=== PATIENT | female | born 1965 | race Caucasian/White ===

== ENCOUNTER 2023-02-13 13:37 | Outpatient (OUT) | payer BC, SELFPAY ==
--- NOTE | 2023-02-13 13:39 | MM_ITS ---
Patient: ROLAND CAMERON Exam Date: 02/13/2023 : 1965 Gender:F Ordering : DR Constantin Washington . Admission #: [id number] Family : Order #: [id number] CLICK HERE TO VIEW EXAM RADIOLOGY REPORT PROCEDURE: MM TOMOSYNTHESIS SCREENING BI COMPARISON: MG MAMM SCREEN ANNA W CAD, 01/21/2020. MG MAMM SCREEN 3D ANNA CAD, 02/10/2022. INDICATIONS: Screening mammogram Z12.31 Calculator Name NCI Breast Cancer Risk Assessment Tool 5 Year Breast Cancer Risk 1.80% Lifetime Breast Cancer Risk 10.00% Personal Breast Cancer No Personal Ovarian Cancer No Treatments None Family Cancers Father with lung cancer at age 73. LOCATION: [facility] BREAST COMPOSITION: Scattered areas fibroglandular density. FINDINGS: DIAGNOSTIC CATEGORY 2--BENIGN FINDING. NO CHANGE FROM COMPARISON. Scattered benign-appearing calcifications are present. Scattered benign-appearing lymph nodes are present. RIGHT BREAST: No significant suspicious finding. Focal asymmetry, upper outer quadrant, mid breast, stable LEFT BREAST: No significant suspicious finding. Stable micro clip marker upper outer quadrant, posterior breast RECOMMENDATIONS: ROUTINE MAMMOGRAM AND CLINICAL EVALUATION IN 12 MONTHS. PLEASE NOTE: A NORMAL MAMMOGRAM DOES NOT EXCLUDE THE POSSIBILITY OF BREAST CANCER. A CLINICALLY SUSPICIOUS PALPABLE LUMP SHOULD BE BIOPSIED. Dictated by: Satya Crawford MD on 02/14/2023 at 09:04 Approved by: Satya Crawford MD on 02/14/2023 at 09:06
== END 2023-02-13 13:38 | disposition home or self-care (01) ==
LOC: MAMMO 13:37
PROVIDERS: PCP Family Medicine; Visit Provider Family Medicine
DX: Z12.31 Encounter for screening mammogram for malignant neoplasm of breast (principal); Z80.1 Family history of malignant neoplasm of trachea, bronchus and lung
CPT/HCPCS: 77063; 77067

== ENCOUNTER 2023-03-01 14:17 | Emergency (ER) | payer BC, SELFPAY ==
[2023-03-01 14:24] VITALS: BP 165/99; PULSE 84; RESP 16; TEMP 36.7; O2SAT 94; BMI 39.4
--- NOTE | 2023-03-01 14:34 | ED_ITS ---
HPI - Skin/Abscess/Foreign Bdy General Chief complaint: Extremity Injury, Lower Stated complaint: RIGHT LEG PAIN Time Seen by Provider: 03/01/23 14:20 History of Present Illness HPI narrative: patient is a 57-year-old female who presents to the emergency department for the evaluation of a cystic area to the right anterior tibia that has been present for two years. She states she has an appointment next month with a plastic surgeon to have the area removed but in thee last several days it has become more swollen, red. She has had no fevers or vomiting. No medications taken prior to arrival. There has been no significant drainage. Patient's states he tried to open it last night with a needle. Related Data Previous Rx's Medication Instructions Recorded clindamycin HCl 150 mg capsule 300 mg PO Q6H 10 days #80 caps 03/01/23 hydrocodone 5 mg-acetaminophen 325 1 tab PO Q6H PRN pain #12 tabs 03/01/23 mg tablet ondansetron 4 mg disintegrating 4 mg PO Q6H PRN nausea and 03/01/23 tablet vomiting #12 tabs Allergies Allergy/AdvReac Type Severity Reaction Status Date / Time No Known Drug Allergies Allergy Verified 03/01/23 14:28 Review of Systems ROS Constitutional Denies: fever or chills Respiratory Denies: shortness of breath Gastrointestinal Denies: nausea or vomiting Integumentary/Breast Reports: skin tenderness and skin swelling; Denies: rash Hematologic/Lymphatic Denies: easy bruising Exam Narrative Exam Narrative: Gen.: Awake, alert, in no distress Head: Normocephalic, atraumatic ENT: Moist mucous membranes Respiratory: No respiratory distress Extremities: Moves extremities equally Psych: Normal mood and affect Neuro: No focal neuro deficit Skin: Warm, dry, intact; right anterior midshaft tibia with a 2 cm raised cystic area that is fluctuant, surrounding redness of the skin of the tibia. No red streaking or circumferential erythema. Constitutional Vital Signs, click to edit/add: Last Vital Signs Temp 98.0 F 03/01/23 14:24 Pulse 84 03/01/23 14:24 Resp 16 03/01/23 14:24 BP 165/99 H 03/01/23 14:24 Pulse Ox 94 L 03/01/23 14:24 O2 Del Method Room Air 03/01/23 14:24 Course Vital Signs Vital signs: Vital Signs Temperature 98.0 F 03/01/23 14:24 Pulse Rate 84 03/01/23 14:24 Respiratory Rate 16 03/01/23 14:24 Blood Pressure 165/99 H 03/01/23 14:24 Pulse Oximetry 94 L 03/01/23 14:24 Oxygen Delivery Method Room Air 03/01/23 14:24 Temperature 98.0 F 03/01/23 14:24 Pulse Rate 84 03/01/23 14:24 Respiratory Rate 16 03/01/23 14:24 Blood Pressure 165/99 H 03/01/23 14:24 Pulse Oximetry 94 L 03/01/23 14:24 Oxygen Delivery Method Room Air 03/01/23 14:24 MDM - Skin/Abscess/Foreign Bdy MDM Narrative Medical decision making narrative: the infected cyst was opened in the Emergency Room, clear serous fluid was expressed with improvement of the swollen area. She strongly encouraged follow- up with plastic surgery and counseled that the cystic area may fill up again. She is treated for secondary infection with clindamycin and [place] to follow-up with plastic surgery. Return to the Emergency Room if symptoms change or worsen. Wound culture was obtained. Incision and drainage: A single layer of iodine was used to prep the area. Drapes were placed to ensure isolation of the abscess and surrounding skin tissu e. A regional field block was performed with 1% lidocaine. Incision was made with an 11 blade to the full dimension of the abscess, serosanguineous fluid was drained. Cultures were obtained and sent to the lab. A dry sterile dressing was placed. Patient tolerated the procedure well and will be discharged with clindamycin and a short course of analgesic medications. Medical Records Attestation: I reviewed the patient's medical records. Discharge Plan Discharge Chief Complaint: Extremity Injury, Lower Clinical Impression: Infected cyst of skin Patient Disposition: Home, Self-Care Time of Disposition Decision: 14:51 Condition: Good Prescriptions / Home Meds: New hydrocodone-acetaminophen 5-325 mg tablet 1 tab PO Q6H PRN (Reason: pain) Qty: 12 0RF Rx Instructions: DX: L02.415 clindamycin HCl 150 mg capsule 300 mg PO Q6H 10 Days Qty: 80 0RF ondansetron 4 mg tablet,disintegrating 4 mg PO Q6H PRN (Reason: nausea and vomiting) Qty: 12 0RF Instructions: Cyst (ED) Additional Instructions: Follow up with Dr. Wolfe as scheduled Stand Alone Forms: Portal Instructions Referrals: Constantin Washington MD [Primary Care Provider] - 1 week
[2023-03-01] MEDS: LIDOCAINE HCL 1% 100 MG/10 ML MDV INJ (14:41)
[2023-03-01 15:05] VITALS: BP 132/88; PULSE 79; O2SAT 96
== END 2023-03-01 15:06 | disposition home or self-care (01) ==
PROVIDERS: Emergency Provider Emergency Medicine; PCP Family Medicine
DX: L72.9 Follicular cyst of the skin and subcutaneous tissue, unspecified (principal)
CPT/HCPCS: 10060; 87070; 99283

== ENCOUNTER 2024-03-27 14:07 | Outpatient (OUT) | payer BC, SELFPAY ==
--- NOTE | 2024-03-27 14:14 | MM_ITS ---
Patient Name: ROLAND CAMERON MR#: [id number] : 1965 Exam Date: 03/27/2024 Ordering Doctor: DR Constantin Washington . RADIOLOGY REPORT PROCEDURE: MM TOMOSYNTHESIS SCREENING BI COMPARISON: MM TOMOSYNTHESIS SCREENING BI, 02/13/2023. MG MAMM SCREEN 3D ANNA CAD, 02/10/2022. MG MAMM SCREEN ANNA W CAD, 01/21/2020. MG MAMM ANNA SCRN W CAD DIG, 01/01/2013. INDICATIONS: Screening Calculator Name NCI Breast Cancer Risk Assessment Tool 5 Year Breast Cancer Risk 1.80% Lifetime Breast Cancer Risk 9.80% Personal Breast Cancer No Personal Ovarian Cancer No Treatments None Family Cancers Father with lung cancer at age 73. LOCATION: [facility] BREAST COMPOSITION: There are scattered areas of fibroglandular density. FINDINGS: DIAGNOSTIC CATEGORY 1--NEGATIVE. RIGHT BREAST: No significant suspicious finding. No significant change has occurred. LEFT BREAST: No significant suspicious finding. No significant change has occurred. RECOMMENDATIONS: ROUTINE MAMMOGRAM AND CLINICAL EVALUATION IN 12 MONTHS. PLEASE NOTE: A NORMAL MAMMOGRAM DOES NOT EXCLUDE THE POSSIBILITY OF BREAST CANCER. A CLINICALLY SUSPICIOUS PALPABLE LUMP SHOULD BE BIOPSIED. Dictated by: Everett Gutierres M.D. on 03/31/2024 at 18:55 Approved by: Everett Gutierres M.D. on 03/31/2024 at 18:59
== END 2024-03-27 14:08 | disposition home or self-care (01) ==
LOC: MAMMO 14:07
PROVIDERS: PCP Family Medicine; Visit Provider Family Medicine
DX: Z12.31 Encounter for screening mammogram for malignant neoplasm of breast (principal); Z80.1 Family history of malignant neoplasm of trachea, bronchus and lung
CPT/HCPCS: 77063; 77067

== ENCOUNTER 2024-04-26 08:51 | Outpatient (OUT) | payer BC, SELFPAY ==
[2024-04-26 09:30] LABS: Estimated Average Glucose 214 mg/dL; Glycohemoglobin A1C 9.1 % (4.5-6.2)
== END 2024-04-26 08:52 | disposition home or self-care (01) ==
LOC: LAB 08:53
PROVIDERS: PCP Family Medicine; Visit Provider Family Medicine
DX: E11.65 Type 2 diabetes mellitus with hyperglycemia (principal)
CPT/HCPCS: 36415; 83036

== ENCOUNTER 2024-05-21 09:01 | Outpatient (OUT) | payer BC, SELFPAY ==
--- NOTE | 2024-05-21 09:04 | ECG_ITS ---
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
--- NOTE | 2024-05-21 09:44 | P.GSHP_ITS ---
History of Present Illness History of Present Illness Chief complaint: Ureteral stone with hydronephrosis Narrative: Presents to preadmission testing for scheduled cystoscopy right ureteroscopy, laser lithotripsy right stent exchange with a string stent scheduled with Dr. Rosemary Jamil on 06/12/2024 for the diagnosis of ureteral Stone with hydronephrosis and right-sided flank pain Review of Systems ROS Narrative REVIEW OF SYSTEMS: Negative except as stated in HPI, ten or more systems reviewed. Constitutional: No fever, chills, weakness ENT: No sore throat or epistaxis Cardiovascular: No edema, chest pain, palpitations, or activity intolerance Respiratory: No shortness of breath, cough, or wheezing Musculoskeletal: No joint pain or swelling Gastrointestinal: No abdominal pain, constipation, diarrhea, or vomiting Genitourinary: No dysuria or hematuria complains of right-sided flank pain intermittently Neurological: No numbness, tingling, weakness, or headache Psychiatric: No mood changes PFSH PFSH Medical History (Updated 05/21/24 @ 09:41 by Lucretia Rodriguez) Infected cyst of skin ?L72.9 - Follicular cyst of the skin and subcutaneous tissue, unspecified (ICD-10) ?L08.9 - Local infection of the skin and subcutaneous tissue, unspecified (ICD-10) Panic attacks ?F41.0 - Panic disorder [episodic paroxysmal anxiety] (ICD-10) Seasonal allergies ?J30.2 - Other seasonal allergic rhinitis (ICD-10) Urinary urgency ?R39.15 - Urgency of urination (ICD-10) Urge incontinence ?N39.41 - Urge incontinence (ICD-10) Unspecified urethral stricture, female ?N35.92 - Unspecified urethral stricture, female (ICD-10) Soft tissue mass ?M79.89 - Other specified soft tissue disorders (ICD-10) Overactive bladder ?N32.81 - Overactive bladder (ICD-10) Sleep apnea ?G47.30 - Sleep apnea, unspecified (ICD-10) Osteoporosis ?M81.0 - Age-related osteoporosis without current pathological fracture (ICD- 10) Nephrolithiasis ?N20.0 - Calculus of kidney (ICD-10) Hypertension ?I10 - Essential (primary) hypertension (ICD-10) Feeling of incomplete bladder emptying ?R39.14 - Feeling of incomplete bladder emptying (ICD-10) Dysuria ?R30.0 - Dysuria (ICD-10) Diabetes ?E11.9 - Type 2 diabetes mellitus without complications (ICD-10) Depression ?F32.A - Depression, unspecified (ICD-10) Chronic cystitis ?N30.20 - Other chronic cystitis without hematuria (ICD-10) Adult BMI 36.0-36.9 kg/sq m ?Z68.36 - Body mass index [BMI] 36.0-36.9, adult (ICD-10) Atrophic vaginitis ?N95.2 - Postmenopausal atrophic vaginitis (ICD-10) Asymptomatic microscopic hematuria ?R31.21 - Asymptomatic microscopic hematuria (ICD-10) Anxiety ?F41.9 - Anxiety disorder, unspecified (ICD-10) Surgical History History of tubal ligation ?Z98.51 - Tubal ligation status (ICD-10) H/O repair of rotator cuff ?Z98.890 - Other specified postprocedural states (ICD-10) Hx of colonoscopy ?Z98.890 - Other specified postprocedural states (ICD-10) History of cholecystectomy ?Z90.49 - Acquired absence of other specified parts of digestive tract (ICD- 10) Status post cystourethroscopy with dilation of urethral stricture ?Z98.890 - Other specified postprocedural states (ICD-10) Family History (Updated 05/21/24 @ 09:25 by Lucretia Rodriguez) Other Family history of DVT Family history of diabetes mellitus Family history of emphysema Family history of lung cancer Family history of pulmonary embolism Family history of renal failure Social History (Updated 05/21/24 @ 09:22 by Lucretia Rodriguez) Within the past year, how often did you have a drink containing alcohol: never Score interpretation: A score less than 3 is consistent with normal alcohol consumption. 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 Highest level of school completed/degree received: high school graduate Meds Home Medications and Allergies Home Medications ?Medication ?Instructions ?Recorded ?Confirmed ?Type atorvastatin 40 mg tablet 40 mg PO .PM 05/21/24 05/21/24 History baby asprin 05/21/24 History buspirone 7.5 mg tablet 7.5 mg PO BID 05/21/24 05/21/24 History calcium 600 mg capsule mg PO 05/21/24 History celecoxib 200 mg capsule 200 mg PO Q12H 05/21/24 05/21/24 History cetirizine 10 mg tablet (24Hour 10 mg PO DAILY PRN allergy symptoms 05/21/24 05/21/24 History Allergy) cholecalciferol (vitamin D3) 25 25 mcg PO DAILY 05/21/24 05/21/24 History mcg (1,000 unit) tablet ibandronate 150 mg tablet 150 mg PO .monthly 05/21/24 05/21/24 History lamotrigine 100 mg tablet 100 mg PO .pm 05/21/24 05/21/24 History metformin 500 mg tablet,extended 500 mg PO BID 05/21/24 05/21/24 History release 24 hr multivitamin (Daily Multi-Vitamin 1 tab PO DAILY 05/21/24 05/21/24 History tablet) omeprazole 40 mg capsule,delayed 40 mg PO DAILY 05/21/24 05/21/24 History release pioglitazone 30 mg tablet 30 mg PO DAILY 05/21/24 05/21/24 History semaglutide 3 mg tablet (Rybelsus) 3 mg PO DAILY 05/21/24 05/21/24 History valsartan 40 mg tablet 40 mg PO DAILY 05/21/24 05/21/24 History venlafaxine 225 mg tablet,extended 225 mg PO DAILY 05/21/24 05/21/24 History release 24 hr Allergies Allergy/AdvReac Type Severity Reaction Status Date / Time No Known Drug Allergies Allergy Verified 05/21/24 09:12 Exam Narrative Exam Narrative: Constitutional: Awake, alert, comfortable, well-appearing, nontoxic, interactive, vital signs as charted Head: Normocephalic, atraumatic Eyes: Conjunctiva and lids normal to inspection, pupils normal ENT: Tympanic membranes pearly castillo, nonerythematous, noninjected, naris patent, posterior oropharynx clear, oral mucosa moist Neck: Supple, normal appearance, normal range of motion, no meningeal signs, no lymphadenopathy Respiratory: No respiratory distress, breath sounds clear Cardiovascular: Regular rate and rhythm, strong and regular heart tones Abdomen: Nontender, normal bowel sounds, soft, mild right sided CVA tenderness Musculoskeletal: Normal gait, no swelling or edema Skin: No rashes or induration, no lesions, only visible skin inspected Neuro: No neurological deficits, normal sensation Psychiatric: Oriented ?3, normal affect Assessment and Plan Assessment and Plan (1) Ureteral stone with hydronephrosis: Plan Plan is to move forward with cystoscopy right ureteroscopy, laser lithotripsy, right stent exchange with a string stent scheduled with Dr. Rosemary JAMIL on 06/12/2024
[2024-05-21 09:58] LABS: Basophils Percent Auto 0.4 % (0.2-2.0); Eosinophils Absolute Auto 0.4 10^3/uL (0.0-0.7); Eosinophils Percent Auto 3.9 % (0.9-7.0); Hematocrit 40.4 % (36.0-48.0); Hemoglobin 13.1 g/dL (12.0-16.0); Immature Granulocytes Abs Auto 0.06 10^3/uL (0.00-0.03); Immature Granulocytes Pct Auto 0.7 % (0.0-0.5); Lymphocytes Percent Auto 21.6 % (20.5-60.0); Mean Corpuscular HGB Conc 32.4 g/dL (29.9-35.2); Mean Corpuscular Volume 89.6 fL (81.0-99.0); Mean Platelet Volume 10.6 fL (9.5-13.5); Monocytes Absolute Auto 0.5 10^3/uL (0.3-0.8); Monocytes Percent Auto 5.2 % (1.7-12.0); Neutrophils Absolute Auto 6.3 10^3/uL (1.4-6.5); Neutrophils Percent Auto 68.2 % (43.0-75.0); Platelet Count 287 10^3/uL (150-450); Red Blood Count 4.51 10^6/uL (4.20-5.40); Red Cell Distribution Width 12.8 % (11.0-15.0); White Blood Count 9.2 10^3/uL (4.0-11.0)
[2024-05-21 10:08] LABS: INR 1.01; Partial Thromboplastin Time 27.3 sec (22.3-36.2); Prothrombin Time 10.7 sec (9.0-11.6)
[2024-05-21 11:19] LABS: Anion Gap 15.2; BUN Creatinine Ratio 20.6; Carbon Dioxide 25.9 mmol/L (21.0-32.0); Chloride 104 mmol/L (98-107); Estimated GFR (African America >60 (>=60 mL/min/1.73m^2); Estimated GFR (Non-African Ame 59 (>=60 mL/min/1.73m^2); Glucose 288 mg/dL (74-106); Potassium 4.1 mmol/L (3.5-5.1); Sodium 141 mmol/L (136-145)
[2024-05-21 12:20] LABS: Bilirubin Urine NEGATIVE (NEGATIVE); Blood Urine LARGE (NEGATIVE); Clarity Urine CLEAR (CLEAR); Color Urine YELLOW (YELLOW); Glucose Urine UA 500 mg/dL (NEGATIVE); Ketones Urine NEGATIVE (NEGATIVE); Leukocyte Esterase Urine SMALL (NEGATIVE); Nitrite Urine NEGATIVE (NEGATIVE); Protein Urine 100 mg/dL (NEG/TRACE); Specific Gravity Urine >=1.030 (1.005-1.025); Urobilinogen Urine 0.2 EU/dL (0.2-1.0); pH Urine 5.5 (5.0-9.0)
[2024-05-21 12:33] LABS: Urine Microscopic Indicated YES
[2024-05-21 12:34] LABS: Bacteria Urine SMALL #/HPF (NONE SEEN); Mucus Urine NONE SEEN (NONE SEEN); RBC Urine 20-50 #/HPF (0-2)
[2024-05-21 12:35] LABS: Calcium Oxalate Crystals Urine RARE; Cast Seen? NONE SEEN #/LPF (NONE SEEN); Crystals Seen? Seen #/HPF (None Seen); Squamous Epithelial Cell Urine RARE #/LPF (NONE/RARE); Urine Culture Indicated YES
== END 2024-05-21 09:02 | disposition home or self-care (01) ==
LOC: PST 09:02
PROVIDERS: PCP Family Medicine; Visit Provider Urology
DX: Z01.810 Encounter for preprocedural cardiovascular examination (principal); Z01.812 Encounter for preprocedural laboratory examination; Z01.818 Encounter for other preprocedural examination; N20.1 Calculus of ureter
CPT/HCPCS: 80048; 81001; 85025; 85610; 85730; 87086; 93005; G0463

== ENCOUNTER 2024-06-12 11:52 | Day surgery (SDC) | payer BC, SELFPAY ==
[2024-05-21 09:22] VITALS: BP 129/82; PULSE 94; TEMP 36.3; O2SAT 95; BMI 37.6
[2024-06-12] VITALS (11 sets, daily range): BP systolic 106–142; BP diastolic 69–89; PULSE 72–88; TEMP 36.2–36.4; O2SAT 91–97; BMI 37.2
--- NOTE | 2024-06-12 | XR_ITS ---
[address] [address] Patient Name: ROLAND CAMERON MRN: [facility]:[id number] date: 1965 Sex: F Assigned Patient Location: [facility] Current Patient Location: [facility] Accession/Order Number: [id number] Exam Date: 06/12/2024 13:35 Report Date: 06/12/2024 14:55 At the request of: KARMA PHELPS Procedure: XR urethrogram retrograde EXAM: XR urethrogram retrograde HISTORY: Kidney stone COMPARISON: None. TECHNIQUE: 15.25 mg. Single image FINDINGS: Single image demonstrates iodinated contrast in the right renal collecting system. Right normally positioned double-J ureteral stent XR/XR urethrogram retrograde IMPRESSION: Right ureteral stent Electronically authenticated by: USAMA GOMES Date: 06/12/2024 14:55
[2024-06-12] MEDS: CEFAZOLIN SODIUM 2 GM/50 ML D5W PREMIX IV (13:32)
[2024-06-12] MEDS: LACTATED RINGER'S SOLUTION 1,000 ML 50 ML IV ×2 (13:32→14:53)
[2024-06-12] MEDS: IOHEXOL 240 MG/ML - 50 ML VIAL INJ (14:29)
--- NOTE | 2024-06-12 14:41 | P.URON_ITS ---
Urology Surgery Operative Note Operative Note Procedure Date: 06/12/24 Time Out Performed: yes Pre-op Diagnosis: Right ureteral stone, indwelling right ureteral stent Post-op Diagnosis: same as pre-op Procedures performed: Cystoscopy, right retrograde pyelogram, ureteroscopy laser lithotripsy/stone extraction, stent exchange Anesthesia: General-ET (Dr. Way) Primary Surgeon: Rosemary Jamil Complications: none Estimated blood loss (mL): 0 Findings: R RPG- filling defect at UPJ, no hydronephrosis, extravasation or other filling defects Yellow crystal 9 mm stone now in renal pelvis after wire placement, underwent uncomplicated laser lithotripsy and stone extraction. Few remaining fragments < 1-2 mm, dusted Specimens: right ureteral stone Drains: 6Fr x 24 cm JJ right ureteral stent on string Incision: none Indications for Procedures: 58 year old female recently diagnosed with 9 mm right UPJ stone and UTI s/p cystoscopy, right ureteral stent placement on 05/04/24 presents today for definitive stone treatment. After discussion of risks/benefits of management options, the patient elected to proceed with cystoscopy, right retrograde pyelogram, ureteroscopy with laser lithotripsy/stone extraction, ureteral stent exchange under general anesthesia. Risks were discussed including but not limited to bleeding, pain, infection, damage to surrounding structures, stricture, inability to treat the stone/place a stent, and need for additional procedures. The patient understands the stent is not permanent and needs to be removed or exchanged within 3 months to prevent encrustation, infection, invasive procedures and/or permanent renal damage. Detailed description of Procedure: After informed consent was obtained, the patient was brought to the operating room and transferred onto the operating table in supine position. Sequential compression devices were placed on bilateral lower extremities. The patient received the appropriate dose of preoperative IV antibiotics and general anesthesia was induced. They were positioned in modified dorsolithotomy with the appropriate pressure points padded, prepped, and draped in the usual sterile fashion for this procedure. An operative safety timeout was performed confirming the patient's identity, laterality and procedure, and all present agreed to proceed. I began by inserting a 22 Montserratian rigid cystoscope with 30 degree lens into the patient's urethra and bladder without difficulty. There were no bladder tumors, lesions, or stones. Bilateral ureteral orifices were orthotopic and patent. I turned my attention to the right ureteral orifice and brought the indwelling stent to the meatus using flexible graspers through the cystoscope. The stent was removed without difficulty. A 6- Montserratian open-ended catheter was inserted over the wire into the distal ureter, wire removed, and dilute contrast was injected for retrograde pyelogram with findings as above. The guidewire was replaced and inserted into the ureter up to the renal pelvis confirmed on fluoroscopy. A 10/12 Montserratian by 35 cm ureteral access sheath was inserted over the wire in a sequential fashion to gain access to the stone. Next a flexible ureteroscope was inserted through the sheath and advanced to the renal pelvis under fluoroscopic guidance until the stone was reached. The stone was now found in the renal pelvis. A 270 ?m thulium laser fiber was used to break the stone into fragments which were then removed with a 1.8 tipless nitinol basket. The remaining fragments unable to be basket extracted were dusted into tiny fragments. After the stone was adequately treated, a full renoscopy was performed confirming no significant residual stones or fragments remained. Contrast was injected to assist with mapping for the renoscopy. The wire was reinserted and a pull down ureteroscopy was performed confirming no stones remained in the urete r. Contrast was injected for retrograde pyelogram confirming no extravasation of contrast, filling defects or hydronephrosis. A 6 Fr x 24 cm JJ ureteral stent on a string was advanced over the wire, noting adequate curl in the renal pelvis and bladder on fluoroscopic visualization. The bladder was drained and cystoscope removed. The stones were sent for pathology. String was secured to the left thigh with Tegaderm. The patient tolerated the procedure well without complication. The patient was awakened from anesthesia and sent to PACU in stable condition. Plan: Discharge home. Remove stent by the string at home in 5 days, prophylactic antibiotics sent. Obtain renal US in 6 weeks, call with results. If normal, follow up prn per discussion with /pt. Other Provider present: No Post Operative care instructions: See discharge instructions Attending Doc Confirm Attending Attestation: Yes
[2024-06-17 16:11] LABS: Calcium Oxalate Dihydrate 100 % (.); Size 4x3 mm (.)
== END 2024-06-12 15:35 | disposition home or self-care (01) ==
PROVIDERS: PCP Family Medicine; Visit Provider Urology
PROC: (CPT 918; principal; 2024-06-12 13:00)
DX: N13.2 Hydronephrosis with renal and ureteral calculous obstruction (principal); E11.9 Type 2 diabetes mellitus without complications; I10 Essential (primary) hypertension; Z87.440 Personal history of urinary (tract) infections; Z90.49 Acquired absence of other specified parts of digestive tract; Z98.51 Tubal ligation status; Z79.84 Long term (current) use of oral hypoglycemic drugs; G47.33 Obstructive sleep apnea (adult) (pediatric); K21.9 Gastro-esophageal reflux disease without esophagitis
CPT/HCPCS: 00918; 52356; 36415; 74420; 82365; 99999; J0690; J1100; J1885; J2250; J2405; J2704; J3010; Q9966

== ENCOUNTER 2024-09-10 10:54 | Outpatient (OUT) | payer OTHER, SELFPAY ==
--- NOTE | 2024-09-10 10:58 | US_ITS ---
[address] [address] Patient Name: ROLAND CAMERON MRN: [id number] date: 1965 Sex: F Assigned Patient Location: [place] Current Patient Location: [place] Accession/Order Number: [id number] Exam Date: 09/10/2024 12:12 Report Date: 09/10/2024 12:14 At the request of: KARMA PHELPS MD Procedure: US renal BI BILATERAL RENAL AND BLADDER ULTRASOUND CLINICAL HISTORY: Ureteral Stone With Hydronephrosis COMPARISON: None FINDINGS: Estimation of renal size is approximately 12.2 cm on the right and 11.1 cm on the left. Right nephrolithiasis largest measuring 6 mm. Mild hydronephrosis. Left kidney appears unremarkable. Hydronephrosis. The urinary bladder is partially distended with a volume of 480 mL. ml. No shadowing stone or focal lesion. US/US renal BI IMPRESSION: RIGHT NEPHROLITHIASIS WITH MILD HYDRONEPHROSIS. Impression dictated by: Julio Hemphill Jr., DEyadOEyad09/10/2024 12:14 PM Dictation Location: [place] [address] Electronically authenticated by: [id number] Y Date: 09/10/2024 12:14
--- OUTSIDE RECORDS SUMMARY | 2024-09-10 11:11 | XMS_ITS | CCD ---
Author Organization [facility]iniSyn[facility] Care Team Providers Care Manager Culture Name Role Phone CONSTANTIN MELENDEZ Primary Care Physician AL, DR CONSTANTIN Gonzalez Admitting Unavailable NADERER, DR CONSTANTIN Gonzalez Attending Unavailable NADERER, DR CONSTANTIN Gonzalez Primary Care Unavailable NADERER, DR CONSTANTIN Gonzalez Consulting Unavailable NADERER, DR CONSTANTIN Gonzalez Admitting Unavailable NADERER, DR CONSTANTIN Gonzalez Attending Unavailable NADERER, DR CONSTANTIN Gonzalez Primary Care Unavailable ZIEBER, DR KARLIE Peoples Consulting Unavailable NADERER, DR CONSTANTIN Gonzalez Consulting Unavailable NADERER, DR CONSTANTIN Gonzalez Admitting Unavailable NADERER, DR CONSTANTIN Gonzalez Attending Unavailable NADERER, DR CONSTANTIN Gonzalez Primary Care Unavailable NADERER, DR CONSTANTIN Gonzalez Consulting Unavailable NADERER, DR CONSTANTIN Gonzalez Primary Care Unavailable LUE ., ROSEMARY Chowdhury Admitting Unavailable LUE ., ROSEMARY Chowdhury Attending Unavailable LUE ., ROSEMARY Chowdhury Consulting Unavailable JOSSIE ASHBY Consulting Unavailable NADERER, DR CONSTANTIN Gonzalez Admitting Unavailable NADERER, DR CONSTANTIN Gonzalez Attending Unavailable NADERER, DR CONSTANTIN Gonzalez Primary Care Unavailable ZIEBER, DR KARLIE Peoples Consulting Unavailable NADERER, DR CONSTANTIN Gonzalez Consulting Unavailable NADERER, DR CONSTANTIN Gonzalez Primary Care Unavailable KATBELINDA ELLIS Admitting Unavailable KATKO, BELINDA Raza Attending Unavailable ZIEBER, DR KARLIE Peoples Consulting Unavailable KATBELINDA ELLIS Consulting Unavailable NADERER, DR CONSTANTIN Gonzalez Admitting Unavailable NADERER, DR CONSTANTIN Gonzalez Attending Unavailable NADERER, DR CONSTANTIN Gonzalez Primary Care Unavailable NADERER, DR CONSTANTIN Gonzalez Consulting Unavailable NADERER, DR CONSTANTIN Gonzalez Admitting Unavailable NADERER, DR CONSTANTIN Gonzalez Attending Unavailable NADERER, DR CONSTANTIN Gonzalez Primary Care Unavailable NADERER, DR CONSTANTIN Gonzalez Consulting Unavailable NADERERichelle, CONSTANTIN Referring Unavailable NADERERichelle, CONSTANTIN Primary Care Unavailable Constantin Melendez MD Primary Care Provider Constantin Melendez MD Unavailable KARI Charlton Admitting Unavailable KARI Charlton Attending Unavailable NADERER, CONSTANTIN Gonzalez Primary Care Unavailable NADERER, CONSTANTIN Gonzalez Primary Care Unavailable NADERER, CONSTANTIN Gonzalez Admitting Unavailable NADERERichelle, CONSTANTIN Gonzalez Attending Unavailable Stalter, Will Admitting Unavailable Stalter, Will Attending Unavailable NADERER, CONSTANTIN A Primary Care Unavailable NADERER, CONSTANTIN A Primary Care Unavailable Micah Carney Admitting Unavaila ble Micah Carney Attending Unavaila ble JOSE ALEJANDRO VANN Attending Unavailab le Lue Rosemary M. Admitting Unavailable Lue, Rosemary M. Attending Unavailable Lue, Rosemary M. Referring Unavailable JOSE ALEJANDRO VANN Admitting Unavailab le JOSE ALEJANDRO VANN Attending Unavailab goldy Chan Sarita X Admitting Unavailable Orzech Sarita X Attending Unavailable Lue, Rosemary M. Admitting Unavailable Lue, Rosemary M. Attending Unavailable Lue, Rosemary M. Attending Unavailable Lue, Rosemary M. Referring Unavailable Lue, Rosemary M. Attending Unavailable Lue, Rosemary M. Referring Unavailable Lue, Rosemary M. Attending Unavailable Lue, Rosemary M. Attending Unavailable BARBIEJOSE ALEJANDRO MARKHAM Attending Unavailab le BARBIEJOSE ALEJANDRO E Referring Unavailab le Lue, Rosemary M. Attending Unavailable Lue, Rosemary M. Attending Unavailable Lue, Rosemary M Admitting Unavailable Lue, Rosemary M Attending Unavailable Constantin Melendez Primary Care Unavailable Al, Constantin Primary Care Unavailable Marisela Vahid Admitting Unavailricha e Tony Antonioer Attending UnavailPhoenix Enciso Consulting Unavailable Suresh Lopez Consulting Unavailable Shelliee, Rosmeary M Consulting Unavailable Ian Thompson Consulting Unavailable Phoenix Dooley Consulting Unavailable Malick Vega Consulting Unavailable Nkpennie-Mike Dsouzaabena Consulting Unavail able Gertrude Alarcon Consulting Unavailable Orzech, Sarita Consulting Unavailable ALCONSTANTIN Attending Unavailable NADERICA, CONSTANTIN Attending Unavailable NADCONSTANTIN MALDONADO Attending Unavailable NADERICA, CONSTATNIN Attending Unavailable FAVIOLA, ASAEL Gonzalez Attending Unavailable ASAEL SALMERON Referring Unavailable ASAEL SALMERON Attending Unavailable ASAEL SALMERON Referring Unavailable FAVIOLA, ASAEL A Attending Unavailable BROWN, ASAEL A Attending Unavailable BROWN, ASAEL A Attending Unavailable BROWN, ASAEL A Attending Unavailable BROWN, ASAEL A Attending Unavailable Allergies Allergy Classification Reported Allergen(s) Allergy Type Date of Onset Reaction(s) Facility (2 sources) No Known Medication Allergies; Translations: [No Known Medication Allergies] Propensity to adverse reactions to drug (disorder) [facility] Repository Medications Current Medications Medication Drug Class(es) Dates Sig (Normalized) Sig (Original) acetaminophen 325 mg / HYDROcodone bitartrate 5 mg oral tablet (5 sources) Opioid Agonist Start: 04-26-2024 End: 05-01-2024 take 1 tablet by mouth every eight hours as needed for pain HYDROcodone-aceta minophen ([place]) 5-325 MG tablet Indications: Pain Take 1 tablet by mouth every 8 (eight) hours if needed for moderate pain (PRN pain) for up to 5 days 15 tablet 04/26/2024 05/01/2024 Active Start: 05-24-2022 End: 05-27-2022 [place] 325 mg-5 mg oral table t 1 tab(s), Oral, q6hr as needed for pain, 10 tab(s), Refill(s) 0, [id number], 163, cm, 05/19/22 15:43:00 EST, Height/Length Dosing, 103.4, kg, 05/19/22 15:43:00 EST, Weight Dosing Start Date: 05/24/22 Stop Date: 05/27/22 Status: Ordered Start: 04-16-2019 take 1 tablet by cori th every six hours [place] 5/325 Tab tab(s), Oral, q6hr, Refill(s) 0 Start Date: 04/16/19 Status: Ordered aspirin 81 mg delayed release oral tablet (20 sources) Platelet Aggregation Inhibitor, Nonsteroidal Anti-inflammatory Drug Start: 01-01-2024 End: 12-31-2024 take 1 tablet by mouth once daily aspirin 81 MG EC tablet Indications: Type 2 diabetes mellitus with hyperglycemia, without long-term current use of insulin (CMS/HCC) Take 1 tablet (81 mg) by mouth 1 (one) time each day at the same time 90 tablet 3 01/01/2024 12/31/2024 Active Start: 04-15-2019 take 81 mg by mouth once daily aspirin 81 mg, Oral, Daily, Refills(s) 0, Prophylaxis Start Date: 04/15/19 Status: Ordered Start: 04-15-2019 aspirin Refill s(s) 0 Start Date: 04/15/19 Status: Ordered atorvastatin 40 mg oral tablet (20 sources) HMG-CoA Reductase Inhibitor Start: 04-15-2019 End: 01-25-2025 take 1 tablet by mouth at bedtime atorvastatin (Lipitor) 40 MG tablet Indications: Dyslipidemia (CMS/HCC) Take 1 tablet (40 mg) by mouth at bedtime 90 tablet 3 01/26/2024 01/25/2025 Active Start: 04-15-2019 atorvastatin 1 0 mg, Refills(s) 0 Start Date: 04/15/19 Status: Ordered Start: 04-15-2019 atorvastatin R efills(s) 0 Start Date: 04/15/19 Status: Ordered busPIRone hydrochloride 7.5 mg oral tablet (20 sources) Start: 01-04-2024 End: 01-03-2025 take 1 tablet by mouth in the morning busPIRone (Buspar) 7.5 MG tablet Indications: Generalized anxiety disorder ([facility]/HCC) Take 1 tablet (7.5 mg) by mouth in the morning and 1 tablet (7.5 mg) before bedtime. 180 tablet 3 01/04/2024 01/03/2025 Active calcium carbonate 1500 mg oral tablet (11 sources) Start: 05-19-2022 take 1 tablet by mouth once daily calcium (as carbonate) 600 mg oral tablet 600 mg = 1 tab(s), Oral, Daily, Prophylaxis Start Date: 05/19/22 Status: Ordered celecoxib 200 mg oral capsule (20 sources) Nonsteroidal Anti-inflammatory Drug Start: 02-06-2024 End: 02-07-2025 take 1 capsule by mouth in the morning celecoxib (CeleBREX) 200 MG capsule Indications: Polyosteoarthritis , unspecified Take 1 capsule (200 mg) by mouth in the morning and 1 capsule (200 mg) before bedtime. 180 capsule 3 02/08/2024 02/07/2025 Active Start: 01-01-2024 End: 02-02-2024 take 1 capsule by mouth in the morning celecoxib (CeleBREX) 200 MG capsule Indications: Polyosteoarthritis, unspecified Take 1 capsule (200 mg) by mouth in the morning and 1 capsule (200 mg) before bedtime. 180 capsule 3 01/01/2024 02/02/2024 Discontinued (Reorder) Start: 03-18-2021 take 2 capsules by m outh twice daily celecoxib 200 mg Cap 400 mg = 2 cap(s), Oral, BID, Refills(s) 0, Arthritis Start Date: 03/18/21 Status: Ordered Start: 03-18-2021 take 1 mg by mouth o nce daily celecoxib 200 mg Cap mg cap(s), Oral, Daily, Refills(s) 0 Start Date: 03/18/21 Status: Ordered cetirizine hydrochloride 10 mg oral tablet (11 sources) Histamine-1 Receptor Antagonist Start: 05-19-2022 take 10 mg by mouth once daily Zyrtec 10 mg, Oral, Daily, Allergy symptoms Start Date: 05/19/22 Status: Ordered cholecalciferol 0.025 mg oral tablet (20 sources) Vitamin D Start: 01-01-2024 End: 03-08-2025 take 1 tablet by mouth once daily cholecalciferol (D3-1000) 25 MCG (1000 UT) tablet Indications: Type 2 diabetes mellitus with hyperglycemia, without long-term current use of insulin ([facility]) Take 1 tablet (25 mcg) by mouth Daily 90 tablet 3 03/08/2024 03/08/2025 Active estradiol 0.1 mg/ml vaginal cream (1 source) Estrogen Start: 07-24-2023 Estrace 0.1 mg/g Cream See Instructions, 42.5 gm, Refill(s) 2, Apply pea sized amount to external urethra/vaginal area 3x a week for 1 month, then 2x a week afterwards, [facility] [place]pharmacy #[id number], 163, cm, 07/24/23 10:16:00 EST, Height/Length Dosing, 97, kg, 07/24/23 10:16:00 EST, Weight Dosing Start Date: 07/24/23 Status: Ordered glipiZIDE 10 mg oral tablet (14 sources) Sulfonylurea Start: 08-19-2024 take 1 tablet by mouth once daily glipiZIDE (Glucotrol) 10 MG tablet Indications: Type 2 diabetes mellitus with hyperglycemia, without long-term current use of insulin (CMS/HCC) Take 1 tablet (10 mg) by mouth Daily 30 tablet 5 08/19/2024 Active Start: 08-19-2024 take 1 tablet by cori th once daily glipiZIDE (Glucotrol) 10 MG tablet Indications: Type 2 diabetes mellitus with hyperglycemia, without long-term current use of insulin (CMS/HCC) Take 1 tablet (10 mg) by mouth Daily 30 tablet 5 08/19/2024 Active Start: 03-18-2021 take 1 tablet by cori th once daily glipiZIDE 10 mg ER Tab 10 mg = 1 tab(s), Oral, Daily, Refills(s) 0, High blood sugar Start Date: 03/18/21 Status: Ordered ibandronic acid 150 mg oral tablet (20 sources) Bisphosphonate Start: 04-03-2024 take 1 tablet by mouth every 30 days in the morning ibandronate (Boniva) 150 MG tablet Indications: Age-related osteoporosis without current pathological fracture (CMS/HCC) , Senile osteoporosis (CMS/HCC) Take 1 tablet (150 mg) by mouth every 30 (thirty) days Take in morning with full glass of water on an empty stomach. No food, drink, meds, or lying down for 60 minutes after. 3 tablet 3 04/03/2024 Active Start: 05-19-2022 take 1 tablet by ocri th every month ibandronate 150 mg oral tablet 150 mg = 1 tab(s), Oral, qMonth, Osteoporosis Start Date: 05/19/22 Status: Ordered lamoTRIgine 100 mg oral tablet (20 sources) Mood Stabilizer, Anti-epileptic Agent Start: 01-04-2024 End: 01-03-2025 take 1 tablet by mouth at bedtime lamoTRIgine (LaMICtal) 100 MG tablet Indications: Major depressive disorder, recurrent episode, moderate degree (CMS/HCC) Take 1 tablet (100 mg) by mouth at bedtime 90 tablet 3 01/04/2024 01/03/2025 Active LORazepam 1 mg oral tablet (20 sources) Benzodiazepine Start: 06-30-2023 End: 08-19-2024 take 1 tablet by mouth three times daily as needed for anxiety LORazepam (Ativan) 1 MG tablet Indications: Generalized anxiety disorder (CMS/HCC) Take 1 tablet (1 mg) by mouth 3 (three) times a day as needed for anxiety 270 tablet 06/30/2023 08/19/2024 Discontinued Start: 04-15-2019 take 1 mg by mouth o nce daily as needed for anxiety Ativan 1 mg, Oral, Daily, PRN as needed for anxiety, Refills(s) 0 Start Date: 04/15/19 Status: Ordered Start: 04-15-2019 Ativan 1 mg, R efills(s) 0 Start Date: 04/15/19 Status: Ordered Start: 04-15-2019 Ativan Refills (s) 0 Start Date: 04/15/19 Status: Ordered losartan potassium 25 mg oral tablet (2 sources) Angiotensin 2 Receptor Roman Start: 07-09-2019 take 25 mg by mouth once daily losartan 25 mg, Oral, Daily, Refills(s) 0 Start Date: 07/09/19 Status: Ordered Start: 07-09-2019 losartan Oral, Daily, Refills(s) 0 Start Date: 07/09/19 Status: Ordered 24 hr metFORMIN hydrochloride 500 mg extended release oral tablet (20 sources) Biguanide Start: 01-15-2024 End: 02-20-2025 take 1 tablet by mouth every twenty-four hours in the morning metFORMIN XR (Glucophage-XR) 500 MG 24 hr tablet Indications: Type 2 diabetes mellitus with hyperglycemia, without long-term current use of insulin (CMS/HCC) Take 1 tablet (500 mg) by mouth in the morning and at noon Do not crush, chew, or split. 180 tablet 3 04/26/2024 Active Start: 04-15-2019 take 500 mg by mouth once danna y metformin 500 mg, Oral, Daily, Refills(s) 0, High blood sugar Start Date: 04/15/19 Status: Ordered Start: 04-15-2019 metformin 500 mg, Daily, Refills(s) 0 Start Date: 04/15/19 Status: Ordered Start: 04-15-2019 metformin Refi lls(s) 0 Start Date: 04/15/19 Status: Ordered multivitamin with minerals (11 sources) Start: 05-19-2022 take 1 capsule by mouth once daily multivitamin with minerals 1 cap, Oral, Daily, Prophylaxis Start Date: 05/19/22 Status: Ordered nitrofurantoin, macrocrystals 25 mg / nitrofurantoin, monohydrate 75 mg oral capsule (1 source) Nitrofuran Antibacterial Start: 07-24-2023 End: 07-27-2023 take 1 capsule by mouth every twelve hours Macrobid 100 mg Cap 100 mg = 1 cap(s), Oral, q12hr, X 3 day(s), # 6 cap(s), Refills(s) 0, Pharmacy: [facility] [place]/pharmacy #[id number], 163, cm, 07/24/23 10:16:00 EST, Height/Length Dosing, 97, kg, 07/24/23 10:16:00 EST, Weight Dosing Start Date: 07/24/23 Stop Date: 07/27/23 Status: Ordered omeprazole 40 mg delayed release oral capsule (20 sources) Proton Pump Inhibitor Start: 02-06-2024 End: 02-07-2025 take 1 capsule by mouth once daily omeprazole (PriLOSEC) [address] capsule Indications: Gastro-esophageal reflux disease without esophagitis , Esophageal reflux Take 1 capsule (40 mg) by mouth Daily 90 capsule 3 02/08/2024 02/07/2025 Active Start: 01-22-2024 End: 02-02-2024 take 1 capsule by mouth once daily omeprazole (PriLOSEC) [address] capsule Indications: Gastro-esophageal reflux disease without esophagitis , Esophageal reflux Take 1 capsule (40 mg) by mouth Daily 90 capsule 3 01/22/2024 02/02/2024 Discontinued (Reorder) Zofran (1 source) Serotonin-3 Receptor Antagonist Start: 04-16-2019 Zofran Refills(s) 0 Start Date: 04/16/19 Status: Ordered pioglitazone 30 mg oral tablet (20 sources) Peroxisome Proliferator Receptor alpha Agonist, Peroxisome Proliferator Receptor gamma Agonist, Thiazolidinedione Start: 05-19-2022 End: 01-25-2025 take 1 tablet by mouth once daily pioglitazone (Actos) 30 MG tablet Indications: Type 2 diabetes mellitus with hyperglycemia, without long-term current use of insulin (CMS/[facility]) Take 1 tablet (30 mg) by mouth Daily 90 tablet 3 01/26/2024 01/25/2025 Active semaglutide 14 mg oral tablet (20 sources) Start: 01-17-2024 End: 01-16-2025 take 1 tablet by mouth once daily semaglutide (Rybelsus) 14 MG tablet Indications: Type 2 diabetes mellitus with hyperglycemia, without long-term current use of insulin (CMS/[facility]) Take 1 tablet (14 mg) by mouth Daily 90 tablet 3 01/17/2024 08/19/2024 Discontinued Start: 01-15-2024 End: 03-11-2024 take 1 tablet by mouth once daily semaglutide (Rybelsus) 7 MG tablet Indications: Type 2 diabetes mellitus with hyperglycemia, without long-term current use of insulin (CMS/HCC) Take 1 tablet (7 mg) by mouth Daily 30 tablet 01/15/2024 03/11/2024 Discontinued Start: 01-12-2022 take 1 tablet by cori th once daily Rybelsus 3 mg oral tablet 3 mg = 1 tab(s), Oral, Daily, Refills(s) 0, High blood sugar Start Date: 01/12/22 Status: Ordered solifenacin succinate 5 mg oral tablet (10 sources) Cholinergic Muscarinic Antagonist Start: 06-21-2022 take 1 tablet by mouth once daily Vesicare 5 mg Tab 5 mg = 1 tab(s), Oral, Daily, # 30 tab(s), Refills(s) 5, Pharmacy: [facility] [place]pharmacy #[id number], 163, cm, 06/03/22 11:32:00 EST, Height/Length Dosing, 105.5, kg, 06/03/22 11:32:00 EST, Weight Dosing Start Date: 06/21/22 Status: Ordered Start: 12-29-2021 take 1 tablet by cori th once daily Vesicare 5 mg Tab 5 mg = 1 tab(s), Oral, Daily, # 30 tab(s), Refills(s) 5, Pharmacy: [facility] [place]/pharmacy #[id number], 163, cm, 09/28/21 8:51:00 EDT, Height/Length Dosing, 97, kg, 09/28/21 8:51:00 EDT, Weight Dosing Start Date: 12/29/21 Status: Ordered Tramadol (1 source) Opioid Agonist Start: 04-15-2019 tramadol Refills(s) 0 Start Date: 04/15/19 Status: Ordered valsartan 40 mg oral tablet (20 sources) Angiotensin 2 Receptor Roman Start: 03-18-2021 End: 01-25-2025 take 1 tablet by mouth once daily valsartan (Diovan) 40 MG tablet Indications: Essential hypertension, malignant (CMS/HCC) Take 1 tablet (40 mg) by mouth Daily 90 tablet 3 01/26/2024 01/25/2025 Active Start: 03-18-2021 take 1 mg by mouth twice daily valsartan 40 mg Tab mg tab(s), Oral, BID, Refills(s) 0 Start Date: 03/18/21 Status: Ordered 24 hr venlafaxine 150 mg extended release oral capsule (20 sources) Serotonin and Norepinephrine Reuptake Inhibitor Start: 01-16-2024 take 1 capsule by mouth once daily venlafaxine XR (Effexor XR) 75 MG 24 hr capsule Indications: Depression, unspecified (CMS/HCC) Take 1 capsule (75 mg) by mouth Daily 90 capsule 3 01/16/2024 Active Start: 01-01-2024 End: 02-25-2025 take 1 capsule by mouth once daily venlafaxine XR (Effexor XR) 150 MG 24 hr capsule Indications: Depression, unspecified (CMS/HCC) Take 1 capsule (150 mg) by mouth Daily 90 capsule 3 02/26/2024 02/25/2025 Active Start: 04-15-2019 take 225 mg by mouth once danna y venlafaxine 225 mg, Oral, Daily, Refills(s) 0, Depression Start Date: 04/15/19 Status: Ordered Start: 04-15-2019 venlafaxine 22 5 mg, Refills(s) 0 Start Date: 04/15/19 Status: Ordered Start: 04-15-2019 venlafaxine Re fills(s) 0 Start Date: 04/15/19 Status: Ordered Vitamin D3 (13 sources) Start: 03-18-2021 take 25 ug by mouth once daily Vitamin D3 25 mcg, Oral, Daily, Refills(s) 0, Prophylaxis Start Date: 03/18/21 Status: Ordered Start: 03-18-2021 Vitamin D3 Ref ills(s) 0 Start Date: 03/18/21 Status: Ordered Problems Active Problems Problem Classification Problem Date Documented Date Episodic/Chronic Abdominal pain (14 sources) Lower abdominal pain; Translations: [Unspecified abdominal pain] Onset: 05-07-2024 12-24-2019 Episodic Anxiety disorders (20 sources) Anxiety; Translations: [Generalized anxiety disorder] Onset: 05-08-2023 05-19-2022 Chronic Calculus of urinary tract (14 sources) History of calculus of kidney; Translations: [Calculus of ureter] Onset: 05-04-2024 07-09-2019 Episodic Diabetes mellitus with complications (20 sources) Type 2 diabetes mellitus with hyperglycemia; Translations: [Hyperglycemia due to type 2 diabetes mellitus] Onset: 11-11-2021 05-08-2023 Chronic Diabetes mellitus without complication (12 sources) Diabetes mellitus; Translations: [Type 2 diabetes mellitus without complications] Onset: 05-04-2024 05-19-2022 Chronic Disorders of lipid metabolism (20 sources) Dyslipidemia; Translations: [Hyperlipidemia, unspecified] Onset: 05-08-2023 05-08-2023 Chronic Esophageal disorders (20 sources) Gastroesophageal reflux disease; Translations: [Gastro-esophageal reflux disease without esophagitis] Onset: 05-08-2023 05-08-2023 Chronic Essential hypertension (20 sources) Hypertensive disorder; Translations: [Benign essential hypertension] Onset: 05-07-2009 05-19-2022 Chronic Fracture of lower limb (14 sources) Closed fracture proximal phalanx, toe ; Translations: [Nondisplaced fracture of proximal phalanx of right lesser toe(s), initial encounter for closed fracture] 03-13-2024 Episodic Genitourinary symptoms and ill-defined conditions (20 sources) Female stress incontinence; Translations: [Urge incontinence of urine] Onset: 07-24-2023 07-09-2019 Chronic Genitourinary symptoms and ill-defined conditions (20 sources) Microscopic hematuria; Translations: [Urgent desire to urinate] Onset: 07-17-2021 04-16-2019 Episodic Menopausal disorders (5 sources) Atrophic vaginitis; Translations: [Postmenopausal atrophic vaginitis] Onset: 07-24-2023 Chronic Mood disorders (20 sources) Depressive disorder; Translations: [Recurrent major depressive episodes, mild ] Onset: 05-08-2023 05-19-2022 Chronic Mood disorders (1 source) Mood disorders; Translations: [Depression, unspecified] Onset: 05-04-2024 Nutritional deficiencies (20 sources) Vitamin D deficiency, unspecified; Translations: [Vitamin D deficiency] Onset: 11-11-2021 05-08-2023 Chronic Osteoarthritis (20 sources) Degenerative joint disease involving multiple joints; Translations: [Polyosteoarthritis, unspecified] Onset: 05-08-2023 05-08-2023 Chronic Osteoporosis (20 sources) Age-related osteoporosis without current pathological fracture; Translations: [Osteoporosis] Onset: 02-21-2022 05-08-2023 Chronic Other acquired deformities (10 sources) Contracture of joint of right ankle; Translations: [Contracture, right ankle] 03-08-2024 Chronic Other connective tissue disease (2 sources) Disorder of soft tissue; Translations: [Other specified soft tissue disorders] Onset: 04-18-2022 Episodic Other connective tissue disease (11 sources) History of osteoporosis 05-19-2022 Episodic Other diseases of bladder and urethra (13 sources) Overactive bladder 06-24-2021 Chronic Other diseases of bladder and urethra (1 source) Detrusor overactivity; Translations: [Overactive bladder] Onset: 09-20-2023 Chronic Other diseases of kidney and ureters (1 source) Other specified disorders of kidney and ureter; Translations: [OTHER SPEC DISORDERS KIDNEY URETER] Onset: 07-22-2021 Chronic Other diseases of kidney and ureters (13 sources) Hydronephrosis due to ureteral obstruction 04-16-2019 Episodic Other diseases of kidney and ureters (1 source) Urinary tract obstruction; Translations: [Hydronephrosis with renal and ureteral calculous obstruction] Onset: 05-10-2024 Episodic Other diseases of kidney and ureters (1 source) Hydronephrosis with renal and ureteral calculous obstruction; Translations: [Hydronephrosis with renal and ureteral calculous obstruction] Onset: 05-07-2024 Episodic Other diseases of kidney and ureters (1 source) Unspecified hydronephrosis; Translations: [Unspecified hydronephrosis] Onset: 05-04-2024 Episodic Other hereditary and degenerative nervous system conditions (20 sources) Restless legs; Translations: [Restless legs syndrome] Onset: 05-08-2023 05-08-2023 Chronic Other lower respiratory disease (11 sources) H/O: respiratory disease 05-19-2022 Episodic Other nutritional; endocrine; and metabolic disorders (1 source) Obese class II; Translations: [Body mass index (BMI) 36.0-36.9, adult] Onset: 04-18-2022 Chronic Other nutritional; endocrine; and metabolic disorders (12 sources) Body mass index 30+ - obesity 04-18-2022 Chronic Other nutritional; endocrine; and metabolic disorders (20 sources) Obesity; Translations: [Obesity, unspecified] Onset: 05-08-2023 05-08-2023 Chronic Other nutritional; endocrine; and metabolic disorders (1 source) Body mass index (BMI) 37.0-37.9, adult; Translations: [Body mass index [BMI] 37.0-37.9, adult] Onset: 05-04-2024 Chronic Other nutritional; endocrine; and metabolic disorders (2 sources) Severe obesity; Translations: [Class 2 severe obesity due to excess calories with serious comorbidity and body mass index (BMI) of 37.0 to 37.9 in adult] Onset: 05-08-2023 08-19-2024 Chronic Other screening for suspected conditions (not mental disorders or infectious disease) (6 sources) Encounter for screening mammogram for malignant neoplasm of breast; Translations: [Patient encounter status] Onset: 02-10-2022 Episodic Other skin disorders (12 sources) Mass of soft tissue 04-18-2022 Episodic Other upper respiratory disease (20 sources) Allergic rhinitis due to pollen; Translations: [Allergic rhinitis due to pollen] Onset: 05-08-2023 05-08-2023 Chronic Other upper respiratory infections (1 source) Chronic sinusitis, unspecified; Translations: [CHRONIC SINUSITIS UNSPECIFIED] Onset: 07-05-2021 Chronic Residual codes; unclassified (5 sources) Obstructive sleep apnea (adult) (pediatric); Translations: [OBSTRUCTIVE SLEEP APNEA] Onset: 05-02-2022 Chronic Residual codes; unclassified (1 source) Idiopathic hypersomnia with long sleep time; Translations: [IDIO HYPERSOMNIA W/LONG SLEEP TIME] Onset: 04-23-2022 Chronic Residual codes; unclassified (20 sources) Obstructive sleep apnea syndrome; Translations: [Obstructive sleep apnea (adult) (pediatric)] Onset: 05-08-2023 05-08-2023 Chronic Unclassified (1 source) Drug therapy finding 04-15-2019 Unclassified (13 sources) Finding of sensation of bladder 07-09-2019 Unclassified (3 sources) COUGH, UNSPECIFIED; Translations: [COUGH, UNSPECIFIED] Onset: 06-30-2021 Unclassified (1 source) CONTACT W/AND (SUSP) EXPOS COVID-19; Translations: [CONTACT W/AND (SUSP) EXPOS COVID-19] Onset: 07-05-2021 Unclassified (8 sources) Asymptomatic microscopic hematuria 08-16-2022 Urinary tract infections (13 sources) Chronic cystitis 04-15-2019 Chronic Past or Other Problems Problem Classification Problem Date Documented Date Episodic/Chronic Other upper respiratory infections (1 source) Acute upper respiratory infection, unspecified; Translations: [ACUTE UP RESPIRATORY INFECTION UNS] Onset: 07-05-2021 Episodic Residual codes; unclassified (1 source) Asymptomatic menopausal state; Translations: [ASYMPTOMATIC MENOPAUSAL STATE] Onset: 02-21-2022 Episodic Residual codes; unclassified (1 source) Family history of malignant neoplasm of trachea, bronchus and lung; Translations: [FAM HX MALIG NEOPLSM TRACH BRON LNG] Onset: 02-21-2022 Episodic Unclassified (1 source) COUGH, UNSPECIFIED; Translations: [COUGH, UNSPECIFIED] Onset: 07-01-2021 Urinary tract infections (20 sources) Postinfective urethral stricture of female; Translations: [Acute urinary tract infection] Onset: 12-05-2023 Resolved: 03-11-2024 09-28-2021 Episodic Results Test Name Value Interpretation Reference Range Facility ALL CBC WITH AUTO DIFFon BASOPHILS ABSOLUTE AUTO 0 [facility] Basophils/100 WBC (Bld) 0.4 % 0.2 - 2.0 % [facility] Eosinophils/100 WBC (Bld) 3.9 % 0.9 - 7.0 % [facility] Erythrocyte distribution width (RBC) [Ratio] 12.8 % 11.0 - 15.0 % [facility] Hematocrit (Bld) [Volume fraction] 40.4 % 36.0 - 48.0 % [facility] Hemoglobin (Bld) [Mass/Vol] 13.1 g/dL 12.0 - 16.0 g/dL [facility] IMMATURE GRANULOCYTES ABS AUTO 0.06 High [facility] Immature granulocytes/100 WBC (Bld) 0.7 % High 0.0 - 0.5 % [facility] Interpretation and review of laboratory results Abnormal [facility] LYMPHOCYTES ABSOLUTE AUTO 2 [facility] Lymphocytes/100 WBC (Bld) 21.6 % 20.5 - 60.0 % [facility] MCH (RBC) [Entitic mass] 29 pg 26.7 - 34.0 pg [facility] MCHC (RBC) [Mass/Vol] 32.4 g/dL 29.9 - 35.2 g/dL [facility] MCV (RBC) [Entitic vol] 89.6 fL 81.0 - 99.0 fL [facility] MONOCYTES ABSOLUTE AUTO 0.5 [facility] Monocytes/100 WBC (Bld) 5.2 % 1.7 - 12.0 % [facility] NEUTROPHILS ABSOLUTE AUTO 6.3 [facility] Neutrophils/100 WBC (Bld) 68.2 % 43.0 - 75.0 % [facility] Platelet mean volume (Bld) [Entitic vol] 10.6 fL 9.5 - 13.5 fL [facility] TBH EO # 0.4 [facility] TB PLT 287 [facility] RBC 4.51 [facility] WBC 9.2 [facility] Urology Office/Clinic Noteon 05-10-2024 Urology Office/Clinic Note Urology Office/Clinic Note Chief Complaint follow up KUB HPI Staff Follow up KUB Patient could not void Dysuria: declines Incomplete bladder emptying: declines Hematuria: patient states she can see visible blood in urine past few days Frequency: _ 1-2 hours Urgency: _ declines Nocturia: _ declines Stream: good stream Leaking: declines Post void dripping: declines Wearing pads/ Depends: declines Urge incontinence: declines Stress incontinence: _ declines Incontinence without Sensory Awareness: _ Abdominal pain: yes since stent was placed 05/04 Flank pain: yes since stent was placed 05/04 Sexual complaints: declines History of Present Illness Tests reviewed: consult note, op note I have reviewed the previous health record information and history for this patient from Dr. Jamil. I have reviewed and verified the staff HPI to be accurate for this encounter. Review of Systems PHQ Score Initial Depression Screen Score: 0 SCORE ROS - Provider Constitutional: denies weight loss, denies hot flashes. Eyes: denies eye problems. Gastrointestinal: denies nausea, denies vomiting. Cardiovascular: denies chest pain or angina. Integumentary: no dryness Musculoskeletal: denies musculoskeletal symptoms. ENMT: denies otolaryngeal symptoms. Respiratory: no shortness of breath. Heme/Lymph: denies easy bleeding tendency, denies easy bruising tendency. Psychiatric: no confusion, no anxiety. Genitourinary: See HPI. Physical Exam Vitals & Measurements HR: 67(Peripheral) RR: 17 BP: 128/86 HT: 64 in HT: 162 cm WT: 101.1 kg WT: 222.887 lb BMI: 38.52 General Appearance: alert, no distress, well nourished, well developed female. Assessment/Plan 58 yo female following up to urology consult and stent placement due to ureteral stone. Hx of DM2. Pt here with her today. Hx botox for OAB 1. Ureteral stone with hydronephrosis (N13.2: Hydronephrosis with renal and ureteral calculous obstruction) Urology consult 05/04/24 due to 7 x 8 mm proximal R ureteral stone and UTI. S/p cysto, R RPG, R stent placement 05/04/24. KUB 05/07/24 [facility] - Redemonstration of a 9 mm stone along the proximal R ureter/UPJ. Reviewed imaging with pt. Discussed surgical intervention options including ESWL if visible on x-ray (less invasive, lower stone free rate, may require staged procedures) and ureteroscopy/laser litho with possible stent placement (more invasive, higher stone free rate). Risks and benefits of each discussed. Pt elects more definitive laser litho. Will schedule cysto, R URS, R laser litho, stent exchange with STRING stent. The procedural risks, benefits, details, and treatment alternatives have been discussed with the patient. These include bleeding, infection, inability to break or retrieve all of the stone, injury to the ureter (the tube which connects the kidney to the bladder), injury to the kidney scarring of the ureter, and need for repeat procedures, among others. Full informed consent has been obtained. Will order General anesthesia. Follow-up With When Contact Information Omero CATHERINE, JULIO Woods, URO Additional Instructions: schedule cysto, R URS, R laser litho, stent exchange with STRING stent Patient Education Laser Therapy for Kidney Stones, Care After Laser Therapy for Kidney Stones I, Jennifer Marroquin, personally scribed for Dr. Jamil on 05/10/2024 12:19:41. . Documentation recorded by the scribe, Jennifer Marroquin, accurately reflects the services(s) I performed and decisions made by me. Authenticated by Dr. Jamil on 05/10/2024 12:26:24. Problem List/Past Medical History Ongoing Abnormal urinalysis Anxiety Asymptomatic microscopic hematuria Atrophic vaginitis BMI 36.0-36.9,adult Chronic cystitis Depression Diabetes Dysuria Feeling of incomplete bladder emptying High blood pressure History of kidney stones History of osteoporosis History of sleep apnea Lower abdominal pain Microscopic hematuria OAB (overactive bladder) Soft tissue mass Unspecified urethral stricture, female Ureteral stone with hydronephrosis Urge incontinence Urinary urgency Urine, incontinence, stress female Historical No qualifying data Procedure/Surgical History Injection of therapeutic substance into bladder wall (07/18/2022), Excision of cyst (05/24/2022), Cystourethroscopy with dilation of urethral stricture (07/12/2021), Cystourethroscopy with dilation of urethral stricture (08/05/2019), Cystourethroscopy with dilation of urethral stricture (11/03/2014), Back, Cholecystectomy, Colonoscopy, Rotator cuff, Tubal ligation. Medications aspirin, 81 mg, Oral, Daily atorvastatin, 40 mg, Oral, Daily busPIRone 7.5 mg oral tablet, 7.5 mg= 1 tab(s), Oral calcium (as carbonate) 600 mg oral tablet, 600 mg= 1 tab(s), Oral, Daily celecoxib 200 mg Cap, 400 mg= 2 cap(s), Oral, BID ibandronate 150 mg oral tablet, 150 mg= 1 tab( (more content not included)... Normal [facility] Comment on above: Result Comment: Elec tronically Signed By: Omero CATHERINE, Rosemary Larios\.br\Date and Time Signed: 05/10/24 12:29 EST XR Felicitas 05-07-2024 XR KUB [facility] Main [address] [address] XRay Report Signed Patient: Albina Cameron MR#: [id number] : 1965 Acct:[id number] Age/Sex: 58 / F ADM Date: 05/07/24 Loc: XD Room: Type: [facility] Attending Dr: Rosemary Jamil MD Copies to: Rosemary Jamil MD Ordering Provider: Rosemary Jamil MD Date of Service: 05/07/24 XR/XR KUB: f/u ureteral stone with hydro, s/p stent XR KUB 05/07/2024 4:16 PM SIGNS AND SYMPTOMS: f/u ureteral stone with hydro, s/p stent PROTOCOL: Frontal radiographs of the abdomen and pelvis COMPARISON: 05/04/2024 FINDINGS: There is a right-sided ureteral stent. There is redemonstration of a 9 mm stone along the proximal right ureter/ureteropelvic junction. There is evidence of prior cholecystectomy. Surgical clips are noted on the left. Vascular calcifications are present in the pelvis. Degenerative changes are noted in the lumbar spine. XR/XR KUB IMPRESSION: There is a right-sided ureteral stent. There is redemonstration of a 9 mm stone along the proximal right ureter/ureteropelvic junction. Impression dictated by: Chandu Scott M.D.05/07/2024 10:53 PM Dictation Location: [place] [address] Transcribed By: [facility] 05/07/242252 Dictated By: Chandu Scott II, MD 05/07/242251 Signed By: 05/07/242252 Normal [facility] C Urineon 05-06-2024 C Urine Urine Culture ordere d as a result of parameters set on specific urine dip and urine microsopic results. <10,000 cfu/ml [facility] Comment on above: Performed By: #### 6 [id number], [id number] ####[facility] (DEFAULT)[address] [place] [address] Consent Formson 05-06-2024 Consent Forms [id number] [facility] .Auto Diff 1on 05-04-2024 Auto [place] % 5 % Normal 06-16 [facility] Comment on above: Performed By: #### 1 [id number], [id number], [id number], [id number] ####[facility] (DEFAULT)[address] [place] [address] 47718 Baso Abs# 0.0 x10 Normal 0.0-0.2 [facility] Comment on above: Performed By: #### 1 [id number], [id number], [id number], [id number] ####[facility] (DEFAULT)[address] [place] [address] 20596 Basophils/100 WBC (Bld) 0.3 % Normal 0.2-2.0 [facility] Comment on above: Performed By: #### 1 [id number], [id number], [id number], [id number] ####[facility] (DEFAULT)[address] [place] [address] 38551 Eos Abs# 0.1 x10 Normal 0.0-0.4 [facility] Comment on above: Performed By: #### 1 [id number], [id number], [id number], [id number] ####[facility] (DEFAULT)[address] [place] [address] 16416 Eosinophils/100 WBC (Bld) 0.5 % Low 0.9-4.0 [facility] Comment on above: Performed By: #### 1 [id number], [id number], [id number], [id number] ####[facility] (DEFAULT)[address] [place] [address] 45981 Lymph Abs# 1.7 x10 Normal 1.3-2.9 [facility] Comment on above: Performed By: #### 1 [id number], [id number], [id number], [id number] ####[facility] (DEFAULT)[address] [place] [address] 41588 Lymphocytes/100 WBC (Bld) 12 % Low 14-48 [facility] Comment on above: Performed By: #### 1 [id number], [id number], [id number], [id number] ####[facility] (DEFAULT)[address] [place] [address] 069[address] Lanier Abs# 0.7 x10 Normal 0.0-0.8 [facility] Comment on above: Performed By: #### 1 [id number], [id number], [id number], 4456838 ####[facility] (DEFAULT)[address] [place] [address] Neut Abs# 11.5 x10 High 1.5-9.2 [facility] Comment on above: Performed By: #### 1 [id number], [id number], [id number], [id number] ####[facility] (DEFAULT)[address] [place] [address] Neutrophils/100 WBC (Bld) 82 % Normal 44-88 [facility] Comment on above: Performed By: #### 1 [id number], [id number], [id number], [id number] ####[facility] (DEFAULT)[address] [place] [address] Standardon 05-04-2024 eGFR Non AA >60 Invalid Interpretation Code [facility] Comment on above: Performed By: #### 1 [id number], [id number], [id number], [id number] ####[facility] (DEFAULT)[address] [place] [address] eGFR AA >60 Invalid Interpretation Code [facility] Comment on above: Performed By: #### 1 [id number], [id number], [id number], [id number] ####[facility] (DEFAULT)[address] [place] [address] 18076 Anion gap [Moles/Vol] 14.9 mmol/L Normal 5.0-19.0 [facility] Comment on above: Performed By: #### 1 [id number], [id number], [id number], 9743543 ####[facility] (DEFAULT)[address] [place] [address] 85049 Calcium [Mass/Vol] 9.0 mg/dL Normal 8.9-10.3 [facility] Comment on above: Performed By: #### 1 [id number], 87931703, [id number], [id number] ####[facility] (DEFAULT)[address] [place] [address] 03537 Chloride [Moles/Vol] 95 mmol/L Low 101-111 [facility] Comment on above: Performed By: #### 1 [id number], 05872982, [id number], 1386555 ####[facility] (DEFAULT)[address] [place] [address] 98229 CO2 [Moles/Vol] 23 mmol/L Normal 21-32 [facility] Comment on above: Performed By: #### 1 [id number], 83583715, [id number], 3798681 ####[facility] (DEFAULT)[address] [place] [address] 29329 Creatinine [Mass/Vol] 0.93 mg/dL Normal 0.60-1.30 [facility] Comment on above: Performed By: #### 1 [id number], 91217995, [id number], 6277857 ####[facility] (DEFAULT)[address] [place] [address] 74202 Glucose [Mass/Vol] 257.0 mg/dL High 74.0-118.0 [facility] Comment on above: Performed By: #### 1 [id number], 38203938, 5361151246, 3726072 ####[facility] (DEFAULT)[address] [place] [address] 32736 Osmolality 270 mOsm/L Invalid Interpretation Code [facility] Comment on above: Performed By: #### 1 [id number], [id number], [id number], 9798391 ####[facility] (DEFAULT)[address] [place] [address] 87288 Potassium [Moles/Vol] 3.9 mmol/L Normal 3.6-5.1 [facility] Comment on above: Performed By: #### 1 [id number], 58551923, [id number], 7875885 ####[facility] (DEFAULT)[address] [place] [address] 69148 Sodium [Moles/Vol] 129.0 mmol/L Low 136.0-144.0 [facility] Comment on above: Performed By: #### 1 [id number], [id number], 1206967878, 7338706 ####[facility] (DEFAULT)[address] [place] [address] Urea nitrogen [Mass/Vol] 18 mg/dL Normal 8-26 [facility] Comment on above: Performed By: #### 1 [id number], [id number], [id number], 4304123 ####[facility] (DEFAULT)[address] [place] [address] Urea nitrogen/Creatinine [Mass ratio] 19.3 mg/mg High 4.6-16.2 [facility] Comment on above: Performed By: #### 1 [id number], 75810298, 1297514806, 9197764 ####[facility] (DEFAULT)[address] [place] [address] CBC w/ Auto Diffon Erythrocyte distribution width (RBC) [Ratio] 13.7 % Normal 11.5-15.0 [facility] Comment on above: Performed By: #### 1 [id number], 70725731, 1010598706, 7692280 ####[facility] (DEFAULT)[address] [place] [address] Hematocrit (Bld) [Volume fraction] 41.8 % High 33.7-40.4 [facility] Comment on above: Performed By: #### 1 [id number], 88927902, 3033274148, 2084603 ####[facility] (DEFAULT)[address] [place] [address] Hemoglobin (Bld) [Mass/Vol] 14.1 g/dL Normal 11.3-15.9 [facility] Comment on above: Performed By: #### 1 [id number], 87229848, [id number], 2615135 ####[facility] (DEFAULT)[address] [place] [address] Man Diff? Auto Invalid Interpretation Code [facility] Comment on above: Performed By: #### 1 [id number], 54058755, [id number], 8519958 ####[facility] (DEFAULT)[address] [place] [address] 83930 MCH (RBC) [Entitic mass] 30 pg Normal 24-34 [facility] Comment on above: Performed By: #### 1 [id number], 86007019, [id number], 3196315 ####[facility] (DEFAULT)[address] [place] [address] 43026 MCHC (RBC) [Mass/Vol] 34 g/dL Normal 26-37 [facility] Comment on above: Performed By: #### 1 [id number], 38448664, 2835861031, 2301559 ####[facility] (DEFAULT)[address] [place] [address] 09526 MCV (RBC) [Entitic vol] 88 fL Normal 81-100 [facility] Comment on above: Performed By: #### 1 [id number], [id number], [id number], 3664880 ####[facility] (DEFAULT)[address] [place] [address] Platelet 274 x10 Normal 138-427 [facility] Comment on above: Performed By: #### 1 [id number], 06784902, [id number], 1321477 ####[facility] (DEFAULT)[address] [place] [address] 39076 Platelet mean volume (Bld) [Entitic vol] 8.3 fL Normal 6.3-10.2 [facility] Comment on above: Performed By: #### 1 [id number], 60825285, [id number], 1506696 ####[facility] (DEFAULT)[address] [place] [address] 94413 RBC 4.76 x10 Normal 3.70-5.30 [facility] Comment on above: Performed By: #### 1 [id number], 16193843, [id number], 7525493 ####[facility] (DEFAULT)[address] [place] [address] 19394 WBC 14.0 x10 High 3.5-10.5 [facility] Comment on above: Performed By: #### 1 [id number], [id number], [id number], 9535011 ####[facility] (DEFAULT)[address] [place] [address] CT Abdomen/Pelvis w/o Contra ston 05-04-2024 CT Abdomen/Pelvis w/o Contrast CT ABDOMEN AND PELVIS WITHOUT CONTRAST: 05/04/2024 9:10 AM EST Clinical Data: Colicky right flank pain Comparison: Enhanced outside study 04/04/2019 Unenhanced helically acquired data per protocol. The lack of IV contrast material hampers evaluation of the viscera, for adenopathy, and of the vasculature. The lack of oral contrast medium to some extent hampers evaluation of the bowel. All CT scans at this facility use dose modulation, iterative reconstruction, and/or weight based dosing when appropriate to reduce radiation dose to as low as reasonably achievable. FINDINGS: LOWER THORAX: Unremarkable. LIVER: No acute findings. SPLEEN: No acute findings. GB/BILIARY: Again, status post cholecystectomy. Biliary tree is not dilated. PANCREAS: No acute findings. ADRENALS: No acute findings. KIDNEYS/URETERS: Examination on the left is negative. The right kidney is larger than the left. There is moderate perinephric stranding. There is moderate to significant right hydronephrosis and hydroureter to the L4 level. At this point there is a 7 mm ureteral calculus. Further distally the right ureter is unremarkable. No additional ureteral calculi. VESSELS: No AAA ABDOMINAL NODES: No obvious adenopathy. PELVIC NODES: No obvious adenopathy. BLADDER: No acute findings. No calculi REPRODUCTIVE: No acute findings at unenhanced CT PERITONEUM: No free air. No free fluid. EXTRAPERITONEUM: No acute findings. BOWEL: No GI obstruction. Modest amount stool within aspects of the colon. Stomach contains a moderate amount of material, fluid, and air. Nondistended small bowel contains a mild amount material, fluid, and air. On this exam performed without oral contrast medium, no focally thickened loop of bowel is evident. No thickening of the ileocecal region. The appendix is unremarkable. BODY WALL: No acute findings. BONES: No acute findings. OTHER: None IMPRESSION: 1. Moderate to significant right hydronephrosis and hydroureter. 7 mm right ureteral calculus at the L4 level.. Final Dictated by: Hossein Sesay MD Dictated DT/TM: 05/04/24 9:49 Signed (Electronic Signature): Hossein Sesay MD 05/04/24 9:56 am Technologist: SE JOSEF [facility] ED Clinical Summaryon 2023 ED Clinical Summary [facility] - Emergency Department [address] [place], [place] [id number] ED Clinical Summary PERSON INFORMATION Name: ALBINA CAMERON Age: 58 Years Sex: FEMALE : 1965 MRN: Acct#: Visit Reason: Flank pain; RT FLANK/BACK PAIN, NAUSEA Arrival: 05/04/2024 08:36:36 Discharge: 05/04/2024 11:52:00 LOS: 000 03:16 Check In: 05/04/2024 08:36:36 Checkout:05/04/2024 11:52:00 Address: [address] [place] [address] PCP: CONSTANTIN MELENDEZ PROVIDER INFORMATION Provider Role Assigned Unassigned Will Wan MD ED Provider 05/04/2024 08:37:52 Karley Watson PREPARATOR Nurse 05/04/2024 08:45:39 VITALS INFORMATION Vital Sign Triage Latest Temperature Tympanic Temperature Temporal Artery 36.3 DegC Pulse Rate 84 bpm 80 bpm O2 Sat 96 % 98 % Respiratory Rate 18 br/min 18 br/min Blood Pressure /105 mmHg /105 mmHg MEDICAL INFORMATION Medications Given: Medication Dose Route ondansetron 4 mg IV Push HYDROmorphone 0.5 mg IV Push ketorolac 30 mg IV Push cefTRIAXone 1 gm IV Piggyback tamsulosin 0.4 mg Oral Allergy Information: No Known Medication Allergies PHYSICIAN DOCUMENTATION DISCHARGE INFORMATION: Discharge Disposition: Discharge/Transfer to Another Hospital Discharge Location: [facility] PATIENT EDUCATION INFORMATION Instructions: Follow-Up: DIAGNOSIS: 1:Ureterolithiasis; 2:Urinary tract infection in female Patient Understands: Yes - Patient/family/caregi brianna verbalizes understanding of instructions given Comment: [facility] ED Note-Nursingon 05-04-2024 ED Note-Nursing Dr. Wan tells this RN that he is comfortable with the patient traveling with for transfer to [facility] to see urology. Per protocol IV has to be removed to be able to travel by private vehicle. This RN went into patient's room and explained this to the patient. Patient is agreeable to having IV removed prior to leaving the ED. Physician notified. [facility] ED Patient Education Noteon 05-04-2024 ED Patient Education Note Education Materials [facility] ED Patient Summaryon 024 ED Patient Summary [facility] - Emergency Department [address] [place] [id number] PATIENT DISCHARGE INSTRUCTIONS Patient Information Name: ALBINA CAMERON Age: 58 Years Date of : 1965 Reason For Visit: Flank pain; RT FLANK/BACK PAIN, NAUSEA Arrival Time: 05/04/2024 08:36:36 Primary Care Physician: CONSTANTIN MELENDEZ Attending Physician: Will Wan MD Comment: Visit Diagnosis: Diagnoses This Visit Flank pain ([id number]) Ureterolithiasis (N20.1) Urinary tract infection in female (N39.0) The Pharmacy at [facility] is open Monday through Monday from 9A to 6P and Monday and Monday from 9A to 5P Prescription Information: If you have been given a prescription for narcotics, seek immediate medical attention if you have any difficulty breathing or any sudden status changes such as confusion and sleepiness. If you or anyone you know is experiencing suicidal thoughts, mental health, alcohol and/or drug addiction problems; contact the [facility] 26/12 Crisis Hotline -Text 4HFGI rb [phone]. If you received any narcotics, sedation, or any other medication that causes drowsiness for the next 24 hours, unless otherwise directed: ? Do not drive a car. ? Do not operate machinery such as power tools, lawn mowers, drills, sewing machines, or stoves ? Avoid alcoholic beverages and drugs for allergies, nerves, or sleep ? Do not make important personal or business decisions or sign any legal documents Medication Information: The exam and treatment you received today in the [facility] Emergency Department were for an urgent problem and are not intended as complete care. It is important for you to follow up with a doctor, nurse practitioner, or physician?s admissions assistant for ongoing care. If your symptoms become worse or you do not improve as expected and you are unable to reach your usual health care provider, you should return to the Emergency Department, we are available 24 hours a day. For those patients who have received Radiology results, the interpretation of your X-ray as given to you by our Emergency Department physician is only a preliminary report. The Radiologist will review your films and if there is a change in the diagnosis you will be notified by phone. Please make sure you have provided a working phone number so we can reach you if necessary. In the event that you had a lab culture while you were a patient in the Emergency Department, you will be notified by phone if there is a need to change your antibiotic. Please make sure you have provided a working phone number so we can reach you if necessary. [facility] Emergency Department has provided you with a complete list of medications post discharge. Please inform your compensation associate/provider of your visit and for further instruction on these medications. Any specific questions regarding your chronic medications and dosages should be discussed with your primary care physician(s) and/or pharmacist. Medications to Continue That Have Not Changed Other Medications acetaminophen-hydroco done (acetaminophen-hydroc odone 325 mg-5 mg oral tablet) atorvastatin (atorvastatin 40 mg oral tablet) 1 tab(s) Oral (given by mouth) once a day (at bedtime). TAKE 1 TABLET BY MOUTH AT BEDTIME. celecoxib (celecoxib 200 mg oral capsule) 1 cap(s) Oral (given by mouth) 2 times per day. TAKE 1 CAPSULE BY MOUTH TWICE DAILY. Durable Medical Equipment for Prescription (VITAMIN D3(BORIS) 1,000 IU TAB) TAKE 1 TABLET BY MOUTH ONCE DAILY FOR 90 DAYS. glipiZIDE (glipiZIDE 10 mg oral tablet) 1 tab(s) Oral (given by mouth) every day. ibandronate (ibandronate 150 mg oral tablet) 1 tab(s) Oral (given by mouth) once a month. lamoTRIgine (lamoTRIgine 100 mg oral tablet) 0.5 tab Oral (given by mouth) every day. LORazepam (LORazepam 1 mg oral tablet) 1 tab(s) Oral (given by mouth) once a day (at bedtime). metFORMIN (MetFORMIN (Eqv-Glucophage XR) 500 mg oral tablet, extended release) 1 tab(s) Oral (given by mouth) every day. TAKE 1 TABLET BY MOUTH EVERY DAY. omeprazole (omeprazole 40 mg oral delayed release capsule) TAKE 1 CAPSULE BY MOUTH ONCE DAILY. oxyBUTYnin 5 Milligram Oral (given by mouth) every day. pioglitazone (pioglitazone 30 mg oral tablet) 1 tab(s) Oral (given by mouth) every day. TAKE 1 TABLET BY MOUTH EVERY DAY. semaglutide (Rybelsus 14 mg oral tablet) 1 tab(s) Oral (given by mouth) every day. TAKE 1 TABLET (14 MG) BY MOUTH DAILY. valsartan (valsartan 40 mg oral tablet) 1 tab(s) Oral (given by mouth) every day. TAKE 1 TABLET BY MOUTH IN THE MORNING. venlafaxine (venlafaxine 75 mg oral capsule, extended release) 3 cap(s) Oral (given by mouth) every day. Visit Information Allergies: Substance Reaction Symptoms Type Comments No Known Medication Allergies Drug Vital Signs: Vitals and Measurements this Visit (last charted value for your (more content not included)... Normal [facility] Extra [facility] 05-04-2024 Tube Collected Yes Invalid Interpretation Code [facility] Comment on above: Performed By: #### 1 [id number], [id number] ####[facility] (DEFAULT)[address] [place] [address] [place] urethrocystogram [facility] 05-04-2024 [place] urethrocystogram [facility] [place] [address] [place] [address] Fluoroscopy Report Signed Patient: Albina Cameron MR#: [id number] : 1965 Acct:[id number] Age/Sex: 58 / F ADM Date: 05/04/24 Loc: Room: 1X7461-4 Type: ADM IN Attending Dr: Vahid Antonio DO Copies to: MD Vahid Higgins DO Ordering Provider: Rosemary Jamil MD Date of Service: 05/04/24 FL/FL urethrocystogram retro: CYSTO [place] urethrocystogram retro 05/04/2024 2:34 PM SIGNS AND SYMPTOMS: CYSTO PROTOCOL: Intraoperative views of the abdomen and pelvis COMPARISON: 05/04/2024 FINDINGS: Intraoperative views demonstrate right-sided hydronephrosis and placement of a right-sided ureteral stent. Cumulative Air Kerma in mGy: 14 mGy FL/FL urethrocystogram retro IMPRESSION: Intraoperative views demonstrate right-sided hydronephrosis and placement of a right-sided ureteral stent. Impression dictated by: Chandu Scott M.D.05/04/2024 3:20 PM Dictation Location: [place] [address] Transcribed By: [facility] 05/04/24 1520 Dictated By: Chandu Scott II, MD 05/04/24 1517 Signed By: 05/04/24 1520 Normal [facility] Glucose Poct Glucometerson 1 07-04-2023 Glucose [Mass/Vol] 154 mg/dL Normal [facility] Comment on above: Result Comment: Irene Glucose Reference Range is dependent on time and content of last meal. Glucose of more than 200 mg/dL in a nonstressed, ambulatory subject supports the diagnosis of Diabetes Mellitus. PERFORMED BY: [facility] [address] [place] [address] PATHOLOGIST METAL FLOW COORDINATOR JEANNE GEORGE M.D. Performed By: #### G LULS #### Point of Care testing , Transfer Noteon 05-04-2024 Transfer Note 1038 - called [facility] switchboard to page Dr. Jamil, urology [facility] connected Dr. Jamil to Dr. Wan; She accepted this patient and said we can transfer her to [facility] 1048 - called [facility] Convention Worker - paging the hospitalist 1116 - Dr. Antonio, [facility] hospitalist, called back and spoke with Dr. Wan; he's also accepted this patient as a direct admit transfer 1130 - [facility] supervisor lead burning called with the room assignment 4418...report# [phone] The patient was given a packet with a copy of her chart. The CT images were sent electronically to [facility]. The patient went by private car and signed the refusal to be transported by ambulance. Home medications are documented in the chart as well. [Electronically Signed on: 05/04/2024 11:48 EST] Sharonda Burr [Verified on: 05/04/2024 11:48 EST] Sharonda Burr 1051 - called [facility] to check on transport availability....no transport today due to lack of staffing [Electronically Signed on: 05/04/2024 11:55 EST] Sharonda Burr [facility] UA [id number] 05-04-2024 UA Amorph. 2+ [facility] Comment on above: Order Comment: Urina lysis Microscopic order added on by [employer] Expert Rules system. Performed By: #### 6 [id number], [id number], [id number] ####[facility] (DEFAULT)[address] [place] [address] UA Bacteria None Normal [facility] Comment on above: Order Comment: Urina lysis Microscopic order added on by [employer] Rules system. Performed By: #### 6 [id number], [id number], [id number] ####[facility] (DEFAULT)[address] [place] [address] UA RBC 0-2 [facility] Comment on above: Order Comment: Urina lysis Microscopic order added on by [employer] Rules system. Performed By: #### 6 [id number], [id number], [id number] ####[facility] (DEFAULT)[address] [place] [address] UA Squam Epi Rare [facility] Comment on above: Order Comment: Urina lysis Microscopic order added on by [employer] Rules system. Performed By: #### 6 [id number], [id number], [id number] ####[facility] (DEFAULT)[address] [place] [address] UA WBC 5-10 Normal [facility] Comment on above: Order Comment: Urina lysis Microscopic order added on by [employer] Rules system. Performed By: #### 6 [id number], [id number], [id number] ####[facility] (DEFAULT)[address] [place] [address] UA w Culture if Ind Standard on 05-04-2024 Breakpoint UA [facility] Comment on above: Performed By: #### 6 [id number], [id number], [id number] ####[facility] (DEFAULT)[address] [place] [address] Color (U) Yellow Normal [facility] Comment on above: Performed By: #### 6 [id number], [id number], [id number] ####[facility] (DEFAULT)[address] [place] [address] Culture? Indicated Invalid Interpretation Code [facility] Comment on above: Result Comment: Resu lt created by rule GL_MAGR_ADD_UA_CULT Result created by rule GL_MAGR_ADD_UA_CULT Result created by rule GL_MAGR_ADD_UA_CULT Result created by rule GL_MAGR_ADD_UA_CULT1 Performed By: #### 6 [id number], [id number], [id number] ####[facility] (DEFAULT)[address] [place] [address] Glucose (U) [Mass/Vol] mg/dL [facility] Comment on above: Performed By: #### 6 [id number], [id number], [id number] ####[facility] (DEFAULT)[address] [place] [address] Ketones Ql (U) TRACE Normal [facility] Comment on above: Performed By: #### 6 [id number], [id number], [id number] ####[facility] (DEFAULT)[address] [place] [address] Micro? Indicated Invalid Interpretation Code [facility] Comment on above: Result Comment: Resu lt created by rule GL_MAGR_ADD_UA_MICRO Performed By: #### 6 [id number], [id number], [id number] ####[facility] (DEFAULT)[address] [place] [address] UA Bilirubin Negative Normal [facility] Comment on above: Performed By: #### 6 [id number], [id number], [id number] ####[facility] (DEFAULT)[address] [place] [address] UA Blood SMALL Abnormal NEGATIVE [facility] Comment on above: Performed By: #### 6 [id number], [id number], [id number] ####[facility] (DEFAULT)[address] [place] [address] UA Clarity CLEAR Normal CLEAR [facility] Comment on above: Performed By: #### 6 [id number], [id number], [id number] ####[facility] (DEFAULT)[address] [place] [address] UA Leuk Est TRACE Abnormal NEGATIVE [facility] Comment on above: Performed By: #### 6 [id number], [id number], [id number] ####[facility] (DEFAULT)[address] [place] [address] UA Nitrite Positive Abnormal NEGATIVE [facility] Comment on above: Performed By: #### 6 [id number], [id number], [id number] ####[facility] (DEFAULT)[address] [place] [address] UA pH 7.5 Normal 5-8 [facility] Comment on above: Performed By: #### 6 [id number], [id number], [id number] ####[facility] (DEFAULT)[address] [place] [address] UA Protein TRACE Abnormal NEGATIVE [facility] Comment on above: Performed By: #### 6 [id number], [id number], [id number] ####[facility] (DEFAULT)[address] [place] [address] UA Spec Grav 1.020 Normal 1.001-1.035 [facility] Comment on above: Performed By: #### 6 [id number], [id number], [id number] ####[facility] (DEFAULT)[address] [place] [address] UA Urobilinogen 1.0 mg/dL Normal 0.2-1.0 [facility] Comment on above: Performed By: #### 6 [id number], [id number], [id number] ####[facility] (DEFAULT)[address] [place] [address] Urine Source Clean Catch Normal [facility] Comment on above: Performed By: #### 6 [id number], [id number], [id number] ####[facility] (DEFAULT)[address] [place] [address] MLR HEMOGLOBIN A1Con 024 Glucose [Mass/Vol] 214 mg/dL [facility] HbA1c (Bld) [Mass fraction] 9.1 % High 4.5 - 6.2 % [facility] Comment on above: ADA RECOMMENDED LIMI T 4.0 - 6.0 ADA THERAPEUTIC TARGET < 7.0 ACTION SUGGESTED > 7.0 Interpretation and review of laboratory results Abnormal [facility] Coding Summaryon 03-08-2024 Coding Summary HTMLBase 64 KrjltzwjTXu7dWp+PGhlY WQ+WX2HICEdZ56maPQnsY 5aQ0JBHVfMYrhzBBWGOLp AAlSmfhAqWQ4ofJHsQDFv IC8+HM3zIBHdCrjbfOZnh 4I4fPS2F90htn5bFAskgU I6BHCjRqQhldmbr6tqrIe 6IDcuNmluOyBt SFYgxE49CCS6lO73Vh16z RKadFQcc7utcJk3QqIoJQ NtISB4gYovNMfwf0QnDXE tQ83vaKXfo7K9 VMBvnTeqtGIgZrLjzIG0f V2rSExaockxv1zikfrkDg r5yx08yVAmn0F6wXZ9K4D ikqS0XJXmlMDu QtgucQTLzM3bciksf3tvu tfrFxKlUIOcPUb7GKq1CS QaeUznLeVsBD44DZA5JOR xvxKvU1FoOHBr mQziMqG2e3N5Fo2GE0IWV jzbH8UDDTMGGLysrFQ+PC 74zg54Y5UqClwuGjq0RQM xNRA3jHW1eK1i PHEiWUwan7K6dEX9N2Reu zYekz3dy9wvMCPrAWapP2 1xwUYit7I6UMLdkTI1GMQ dvCqyZaYiqW88 Oyc+VPYnjFpdl9RkItokx 1lhx6zfmZg0YlrjJDWafa ThtMpzYSD4p7TtZv3dEOT bbOO8eJV1fG5r YrWnBlZ4UScjQ783RfZow SZfRcsvQ40pC3NzyLV+PH SoRha9TGQcoJquLH8dX6W hZGRpbmctbGVm eCdaOJ1kGULepkpdMNUrf C9iNWVlC1g6QhLtMtM7VZ ixS0XdLUQdvlivAk68oM5 eFvEoJdU8IBbs R4IzxuY9DBJtnJKuXWjuN RN5C62tx6H0IVEaWVFfEJ Y8zZY0tJ6zbWaatkrlxKF mdDsgdmVydGlj JMdlRHtdL532UYEpjQmaE kNvZGluZyBEYXRlOiAgMT AvMDQvMjAyNDwvdGQ+PHR yARJ7xKsjCAFu hTTnXWwqRs0tnSevaPsmW N6yCIScjcwvWUHebR0fAD PsnLGssSlcEP8lBKUudph zf225PcAgBYY6 SHIqjDGnN0EojB5wJbGrM YMpUFWyT4UdrQQyZJopM1 46MEnoFiP9RKNcloNxE9L sLWFsaWduOiB0 o9H9Bo0Vf0HsgzvfS7Vtv FBzSaWdNtpwHOj3A3MlEy wvdHI+LJ55GGFhZK44GBz 4ZHZ0rHiqFMrj ZSYmM2KvtZ7lGyXeKTOnY GRkOyc+PHRhYmxlIHdpZH RoPScxMDAlJyBzdHlsZT0 wFg7wZCEtPDDz nWtcmVDpRiMlg5ghYLYyW XciQC0pzNabM7VgcFN0MA Kyj1w4Tg76R25zM6FfdYQ +FAZrtRE7gAJ3 lZ5rNaQmGoI6WUtsL515H qZyfKCxAdpku6wls6qmpT i0JhO0WXPkobNzvAmsERS 7t8BbFr14E59o IHdpZHRoPSIxNSUiIHZhb Tjopp5geV4kXf7+PGNvbC G1lSC3pS1zOxBvPaT5OPa vT433EoJygRJa Hitep0byh0cotMv2ItTzC KPexeRfkXeiRJE1o5EnQr 90D8KecXwfe1JjAnt3et0 3dVKit4Y8kJA6 D1WdLTBtunchqNLigKelM K1oOPWhpvbjXRGdnQ9hIF MoD3t2DgPlKfR1HTjfK1S hbqB2DVPkzDTn KMKehTWNaN7syrkds4zpj ecxNnVtTYGlLFm2MDw1SI SnuVtnAyThYUN7NvD4NZB 9dVEprG9ezOul hogavP8dZou+DJL7zMEkl VKFGH6tMggqvLV+PHRkIH S6fYffWIoaPRGwoX3aJRJ qN7s2DuMcKvJ3 FIhjY7IvrgV8HUMijQVkS PIasQBObA9nzfhiz8lgni ooJeSjTUIlKJl2MPp2YTC saWduOiBsZWZ0 NeZ2BEV3xVLsfF5xiPgnv wvswK7gEdm+QmlydGggRG P4VEe0X1HgUnx2RNHopVz mZQ8onWVrRAma Pl4anRrvxLlcVM6aBLAls qsiy066XcFth1ijWJPhrZ JtDVivDZR7X97rs6S9HPA sRGKdAAD9lMX4 aP1esYdddqidhDPypMlnp vOgpFpyMEhkMVyrY456ED YxdZkcLuHjAYc3J3TbLte 5OWTapVcjLD7r fMDjUTnlGt3baSapsKgbY O6mMVJmhdwfw921BwQwy3 prPPTxhXDuRAtcXGZ9C02 tn1S2HUBkSPFn FGF4gKR1dR7mkWningnfp GVmdDsgdmVydGljYWwtYW bbJ317ZFNqpXodOyEibXm 3M2LoUjd3PPRb bQixTD4kjAIfZArmVl1ea DnruRiyCT8zMISzcuxqr3 68XsMvb7hjHAIdfSKwDQl oDGL0S21ow5S0 BVChLGReJLY5qLB0mI6tp GlnbjogbGVmdDsgdmVydG rgWOxfTFrhD633APHhrQc nPlBhdGllbnQg DDbzKIw6C5OiHohhzJS+P D50PEXaPL08vSKpfBDwq1 ooiEu8BdUhRGVoGYM5bOz vMGjoi9LvUQIt Y15cdLHne0M3BQVouHtwa PNqDaXvkUD0fL7vMFmgnh gxh0qiimheBbuph3iemd1 0pW89F76vKOzx ZHRoPSIzMCUiIHZhbGlnb u6vlZ7fBr9+DXTkiFS5mO T9wP4qNRXyJpD2IIqpQ91 9InRvcCIvPjxj s4ift2thgCe7SyM4FTMft qQedXcyUEP6b1LxIi22D3 9sIHdpZHRoPSIyMCUiIHZ ujRbtzs0hjA9l Ii8+NKYdyQL7xBA7aS3aD yVzYsS2QIteB949MyGlhU QjClvnN15oV4JcpZL+PHR yZnn9RWUkvSme QJ5quEOsEKqzKs3mBHK1Z bRrUiYbBFemS6XrFMYtxt kqtekonVR0XEVoLTLjjR0 8Be8wsJayCCEi sLVSkY0mrvihu3jltmyoA oXdOXUkPJc6BUl1DBQndF apBjSvEJK6NzE2LJD2eVW ztC0gyOgancbd jT5mU0IvXHOyatmmSs78x Z7tIwHsDzS9PPruKdc+V0 VMCtIpHUOBWHGSD8HDWCW WMEl5Z2GgJya5 ZWUlaIruMU0umQXmLKofL j3fpTtxsNjqBB4tIKZhcm mxXJSxjV8fGBXxzOQycBc pBK1hDXAftvww a785SzPkNHS5PJQciRTbK 1PeiZ9bWmOfFEIuWPWvV4 CteLJlWKjqI721ONfzVqU 2LJNvwkLtZ1Cw YOSqlRkvPbU0g0J3Ip0dW c9yEP9oCBC6OV61EG08nF Gdb9C8tAJ1B5WbRFEjhae wlyebnTT0GLLw FADkvT80eVXeOQhcWm8wy 5M0k678QRWrKEKswG51Tm 2zfGrcMYIllUALqX0deha ye9fbrmzwLwDj UECnFUw5KPt7EJLgqAviH cUiXIE7DeL8RKT3oCNfvQ 5auKroqghsmC1qDwr+NTk aVHUfddT1U8Gw Gcp2SLWkhLuzFF4guDJaA KwaPw0tjXjkbNoyAC5iBX IjwsmnOYCtlR5dIMFppJT uwRbnJY9sGFUe zlkey771OzQrOJF0JZTjp XXkC3AobK6jKgLkCVDmIC HsU2WmpDYjVJueY235FSy nWmW2WRYmdxQq T7CxPYCayAkmVoH9n0I1I f5FUV5ORKZ2R2TsVua8XR YnmNlnOW7soBVfVIytWo3 muMnuoGwqUL2c KFFaiuqoUBIhjP3hSDNrk VLpjPxjDQ0fYHIhoowen7 03KwRgCSE6CISduMZjW1W qwB4jDpEyRFGz IANnD7YffMItJFhpL382C IrkNkP3TDXxpaNnD5BhTZ UmvMopTzG8z5R9Cz1IOPz vdGQ+OQ61fo45 G4ErMkklVop3MSGsRJL2e YB5fO4wCMCsQBdpv9I2cH Q1O4LuqqTyus7wq2uvPQV gFSsbL65hcVFk u5S7NLJqyZG9SPIzhXfaQ jIavG76Sks+PGNvbGdyb3 KpDkefy2qwr5imeJf2QhR wJSIgdmFsaWdu CEK8t7JlNj50K24oGPfjW HRoPSIzMCUiIHZhbGlnbj 6hnN8wMn3+PBYpqEX9yMT 3kH8hGaNwKzT9 PZhcI792PhCvtGMbXwopc 7gwh0bnuRc4HdGrBPWakx ArqRfmHSZ5i4OjSo36Q9F qkRzzx4UiZjw2 it77bPLdn6A2yHN6M6UuS TXwzidivEJpiCgzAX1lCH IogfxzFMAcwW5xZSPqT5s 5EsQwAgG5QJtu J7PnvkP9GPIekAGnCAWvq NFJcV4vphknc6xbuvfiZn OqHCZqTEc7WPn2MXQsvMz wDbRmAGB0OiQ0 RKP4xDHeuH4zrPevfyvkq G9wOyc+ZOd0y0cjsPAfPF 1weLM6WG61DX79iUHfe1B 6vQU2L5ClZFTg oogslbnuuQA6LKWaJOQmd R30Bg7vaAfrTe5xGDGhKF V0SPSzzPFmT5KnuX5iBnA sQHPzWKEqS8Me jXZuJKtcS455JZqhTuN1E JEtbtFnC1FcFCVsyPpsCc Q9a0C7Xy5VFE92SO26TV3 3eTNtj2U0rZT4 Z1BmIGGuvllcvcqfzWK2T WGaUQHmtS52Gi7otWiuDn 3lWAVgGRR1CCLfmRYbH4K hyN8hMdWoVPJy PLSiO0TovXVoRLvfA717I QobObL9VFIpjaBtA1JrTX SwrUhnMeP1f5X9Hc1MMd0 9XD25XN31jUZl t2E1fTE3F6OePBBbagwwf kcssWF3WXGtERCteH01Ul 1kgLxsQl8gUKEwCTV6CCC vsOCgP8TqyA1m VzTtYSHsXCFyS6HplUSfF RjsV256TXfbHsK1BQQlzw YxH2XlDGSwfJdzHrS5v5G 9Gg5UMFjtkml2 B0SfRygneOZ+UX30DXJtQ J57yVIyxQXxb9xcyWh5Zg LrYZKcUFZ3zBtuKZveh5S vNHYsC79cmHNd c2U (more content not included)... Normal [facility] ED Clinical Summaryon 2023 ED Clinical Summary [facility] ? Urgent Care [address] [place] [address] Clinical Summary PERSON INFORMATION Name: ALBINA CAMERON Age: 58 Years Sex: FEMALE : 1965 MRN: Acct#: Visit Reason: UC - Ankle/Foot/Toe Pain or Swelling; RIGHT FOOT PAIN Arrival: 03/04/2024 12:06:05 Discharge: 03/04/2024 13:00:00 LOS: 000 00:54 Check In: 03/04/2024 12:06:05 Checkout: 03/04/2024 13:00:00 Address: [address] [facility] [address] PCP: CONSTANTIN MELENDEZ PROVIDER INFORMATION Provider Role Assigned Unassigned Rian Charlton CNP ED PA 03/04/2024 12:15:26 Jessica Chen LPN ED Nurse 03/04/2024 12:16:43 VITALS INFORMATION Vital Sign Triage Latest Temperature Tympanic Temperature Temporal Artery Pulse Rate O2 Sat 96 % 96 % Respiratory Rate Blood Pressure /85 mmHg /85 mmHg MEDICAL INFORMATION Medications Given: Allergy Information: No Known Medication Allergies PHYSICIAN DOCUMENTATION DISCHARGE INFORMATION: Discharge Disposition: Home Discharge Location: Home PATIENT EDUCATION INFORMATION Instructions: Elastic Bandage and RICE Therapy Follow-Up: With: Address: When: CONSTANTIN MELENDEZ [address] [place] [id number] Within 3 to 5 days Comments: - Diagnosis right foot sprain. X-ray results pending at this time. Will call with abnormalities take appropriate measures refer if needed -Rest, ice, compress and elevate every 2 hours 20 minutes each. Alex wrap applied -Motrin Tylenol as needed for pain -Range of motion exercises as discussed -Monitor report lack of improvement, worsening symptoms or other concerns back to urgent care follow with PCP as directed -Care plan discussed with patient in agreement verbalized understanding DIAGNOSIS: 1:Right foot sprain; 2:Dental infection; 3:Pain, dental Patient Understands: Yes - Patient/family/caregi brianna verbalizes understanding of instructions given Comment: Normal [facility] ED Patient Summaryon 024 ED Patient Summary [facility] ? Urgent Care [address] [place] [id number] PATIENT DISCHARGE INSTRUCTIONS Patient Information Name: ALBINA CAMERON Age: 58 Years Date of : 1965 Reason For Visit: UC - Ankle/Foot/Toe Pain or Swelling; RIGHT FOOT PAIN Arrival Time: 03/04/2024 12:06:05 Primary Care Physician: CONSTANTIN MELENDEZ Attending Physician: Rian Charlton CNP Comment: Patient Education With: Address: When: CONSTANTIN MELENDEZ [address] [place] [id number] Within 3 to 5 days Comments: - Diagnosis right foot sprain. X-ray results pending at this time. Will call with abnormalities take appropriate measures refer if needed -Rest, ice, compress and elevate every 2 hours 20 minutes each. Alex wrap applied -Motrin Tylenol as needed for pain -Range of motion exercises as discussed -Monitor report lack of improvement, worsening symptoms or other concerns back to urgent care follow with PCP as directed -Care plan discussed with patient in agreement verbalized understanding Elastic Bandage and RICE Therapy Elastic bandages come in different shapes and sizes. They generally provide support to your injury and reduce swelling while you are healing, but they can perform different functions. Your health care provider will help you decide what is best for your protection, recovery, or rehabilitation after an injury. The routine care of many injuries includes rest, ice, compression, and elevation (RICE therapy). RICE therapy is often recommended for injuries to soft tissues, such as muscle strain, sprains, bruises, and overuse injuries. It can also be used for some bone injuries. Using RICE therapy can help to relieve pain and lessen swelling. General tips ? Use the bandage as directed by the maker of the bandage that you are using. Follow instructions on the package that the bandage came in. ? Do not wrap the bandage too tightly. This may block (cut off) the circulation in the arm or leg in the area below the bandage. ? If part of your body beyond the bandage becomes blue, numb, cold, swollen, or more painful, your bandage is probably too tight. If this occurs, remove your bandage and reapply it more loosely. ? Remove and reapply an elastic bandage every 3?4 hours or as told by your health care provider. ? See your health care provider if the bandage seems to be making your problems worse rather than better. Supplies needed: ? Ice. ? Plastic bag. ? Towel. ? Elastic bandage. ? Pillow or pillows to raise (elevate) the injured body part. How to care for your injury with RICE therapy Rest Rest your injured area. This may help with the healing process. Rest usually involves limiting your normal activities and not using the injured part of your body. Generally, you can return to your normal activities when your health care provider says it is okay and when you can do them without much discomfort. If you rest the injury too much, it may not heal as well. Some injuries heal better with early movement instead of resting for too long. Talk with your health care provider about how long you should limit your activities and whether you should start hvxkx-ue-nujvzu exercises for your injury. Ice ? If directed, put ice on the injured area. To do this: ? Put ice in a plastic bag. ? Place a towel between your skin and the bag. ? Leave the ice on for 20 minutes, 2?3 times a day. ? Remove the ice if your skin turns bright red. This is very important. If you cannot feel pain, heat, or cold, you have a greater risk of damage to the area. ? Putting ice on your injury can help to lessen swelling and pain. Do not apply ice directly to your skin. Use ice on as many days as told by your health care provider. Compression Putting pressure (compression) on your injured area with an elastic bandage is part of RICE therapy. Compression can help control swelling, give support, and help with discomfort. Elevation Elevate the injured area above the level of your heart while you are sitting or lying down. Follow these instructions at home: ? If your symptoms get worse or continue, make a follow-up appointment with your health care provider. Having these problems may mean that you need further evaluation or imaging tests, such as X-rays or an MRI. ? If you have imaging tests, it is up to you to get the results of your tests. Ask your health care provider, or the department that is doing the tests, when your results will be ready. ? Return to your normal activities as told by your health care provider. Ask your health care provider what activities are safe for you. ? Keep all follow-up visits. This is important. Contact a health care provider if: ? Your pain and swelling continue. ? Your symptoms are getting worse rather than improving. Get help right away if: ? You (more content not included)... Normal [facility] [address] 024 Urgent Care Record [facility] ? Urgent Care [address] [place] [address] PATIENT DISCHARGE INSTRUCTIONS Patient Information Name: ALBINA CAMERON Age: 58 Years Date of : 1965 [facility]: [id number] Reason For Visit: UC - Ankle/Foot/Toe Pain or Swelling; RIGHT FOOT PAIN Arrival Time: 03/04/2024 12:06:05 Primary Care Physician: CONSTANTIN MELENDEZ Attending Physician: Rian Charlton CNP Comment: Visit Diagnosis: Diagnoses This Visit Right foot sprain (S93.601A) UC - Ankle/Foot/Toe Pain or Swelling ([id number]) If you received any narcotics, sedation, or any other medication that causes drowsiness for the next 24 hours, unless otherwise directed: ? Do not drive a car. ? Do not operate machinery such as power tools, lawn mowers, drills, sewing machines, or stoves ? Avoid alcoholic beverages and drugs for allergies, nerves, or sleep ? Do not make important personal or business decisions or sign any legal documents With: Address: When: CONSTANTIN MELENDEZ [facility] [place] [place] [id number] Within 3 to 5 days Comments: - Diagnosis right foot sprain. X-ray results pending at this time. Will call with abnormalities take appropriate measures refer if needed -Rest, ice, compress and elevate every 2 hours 20 minutes each. Alex wrap applied -Motrin Tylenol as needed for pain -Range of motion exercises as discussed -Monitor report lack of improvement, worsening symptoms or other concerns back to urgent care follow with PCP as directed -Care plan discussed with patient in agreement verbalized understanding Medication Information: The exam and treatment you received today in the [facility] were for an urgent problem and are not intended as complete care. It is important for you to follow up with a doctor, nurse practitioner, or physician?s admissions assistant for ongoing care. If your symptoms become worse or you do not improve as expected and you are unable to reach your usual health care provider, you should return to the Emergency Department, we are available 24 hours a day. For those patients who have received Radiology results, the interpretation of your X-ray as given to you by our Urgent Care physician is only a preliminary report. The Radiologist will review your films and if there is a change in the diagnosis you will be notified by phone. Please make sure you have provided a working phone number so we can reach you if necessary. In the event that you had a lab culture while you were a patient in the Urgent Care, you will be notified by phone if there is a need to change your antibiotic. Please make sure you have provided a working phone number so we can reach you if necessary. [facility] has provided you with a complete list of medications post discharge. Please inform your compensation associate/provider of your visit and for further instruction on these medications. Any specific questions regarding your chronic medications and dosages should be discussed with your primary care physician(s) and/or pharmacist. Additional medications on your home medication list not specifically addressed. Please contact the ordering physician if you have questions about these medications. atorvastatin (atorvastatin 40 mg oral tablet) 1 tab(s) Oral (given by mouth) once a day (at bedtime). TAKE 1 TABLET BY MOUTH AT BEDTIME. celecoxib (celecoxib 200 mg oral capsule) 1 cap(s) Oral (given by mouth) 2 times per day. TAKE 1 CAPSULE BY MOUTH TWICE DAILY. Durable Medical Equipment for Prescription (VITAMIN D3(BORIS) 1,000 IU TAB) TAKE 1 TABLET BY MOUTH ONCE DAILY FOR 90 DAYS. glipiZIDE (glipiZIDE 10 mg oral tablet) 1 tab(s) Oral (given by mouth) every day. ibandronate (ibandronate 150 mg oral tablet) 1 tab(s) Oral (given by mouth) once a month. lamoTRIgine (lamoTRIgine 100 mg oral tablet) 0.5 tab Oral (given by mouth) every day. LORazepam (LORazepam 1 mg oral tablet) 1 tab(s) Oral (given by mouth) once a day (at bedtime). metFORMIN (MetFORMIN (Eqv-Glucophage XR) 500 mg oral tablet, extended release) 1 tab(s) Oral (given by mouth) every day. TAKE 1 TABLET BY MOUTH EVERY DAY. omeprazole (omeprazole 40 mg oral delayed release capsule) TAKE 1 CAPSULE BY MOUTH ONCE DAILY. oxyBUTYnin 5 Milligram Oral (given by mouth) every day. pioglitazone (pioglitazone 30 mg oral tablet) 1 tab(s) Oral (given by mouth) every day. TAKE 1 TABLET BY MOUTH EVERY DAY. semaglutide (Rybelsus 14 mg oral tablet) 1 tab(s) Oral (given by mouth) every day. TAKE 1 TABLET (14 MG) BY MOUTH DAILY. valsartan (valsartan 40 mg oral tablet) 1 tab(s) Oral (given by mouth) every day. TAKE 1 TABLET BY MOUTH IN THE MORNING. venlafaxine (venlafaxine 75 mg oral capsule, extended release) 3 cap(s) Oral (given by mouth) every day. Visit Information Allergies: Substance Reaction Symptoms Type Comments No Known Medication Allergies Drug Vital Signs: Vitals and Measurements (more content not included)... [facility] XR Foot 2 Views Righton 02-05 XR Foot 2 Views Right EXAM: XR Foot 2 Vi ews Right HISTORY: Diagnosis right foot sprain. 2 days ago she was getting up somewhat bended hyper flex to the right forefoot. Since then pain, swelling, bruising right forefoot third, fourth, fifth metatarsal area dorsal aspect of foot. Rule out acute process. Thank you COMPARISON: No priors available for comparison. TECHNIQUE: Right foot radiograph, 2 images FINDINGS/IMPRESSION: Cortical irregularity involving the medial aspect to the base of the middle phalange, fourth digit (page 1). Findings favor mildly displaced age-indeterminate fracture. Cortical irregularity also noted involving the medial lateral aspects of the base of the fifth digit proximal phalanx (page 1). Findings also favor mildly displaced age-indeterminate fractures. Additionally, a portion of the fracture involving the medial aspect to the base of the fifth digit proximal phalanx could possibly have a small degree of intra-articular extension (long arrow on page 1). There is soft tissue swelling overlying the dorsum of the foot at the level of the metatarsals, however no additional fracture identified. No dislocations. Scattered degenerative changes and calcaneal enthesophytes. No subcutaneous gas or radiopaque foreign body. Final Dictated by: Godfrey Jaquez MD Dictated DT/TM: 03/04/24 1:40 Signed (Electronic Signature): Godfrey Jaquez MD 03/04/24 1:47 pm Technologist: LUIGI CUTLER [facility] Coding Summaryon 01-23-2024 Coding Summary HTMLBase 64 YmtkyonhQVf1uRn+PGhlY WQ+WO7OWDCtM15dxAQuxT 3mR8FCBRpEGlsbUODTGUy SWsOeunBlRX6auVRfTNOs IC8+KL4mUQRhWhhfoWVtr 7M1uDV4C03nrl7iSRvowM T0VLVnMmAsxafvp4gqdDy 6IDcuNmluOyBt IEApzD81IJC1rX19Oo47t YYzwDSsk4gwrQa4OqRoGV JiQRB4oYgoMZbiy8ZpXIC aE53wkCJkf4V7 JTStqLkgaVKjQkKnoXG4l Q8oHFgcjdvmj8facbohCi g2lz01cAJfw8Y7tAF8V5B wvbI7RIYozJQb JcldjLJRhL0izxvjg1lyk ttgAxRvGKTkQEy1HUd7ZW YauQzqNtNpMD76JXM6RLL qfhTeB3TvEHVd zBqnNhH0r5I9Rf1JR5MHH ioyN1MHGJEQBLymqVC+PC 09mv71Q1VgIistZzb7QPT hWPQ2zBE2sL7l ZYNaSDznt8A1pEY8U5Rdf zVbyg8zf2jrISGjTHroA6 0zoEBis4X5KCLfnSS0ONJ cvSpmTtZvdO23 Oyc+NLYggPgjk4SmLursw 9bml2ocjPg7YjqcLFIuiz QxbOsbAQB7g3SjPc3gGPX tyJY8tIX6lS8k AvBqFvG1BSdhZ818RdYpq JMxMyjzY43sD8RyiCW+PH RbBub7OLVivLiqER8rF2V hZGRpbmctbGVm pAenCR5pKQLjzvtpBPPdb D7uOZRwS6o2UqZmBqK8XS goE2TnUIDbmevpJy90mB8 gMfTkMmS4THir W7AvxxB8KYUzaXChIUyrK LQ0V60xb5W3ESBpKIBgKR S1pYS6yW1qpTdjinbasVK mdDsgdmVydGlj PDzcKTayK699FVPfjUpxK kNvZGluZyBEYXRlOiAgMD gvMjAvMjAyNDwvdGQ+PHR sSPZ0rSxoOMBo kROeTVheXu0boOdcbNjkZ E4mQFLdltvbKBHxhA0yFS IpqXIbpNiuCW6eKDPofyn yq543PhLdMVV4 BELmpBOnR2VclK5tImOhD DKlTFVaQ4YmgVOhNYzhL7 33YLrwBaU2STLbelGcC8Z sLWFsaWduOiB0 f7K7Bp4Om5JyimbpQ4Fwx CSnZdSrGaiiHCv6C4ZcYy wvdHI+HE24SUDmPR20GRs 5ESO1hCnkCJna NPAoD0JdhO1nQgCoKKLeL GRkOyc+PHRhYmxlIHdpZH RoPScxMDAlJyBzdHlsZT0 uOg9rJZXsXGAu vLxcdWWvSoMst1niCNFeL OagNJ3bvEfcA3EfsAS5TK Uaj8i5Al47N90uB7LzvMT +MFIuqYE4xSC6 iK4zZgAwLyM5FMofL398G xJymJSzMndup0loz1uglL j1LnC6JSLzaaWvfPuiMGP 2n9UoDv51Z97h IHdpZHRoPSIxNSUiIHZhb Qlnbc8yjF3pQa0+PGNvbC D2iLA1dO5lNqQfFkJ8VAe rQ887SlSyjXGw Wnruh7zyo7klnWh6PyZrD XUzyaIgtWnsCLR6h8OqZc 62V5MapUkhe2QcBrj0uv0 9rNJjw8F3lWD8 D2GiQRDpcreqoXPzoPeoV H4fFWAuarujJAQcwX2lCL UhD3c1CyCjIuF0WIouI5W lgpA1OWIbhXVh MCYyeCICxJ3utjueb8ytp utxLxIgYDImGGq5YBf8NI HhdFyfIrFmNWS1HpK3NRS 6gHDusS1zvXbe fshisT1ePty+AAA1nULlq WRJZB5eKmvyrQZ+PHRkIH F9eEfiUZtkIOFlrE4vTLO vS7s5RmNzUbH0 TEapI7TmpnM2TIAdlHPmR BYgdTXAfL0qgeanw1lheq zaVkSjZNZwKTi5SQa3SVW saWduOiBsZWZ0 QrH3BUS2yFHfcP6xqRmwt lxusD8mZbz+QmlydGggRG C8MZi7A8QqZdn6RLXlhQo nDN3zbUYwNAig Pb2cqNohiPxwQV8hTTEzt uobm442TuIws8skFEDhlJ GgMGogJGH4D61ug0N9JFH fCVQyHEM8oSA9 eZ1vnCnbixqyjNFmeOlbk nOteJybFWflHWygS480GW CqwSdcDtSqFWi6W1KhAiy 4PUUutTitAN5k yODgOKowLb8oyUmiiTtpP N0xAYScwxncf592PhZvq2 itIDFngXHyXUyhVRD2I41 bm6I8DTRrASOk OEQ1tPJ5zM0nqUezwksrx GVmdDsgdmVydGljYWwtYW otK083GEMvsHozYwLehPi 7O4PoBgt9UXKy mWikYD8myGRnLHcsIr9wk GfthShqFM5wNGOzmvmjl3 99CwVxg4erMZRotJPpZNg uWSU4A51sk7K1 WOCaCWZmOTW1uVP8rS4yx GlnbjogbGVmdDsgdmVydG twNHusARurO582RCPoiVz nPlBhdGllbnQg ISgzABc0S9WlGeajmOJ+P P95SZCcPW01sRHofMNly7 otpQe8LeSsXUJkTYI8fBm wOJddb0OlTWCh M99fbJFzp3A7VWRyuIbyj UZvGwBviSF2pE6fENywkc zmj1qptsooIkdfs9wfrt8 4wK89O49gRUbp ZHRoPSIzMCUiIHZhbGlnb e6miT4oJg7+WBXpyCF9sM U4kA8gJOIzRuN1DPwyI76 9InRvcCIvPjxj g3xsd2ihuFc9HaQ9LSAtl lUgaJqxCJB4d8DoWo91D2 9sIHdpZHRoPSIyMCUiIHZ huUonxc1zrX5e Ii8+SEPmxHQ8tYE9dO0uT nGfLbY9WAuvB937RqCzzX HyWptaM51rF5QyfXH+PHR sJvm8OTTkwEih NG9wqXMlXFdnKd6qGUC3O fXkFbSyZRomV6OpGPIvko glpssjhUB7VPHxVKGhyR4 9Tx5snXviNYWd gXJNwV1bpmuaz7olvateC sOxOFZzGQd4UTl2SXCecI arDpZiVJE4SdT5VBI5dEH phW7qrEcnawxy iD6iA6YfKNUxmnmgJy23l E1iDkRjAwR9OAysPxd+V0 AWYrKqMQVAUNMJH7FFXEA IPAb0Y1IiFdm2 LBEcvTyeHT4nlTCyFCznJ r9qsYhihAxzVK3oGWVrsu jmETXinK6fQEMdePXprYx dVC1oZROhqjet f396MeRwTVL8RXHihRXhT 7VfdW0lAgZyPXXcXTTkN3 PxwOQjGEgzX614ZVevLiM 8OEUskxQvT6Po DZAjkSzxRqT2q4E7Er8wF l5jEH8sCVD4PN81YC46qW Naf2V8xOJ3W0XiPXHnvuy jspsqrIO5KSKm BIIavD27nCYlNNaoLn5qu 2B5e397MRQsCSRhdS38En 0fqJizCYQkzAJIxG3eewa zh6bianwxXoCp POJrTRg8VOf9QWKoyOtjF qCxFJA5MdV0BVK3fATisM 1xfKmrrukwkR0dHlw+NTk gJFGafoP0Q7Bh Ffm8GPUwmKoyOI5cmUKnC FjuEc7ogExtwHoeWW3oQY JqsyhaZBYjfT8lYRSlyTT esChaJZ6sECMn ovlwi094IoVeIZH7QSXuv OTlN5CgmO1tGoDoUAMtHV KvF8FxxEFpXNtaM931TOc dOlY1UOUayjNl B5HiKGSxlIkeZwR5c1F2R b6TRR5YCYY7F8EvTsh1PH CwdFrfQP5zzLEoRLwiJm5 xbYjiqWeuYD3j SWKqarysELYcnJ8bYQEqm KSggKxbOW2uPBYqrywjo4 33LoWhWKR7CBAzyOJoS4B ioA8sZbMfKCKw BLVtX5IdtOPtSCidT082Q LfqZnT0EPVtqwSlC3VhOX WshJesQvP5m8N1Eh3UJNm vdGQ+YZ26ak73 P7IqTlqdZfk2MZUmFVC0m TF0gC7aIAPbWXimo5F5xY F2T0KixoVadk0xs6xcFFS cSHiaB03foOFx e3C9TKLbqGP7NUVlwDwoR nEqrT21Pll+PGNvbGdyb3 EaIboqi3szf6bgiZg0LdP wJSIgdmFsaWdu HTF3b5RgOn85N64lZZyyZ HRoPSIzMCUiIHZhbGlnbj 4sfG1iPh3+ZXZzxAG6gAL 4cL6pUeUqJnI6 HGcrY574NjYksMOjOfuqd 1med6svtAn8ViZgWQDpin AdkBxqUFS6p7EqAo67P9I njUvbz2EcMuk2 ey09zITfd2W0jPH1T3SdY BIaopgnhSHwcQidXP6zNF VthqhqVAEyqY7lBIXeN4a 0ZqYfPwU2AAvi Y6BlopT7JXFwlRSvCXUbt FIAlR9fytoeq4cyjyxsRv WvHSCqDNt3EWl9WQLzwFx pLwRcPAX9ZuP5 SIE9jAKruJ6psGvmhevtf G9wOyc+HCv8c6zliCVyOD 7ruYF7UO39FF61bIIea5C 9kGT0P0SiESHr zrdycoomuDC5XIPjJABrj H50Un7isEeiVl8lOCXqNO K1JTTfwDEcP5AdvU4pGtW uWHKyUQAkY0Mr cMZuKGpvR194NRfdOiM3H DMlivLiP5PgDKHajQcbQd T9c6W6Tm0AME07CS93YW2 4xCXuk1H5eZK4 R8PbUULcgiyxwboiqNB9A WLxRXQccT76Fw1qhXsaHb 0dFSTlDVP9UCTuxHGpC0X meN5uCcFwIWRm HVVpI9OzcQNdMXqyY842E YxfNsO6CFYanpVeZ8AdDK GcnBjmCnW7z6A5Gj8ZPu1 4LU55RE45gKQd s5E8fOX2X7TfWWVvprqcj gsgvOM1OQUvDCSomV26Gl 7laNgdHq2tWQFdSXJ3GRH keURyO1BbyQ5n YhPqGRKsVBUrC2UijNCoT LvaS249DHkiDiO9GCDdhl EkQ9DnCDVxdJzpDdB0o9B 6De7JEIpjduq6 I6TfDgnyyNC+WC10BWBpJ Z32mBNljLQes4aroMr1Zc AgEJEgCCO4fQwqZYvxp1A vGNIdU37gyWFc c2U (more content not included)... Normal [facility] C Urineon 01-12-2024 C Urine Urine Culture ordere d as a result of parameters set on specific urine dip and urine microsopic results. <10,000 cfu/ml Normal [facility] Comment on above: Performed By: #### 6 [id number] ####[facility] (DEFAULT)[address] [place] [address] ED Clinical Summaryon 2023 ED Clinical Summary [facility] ? Urgent Care [address] [place], [place] [id number] Clinical Summary PERSON INFORMATION Name: ALBINA CAMERON Age: 58 Years Sex: FEMALE : 1965 MRN: Acct#: Visit Reason: UC - Urinary Frequency; UC - Abdominal Pain; URINARY FREQUENCY, BACK AND ABD PAIN Arrival: 01/10/2024 18:28:43 Discharge: 01/10/2024 20:12:00 LOS: 000 01:44 Check In: 01/10/2024 18:28:43 Checkout: 01/10/2024 20:12:00 Address: [address] [place] [address] PCP: CONSTANTIN MELENDEZ PROVIDER INFORMATION Provider Role Assigned Unassigned Micah Carney ED PA 01/10/2024 18:38:06 Rekha Landa RN ED Nurse 01/10/2024 18:44:38 VITALS INFORMATION Vital Sign Triage Latest Temperature Tympanic Temperature Temporal Artery Pulse Rate O2 Sat 98 % 98 % Respiratory Rate Blood Pressure /81 mmHg /81 mmHg MEDICAL INFORMATION Medications Given: Allergy Information: No Known Medication Allergies PHYSICIAN DOCUMENTATION DISCHARGE INFORMATION: Discharge Disposition: Home Discharge Location: Home PATIENT EDUCATION INFORMATION Instructions: Urinary Tract Infection, Adult Follow-Up: With: Address: When: CONSTANTIN MELENDEZ [address] [place] [address], [place] [id number] Within 3 to 5 days Comments: Diagnosis is cystitis, urinary frequency and, urinalysis shows signs of infection, we are starting you on oral antibiotics, Keep hydrated. Follow-up with your own primary care provider in the next 3 to 5 days for reevaluation of your diagnosis. Return to the emergency department for worsening symptoms or concerns, fever, acute shortness of breath, chest pain, abdominal pain nausea or vomiting. DIAGNOSIS: 1:Cystitis; 2:Urinary tract infection Patient Understands: Yes - Patient/family/caregi brianna verbalizes understanding of instructions given Comment: Normal [facility] ED Patient Summaryon 024 ED Patient Summary [facility] ? Urgent Care [address] [place] [address] PATIENT DISCHARGE INSTRUCTIONS Patient Information Name: ALBINA CAMERON Age: 58 Years Date of : 1965 Reason For Visit: UC - Urinary Frequency; UC - Abdominal Pain; URINARY FREQUENCY, BACK AND ABD PAIN Arrival Time: 01/10/2024 18:28:43 Primary Care Physician: CONSTANTIN MELENDEZ Attending Physician: Micah Carney Comment: Patient Education With: Address: When: CONSTANTIN MELENDEZ [address] [place] [phone] Within 3 to 5 days Comments: Diagnosis is cystitis, urinary frequency and, urinalysis shows signs of infection, we are starting you on oral antibiotics, Keep hydrated. Follow-up with your own primary care provider in the next 3 to 5 days for reevaluation of your diagnosis. Return to the emergency department for worsening symptoms or concerns, fever, acute shortness of breath, chest pain, abdominal pain nausea or vomiting. Urinary Tract Infection, Adult A urinary tract infection (UTI) is an infection of any part of the urinary tract. The urinary tract includes the kidneys, ureters, bladder, and urethra. These organs make, store, and get rid of urine in the body. An upper UTI affects the ureters and kidneys. A lower UTI affects the bladder and urethra. What are the causes? Most urinary tract infections are caused by bacteria in your genital area around your urethra, where urine leaves your body. These bacteria grow and cause inflammation of your urinary tract. What increases the risk? You are more likely to develop this condition if: ? You have a urinary catheter that stays in place. ? You are not able to control when you urinate or have a bowel movement (incontinence). ? You are female and you: ? Use a spermicide or diaphragm for control. ? Have low estrogen levels. ? Are . ? You have certain genes that increase your risk. ? You are sexually active. ? You take antibiotic medicines. ? You have a condition that causes your flow of urine to slow down, such as: ? An enlarged prostate, if you are male. ? Blockage in your urethra. ? A kidney stone. ? A nerve condition that affects your bladder control (neurogenic bladder). ? Not getting enough to drink, or not urinating often. ? You have certain medical conditions, such as: ? Diabetes. ? A weak disease-fighting system (immunesystem). ? Sickle cell disease. ? Gout. ? Spinal cord injury. What are the signs or symptoms? Symptoms of this condition include: ? Needing to urinate right away (urgency). ? Frequent urination. This may include small amounts of urine each time you urinate. ? Pain or burning with urination. ? Blood in the urine. ? Urine that smells bad or unusual. ? Trouble urinating. ? Cloudy urine. ? Vaginal discharge, if you are female. ? Pain in the abdomen or the lower back. You may also have: ? Vomiting or a decreased appetite. ? Confusion. ? Irritability or tiredness. ? A fever or chills. ? Diarrhea. The first symptom in older adults may be confusion. In some cases, they may not have any symptoms until the infection has worsened. How is this diagnosed? This condition is diagnosed based on your medical history and a physical exam. You may also have other tests, including: ? Urine tests. ? Blood tests. ? Tests for STIs (sexually transmitted infections). If you have had more than one UTI, a cystoscopy or imaging studies may be done to determine the cause of the infections. How is this treated? Treatment for this condition includes: ? Antibiotic medicine. ? Wwho-vsn-xmmujzh medicines to treat discomfort. ? Drinking enough water to stay hydrated. If you have frequent infections or have other conditions such as a kidney stone, you may need to see a health care provider who specializes in the urinary tract (urologist). In rare cases, urinary tract infections can cause sepsis. Sepsis is a life-threatening condition that occurs when the body responds to an infection. Sepsis is treated in the hospital with IV antibiotics, fluids, and other medicines. Follow these instructions at home: Medicines ? Take yrkx-kvh-vgrksgz and prescription medicines only as told by your health care provider. ? If you were prescribed an antibiotic medicine, take it as told by your health care provider. Do not stop using the antibiotic even if you start to feel better. General instructions ? Make sure you: ? Empty your bladder often and completely. Do not hold urine for long periods of time. ? Empty your bladder after sex. ? Wipe from front to back after urinating or having a bowel movement if you are female. Use each tissue only one time when you wipe. ? Drink enough fluid to keep your urine pale yellow. ? Keep all follow-up visits. This is impor (more content not included)... [facility] UA Bzzgk2ts 01-10-2024 UA Bacteria Rare [facility] Comment on above: Order Comment: Urina lysis Microscopic order added on by [employer] Rules system. Performed By: #### 6 [id number] #### [facility] (DEFAULT) [address] [place] [id number] UA Mucous 1+ [facility] Comment on above: Order Comment: Urina lysis Microscopic order added on by [employer] Rules system. Performed By: #### 6 [id number] #### [facility] (DEFAULT) [address] [place] [address] UA RBC 3-5 [facility] Comment on above: Order Comment: Urina lysis Microscopic order added on by [employer] Rules system. Performed By: #### 6 [id number] #### [facility] (DEFAULT) [address] [place] [address] UA Squam Epi Few [facility] Comment on above: Order Comment: Urina lysis Microscopic order added on by [employer] Rules system. Performed By: #### 6 [id number] #### [facility] (DEFAULT) [address] [place] [address] UA WBC 15-20 Normal [facility] Comment on above: Order Comment: Urina lysis Microscopic order added on by [employer] Rules system. Performed By: #### 6 [id number] #### [facility] (DEFAULT) [address] [place] [address] UA w Culture if Ind Standard on 01-10-2024 Breakpoint UA [facility] Comment on above: Performed By: #### 6 [id number] #### [facility] (DEFAULT) [address] [place] [address] Color (U) [facility] Normal [facility] Comment on above: Result Comment: Test cannot be satisfactorily determined due to intensely colored urine. Parameters which will be affected are: GLU, ANNA, URO, KET, BLO, PRO, NIT, LIZZY, SG, AND pH. Performed By: #### 6 [id number] #### [facility] (DEFAULT) [address] [place] [address] Culture? Indicated Invalid Interpretation Code [facility] Comment on above: Result Comment: Resu lt created by rule GL_MAGR_ADD_UA_CULT Result created by rule GL_MAGR_ADD_UA_CULT Result created by rule GL_MAGR_ADD_UA_CULT1 Performed By: #### 6 [id number] #### [facility] (DEFAULT) [address] [place] [address] Glucose (U) [Mass/Vol] 100 mg/dL [facility] Comment on above: Performed By: #### [id number] #### [facility] (DEFAULT) [address] [place] [id number] Ketones Ql (U) Negative Normal [facility] Comment on above: Performed By: #### [id number] #### [facility] (DEFAULT) [address] [place] [address] Micro? Indicated Invalid Interpretation Code [facility] Comment on above: Result Comment: Resu lt created by rule GL_MAGR_ADD_UA_MICRO Performed By: #### 6 [id number] #### [facility] (DEFAULT) [address] [place] [address] UA Bilirubin Negative Normal [facility] Comment on above: Performed By: #### 6 [id number], [id number], [id number] #### [facility] (DEFAULT) [address] [place] [address] UA Blood TRACE Abnormal NEGATIVE [facility] Comment on above: Performed By: #### 6 [id number], [id number], [id number] #### [facility] (DEFAULT) [address] [place] [address] UA Clarity CLEAR Normal CLEAR [facility] Comment on above: Performed By: #### 6 [id number], [id number], [id number] #### [facility] (DEFAULT) [address] [place] [address] UA Leuk Est MODERATE Abnormal NEGATIVE [facility] Comment on above: Performed By: #### 6 [id number], [id number], [id number] #### [facility] (DEFAULT) [address] [place] [address] UA Nitrite Positive Abnormal NEGATIVE [facility] Comment on above: Performed By: #### 6 [id number], [id number], [id number] #### [facility] (DEFAULT) [address] [place] [address]696 UA pH 6.0 Normal 5-8 [facility] Comment on above: Performed By: #### 6 [id number], [id number], [id number] #### [facility] (DEFAULT) [address] [place] [address] UA Protein TRACE Abnormal NEGATIVE [facility] Comment on above: Performed By: #### 6 [id number], [id number], [id number] #### [facility] (DEFAULT) [address] [place] [address] UA Spec Grav 1.010 Normal 1.001-1.035 [facility] Comment on above: Performed By: #### 6 [id number], [id number], [id number] #### [facility] (DEFAULT) [address] [place] [address] UA Urobilinogen 2.0 mg/dL Abnormal 0.2-1.0 [facility] Comment on above: Performed By: #### 6 [id number], [id number], [id number] #### [facility] (DEFAULT) [address] [place] [address] Urine Source Clean Catch Normal [facility] Comment on above: Performed By: #### 6 [id number], [id number], [id number] #### [facility] (DEFAULT) [address] [place] [address] Urgent Care [facility] 024 Urgent Care Record [facility] ? Urgent Care [address] [place] [address] PATIENT DISCHARGE INSTRUCTIONS Patient Information Name: ALBINA CAMERON Age: 58 Years Date of : 1965 Reason For Visit: UC - Urinary Frequency; UC - Abdominal Pain; URINARY FREQUENCY, BACK AND ABD PAIN Arrival Time: 01/10/2024 18:28:43 Primary Care Physician: CONSTANTIN MELENDEZ Attending Physician: Micah Carney Comment: Visit Diagnosis: Diagnoses This Visit Cystitis (N30.90) UC - Abdominal Pain ([id number]) UC - Urinary Frequency ([id number]) If you received any narcotics, sedation, or any other medication that causes drowsiness for the next 24 hours, unless otherwise directed: ? Do not drive a car. ? Do not operate machinery such as power tools, lawn mowers, drills, sewing machines, or stoves ? Avoid alcoholic beverages and drugs for allergies, nerves, or sleep ? Do not make important personal or business decisions or sign any legal documents With: Address: When: CONSTANTIN MELENDEZ [address] [place] [id number] Within 3 to 5 days Comments: Diagnosis is cystitis, urinary frequency and, urinalysis shows signs of infection, we are starting you on oral antibiotics, Keep hydrated. Follow-up with your own primary care provider in the next 3 to 5 days for reevaluation of your diagnosis. Return to the emergency department for worsening symptoms or concerns, fever, acute shortness of breath, chest pain, abdominal pain nausea or vomiting. Medication Information: The exam and treatment you received today in the [facility] were for an urgent problem and are not intended as complete care. It is important for you to follow up with a doctor, nurse practitioner, or physician?s admissions assistant for ongoing care. If your symptoms become worse or you do not improve as expected and you are unable to reach your usual health care provider, you should return to the Emergency Department, we are available 24 hours a day. For those patients who have received Radiology results, the interpretation of your X-ray as given to you by our Urgent Care physician is only a preliminary report. The Radiologist will review your films and if there is a change in the diagnosis you will be notified by phone. Please make sure you have provided a working phone number so we can reach you if necessary. In the event that you had a lab culture while you were a patient in the Urgent Care, you will be notified by phone if there is a need to change your antibiotic. Please make sure you have provided a working phone number so we can reach you if necessary. [facility] Urgent [facility] has provided you with a complete list of medications post discharge. Please inform your compensation associate/provider of your visit and for further instruction on these medications. Any specific questions regarding your chronic medications and dosages should be discussed with your primary care physician(s) and/or pharmacist. New Medications [id number], [address], [place] [id number], [phone] nitrofurantoin (Macrobid 100 mg oral capsule) 1 cap(s) Oral (given by mouth) 2 times per day for 7 Days. Refills: 0. Additional medications on your home medication list not specifically addressed. Please contact the ordering physician if you have questions about these medications. atorvastatin (atorvastatin 40 mg oral tablet) 1 tab(s) Oral (given by mouth) once a day (at bedtime). TAKE 1 TABLET BY MOUTH AT BEDTIME. celecoxib (celecoxib 200 mg oral capsule) 1 cap(s) Oral (given by mouth) 2 times per day. TAKE 1 CAPSULE BY MOUTH TWICE DAILY. Durable Medical Equipment for Prescription (VITAMIN D3(BORIS) 1,000 IU TAB) TAKE 1 TABLET BY MOUTH ONCE DAILY FOR 90 DAYS. glipiZIDE (glipiZIDE 10 mg oral tablet) 1 tab(s) Oral (given by mouth) every day. ibandronate (ibandronate 150 mg oral tablet) 1 tab(s) Oral (given by mouth) once a month. lamoTRIgine (lamoTRIgine 100 mg oral tablet) 0.5 tab Oral (given by mouth) every day. LORazepam (LORazepam 1 mg oral tablet) 1 tab(s) Oral (given by mouth) once a day (at bedtime). metFORMIN (MetFORMIN (Eqv-Glucophage XR) 500 mg oral tablet, extended release) 1 tab(s) Oral (given by mouth) every day. TAKE 1 TABLET BY MOUTH EVERY DAY. oxyBUTYnin 5 Milligram Oral (given by mouth) every day. pioglitazone (pioglitazone 30 mg oral tablet) 1 tab(s) Oral (given by mouth) every day. TAKE 1 TABLET BY MOUTH EVERY DAY. semaglutide (Rybelsus 14 mg oral tablet) 1 tab(s) Oral (given by mouth) every day. TAKE 1 TABLET (14 MG) BY MOUTH DAILY. valsartan (valsartan 40 mg oral tablet) 1 tab(s) Oral (given by mouth) every day. TAKE 1 TABLET BY MOUTH IN THE MORNING. venlafaxine (venlafaxine 75 mg oral capsule, extended release) 3 cap(s) Oral (given by mouth) every day. Visit Information Allergies: Substance Reaction Symptoms Type C (more content not included)... Normal [facility] BASIC METABOLIC PANLon 11-06 Anion gap [Moles/Vol] 8 mmol/L Normal 5-15 [facility] Comment on above: Performed By: #### C BCA, HA1C, BMP, 86683-7, LIVR, 3016-3 #### [facility] ([id number]) [address], [address] [place] [address] Calcium [Mass/Vol] 9.0 mg/dL Normal 8.5-10.5 [facility] Comment on above: Performed By: #### C BCA, HA1C, BMP, 22773-8, LIVR, 3016-3 #### [facility] ([id number]) [address], [address] [place] [address] Chloride [Moles/Vol] 107 mmol/L Normal 98-109 [facility] Comment on above: Performed By: #### C BCA, HA1C, BMP, 64386-2, LIVR, 3016-3 #### [facility] ([id number]) [address], [address] [place] [address] CO2 [Moles/Vol] 28 mmol/L Normal 22-32 [facility] Comment on above: Performed By: #### C BCA, HA1C, BMP, 28421-2, LIVR, 3016-3 #### [facility] ([id number]) [address] [address] [place] [address] Creatinine [Mass/Vol] 0.63 mg/dL Normal 0.40-1.00 [facility] Comment on above: Result Comment: METH OD TRACEABLE TO IDMS STANDARD Performed By: #### C BCA, HA1C, BMP, 23956-2, LIVR, 3016-3 #### [facility] ([id number]) [address], [address] [place] [address] eGFR (CKD-EPI) NON-RACE DEPENDENT >90 Normal >59 [facility] Comment on above: Result Comment: Reported eGFR is based on the CKD-EPI 2020 equation that does not use a race coefficient. Performed By: #### C BCA, HA1C, BMP, 01390-7, LIVR, 3016-3 #### [facility] ([id number]) [address], [address] [place] [address] Glucose [Mass/Vol] 116 mg/dL High 65-99 [facility] Comment on above: Performed By: #### C BCA, HA1C, BMP, 02156-4, LIVR, 3016-3 #### [facility] ([id number]) [address], [facility] [address] [place] [address] Potassium [Moles/Vol] 4.3 mmol/L Normal 3.5-5.0 [facility] Comment on above: Performed By: #### C BCA, HA1C, BMP, 70191-1, LIVR, 3016-3 #### [facility] ([id number]) [address], [address] [place] [address] Sodium [Moles/Vol] 143 mmol/L Normal 134-146 [facility] Comment on above: Performed By: #### C BCA, HA1C, BMP, 24994-1, LIVR, 6-3 #### [facility] ([id number]) [address], [address] [place] [address] Urea nitrogen [Mass/Vol] 22 mg/dL Normal 5-23 [facility] Comment on above: Performed By: #### C BCA, HA1C, BMP, 21024-8, LIVR, 6-3 #### [facility] ([id number]) [address] [facility] [address] [place] [address] CBC AND AUTO DIFFon 11-07-19 24 ABSOLUTE BASOPHIL 0.0 X10E9/L Normal 0.0-0.2 [facility] Comment on above: Performed By: #### C BCA, HA1C, BMP, 85584-4, LIVR, 3016-3 #### [facility] ([id number]) [address] [address] [place] [address] ABSOLUTE NEUTROPHIL 4.6 X10E9/L Normal 1.5-6.6 [facility] Comment on above: Performed By: #### C BCA, HA1C, BMP, 96830-4, LIVR, 3015- #### [facility] ([id number]) [address], [address] [place] [address] Basophils/100 WBC (Bld) 0.4 % Normal [facility] Comment on above: Performed By: #### C BCA, HA1C, BMP, 60508-3, LIVR, 3015-3 #### [facility] ([id number]) [address], [address] [place] [address] Eosinophils (Bld) [#/Vol] 0.3 10*3/uL Normal 0.0-0.4 [facility] Comment on above: Performed By: #### C BCA, HA1C, BMP, 24825-6, LIVR, 3015- #### [facility] ([id number]) [address], [address] [place] [address] Eosinophils/100 WBC (Bld) 4.2 % Normal [facility] Comment on above: Performed By: #### C BCA, HA1C, BMP, 20300-0, LIVR, 3015- #### [facility] ([id number]) [address] [address] [place] [address] Erythrocyte distribution width (RBC) [Ratio] 13.9 % Normal 11.5-15.0 [facility] Comment on above: Performed By: #### C BCA, HA1C, BMP, 47117-4, LIVR, 3015- #### [facility] ([id number]) [address] [address] [place] [address] Hematocrit (Bld) [Volume fraction] 40.3 % Normal 35-47 [facility] Comment on above: Performed By: #### C BCA, HA1C, BMP, 93426-0, LIVR, 3016-3 #### [facility] ([id number]) [address] [address] [place] [address] Hemoglobin (Bld) [Mass/Vol] 13.3 g/dL Normal 11.7-15.5 [facility] Comment on above: Performed By: #### C BCA, HA1C, BMP, 26459-0, LIVR, 3015-3 #### [facility] ([id number]) [address] [address] [place] [address] Lymphocytes (Bld) [#/Vol] 2.0 10*3/uL Normal 1.0-3.5 [facility] Comment on above: Performed By: #### C BCA, HA1C, BMP, 46975-2, LIVR, 3015- #### [facility] ([id number]) [address] [address] [place] [address] Lymphocytes/100 WBC (Bld) 27.7 % Normal [facility] Comment on above: Performed By: #### C BCA, HA1C, BMP, 02405-4, LIVR, 3015-08 #### [facility] ([id number]) [address] [address] [place] [address] MCH (RBC) [Entitic mass] 29.3 pg Normal 27-34 [facility] Comment on above: Performed By: #### C BCA, HA1C, BMP, 29524-9, LIVR, 3015- #### [facility] ([id number]) [address] [address] [place] [address] MCHC (RBC) [Mass/Vol] 32.9 g/dL Normal 32-36 [facility] Comment on above: Performed By: #### C BCA, HA1C, BMP, 29551-4, LIVR, 3016-3 #### [facility] ([id number]) [address] [address] [place] [address] MCV (RBC) [Entitic vol] 89 fL Normal 80-100 [facility] Comment on above: Performed By: #### C BCA, HA1C, BMP, 69608-5, LIVR, 3015-3 #### [facility] ([id number]) [address], [address] [place] [address] Monocytes (Bld) [#/Vol] 0.4 10*3/uL Normal 0-0.9 [facility] Comment on above: Performed By: #### C BCA, HA1C, BMP, 01332-8, LIVR, 3016-3 #### [facility] ([id number]) [address], [address] [place] [address] Monocytes/100 WBC (Bld) 5.5 % Normal [facility] Comment on above: Performed By: #### C BCA, HA1C, BMP, 32290-1, LIVR, 3016- #### [facility] ([id number]) [address] [facility] [address] [place] [address] Neutrophils/100 WBC (Bld) 62.2 % Normal [facility] Comment on above: Performed By: #### C BCA, HA1C, BMP, 98240-3, LIVR, 3015- #### [facility] ([id number]) [address] [address] [place] [address] Platelet mean volume (Bld) [Entitic vol] 9.3 fL Normal 7-12 [facility] Comment on above: Performed By: #### C BCA, HA1C, BMP, 37085-1, LIVR, 3015- #### [facility] ([id number]) [address], [address] [place] [address] Platelets (Bld) [#/Vol] 245 10*3/uL Normal 150-450 [facility] Comment on above: Performed By: #### C BCA, HA1C, BMP, 46081-9, LIVR, 3016-3 #### [facility] ([id number]) [address], [address] [place] [address] RBC COUNT 4.53 X10E12/L Normal 3.80-5.20 [facility] Comment on above: Performed By: #### C BCA, HA1C, BMP, 88184-6, LIVR, 3016-3 #### [facility] ([id number]) [address], [address] [place] [address] WBC (Bld) [#/Vol] 7.4 10*3/uL Normal 4.0-11.0 [facility] Comment on above: Performed By: #### C BCA, HA1C, BMP, 10543-9, LIVR, 3016-3 #### [facility] ([id number]) [address], [address] [place] [address] HGB A1C (GLYCO-HGB)on 2023 Glucose [Mass/Vol] 140 mg/dL Normal [facility] Comment on above: Performed By: #### C BRANDON, HA1C, BMP, 56461-7, LIVR, 3016-3 #### [facility] ([id number]) [address], [address] [place] [address] HbA1c (Bld) [Mass fraction] 6.5 % High 4.4-5.6 [facility] Comment on above: Result Comment: NOTE ADA Guidelines Result HgbA1c Normal : less than 5.7 % Prediabetes : 5.7 % to 6.4 % Diabetes : > 6.4 % Use with caution in patients with abnormal hemoglobin variants as the half-life of red blood cells and in vivo glycation rates are affected. Performed By: #### C BCA, HA1C, BMP, 32483-5, LIVR, 3016-3 #### [facility] ([id number]) [address], [address] [place] [address] LIVER PANELon 11-07-2023 Albumin [Mass/Vol] 4.1 g/dL Normal 3.2-5.3 [facility] Comment on above: Performed By: #### C BCA, HA1C, BMP, 49477-0, LIVR, 3016-3 #### [facility] ([id number]) [address], [address] [place] [address] ALP [Catalytic activity/Vol] 58 U/L Normal 39-130 [facility] Comment on above: Performed By: #### C BCA, HA1C, BMP, 40075-6, LIVR, 3016-3 #### [facility] ([id number]) [address], [address] [place] [address] ALT [Catalytic activity/Vol] 16 U/L Normal 0-31 [facility] Comment on above: Performed By: #### C BCA, HA1C, BMP, 87677-6, LIVR, 3016-3 #### [facility] ([id number]) [address], [address] [place] [address] AST [Catalytic activity/Vol] 20 U/L Normal 0-41 [facility] Comment on above: Performed By: #### C BCA, HA1C, BMP, 11150-0, LIVR, 3016-3 #### [facility] ([id number]) [address], [address] [place] [address] Bilirubin [Mass/Vol] 0.7 mg/dL Normal 0.3-1.2 [facility] Comment on above: Performed By: #### C BCA, HA1C, BMP, 20512-5, LIVR, 3016-3 #### [facility] ([id number]) [address], [address] [place] [address] Bilirubin.direct [Mass/Vol] 0.1 mg/dL Normal 0.0-0.4 [facility] Comment on above: Performed By: #### C BCA, HA1C, BMP, 11838-7, LIVR, 3016-3 #### [facility] ([id number]) [address], [address] [place] [address] Protein [Mass/Vol] 6.7 g/dL Normal 6.0-8.0 [facility] Comment on above: Performed By: #### C BCA, HA1C, BMP, 45661-5, LIVR, 3016-3 #### [facility] ([id number]) [address], [address] [place] [address] Lipid 1996 panelon 4 Cholesterol [Mass/Vol] 145 mg/dL Low 150-200 [facility] Comment on above: Performed By: #### C BCA, HA1C, BMP, 00955-9, LIVR, 3016-3 #### [facility] ([id number]) [address], [address] [place] [address] Cholesterol in HDL [Mass/Vol] 48 mg/dL Normal >39 [facility] Comment on above: Result Comment: HDL <40 mg/dL - High Risk HDL > or = 40mg/dL- Desirable HDL >60 mg/dL - Negative Risk Performed By: #### Juancarlos BCA, HA1C, BMP, 61168-3, LIVR, 3016-3 #### [facility] ([id number]) [address], [address] [place] [address] Cholesterol in LDL [Mass/Vol] 66 mg/dL Normal <130 [facility] Comment on above: Result Comment: LDL <100 mg/dL - Desirable LDL >160 mg/dL - High Risk Performed By: #### Juancarlos BCA, HA1C, BMP, 67178-6, LIVR, 3016-3 #### [facility] ([id number]) [address], [address] [place] [address] Cholesterol in VLDL [Mass/Vol] 31 mg/dL High 0-30 [facility] Comment on above: Performed By: #### C BCA, HA1C, BMP, 17657-8, LIVR, 3016-3 #### [facility] ([id number]) [address], [address] [place] [address] CHOLESTEROL:HDL 3.0 Normal 1.0-5.0 [facility] Comment on above: Performed By: #### C BCA, HA1C, BMP, 32789-1, LIVR, 3016-3 #### [facility] ([id number]) [address], [address] [place] [address] Triglyceride [Mass/Vol] 154 mg/dL High 27-150 [facility] Comment on above: Performed By: #### C BCA, HA1C, BMP, 47374-3, LIVR, 3016-3 #### [facility] ([id number]) [address] [address] [place] [address] MICROALBUMIN - ALBUMIN:CREAT ININE URINE RATIOon 11-07-2023 ALB/CREAT RATIO 79.4 mg/g creat High 0.0-30.0 [facility] Comment on above: Performed By: #### M ALBU #### [facility] ([id number]) [address], [address] [place] [address] Albumin DL <= 20 mg/L (U) [Mass/Vol] 7.3 mg/dL High 0.0-1.9 [facility] Comment on above: Performed By: #### M ALBU #### [facility] ([id number]) [address] [address] [place] [address] URINE CREAT 91.98 mg/dL Normal [facility] Comment on above: Performed By: #### M ALBU #### [facility] ([id number]) [address] [place] [address] TSH Qnon 11-07-2023 TSH 1.51 uIU/mL Normal 0.49-4.67 [facility] Comment on above: Performed By: #### C BCA, HA1C, BMP, 46017-6, LIVR, 3016-3 #### [facility] ([id number]) [address] [place] [address] C Urineon 09-23-2023 Bacteria identified Cx Nom (U) Microbiology PROCEDURE: Urine Culture [R1] SOURCE: U CleanCatch BODY SITE: COLLECTED DATE/TIME: 09/20/2023 15:54 EDT RECEIVED DATE/TIME: 09/21/2023 12:59 EDT START DATE/TIME: 09/21/2023 12:59 EDT FREE TEXT SOURCE: KENIA VANN PA-C, PA-C, JENNIFER E FINAL REPORTS Final Report [] Verified Date/Time: 09/23/2023 07:47 EDT <10,000 cfu/ml Mixed skin contaminants Performing Locations R1: This test was performed at: [facility], [address] [place] [address], [facility] , , [facility] Comment on above: Performed By: #### [id number] ####[facility] [id number] [place] [address] Screenson 09-21-2023 Screens [id number] Normal [facility] Ambulatory Visit Summaryon 0 09-20-2023 Ambulatory Visit Summary ALBINA CAMERON :1965 Visit Date:09/20/2023 Ambulatory Visit Instructions Your Diagnosis OAB (overactive bladder) Atrophic vaginitis Abnormal urinalysis Your Care Team Attending Physician - KENIA VANN PA-C Primary Care Physician - CONSTANTIN MELENDEZ MD Referring Physician - KENIA VANN PA-C This Is Your Medications List Contact prescribing physician if questions or concerns aspirin atorvastatin calcium carbonate (calcium (as carbonate) 600 mg oral tablet) celecoxib (celecoxib 200 mg Cap) cetirizine (Zyrtec) cholecalciferol (Vitamin D3) estradiol topical (Estrace 0.1 mg/g Cream) glipiZIDE (glipiZIDE 10 mg ER Tab) ibandronate (ibandronate 150 mg oral tablet) lorazepam (Ativan) metformin multivitamin with minerals pioglitazone (pioglitazone 30 mg Tab) semaglutide (Rybelsus 3 mg oral tablet) solifenacin (Vesicare 5 mg Tab) valsartan (valsartan 40 mg Tab) venlafaxine Procedures Performed Injection of therapeutic substance into bladder wall (07/18/2022), Excision of cyst (05/24/2022), Cystourethroscopy with dilation of urethral stricture (07/12/2021), Cystourethroscopy with dilation of urethral stricture (08/05/2019), Cystourethroscopy with dilation of urethral stricture (11/03/2014), Back, Cholecystectomy, Colonoscopy, Rotator cuff, Tubal ligation. Discharge Vitals Temperature (Temporal Artery) 36.7 ?C Heart Rate (Peripheral) 77 Respiratory Rate 16 Blood Pressure 128/81 Height 163 cm Height 64 in Weight 96.2 kg Weight 211.64 lb BMI 36.21 What to do next Scheduled Follow-Up Appointments 2024 1:00 PM EST With: Omero CATHERINE, Rosemary Larios Where: [facility] Patient Educationon 09-20-19 Patient Education Obstetrics and Gynecology Overactive Bladder, Adult Overactive bladder is a condition in which a person has a sudden and frequent need to urinate. A person might also leak urine if he or she cannot get to the bathroom fast enough (urinary incontinence). Sometimes, symptoms can interfere with work or social activities. What are the causes? Overactive bladder is associated with poor nerve signals between your bladder and your brain. Your bladder may get the signal to empty before it is full. You may also have very sensitive muscles that make your bladder squeeze too soon. This condition may also be caused by other factors, such as: ? Medical conditions: ? Urinary tract infection. ? Infection of nearby tissues. ? Prostate enlargement. ? Bladder stones, inflammation, or tumors. ? Diabetes. ? Muscle or nerve weakness, especially from these conditions: ? A spinal cord injury. ? Stroke. ? Multiple sclerosis. ? Parkinson's disease. ? Other causes: ? Surgery on the uterus or urethra. ? Drinking too much caffeine or alcohol. ? Certain medicines, especially those that eliminate extra fluid in the body (diuretics). ? Constipation. What increases the risk? You may be at greater risk for overactive bladder if you: ? Are an older adult. ? Smoke. ? Are going through menopause. ? Have prostate problems. ? Have a neurological disease, such as stroke, dementia, Parkinson's disease, or multiple sclerosis (MS). ? Eat or drink alcohol, spicy food, caffeine, and other things that irritate the bladder. ? Are overweight or obese. What are the signs or symptoms? Symptoms of this condition include a sudden, strong urge to urinate. Other symptoms include: ? Leaking urine. ? Urinating 8 or more times a day. ? Waking up to urinate 2 or more times overnight. How is this diagnosed? This condition may be diagnosed based on: ? Your symptoms and medical history. ? A physical exam. ? Blood or urine tests to check for possible causes, such as infection. You may also need to see a health care provider who specializes in urinary tract problems. This is called a urologist. How is this treated? Treatment for overactive bladder depends on the cause of your condition and whether it is mild or severe. Treatment may include: ? Bladder training, such as: ? Learning to control the urge to urinate by following a schedule to urinate at regular intervals. ? Doing Kegel exercises to strengthen the pelvic floor muscles that support your bladder. ? Special devices, such as: ? Biofeedback. This uses sensors to help you become aware of your body's signals. ? Electrical stimulation. This uses electrodes placed inside the body (implanted) or outside the body. These electrodes send gentle pulses of electricity to strengthen the nerves or muscles that control the bladder. ? Women may use a plastic device, called a pessary, that fits into the vagina and supports the bladder. ? Medicines, such as: ? Antibiotics to treat bladder infection. ? Antispasmodics to stop the bladder from releasing urine at the wrong time. ? Tricyclic antidepressants to relax bladder muscles. ? Injections of botulinum toxin type A directly into the bladder tissue to relax bladder muscles. ? Surgery, such as: ? A device may be implanted to help manage the nerve signals that control urination. ? An electrode may be implanted to stimulate electrical signals in the bladder. ? A procedure may be done to change the shape of the bladder. This is done only in very severe cases. Follow these instructions at home: Eating and drinking ? Make diet or lifestyle changes recommended by your health care provider. These may include: ? Drinking fluids throughout the day and not only with meals. ? Cutting down on caffeine or alcohol. ? Eating a healthy and balanced diet to prevent constipation. This may include: ? Choosing foods that are high in fiber, such as beans, whole grains, and fresh fruits and vegetables. ? Limiting foods that are high in fat and processed sugars, such as fried and sweet foods. Lifestyle ? Lose weight if needed. ? Do not use any products that contain nicotine or tobacco. These include cigarettes, chewing tobacco, and vaping devices, such as e-cigarettes. If you need help quitting, ask your health care provider. General instructions ? Take life-vbf-qbavuaj and prescription medicines only as told by your health care provider. ? If you were prescribed an antibiotic medicine, take it as told by your health care provider. Do not stop taking the antibiotic even if you start to feel better. ? Use any implants or pessary as told by your health care provider. ? If needed, wear pads to absorb urine leakage. ? Keep a log to track how much and when you drink, and when you need to urinate. This will help your health care provider monitor yo (more content not included)... [facility] Urology Office/Clinic Noteon 09-20-2023 Urology Office/Clinic Note Chief Complaint 2 mo f/u HPI Staff Pt here for 2 mos f/u with PVR. Previous Dx: OAB, dysuria. S/p Botox 100u 07/24/23. Estradiol cream. Vesicare 5 mg qd. Dysuria: denies Incomplete bladder emptying: denies Hematuria: denies Frequency: denies Urgency: denies Nocturia: 0-1x a night Stream: steady Leaking: denies Post void dripping: denies Wearing pads/ Depends: denies Urge incontinence: denies Stress incontinence: denies Incontinence without Sensory Awareness: denies Abdominal pain: denies Flank pain: denies Sexual complaints: _ History of Present Illness staff HPI reviewed and agree. Review of Systems PHQ Score Initial Depression Screen Score: 0 SCORE no fever, chills, malaise, myalgia. no rash/lesions. no chest pain, palpitations, or SOB. no abdominal pain, nausea, vomiting. no unilateral calf swelling, redness, pain Physical Exam Vitals & Measurements T: 36.7 ?C(Temporal Artery) HR: 77(Peripheral) RR: 16 BP: 128/81 HT: 64 in HT: 163 cm WT: 96.2 kg WT: 211.64 lb BMI: 36.21 General: nontoxic, NAD Mouth: moist mucosa Lungs: normal respiratory effort Cardio: regular rate, good distal perfusion Abdomen: nondistended, no suprapubic distention or tenderness, no CVA tenderness Neurologic: Grossly normal Skin: No rashes or suspicious lesions Assessment/Plan Dr. Jamil pt, prior Dr. Candelario pt 1. OAB (overactive bladder) (N32.81: Overactive bladder) S/p Botox #1, 100 units 07/18/[address] Jamil, shares it was more painful than she expected during the procedure. -Had improvement and was very pleased 3 mos PO. Was able to stop Vesicare at that time. 07/18/23 - Called our office c/o voiding 5-6x/day and 2x/night. No pain or burning, hematuria, accidents,abdominal or kidney pain. S/p Botox 100u 07/24/[address] Jamil. BBS 7. PVR today 11 mL. No longer taking Vesicare 5mg qd. Overall satisfied with results of repeat Botox. Educated pt maximum efficacy is 90 days. -Cont sx monitoring -F/u in 9 mos 2. Atrophic vaginitis (N95.2: Postmenopausal atrophic vaginitis) Noted on Botox and 07/24/23. KML discussed pathophysiology of vaginal atrophy at time of recent Botox. Recommended pt to start Estrace cream at that time. States she has used this cream 3x but she has had pain each time. Advised pt to stop using this. -D/c Estrace cream 3. Abnormal urinalysis (R82.90: Unspecified abnormal findings in urine) UA today shows large blood and large leuks. Denies current UTI sxs. Advised pt UA does appear suspicious for infection although nitrites are negative. -Urine sample sent for cx. Will call pt with results if abx needed. aware no news is good news. Follow-up With When Contact Information BARBIE BLOUNT, KENIA Mac, URL [address] [place] [address] [id number] Additional Instructions: 9 mos (no labs) Patient Education Overactive Bladder, Adult Documentation recorded by the scribestefania Abbasi accurately reflects the services(s) I performed and decisions made by me. Authenticated by Kenia Vann PA-C on 09/20/2023 15:54:55. I, Alicia Abbasi, personally scribed for Kenia Vann PA-C on 09/20/2023 15:52:23. . Problem List/Past Medical History Ongoing Abnormal urinalysis Anxiety Asymptomatic microscopic hematuria Atrophic vaginitis BMI 36.0-36.9,adult Chronic cystitis Depression Diabetes Dysuria Feeling of incomplete bladder emptying High blood pressure History of kidney stones History of osteoporosis History of sleep apnea Lower abdominal pain Microscopic hematuria OAB (overactive bladder) Soft tissue mass Unspecified urethral stricture, female Ureteral stone with hydronephrosis Urge incontinence Urinary urgency Urine, incontinence, stress female Historical No qualifying data Procedure/Surgical History Injection of therapeutic substance into bladder wall (07/18/2022), Excision of cyst (05/24/2022), Cystourethroscopy with dilation of urethral stricture (07/12/2021), Cystourethroscopy with dilation of urethral stricture (08/05/2019), Cystourethroscopy with dilation of urethral stricture (11/03/2014), Back, Cholecystectomy, Colonoscopy, Rotator cuff, Tubal ligation. Medications aspirin, 81 mg, Oral, Daily Ativan, 1 mg, Oral, Daily, PRN atorvastatin, 40 mg, Oral, Daily calcium (as carbonate) 600 mg oral tablet, 600 mg= 1 tab(s), Oral, Daily celecoxib 200 mg Cap, 400 mg= 2 cap(s), Oral, BID glipiZIDE 10 mg ER Tab, 10 mg= 1 tab(s), Oral, Daily ibandronate 150 mg oral tablet, 150 mg= 1 tab(s), Oral, qMonth metformin, 500 mg, Oral, Daily multivitamin with minerals, 1 cap, Oral, Daily pioglitazone 30 mg Tab, 30 mg= 1 tab(s), Oral, Daily Rybelsus 3 mg oral tablet, 3 mg= 1 tab(s), Oral, Daily valsartan 40 mg Tab, 40 mg= 1 tab(s), Oral, Daily venlafaxine, 225 mg, Oral, Daily Vitamin D3, 25 mcg, Oral, Daily Zyrtec, 10 mg, Oral, Daily Allergies No Known (more content not included)... [facility] Comment on above: Result Comment: Elec tronically Signed By: KENIA VANN PA-C\.br\Date and Time Signed: 09/20/23 15:57 EDT\.br\Electronically Co-Signed By: Alicia Abbasi\.br\Date and Time Co-Signed: 09/20/23 15:53 EDT Pre-Certification Formon Pre-Certification Form [id number] .00TIFF [facility] Consent for Procedure/Surger yon 07-24-2023 Consent for Procedure/Surgery [id number] .00TIFF [facility] Consent for Treatmenton 07-06 Consent for Treatment [id number] .00TIFF [facility] Inpatient Patient Summaryon 07-24-2023 Inpatient Patient Summary [address] [address] Clinical Summary Person Information Name: ALBINA CAMERON Age: 57 Years : 1965 Sex: Female PCP: CONSTANTIN MELENDEZ MD Marital Status: Race: White Ethnicity: Non- or Language: Paraguayan Visit Id: Visit Reason: OVERACTIVE BLADDER Speciality: Acuity: Enc Type: Outpatient Med Service: Surgery Arrival: 07/24/2023 09:15:27 Discharge: Dispo Type: Address: [facility] [phone] Provider Notes: Diagnosis: Urge incontinence; Vaginal atrophy Problems Active Dysuria Urge incontinence Asymptomatic microscopic hematuria Depression Anxiety History of sleep apnea High blood pressure History of osteoporosis Diabetes BMI 36.0-36.9,adult Soft tissue mass Unspecified urethral stricture, female OAB (overactive bladder) Lower abdominal pain Urine, incontinence, stress female Feeling of incomplete bladder emptying History of kidney stones Microscopic hematuria Ureteral stone with hydronephrosis Urinary urgency Chronic cystitis Smoking Status: Functional Status: Sensory Deficits: History of Falls: Mobility Assistance Prior to Admission: ADLs: Current Level of Assistance for Self-Care/Mobility: Cognitive Status: Allergies No Known Medication Allergies No Known Allergies Laboratory or Other Results This Visit (last charted value for your 07/24/2023 visit) No Laboratory or Other Results This Visit Measurements: Height: 163 cm Weight: 97 kg Blood Pressure: Not Valued / Not Valued BMI: 36.51 kg/m2 Procedures No Procedures Documented Immunizations No Immunizations Documented This Visit Final Med List: aspirin 81 Milligram By Mouth every day. atorvastatin 40 Milligram By Mouth every day. calcium carbonate (calcium (as carbonate) 600 mg oral tablet) 1 Tablets By Mouth every day. celecoxib (celecoxib 200 mg Cap) 2 Capsules By Mouth 2 times a day. cetirizine (Zyrtec) 10 Milligram By Mouth every day. cholecalciferol (Vitamin D3) 25 Microgram By Mouth every day. estradiol topical (Estrace 0.1 mg/g Cream) Apply pea sized amount to external urethra/vaginal area 3x a week for 1 month, then 2x a week afterwards. Refills: 2. glipiZIDE (glipiZIDE 10 mg ER Tab) 1 Tablets By Mouth every day. ibandronate (ibandronate 150 mg oral tablet) 1 Tablets By Mouth once a month. Osteoporosis. lorazepam (Ativan) 1 Milligram By Mouth every day as needed as needed for anxiety. metformin 500 Milligram By Mouth every day. multivitamin with minerals 1 cap By Mouth every day. nitrofurantoin (Macrobid 100 mg Cap) 1 Capsules By Mouth every 12 hours for 3 Days. Refills: 0. pioglitazone (pioglitazone 30 mg Tab) 1 Tablets By Mouth every day. semaglutide (Rybelsus 3 mg oral tablet) 1 Tablets By Mouth every day. solifenacin (Vesicare 5 mg Tab) 1 Tablets By Mouth every day. Refills: 5. valsartan (valsartan 40 mg Tab) 1 Tablets By Mouth every day. venlafaxine 225 Milligram By Mouth every day. Care Team Members: Attending Physician: Rosemary Jamil MD Consulting Physician: Referring Physician: Rosemary Jamil MD Follow up: With: Address: When: KENIA VANN [address] [place] [phone] [facility] (1) Comments: Office to schedule follow up in 1-2 months with PVR Patient Education Information: EU - Cystoscopy with Botox Injection Discharge Instructions (CUSTOM) Normal [facility] IntraOperative Documentson 0 07-24-2023 IntraOperative Documents [id number] .00TIFF Normal [facility] Main OR Intraoperative Recor don 07-24-2023 Main OR Intraoperative Record IntraOp Document Type FTURO Summary Primary Physician: Rosemary Jamil MD Finalized Date/Time: 07/24/23 11:03:20 Pt. Name: ALBINA CAMERON /Sex: 1965 Female Med Rec #: [id number] Physician: Rosemary Jamil MD Financial #: [id number] Pt. Type: O Room/Bed: / Admit/Disch: 07/24/23 09:15:27 - Institution: Case Times FTURO Entry 1 Patient Times In Room 07/24/23 10:51:00 Out Room 07/24/23 11:03:00 Procedure Times Start 07/24/23 10:57:00 Stop 07/24/23 11:00:00 Anesthesia Times Last Modified By: Carmela Webb RN 07/24/23 11:03:16 Case Attendance FTURO Entry 1 Entry 2 Entry 3 Case Attendee Rosemary Jamil MD, CST, Kimberly A Jon RN, Carmela Kaminski Performed Surgeon - Primary Scrub - Primary Service Attendant Cafeteria - Primary Time In 07/24/23 10:51:00 07/24/23 10:51:00 07/24/23 10:51:00 Time Out 07/24/23 11:03:00 07/24/23 11:03:00 07/24/23 11:03:00 Procedure CYSTOSCOPY LOCAL BOTOX CYSTOSCOPY LOCAL BOTOX CYSTOSCOPY LOCAL BOTOX INJECTION(.) INJECTION(.) INJECTION(.) Comments Last Modified By: Jon CLINE, Carmela Webb RN, Carmela Santos RN 07/24/23 11:03:17 07/24/23 11:03:17 07/24/23 11:03:17 Surgical Procedures FTURO Entry 1 Procedure Description Procedure CYSTOSCOPY LOCAL BOTOX Modifiers . INJECTION Surgeon Description CYSTOSCOPY BOTOX 100 UNITS LOT NUMBER [id number] EXP DATE Primary Procedure Yes Primary Surgeon Rosemary Jamil MD 07/24/23 10:57:00 Stop 07/24/23 11:00:00 Anesthesia Type Local Surgical Service Urology Wound Class 2 - Clean-Contaminated Last Modified By: Carmela Webb RN 07/24/23 11:00:33 General Case Data FTURO Pre-Care Text: Classifies surgical wound, implements aseptic technique, initiates traffic control Entry 1 Case Information OR URO 1 FT Case Level None Wound Class 2 - Clean-Contaminated Specialty Urology Preop Diagnosis OVERACTIVE BLADDER Postop Same As Preop Yes Postop Diagnosis OVERACTIVE BLADDER Outcomes Met? Yes Last Modified By: Carmela Webb RN 07/24/23 10:53:25 Post-Care Text: The patient is free from signs and symptoms of infection EU IntraOp - FTURO Pre-Care Text: Implements protective measures prior to operative or invasive procedure, confirms identity before the operative or invasive procedure, verifies operative procedure, surgical site, and laterality Entry 1 EU Perioperative Protocols Procedure(s) CYSTOSCOPY LOCAL BOTOX Patient Identity Birthday, ID Band INJECTION(.) Verified (select at Check, Patient least 2): Participation Consents / H and P HandP, Surgery/Procedure Operative Site N/A Verified Consent Marking Verified Surgical Site Yes Laterality Verified Yes Verified Procedure Verified Yes Correct Patient Yes Position Verified Availability Equipment, Medication Time Out Rosemary Jamil MD, Verified (If Participants Carmela Dunlap CST Applicable) Jon Gonzalez RN, Kimberly Y Time Out Complete 07/24/23 10:54:00 Allergies Reviewed? Yes Allergies Reviewed Self/Patient With Body Position Low Lithotomy Prep Area PERINEUM Prep Agents Betadine Solution Skin. Condition Dry, Warm, Unable to Description UNABLE TO VISUALIZE DUE Visualize TO PATIENT PARTIALLY CLOTHED Additional None Specimens Collected Vitals - EU Blood Pressure 120/86 Pulse 84 bpm Respirations 16 br/min SPO2 98 % EBL 0 IandO - EU Total Intake 0 mL Total Output 0 mL Outcomes Met? Yes Last Modified By: Carmela Webb RN 07/24/23 10:56:18 Post-Care Text: The patient is free from signs and symptoms of injury caused by extraneous objects Sign Out FTURO Entry 1 Before Patient Leaves OR Nurse verbally Yes Nurse verbally Yes confirms with the confirms with the team the name of team that the procedure(s) instrument, sponge, recorded and needle counts are correct (or N/A) Nurse verbally n/a Nurse verbally Yes confirms with the confirms with the team how the team whether there specimen is labeled are any equipment (including patient problems to be name), if applicable addressed Sign Out Complete 07/24/23 11:00:00 Last Modified By: Carmela Webb RN 07/24/23 11:00:32 Case Comments Finalized By: Carmela Webb RN Document Signatures Signed By: Carmela Webb RN 07/24/23 11:03 Normal [facility] Main OR Preoperative Recordo n 07-24-2023 Main OR Preoperative Record Holding Area Document Type FTURO Summary Primary Physician: Rosemary Jamil MD Finalized Date/Time: 07/24/23 10:30:39 Pt. Name: ALBINA CAMERON/Sex: 1965 Female Med Rec #: [id number] Physician: Rosemary Jamil MD Financial #: [id number] Pt. Type: O Room/Bed: / Admit/Disch: 07/24/23 09:15:27 - Institution: Case Times Holding FTURO Pre-Care Text: Verifies consent for planned procedure, identifies individual values and wishes concerning care, includes family members in perioperative teaching Secures patient's records' belongings, and valuables, maintains patient's dignity and privacy, and maintains patient confidentiality Entry 1 In Holding 07/24/23 10:14:00 Outcomes Met? Yes Last Modified By: Rosemarie Don 07/24/23 10:14:44 Post-Care Text: The patient participates in decisions affecting his or her perioperative plan of care The patient's right to privacy is maintained Surgery Checklist FTURO Entry 1 Patient Birthday, ID Band Procedure History and Physical, Identification: Check, Patient Verification: Surgical Consent, With Participation Patient NPO after Midnight: Yes Date/Time: 07/24/23 10:14:00 Personal Items: Glasses, Jewelry Limitations: up ad mars Complaints of Pain: No Skin Integrity Intact, [place], Warm, & Dry Vitals - EU Blood Pressure 120/86 Pulse 84 bpm Respirations 16 br/min SPO2 98 % Additional None RN Reviewed Yes Specimens Collected Last Modified By: Rosemarie Don 07/24/23 10:15:50 Finalized By: Rosemarie Don Document Signatures Signed By: Rosemarie Don 07/24/23 10:15 Rosemarie Don 07/24/23 10:15 Rosemarie Don 07/24/23 10:30 Normal [facility] Operative Reporton Operative Report Patient: ALBINA CAMERON Age: 57 years Sex: Female : 1965 Associated Diagnoses: None Author: Rosemary Jamil MD Procedure Operative Information Details: Date/ Time: 07/24/2023 11:04:00. Pre-Op Dx: Urge incontinence ([id number] N39.41, Discharge, Medical). Post-Op Dx: Same. Anesthesia Type: Local. Procedure: Local Cystoscopy with botox injection. Complications: None. Risks/Benefits/Inform ed Consent: Surgical risks, benefits, details of the procedure have been explained to the patient, Full informed consent has been obtained. Intraoperative Information Prepped: Patient is brought back to the endoscopy suite, Female Prep (Patient is placed in modified dorso/lithotomy position, 5 cc 2% Xylocaine Jelly is placed per Urethra, Straight cath inserted to obtain urine specimen, 5 additional cc 2% Xylocaine Jelly is placed per Urethra, Patient in sitting position for 20 min dwell), Urine Specimen Results (Negative for infection, UA on 07/18/23 with similar results, urine culture negative.), Patient prepped in the usual fashion with Betadine solution, After waiting several minutes the Cystoscope is introduced. Procedure: The trigone was identified and evaluated. The bladder was instilled with enough saline to achieve adequate visualization for the injections. The needle was inserted approximately 2 mm into the detrusor. A total of 10 injections with 1 ml volume was delivered at each site, total 100 units, evenly spaced out throughout the bladder taking care to avoid the ureteral orficies. There was excellent hemostasis at the end of the procedure. The cystoscope was removed and the patient tolerated the procedure well without immediate complications. . Postoperative Information Discharge: Patient is discharged home with antibiotic coverage, Follow up arranged, Follow-up with BARBARA in 1 to 2 months with PVR. See separate clinic note regarding vaginal atrophy and patient's intermittent dysuria.. Normal [facility] Comment on above: Result Comment: Elec tronically Signed By: Rosemary Jamil MD\.br\Date and Time Signed: 07/24/23 11:05 EST Outpatient Surgery Discharge Instructionon 07-24-2023 Outpatient Surgery Discharge Instruction [address] [address] Patient Discharge Instructions PERSON INFORMATION Name: ALBINA CAMERON Date of : 1965 Current Date: 07/24/2023 11:03:44 PHYSICIANS Admitting Physician: Rosemary Jamil MD Comment: Discharge Diagnosis: Urge incontinence; Vaginal atrophy ALBINA CAMERON has been given the following list of follow-up instructions, prescriptions, and patient education materials: IF UNABLE TO CONTACT YOUR PHYSICIAN AND YOU FEEL IT IS AN EMERGENCY, GO TO THE NEAREST EMERGENCY ROOM OR CALL 911 Follow up: With: Address: When: KENIA VANN [address] [place] [address] Carole Collins [place], [place] [phone] [facility] (1) Comments: Office to schedule follow up in 1-2 months with PVR Comment: PATIENT EDUCATION INFORMATION Instructions: Cystoscopy with Botox injection ? Voiding after the procedure: there may be some pain, burning, urgency, frequency and blood tinged urine following the procedure. These symptoms usually resolve within 2-5 days. Drink the amount of fluid it takes to keep the urine pink to yellow or clear in color. Drinking enough water and fluids will help to ease any discomfort after your procedure. ? It may take a few days to a week to notice a gradual improvement in the overactive bladder symptoms. ? If you are having problems that seem out of the ordinary, please call. ? If unable to contact your physician and you feel it is an emergency, go to the nearest emergency room or call 911 ? Do not lift more than fifteen pounds for 1-2 days. If you see a lot of blood, you probably did too much. ? Diet ? you may resume your normal diet. ? Pain control ? You may take extra strength Tylenol or Motrin for discomfort. ? Call if you have a fever over 100 degrees. NISHA Chauhan CHARLOTTE F, have received the attached patient education materials/instruction s and have verbalized understanding: May we do a follow up call? Yes No I was present when discharge instructions were given Patient Signature Date Clinican/Nurse Signature Date You may receive a survey from [employer] asking you to rate your care experience. Your feedback is important and will help us understand what we do well and how we can improve the quality of care we provide to you, your loved ones and our community. It?s an honor to serve you. Thank you for choosing [facility] Normal [facility] Progress Note-Physicianon Progress Note-Physician Patient: ALBINA CAMERON Age: 57 years Sex: Female : 1965 Associated Diagnoses: None Author: Omero CATHERINE, Rosemary Larios Health Status Allergies: Allergic Reactions (Selected) No Known Allergies No Known Medication Allergies, Allergies (2) Active Severity Reaction No Known Allergies None Documented No Known Medication Allergies None Documented Current medications: (Selected) Prescriptions Prescribed Estrace 0.1 mg/g Cream: See Instructions, 42.5 gm, Refill(s) 2, Apply pea sized amount to external urethra/vaginal area 3x a week for 1 month, then 2x a week afterwards, [facility]acy [id number], 163, cm, 07/24/23 10:16:00 EST, Height/Length Dosing, 97, kg, 07/24/23 10:16:00 EST,... Macrobid 100 mg Cap: 100 mg = 1 cap(s), Oral, q12hr, X 3 day(s), # 6 cap(s), Refills(s) 0, Pharmacy: [facility]pharmacy #[id number], 163, cm, 07/24/23 10:16:00 EST, Height/Length Dosing, 97, kg, 07/24/23 10:16:00 EST, Weight Dosing Vesicare 5 mg Tab: 5 mg = 1 tab(s), Oral, Daily, # 30 tab(s), Refills(s) 5, Pharmacy: [id number], 163, cm, 06/03/22 11:32:00 EST, Height/Length Dosing, 105.5, kg, 06/03/22 11:32:00 EST, Weight Dosing Documented Medications Documented Ativan: 1 mg, Oral, Daily, PRN as needed for anxiety, Refills(s) 0 Rybelsus 3 mg oral tablet: 3 mg = 1 tab(s), Oral, Daily, Refills(s) 0, High blood sugar Vitamin D3: 25 mcg, Oral, Daily, Refills(s) 0, Prophylaxis Zyrtec: 10 mg, Oral, Daily, Allergy symptoms aspirin: 81 mg, Oral, Daily, Refills(s) 0, Prophylaxis atorvastatin: 40 mg, Oral, Daily, Refills(s) 0, High cholesterol calcium (as carbonate) 600 mg oral tablet: 600 mg = 1 tab(s), Oral, Daily, Prophylaxis celecoxib 200 mg Cap: 400 mg = 2 cap(s), Oral, BID, Refills(s) 0, Arthritis glipiZIDE 10 mg ER Tab: 10 mg = 1 tab(s), Oral, Daily, Refills(s) 0, High blood sugar ibandronate 150 mg oral tablet: 150 mg = 1 tab(s), Oral, qMonth, Osteoporosis metformin: 500 mg, Oral, Daily, Refills(s) 0, High blood sugar multivitamin with minerals: 1 cap, Oral, Daily, Prophylaxis pioglitazone 30 mg Tab: 30 mg = 1 tab(s), Oral, Daily, High blood sugar valsartan 40 mg Tab: 40 mg = 1 tab(s), Oral, Daily, Refills(s) 0 venlafaxine: 225 mg, Oral, Daily, Refills(s) 0, Depression Impression and Plan Assessment and Plan: Diagnosis: Vaginal atrophy (JNN69-GE N95.2, Discharge, Medical), Urge incontinence (XGR69-VX N39.41, Discharge, Medical). 57-year-old female here for Botox for urge incontinence Noted to have severe vaginal atrophy on last Botox, again today. Noted to have intermittent dysuria despite negative cultures based on prior clinic notes. We discussed presence of vaginal atrophy. I explained the lack of estrogen secondary to menopause causes changes in the vaginal epithelium that can predispose to lower urinary tract symptoms, vaginal discomfort, urge urinary incontinence, urgency, frequency, nocturia, dyspareunia, and recurrent urinary tract infections. This can be treated with topical application of estrogen to the vagina, which has been shown to reduce frequency of UTIs by up to 70%. She was reassured that there is minimal systemic absorption with application of vaginal estrogen cream and most of the benefits will be to the local tissues. -Start estrace cream. Patient was told to apply a pea-sized amount 3 times weekly at night for 4 weeks and then 2 times per week thereafter, may take up to 3 months for full effect. She should stop medication and notify us if she feels breast tenderness or has vaginal spotting. -Follow up in 1-2 months [facility] Comment on above: Result Comment: Elec tronically Signed By: Omero CATHERINE, Rosemary Simmons.br\Date and Time Signed: 07/24/23 11:06 EST Insurance Correspondenceon 0 07-21-2023 Insurance Correspondence [id number]# [id number] [facility] C Urineon 07-20-2023 Bacteria identified Cx Nom (U) Microbiology PROCEDURE: Urine Culture [R1] SOURCE: U CleanCatch BODY SITE: COLLECTED DATE/TIME: 07/18/2023 14:13 EST RECEIVED DATE/TIME: 07/18/2023 18:14 EST START DATE/TIME: 07/18/2023 18:14 EST FREE TEXT SOURCE: Dustin PEÑA, ELECTRONIC EQUIPMENT REPAIRMEN-C, Oraysha QUILLER TENDER, ELECTRONIC EQUIPMENT REPAIRMEN-C, Sarita X Sarita X FINAL REPORTS Final Report [] Verified Date/Time: 07/20/2023 06:58 EST 5,000 cfu/ml Mixed skin contaminants Performing Locations R1: This test was performed at: [facility], [address] [place] [address], [facility] , , [facility] Comment on above: Performed By: #### 2 [id number] ####[address] Urineon 06-30-2023 Bacteria identified Cx Nom (U) Microbiology PROCEDURE: Urine Culture [R1] SOURCE: U CleanCatch BODY SITE: COLLECTED DATE/TIME: 06/28/2023 10:12 EST RECEIVED DATE/TIME: 06/28/2023 19:28 EST START DATE/TIME: 06/28/2023 19:28 EST FREE TEXT SOURCE: Omero CATHERINE, Rosemary Jamil MD, Rosemary Larios FINAL REPORTS Final Report [] Verified Date/Time: 06/30/2023 09:05 EST 4,000 cfu/ml Mixed skin contaminants Performing Locations R1: This test was performed at: [facility], [address] [place] [address], [id number] , [place], Normal [facility] Comment on above: Performed By: #### 2 [id number] ####[facility] [address] [place] [address] Ambulatory Visit Summaryon 0 06-28-2023 Ambulatory Visit Summary ALBINA CAMERON :1965 Visit Date:06/28/2023 Ambulatory Visit Instructions Your Diagnosis Asymptomatic microscopic hematuria Your Care Team Attending Physician - Omero CATHERINE, Rosemary Larios Primary Care Physician - CONSTANTIN MELENDEZ MD This Is Your Medications List aspirin atorvastatin calcium carbonate (calcium (as carbonate) 600 mg oral tablet) celecoxib (celecoxib 200 mg Cap) cetirizine (Zyrtec) cholecalciferol (Vitamin D3) glipiZIDE (glipiZIDE 10 mg ER Tab) ibandronate (ibandronate 150 mg oral tablet) lorazepam (Ativan) metformin multivitamin with minerals pioglitazone (pioglitazone 30 mg Tab) semaglutide (Rybelsus 3 mg oral tablet) solifenacin (Vesicare 5 mg Tab) valsartan (valsartan 40 mg Tab) venlafaxine Procedures Performed Injection of therapeutic substance into bladder wall (07/18/2022), Excision of cyst (05/24/2022), Cystourethroscopy with dilation of urethral stricture (07/12/2021), Cystourethroscopy with dilation of urethral stricture (08/05/2019), Cystourethroscopy with dilation of urethral stricture (11/03/2014), Back, Cholecystectomy, Colonoscopy, Rotator cuff, Tubal ligation. Medications What How Much When Instructions Unchanged aspirin 81 Milligram By Mouth Every day Unchanged atorvastatin 40 Milligram By Mouth Every day Unchanged calcium carbonate (calcium (as carbonate) 600 mg oral tablet) 1 Tablets By Mouth Every day Unchanged celecoxib (celecoxib 200 mg Cap) 2 Capsules By Mouth 2 times a day Unchanged cetirizine (Zyrtec) 10 Milligram By Mouth Every day Unchanged cholecalciferol (Vitamin D3) 25 Microgram By Mouth Every day Unchanged glipiZIDE (glipiZIDE 10 mg ER Tab) 1 Tablets By Mouth Every day Unchanged ibandronate (ibandronate 150 mg oral tablet) 1 Tablets By Mouth Once a month Osteoporosis Unchanged lorazepam (Ativan) 1 Milligram By Mouth Every day as needed for as needed for anxiety Unchanged metformin 500 Milligram By Mouth Every day Unchanged multivitamin with minerals 1 cap By Mouth Every day Unchanged pioglitazone (pioglitazone 30 mg Tab) 1 Tablets By Mouth Every day Unchanged semaglutide (Rybelsus 3 mg oral tablet) 1 Tablets By Mouth Every day Unchanged solifenacin (Vesicare 5 mg Tab) 1 Tablets By Mouth Every day Unchanged valsartan (valsartan 40 mg Tab) 1 Tablets By Mouth Every day Unchanged venlafaxine 225 Milligram By Mouth Every day Allergies No Known Allergies No Known Medication Allergies Problems Ongoing - Any problem that you are currently receiving treatment for. Anxiety Asymptomatic microscopic hematuria BMI 36.0-36.9,adult Chronic cystitis Depression Diabetes Dysuria Feeling of incomplete bladder emptying High blood pressure History of kidney stones History of osteoporosis History of sleep apnea Lower abdominal pain Microscopic hematuria OAB (overactive bladder) Soft tissue mass Unspecified urethral stricture, female Ureteral stone with hydronephrosis Urge incontinence Urinary urgency Urine, incontinence, stress female Patient Survey You may receive a survey via text or e-mail asking about your office visit. Please share your experience with us by completing your survey. We appreciate your feedback and thank you for choosing us for your care. Normal [facility] Coding Summaryon 06-07-2023 Coding Summary HTMLBase 64 LltbcjvuDLk5wBc+PGhlY WQ+QA5EIQYtP40xgVBoiJ 2lA9HWPHqUQohhVBCVXHc YPnUgrrLiWL5gxRUkTCMm IC8+OG7uRZQcLdehdUPyq 7P0aCL4B97upp3gJQastF N2KJCkTnOsvmyic0trnOu 6IDcuNmluOyBt EMXqbG40RAW6cJ23Ru96y MKppCXqd5xnrIn3RkAdTA LvNJL0yHurSKonz6PeQNO gT64wvDEhi9M2 PXSjfDjpzNSiQjGxdVF5w V4vAEgbomlhg8jpfkwwDu u6hf30bLItz7Y3wBS3A8K lryE4EDPfnYEi NketkMMFfZ5pcfcgn7gvb jgfKtWaXZUqJAy1DIg6JK JkqWwkZkXmSH69FPG1GLA kogCuU2KfSFCb hPhxNoO9h8S2Ak2VB7IIB auiD1WCJOXVXUctnQJ+PC 50ed94B4FsRoehHbt4ZTN gPWN3jXS1zB4f GGNbCLntx0B9yZB0U6Mro zUodu0wj9qvSKMvRSboQ3 9qyBEah1V8MONyhUS4IDK rjZoiEsNizW33 Oyc+ZZVgfMuaw1HnChemv 2vbb6gcuPq7UobfSHQbfl LvcCtkGIX3y7UwCc5tXJN jwPS3yYC9jP8i BwKeSgD3KIdrY022QnKxk RDbBlahI16hC4FzdOH+PH KgVmz1ITWvrVinXU0mN8Y hZGRpbmctbGVm eDuaLX3yXRKueuvxITAjo A4qTYQrL4s1SyLzQgH1CU cdG3DwRBRbvwbmPz02kM8 bVoFgCbI2EBbt F0JsuuA3FYVikRBgVDlfL MU4D66sn8A9KOLbHJJlJJ A0nNF2rM8zvHrwttxdpEG mdDsgdmVydGlj GVzjPIsuV743EMQpoJvwC kNvZGluZyBEYXRlOiAgMD EvMDMvMjAyNDwvdGQ+PHR gGTT0nKstFNFz iKHgSFrqYg5tuScysQpjM R8mULIgavahLOGduQ9xDK ZnkCZunAdaEP6wUPGposp va976NaTfGTY4 OPFcmWBxR4KmkJ7iWoXzO BAbEAEtL2FsqMClNRxgB7 19GOguDyC4SPLdkeDkP6R sLWFsaWduOiB0 r8D9Jq6Xw4NvizwsH4Omy TExUbNxLffrSNa7Q9OsQj wvdHI+SF63JLUdPM16JEf 7RFT4sCsiNKxn NNWhV6LnvC3gFtZfINUsY GRkOyc+PHRhYmxlIHdpZH RoPScxMDAlJyBzdHlsZT0 bSz8tXNLpDRRt dGxyqLKsMzZgi6zcGWImC WflSC9vgYlwL1CxlUY2TU Mpx0a6Xv35X52qR4ShiVR +QHXidAN5uVZ3 jZ7qSdTvZwK7OSqrO490E gVkoIFzAjems6rxi3illG c1MeF2QTXlkcEfwTuiFCN 8o0HbBg62H70s IHdpZHRoPSIxNSUiIHZhb Zqqrz1yzV5tUo3+PGNvbC D9oDR7sP5aKmMyMrD8BXv lG978DcAqyDLc Mlbqw0ton3lamSl3TiWtL NBwyaUgvZwyOIV9g0LuIa 37G0WzhZuck0ViMkm9br9 7xOUop5O9dYG7 W5DhCTXvfukmqRLmpUhvQ Y0bXQXsqejtZWPgvQ5jSF YnH7i0HdTnChV9AQlnV0R zseP3SGZbfQYa QJDtjDJDeU5mcgrja4gyc cuoOqVzTLMzTSy2FZc3ZF LeiCfdDuKdCXJ5TlN5TBH 5gFPzvR9euDpf zridlC0bEhg+JDA5jEZcw UFIFC9tUgoyoUZ+PHRkIH L3jSndJSmvAEFrgH2cZIZ oU0l4NuVpNuC5 HJjbU4VrzuD4BJZcrCUwY GRowSYNyJ0xfpbuu1qbip vsRkIuRMCuSBm2POv8UES saWduOiBsZWZ0 ZzQ4PVR1bUPhtG4gcUllr vwodW5lAul+QmlydGggRG M5YCw4C4BgLua2MYVvoMa wDM4vvYOsIHwb Sc1toHuisGhyBP6rRGBpo biee685BnDze1pbUXWniA IaXSmuNMY7O85qa6T1WWO fYFZkUSD7dIT5 pG2lvQqbnjjqvKQchGqgm tJeeIbwWCkeBYqoF193OT TflNuaKnIwLFs0B9TxCwk 3FCEnnErjCN5p aFJsVLjlPd1hkKknhJysQ L8fXBTdjgsoh844SzPix9 xkKTDgvMFwMYepJNE6Z38 td9X1SWYnKMCi ZKC3aRC3uI1jjOyqbwajw GVmdDsgdmVydGljYWwtYW naY327PUOiaOjfHlGczFa 4G6DfLef8YSYe cPmeIC4meZAzZEkhOu7xo EyjzFjuVJ7bTSOzrvtop6 01OwDrj0zyYNRykKHmEOn rQHU8L22ff4Z9 RUDdKMCoTCJ5zFJ5wB8ha GlnbjogbGVmdDsgdmVydG lwHPjuDRvkQ843EMNpoTn nPlBhdGllbnQg XPmeGSn5R3BfSncobCF+P O33GTMmWS20iGChuEBlu5 sduUh2AzWrIHGzVKX8xKh xCBhef6HmBUDr H54faQGnz1F4FHUvuRuxz JRtKsVuoEP7rJ5iNYfhbg rvc7whtydgUebvo0fkmr6 9yU42S14pLMjk ZHRoPSIzMCUiIHZhbGlnb e4ciH6pIz4+DNDabMV8rR S4gK8zULUbJsN8PWrzZ50 9InRvcCIvPjxj u2nto4ooxQf9VkN0CINen lSmaZfiWAT8i4WjRb07W7 9sIHdpZHRoPSIyMCUiIHZ txCaydw5auE3o Ii8+WNXwtJZ4lIT8tM3cN sZiYpB3WZgrB536MiZtmT CwJraoV23uO5JjdYL+PHR rDsb5OGOucPae VD2aiEFrYIaxOy6aGKM3U pEgQzFfHMlbP0NwZFTkhz fnyamhhKG5UZVtSRFdrC2 8Xr5wjVolNDIp oDTGmH8yydjjd0cpzmnnI iCoVQYaWEq2WSm1WMDmmW mcBxDrLCE3KdK9XWM0yLA bfM0vlXdmebqt wY3oT9NqSZLnyuytUg39j R3tYeFzFrI6VNluBwl+V0 BOOqVjDDTUFVBGS8KCSBA EIGd7V2SvLrq2 FSHpiJpmSL0gbPHfRVvoQ a7ytSzcoAivFZ6jGXKpuq fyEDMdkF7xVVFtsCAqwHj xBN0xDREgejzj n057GcFyIXU5HKMyrPBnA 8HkoM4yJsUkWSKbXEYiS2 RggBVuYUevD380MEbmUxD 6ATLwawIfO0Xs TBBfqMohVmR7g7X7Hi1tP w9hBX3oWAD3SX32YL01hN Jpj9V5vZH3K2EhWORhzea graqeuPD7GKLl STTrxO20rVDcBSnvAc2hz 6E8n408MBBdWSCntW14Ln 1gqFzvQJJvxTOZvC4xryv ye2dwhjpeJsNz GVNfKXr1AXf8VVNefVpuZ oQiMNO2IxA8EAR6uUXxzW 4sySvwepeehU5iJez+NTg mOTCvsjP7Y9Hs Iwl3YUGjpFriQP8bxMEvE LfeCz7uaMqhkXubQW7tAS KtfoqrXHKtuV4gQSKisNP bxCbeXK1pWWFp ifefa246JrVyIVH1IHVnh FSkB5FbyM2jFcUlUTRzGI DtD5LbkEIlDTkvV593OTw wJiI2IUUelfGw A5HsFENedOqaOnL7x2C4F s0DAS9WTIF6S7LsKlm3HP TdxFykBN2coJDrNVztGd8 waQepyTzsNI4u XEGpbaklBICptJ2sHEVcw SWjeRxnLE1zCDZzctsoa0 35KcNdNJA1JGNgsATzZ9J jaL8sXpQuOIXl TMGzL2MtcOFiKEqvP602J JufNvR3DJMwniFeI5EtFF HkuApsGnO3z4P0Ks7JETj vdGQ+GN03xp27 R1AzNjagJxu7HSNrYYT5n UY9kQ1hXNMfXBbcf5Q2lX D3A8EvljHwrz9ds2kaVPS xCZziZ77oxMWh r1J0IKJttUW6YOExaAqeC yLwcB90Wtd+PGNvbGdyb3 VnRrqbs8iup3pinIt3VxW wJSIgdmFsaWdu ELS0j0CkSh60U92sRJoqH HRoPSIzMCUiIHZhbGlnbj 9qiO9fPd5+UNRhjYY5uNJ 9wJ2tWtVaRmZ4 FLbvF755HpKkvJSjSclvx 1orl2pcfRj7WeAgILNdkp WpfFrzTOF7x2LuRx41D1A gaSehg2AtOxb0 ke55hSQiu6M1oJB1M7OnQ CKeuqzfzQTwgFfuDG6tOZ SpepnyGFLxiX4dPKWuT8n 4TtGzRlH7JZlq O9DtfpK4PVAwbTHvNACxa AEAkI1lwdxhn5cjytkrDu WuWTXpSWh1DUh7BDSukPl nIxPgWPC7FzF5 UWS2hJOohE5ehLcqvkaxl G9wOyc+PEv1g1lpgOKxVB 6weNY1ZJ95VW39bNKrb1V 8aSQ9S3LeWZNc rfxagwetmDC2AACtFRTfr T15Gc9kaQlqOv6qAHDtWE W5NBKakOKkN6BhiF7pEsX hRUAfOOLkL1Fj vLIfGDryV410IIxmStC5S QRlhcUuT9YjIRRyuTxdZq Z6i7Q2Ay6DNC98LE21HY9 5aRIoh7L2rSL6 N4QtYVDhkjeezjlfbDA1G HWlSRTdjJ60Ym6yxFbvTr 3lXJYdKLR0NGFwmCXgG3A anO7uQcHrENWy VRYvE9SlgSMzDZldB793P ElaVaL3KODropHiY3FnXF RilKgvAlC8l2H0Yc8HYs4 0DO56XC72uCDb x2L2uZQ8I0JnDEBshujzm adsaKX1ETInDCSivC51Hd 6ceCxgZb2cHVZwAYS8JEF tfCNeN2ImjA9i KhIrXXGfSLTsF1BcuMAeP QjlZ985GWbeVkR3XNEdlu QnF9XwYSNhmTrrZgO5f0J 8Zs4QYJzhkwh2 S1StRjrquPL+GV23ZMJeS S44kBQzjWRjr1afyMq1Qz TaDNAsBUM1dQqkCNcvx7P fHYReQ79muGSv c2U (more content not included)... [address] Standardon 12-28-2023 .Hb 17.7 Invalid Interpretation Code [facility] Comment on above: Performed By: #### 1 [id number] ####[facility] (DEFAULT)[address] [place] [address] .Hgb A1c 1.09 g/dL Invalid Interpretation Code [facility] Comment on above: Performed By: #### 1 [id number] ####[facility] (DEFAULT)[address] [place] [address] Glucose [Mass/Vol] 174 mg/dL Invalid Interpretation Code [facility] Comment on above: Performed By: #### 1 [id number] ####[facility] (DEFAULT)[address] [place] [address] HbA1c (Bld) [Mass fraction] 7.7 % High 4.6-6.2 [facility] Comment on above: Performed By: #### 1 [id number] ####[facility] (DEFAULT)[address] [place] [address] Provider Orderson 06-01-2023 Provider Orders [id number] Normal [facility] GLYCOHEMOGLOBIN A1Con 2021 ADA RECOMMENDATION SEE BELOW Normal [facility] Comment on above: Result Comment: ADA RECOMMENDED LIMIT 4.0 - 6.0 ADA THERAPEUTIC TARGET < 7.0 ACTION SUGGESTED > 7.0 Performed By: #### A 1C #### [facility] [address] [address] [address] Prerna Younger Glucose [Mass/Vol] 163 mg/dL Normal [facility] Comment on above: Performed By: #### A 1C #### [facility] [address] [address] [address] Prerna Younger HbA1c (Bld) [Mass fraction] 7.3 % Critically high 4.5-6.2 [facility] Comment on above: Performed By: #### A 1C #### [facility] [address] [address] [address] Prerna Younger CHEMISTRYOrdered By: Lab ROP User on 05-24-2022 Glucose [Mass/Vol] 177 mg/dL High 55 - 99 mg/dL [facility] POC Subsection Comment on above: Result Comment: Christine trinh Meter POC Device SN [id number] Invalid Interpretation Code [facility] POC Subsection POC User ID [id number] Invalid Interpretation Code [facility] POC Subsection POC Username MALIK CLEMONS Invalid Interpretation Code [facility] POC Subsection CHEMISTRYOrdered By: SYSTEM SYSTEM on 05-19-2022 Anion gap [Moles/Vol] 12 mmol/L Normal 6 - 16 mEq/L F C Remisol Chloride [Moles/Vol] 100 mmol/L Low 101 - 1 11 mmol/L [facility] Remisol CO2 [Moles/Vol] 28 mmol/L Normal 21 - 31 mmol/L [facility] Remisol Creatinine [Mass/Vol] 0.7 mg/dL Normal 0.5 - 1.3 mg/dL [facility] Remisol GFR/1.73 sq M.predicted among blacks MDRD (S/P/Bld) [Vol rate/Area] mL/min/1.73 m2 Normal >=59mL/min/1 .73 m2 [facility] Chem S GFR/1.73 sq M.predicted among non-blacks MDRD (S/P/Bld) [Vol rate/Area] mL/min/1.73 m2 Normal >=59mL/min/1 .73 m2 [facility] Chem S Glucose [Mass/Vol] 169 mg/dL Normal 55 - 199 mg/dL [facility] Remisol Potassium [Moles/Vol] 4.0 mmol/L Normal 3.5 - 5.3 mmol/L [facility] Remisol Sodium [Moles/Vol] 136 mmol/L Normal 135 - 145 mmol/L [facility] Remisol Urea nitrogen [Mass/Vol] 17 mg/dL Normal 5 - 21 mg/dL [facility] Remisol HEMATOLOGYOrdered By: Sima Meza on 05-19-2022 Erythrocyte distribution width (RBC) [Ratio] 13.9 % Normal 10.9 - 14.2 % [facility] HemeAutoSS Hematocrit (Bld) [Volume fraction] 39.7 % Normal 34.0 - 46.0 % [facility] HemeAutoSS Hemoglobin (Bld) [Mass/Vol] 13.2 g/dL Normal 12.0 - 16.0 gm/dL [facility] HemeAutoSS MCH (RBC) [Entitic mass] 28.5 pg Normal 27.0 - 34.0 pg [facility] HemeAutoSS MCHC (RBC) [Mass/Vol] 33.1 g/dL Normal 31.4 - 36.0 gm/dL [facility] HemeAutoSS MCV (RBC) [Entitic vol] 85.9 fL Normal 80.0 - 100.0 fL [facility] HemeAutoSS Platelet mean volume (Bld) [Entitic vol] 9.4 fL Normal 6.4 - 10.8 fL [facility] HemeAutoSS Platelets (Bld) [#/Vol] 255.0 E9/L Normal 150.0 - 500.0 E9/L [facility] HemeAutoSS RBC (Bld) [#/Vol] 4.6 E12/L Normal 4.3 - 5.9 E12/L [facility] HemeAutoSS WBC corrected for nucl RBC Auto (Bld) [#/Vol] 8.7 E9/L Normal 4.0 - 11.0 E9/L [facility] HemeAutoSS MG MAMM SCREEN 3D ANNA CADon 02-10-2022 MG MAMM SCREEN 3D ANNA CAD Patient: ALBINA CAMERON Exam Date: 02/10/2022 : 1965 Gender:F Ordering : DR CONSTANTIN MELENDEZ . Admission #: [id number] Family : Order #: [id number] CLICK HERE TO VIEW EXAM RADIOLOGY REPORT PROCEDURE: MAMMOGRAM SCREENING 3D BILATERAL CAD COMPARISON: MG MAMM SCREEN ANNA W CAD, 01/21/2020. MG MAMM SCREEN ANNA W CAD, 09/04/2018. INDICATIONS: Screening mammography Calculator Name NCI Breast Cancer Risk Assessment Tool 5 Year Breast Cancer Risk 1.70% Lifetime Breast Cancer Risk 10.20% Personal Breast Cancer No Personal Ovarian Cancer No Treatments None Family Cancers Father with lung cancer at age 73. LOCATION: [facility] BREAST COMPOSITION: Scattered areas fibroglandular density. FINDINGS: DIAGNOSTIC CATEGORY 1--NEGATIVE. RIGHT BREAST: No significant suspicious finding. No significant change has occurred. LEFT BREAST: No significant suspicious finding. No significant change has occurred. Biopsy marker within posterior upper-outer quadrant. RECOMMENDATIONS: ROUTINE MAMMOGRAM AND CLINICAL EVALUATION IN 12 MONTHS. PLEASE NOTE: A NORMAL MAMMOGRAM DOES NOT EXCLUDE THE POSSIBILITY OF BREAST CANCER. A CLINICALLY SUSPICIOUS PALPABLE LUMP SHOULD BE BIOPSIED. Dictated by: Karlie Chirinos M.D. on 02/11/2022 at 08:18 Approved by: Karlie Chirinos M.D. on 02/11/2022 at 08:21 Normal [facility] XR DEXA BONE DENSITYon 02-10 XR DEXA BONE DENSITY EXAMINATION: XR DEX A BONE DENSITY, 02/10/2022 3:37 PM EDT HISTORY: Menopause present COMPARISON: None. TECHNIQUE: Dual-energy X-ray absorptiometry (DEXA) bone density study performed for the axial skeleton. FINDINGS: SPINE ANALYSIS: Average bone mineral density is 1.108 g/cm2. T-score (standard deviation relative to young adult mean): -0.8 . HIP ANALYSIS: Lowest bone mineral density is within the right femoral neck, 0.661 g/cm2. T-score (standard deviation relative to young adult mean): -2.7 . IMPRESSION: [employer] Classification: Osteoporosis - High Fracture Risk Electronically authenticated by: KARLIE CHIRINOS Date: 2022-02-10 16:28 Normal [facility] CBC AUTO DIFFon 11-05-2021 BASO # 0.0 103/ul Normal 0.0-0.1 [facility] Comment on above: Performed By: #### C BC #### [facility] [address] [place] [address] Dr. Prerna Younger Basophils/100 WBC (Bld) 0.6 % Normal 0.2-2.0 [facility] Comment on above: Performed By: #### C BC #### [facility] [address] [place] [address] Dr. Prerna Younger EO # 0.2 103/ul Normal 0.0-0.7 [facility] Comment on above: Performed By: #### C BC #### [facility] [address] [place] [address] Dr. Prerna Younger Eosinophils/100 WBC (Bld) 2.6 % Normal 0.9-7.0 [facility] Comment on above: Performed By: #### C BC #### [facility] [address] [place] [address] Dr. Prerna Younger Erythrocyte distribution width (RBC) [Ratio] 13.1 % Normal 11.0-15.0 [facility] Comment on above: Performed By: #### C BC #### [facility] [address] [place] [address] Dr. Prerna Younger Hematocrit (Bld) [Volume fraction] 42.0 % Normal 36.0-48.0 [facility] Comment on above: Performed By: #### C BC #### [facility] [address] [place] [address] Dr. Prerna Younger Hemoglobin (Bld) [Mass/Vol] 13.5 g/dL Normal 12.0-16.0 [facility] Comment on above: Performed By: #### C BC #### [facility] [address] [place] [address] Dr. Prerna Younger IG # 0.03 10e3/ul Normal 0.00-0.03 [facility] Comment on above: Performed By: #### C BC #### [facility] [address] [place] [address] Dr. Prerna Younger IG % 0.4 % Normal 0.0-0.5 [facility] Comment on above: Performed By: #### C BC #### [facility] [address] [place] [address] Dr. Prerna Younger LYMPH # 1.6 103/ul Normal 1.2-3.8 [facility] Comment on above: Performed By: #### C BC #### [facility] [address] [place] [address] Dr. Prerna Younger Lymphocytes/100 WBC (Bld) 23.4 % Normal 20.5-60.0 [facility] Comment on above: Performed By: #### C BC #### [facility] [address] [place] [address] Dr. Prerna Younger MANUAL DIFF REQ NO Normal [facility] Comment on above: Performed By: #### C BC #### [facility] [address] [place] [address] Dr. Prerna Younger MCH (RBC) [Entitic mass] 28.6 pg Normal 26.7-34.0 [facility] Comment on above: Performed By: #### C BC #### [facility] [address] [address] [address] Prerna Younger MCHC (RBC) [Mass/Vol] 32.1 g/dL Normal 29.9-35.2 [facility] Comment on above: Performed By: #### C BC #### [facility] [address] [address] [address] Prerna Younger MCV (RBC) [Entitic vol] 89.0 fL Normal 81.0-99.0 [facility] Comment on above: Performed By: #### C BC #### [facility] [address] [place] [address] Dr. Prerna Younger MONO # 0.4 103/ul Normal 0.3-0.8 [facility] Comment on above: Performed By: #### C BC #### [facility] [address] [place] [address] Dr. Prerna Younger Monocytes/100 WBC (Bld) 5.5 % Normal 1.7-12.0 [facility] Comment on above: Performed By: #### C BC #### [facility] [address] [place] [address] Dr. Prerna Younger NEUT # 4.7 103/ul Normal 1.4-6.5 [facility] Comment on above: Performed By: #### C BC #### [facility] [address] [place] [address] Dr. Prerna Younger Neutrophils/100 WBC (Bld) 67.5 % Normal 43.0-75.0 [facility] Comment on above: Performed By: #### C BC #### [facility] [address] [place] [address] Dr. Prerna Younger Platelet mean volume (Bld) [Entitic vol] 10.7 fL Normal 9.5-13.5 [facility] Comment on above: Performed By: #### C BC #### [facility] [address] [place] [address] Dr. Prerna Younger PLT 256 103/ul Normal 150-450 [facility] Comment on above: Performed By: #### C BC #### [facility] [address] [address] [address] Prerna Younger RBC 4.72 106/ul Normal 4.20-5.40 [facility] Comment on above: Performed By: #### C BC #### [facility] [address] [address] [address] Prerna Younger WBC 7.0 103/ul Normal 4.0-11.0 [facility] Comment on above: Performed By: #### C BC #### [facility] [address] [address] [address] Prerna Younger GLYCOHEMOGLOBIN A1Con 2021 ADA RECOMMENDATION SEE BELOW Normal [facility] Comment on above: Result Comment: ADA RECOMMENDED LIMIT 4.0 - 6.0 ADA THERAPEUTIC TARGET < 7.0 ACTION SUGGESTED > 7.0 Performed By: #### A 1C ####[facility] [address] [place], [place] [address]Dr. Prerna Younger Glucose [Mass/Vol] 189 mg/dL Normal [facility] Comment on above: Performed By: #### A 1C ####[facility] [address] [address]DrEyad Younger HbA1c (Bld) [Mass fraction] 8.2 % Critically high 4.5-6.2 [facility] Comment on above: Performed By: #### A 1C ####[facility] [address] [place], [place] [address]DrEyad Younger LIPID PROFILEon 11-05-2021 CHOL-HDL RATIO NORM SEE BELOW Normal [facility] Comment on above: Result Comment: 3.3 - 4.4 LOW RISK 4.4 - 7.1 AVERAGE RISK 7.1 - 11.0 MODERATE RISK >11.0 HIGH RISK Performed By: #### T SH, LIVER, LIPID, BMP ####[facility] [address] [address]Dr. Prerna Younger Cholesterol [Mass/Vol] 163 mg/dL Normal <=200 [facility] Comment on above: Performed By: #### T SH, LIVER, LIPID, BMP ####[facility] [address] [place], [place] [address]Ss. Prerna Younger Cholesterol in HDL [Mass/Vol] 40 mg/dL Normal 40-60 [facility] Comment on above: Performed By: #### T SH, LIVER, LIPID, BMP ####[facility] [address] [place], [place] [address]Wq. Prerna Younger Cholesterol in LDL [Mass/Vol] 82.6 mg/dL Normal [facility] Comment on above: Performed By: #### T SH, LIVER, LIPID, BMP ####[facility] [address] [id number]. Prerna Younger Cholesterol.total/Cho lesterol in HDL [Mass ratio] 4.1 {ratio} Normal [facility] Comment on above: Performed By: #### T SH, LIVER, LIPID, BMP ####[facility] [address] [id number]. Prerna Younger HDL NORMAL > or = 60 mg/dl - LO W CARDIOVASCULAR RISK <40 mg/dl - HIGH CARDIOVASCULAR RISK Normal [facility] Comment on above: Performed By: #### T SH, LIVER, LIPID, BMP ####[facility] [address] [address]Dr. Prerna Younger LDL CALC NORMAL SEE BELOW Normal [facility] Comment on above: Result Comment: <100 mg/dl OPTIMAL 100 - 129 mg/dl NEAR OR ABOVE OPTIMAL 130 - 159 mg/dl BORDERLINE HIGH 160 - 189 mg/dl HIGH >190 mg/dl VERY HIGH Performed By: #### T SH, LIVER, LIPID, BMP ####[facility] [address] [id number]. Prerna Younger Triglyceride [Mass/Vol] 202 mg/dL Critically high <=150 [facility] Comment on above: Performed By: #### T SH, LIVER, LIPID, BMP ####[facility] [address] [id number]. Prerna Younger VLDL CALC 40.4 mg/dL Normal [facility] Comment on above: Performed By: #### T SH, LIVER, LIPID, BMP ####[facility] [address] [id number]. Prerna Younger LIVER PROFILEon 11-05-2021 Albumin [Mass/Vol] 3.5 g/dL Normal 3.4-5.0 [facility] Comment on above: Performed By: #### T SH, LIVER, LIPID, BMP ####[facility] [address] [address]Dr. Prerna Younger Albumin/Globulin [Mass ratio] 0.9 {ratio} Normal [facility] Comment on above: Performed By: #### T SH, LIVER, LIPID, BMP ####[facility] [address] [address]Dr. Prerna Younger ALP [Catalytic activity/Vol] 94 U/L Normal 46-116 [facility] Comment on above: Performed By: #### T SH, LIVER, LIPID, BMP ####[facility] [address] [place], [place] [address]Dr. Prerna Younger ALT [Catalytic activity/Vol] 28 U/L Normal 14-59 [facility] Comment on above: Performed By: #### T SH, LIVER, LIPID, BMP ####[facility] [address] [place], [place] [address]Dr. Prerna Younger AST [Catalytic activity/Vol] 17 U/L Normal 15-37 [facility] Comment on above: Performed By: #### T SH, LIVER, LIPID, BMP ####[facility] [address] [place], [place] [address]Dr. Prerna Younger BILI, CONJUGATED 0.2 mg/dL Normal 0.0-0.2 [facility] Comment on above: Performed By: #### T SH, LIVER, LIPID, BMP ####[facility] [address] [place], [place] [address]Dr. Prerna Younger Bilirubin [Mass/Vol] 0.6 mg/dL Normal 0.2-1.0 [facility] Comment on above: Performed By: #### T SH, LIVER, LIPID, BMP ####[facility] [address] [place], [place] [address]DrEyad Younger Globulin (S) [Mass/Vol] 3.7 g/dL Normal [facility] Comment on above: Performed By: #### T SH, LIVER, LIPID, BMP ####[facility] [address] [id number]. Prerna Younger Protein [Mass/Vol] 7.2 g/dL Normal 6.4-8.2 [facility] Comment on above: Performed By: #### T SH, LIVER, LIPID, BMP ####[facility] [address] [id number]. Prerna Younger MICROALBUMIN, RAND URon 06-0 mALB 1.9 mg/L Normal <=30.0 [facility] Comment on above: Performed By: #### M ALBR #### [facility] [address] [address] [address] Prerna Younger PROF CHEM 8 (BAS METB)on Anion gap [Moles/Vol] 10.8 mmol/L Normal [facility] Comment on above: Performed By: #### T SH, LIVER, LIPID, BMP ####[facility] [address] [address]Dr. Prerna Younger Calcium [Mass/Vol] 8.7 mg/dL Normal 8.5-10.1 [facility] Comment on above: Performed By: #### T SH, LIVER, LIPID, BMP ####[facility] [address] [id number]. Prerna Younger Chloride [Moles/Vol] 105 mmol/L Normal 98-107 [facility] Comment on above: Performed By: #### T SH, LIVER, LIPID, BMP ####[facility] [address] [phone]. Prerna Younger CO2 [Moles/Vol] 29.6 mmol/L Normal 21.0-32.0 [facility] [place] [facility] Comment on above: Performed By: #### T SH, LIVER, LIPID, BMP ####[facility] [address] [address]Dr. Yilan Younger Creatinine [Mass/Vol] 0.63 mg/dL Normal 0.55-1.02 [facility] Comment on above: Performed By: #### T SH, LIVER, LIPID, BMP ####[facility] [address] [address]Dr. Prerna Younger EGFR-AF NICARAGUAN >60 Normal >=60 [facility] [place] [facility] Comment on above: Performed By: #### T SH, LIVER, LIPID, BMP ####[facility] [address] [address]Dr. Prerna Younger EGFR-NON AF NICARAGUAN >60 Normal >=60 [facility] Comment on above: Performed By: #### T SH, LIVER, LIPID, BMP ####[facility] [address] [address]Dr. Prerna Younger Glucose [Mass/Vol] 212 mg/dL Critically high 74-106 [facility] Comment on above: Performed By: #### T SH, LIVER, LIPID, BMP ####[facility] [address] [address]Dr. Prerna Younger Potassium [Moles/Vol] 4.4 mmol/L Normal 3.5-5.1 [facility] Comment on above: Performed By: #### T SH, LIVER, LIPID, BMP ####[facility] [address] [address]Dr. Prerna Younger Sodium [Moles/Vol] 141 mmol/L Normal 136-145 [facility] Comment on above: Performed By: #### T SH, LIVER, LIPID, BMP ####[facility] [address] [address]Dr. Prerna Younger Urea nitrogen [Mass/Vol] 13.0 mg/dL Normal 7.0-18.0 [facility] Comment on above: Performed By: #### T SH, LIVER, LIPID, BMP ####[facility] [address] [address]Dr. Prerna Younger Urea nitrogen/Creatinine [Mass ratio] 20.6 mg/mg Normal [facility] Comment on above: Performed By: #### T SH, LIVER, LIPID, BMP ####[facility] [address] [place], [place] [address]Ea. Prerna Younger TSHon 11-05-2021 TSH 1.285 uIU/mL Normal 0.358-3.740 [facility] Comment on above: Performed By: #### T SH, LIVER, LIPID, BMP ####[facility] [address] [place], [place] [address]LeEyad Younger TSH RANGE SEE BELOW Normal [facility] Comment on above: Result Comment: <0.3 4 UIU/ml HYPERTHYROID 0.34-5.60 UIU/ml EUTHYROID >5.60 UIU/ml HYPOTHYROID Performed By: #### T SH, LIVER, LIPID, BMP ####[facility] [address] [id number]. Prerna Younger VITAMIN D 25 OHon 11-05-2021 VIT D 25-OH 34.1 ng/mL Normal [facility] Comment on above: Performed By: #### V ITAD #### [facility] [address] [address] [address] Prerna Younger VIT D RANGES SEE BELOW Normal [facility] Comment on above: Result Comment: <20 ng/mL Vit D deficient 20 - <30 ng/mL Vit D insufficient 30 - 100 ng/mL Vit D sufficient >100 ng/mL Potential Toxicity Performed By: #### V ITAD #### [facility] [address] [address] [address] Prerna Younger US KIDNEYSon 07-17-2021 US KIDNEYS EXAM: US KIDNEYS HISTORY: Microscopic hematuria COMPARISON: CT abdomen/pelvis 04/04/2019 and renal bladder ultrasound 04/11/2019. TECHNIQUE: Grayscale and color images of the kidneys and bladder were obtained. FINDINGS: The right and left kidneys measure 12.0 cm and 11.8 cm respectively. Corticomedullary differentiation is preserved. There is normal color flow. Mild right pelvocaliectasis. No discrete renal mass identified. The urinary bladder is unremarkable with prevoid volume of 1 85 mL. No post void obtained. IMPRESSION: Mild right pelvocaliectasis. Otherwise unremarkable examination Electronically authenticated by: JOSSIE ASHBY Date: 2021-07-17 12:55 Normal [facility] Covid-19 PCR (CVDTB)on 06-06 SARS-CoV-2 (COVID-19) RNA JODEE+probe Ql (Unsp spec) Not detected Normal NOT DETECTED [facility] Comment on above: Result Comment: This test is not yet approved or cleared by the [place] FDA. When there are no FDA-approved or cleared tests available, and other criteria are met, FDA can make tests available under an emergency access mechanism called an Emergency Use Authorization (EUA). The EUA for this test is supported by the [place] of Health and Human Service's (HHS's) declaration that circumstances exist to justify the emergency use of in vitro diagnostics for the detection and/or diagnosis of the virus that causes COVID-19. This EUA will remain in effect (meaning this test can be used) for the duration of the COVID-19 declaration justifying emergency of IVDs, unless it is terminated or revoked by FDA (after which the test may no longer be used). When diagnostic testing is negative, the possibility of a false negative should be considered in the context of a patient's recent exposures and the presence of clinical signs and symptoms consistent with SARS-CoV-2. Performed By: #### [facility] #### [facility] [address] [place] [address] Dr. Prerna Younger XR CHEST 1 Von 07-01-2021 XR CHEST 1 V EXAMINATION: XR CHES T 1 V HISTORY: COUGH COMPARISON: XR chest 06/25/2021 FINDINGS: LUNGS: Mild opacity overlying left lung base suspected represent anterior soft tissue artifact. Resolution of previously seen mild stranding. VASCULATURE: No increased pulmonary vasculature. PLEURA: No pneumothorax, effusion, or pleural thickening. CARDIAC: No cardiomegaly or cardiac silhouette abnormality. MEDIASTINUM: No visible mass or adenopathy. BONES: No fracture or visible bone lesion. OTHER: Negative. IMPRESSION: 1. No convincing acute cardiopulmonary process. Electronically authenticated by: KARLIE CHIRINOS Date: 2021-07-01 10:54 Normal [facility] XR CHEST 2 Von 06-25-2021 XR CHEST 2 V EXAMINATION: XR CHES T 2 V HISTORY: Cough COMPARISON: XR chest 03/13/2019 FINDINGS: LUNGS: Underexpanded lungs with mild haziness within left lung base. VASCULATURE: No increased pulmonary vasculature. PLEURA: No pneumothorax, effusion, or pleural thickening. CARDIAC: No cardiomegaly or cardiac silhouette abnormality. MEDIASTINUM: No visible mass or adenopathy. BONES: No fracture or visible bone lesion. OTHER: Negative. IMPRESSION: 1. Mild left basilar infiltrates versus atelectasis. Electronically authenticated by: KARLIE CHIRINOS Date: 2021-06-25 16:26 Normal [facility] LT SHOULDER 1V (POST RED)on 11-09-2020 LT SHOULDER 1V (POST RED) [facility] Name: ALBINA CAMERON : 1965 Unit #: [id number] Age: 54 Attending Physician: Pt Location: ER Date of Service: 11/08/20 LT SHOULDER 1V (POST RED) HISTORY: Postreduction Study: Left shoulder one view dated 11/08/2020. 1303 hours Findings: Patient is status post reduction of left shoulder dislocation now demonstrating anatomic alignment IMPRESSION: Status post reduction left shoulder dislocation demonstrating good alignment. EXAM/ORDER VERIFICATION: Y PT/FAMILY VERBALIZES UNDERSTANDING OF EXAM Y PT SHIELDED N Is pt ? [facility] TECH INITIALS RW COMMENTS Electronically Signed by: JARED EVANS M.D. 11/09/20 0846 JARED EVANS M.D. Date Dict: 11/09/2042 JARED EVANS M.D. Date Trans: 11/09/20 0842 [facility] [phone] cc: CONSTANTIN MELENDEZ MD, JAY B MD-JAY JAY Normal [facility] HISTORY PRESENT ILLNESSon HISTORY PRESENT ILLNESS Name: ALBINA CAMERON : 1965 Unit #: [id number] Age: 54 Family Physician: Pt Location: ER Arrival Date 11/08/20 - 1037 ER Physician: MATI MCKNIGHT MD-ER [facility] EMERGENCY RO[facility] Attending Attestation Attending Attestation I performed a history and physical examination of the patient and discussed management with the VICE PRESIDENT OF CONSULTING SERVICES/PA. I reviewed the VICE PRESIDENT OF CONSULTING SERVICES/PA's note and agree with the documented findings and plan of care. Any areas of disagreement are noted on the chart. I was personally present for the martines portions of any procedures. I have documented in the chart those procedures where I was not present during the martines portions. I have reviewed the emergency nurses triage note. I agree with the chief complaint, past medical history, past surgical history, allergies, medications, social and family history as documented unless otherwise noted below. Documentation of the HPI, Physical Exam and Medical Decision Making performed by the VICE PRESIDENT OF CONSULTING SERVICES/PA is based on my personal performance of the HPI, PE and MDM. For VICE PRESIDENT OF CONSULTING SERVICES/PA cases/ documentation I have personally evaluated this patient and have completed at least one if not all martines elements of the E/M (history, physical exam, and MDM). Additional findings are as noted. 54-year-old female presents to the emergency department today after she stepped down off of her head and fell landing on the left side. She did injure her left ankle but complains of left-sided shoulder pain. She cannot move her left shoulder. She denies hitting her head and denies any loss conscious. No other pain or injuries. There is obvious deformity to this patient left shoulder. She has limited range of motion at left shoulder. No distal deficits. She is tender exclusively over the lateral malleolus of her left ankle. No proximal calf tenderness to palpation. No tenderness over the base of fifth metatarsal. X-ray of this patient left humerus and shoulder is interpreted by myself as showing a shoulder dislocation. The radiologist adds that there may be a subtle hill sachs fracture. X-ray of this patient left ankle is interpreted by myself as showing a small avulsion fracture off of the distal fibula. Radiologist. I have discussed risks and benefits of close reduction as well as sedation for this patient. I have discussed the risks and benefits in the presence of the patient's , patient and her agree and consent. Patient was placed on non-rebreather continuous pulse oximeter continuous capnography as well as continuous school bus monitor. She was given 210 mg aliquots of this date IV and after adequate sedation with simple traction countertraction, I was able to eat easily reduce her left shoulder. Post reduction x-rays interpreted by myself as showing good joint reduction. She has been placed in a sling and swath. I have placed in a store ankle splint. She is nervous intact on reevaluation. We have written for a cam walking boot for her and will write [place] for pain. She has been told to follow up with her orthopedic surgeon. I am discharged patient was able to mentating normally and is able to eat and drink without vomiting. History of Present Illness History of Present Illness Time Seen: 11:19 History of Present Illness The patient is a 54 year old female who presented to the Emergency Department with the complaint of fall - left shoulder, left ankle. Past Medical History Past Medical History Pertinent Medical History: Diabetes, Hypertension Pertinent Surgical History: Cholecystectomy, Tubal Ligation Family History Significant Family Medical Hx: No Significant History Social History Marital Status M Living Arrangments: Spouse Employment Status: Full-Time Smoking Status: Never Smoker Alcohol Use: Denies Drug Use: Denies Allergies Allergies: Coded Allergies: No Known Allergies (Unverified , 11/08/20) Home Medications Home Medications See Reconcile Meds Physical Exam Physical Exam Initial Vital Signs Vital Signs Date Time Temp Pulse Resp B/P (MAP) Pulse Ox O2 Delivery O2 Flow Rate FiO2 11/08/20 10:47 98.2 82 18 137/84 (101) 94 Room Air Course of Treatment Medications Medications given in ED Medications Given in ED Morphine Sulfate (Morphine Sulfate) 4 mg ONCE ED ONCE IM Last administered on 11/08/20at 11:34; Start 11/08/20 at 11:20; Stop 11/08/20 at 11:21; Status DC Sodium Chloride (0.9% Sodium Chloride) 1-4 SYRINGES (3 ML) PRN PRN IV PUSH FLUSH; Start 11/08/20 at 11:20; Stop 01/07/21 at 11:21 Sodium Chloride 250 ml @ 10 mls/hr Q24H PRN IV FLUSH; Start 11/08/20 at 11:20 Etomidate (Amidate) 10 mg ONCE ED ONCE IV PUSH ; Start 11/08/20 at 11:40; Stop 11/08/20 at 11:43; Status DC Sodium Chloride 250 ml @ 10 mls/hr Q24H IV ; Start 11/08/20 at 11:40; Stop 01/07/21 at 11:41 Sodium Chloride (0.9% Sodium Chloride) 1-4 SYRINGES (3 ML) BIDF IV PUSH ; Start 11/08/20 at (more content not included)... Normal [facility] HISTORY PRESENT ILLNESS Name: ALBINA CAMERON : 1965 Unit #: [id number] Age: 54 Family Physician: Pt Location: ER Arrival Date 11/08/20 - 1037 ER Physician: MATI MCKNIGHT MD-ER [facility] EM[facility]GENCY RO[facility] History of Present Illness History of Present Illness Time Seen: 10:41 History of Present Illness The patient is a 54 year old female who presented to the Emergency Department with the complaint of fall - left shoulder, left ankle. Approximately 45 minutes prior to arrival she stepped down off bed, in camper, her ankle/foot rolled and she fell backwards landing on left shoulder. Denies hitting head and LOC. She was able to get herself up and bear weight/walk. Pain to the left shoulder upper arm and left ankle. Pain is sharp, constant, and 10/10. N/T in left hand with arm movement. Reports she was otherwise well prior to fall. Denies any known osteopenia/osteoporos is. Past Medical History Past Medical History Pertinent Medical History: Diabetes, Hypertension Pertinent Surgical History: Cholecystectomy, Tubal Ligation Family History Significant Family Medical Hx: No Significant History Social History Marital Status Living Arrangments: Spouse Employment Status: Full-Time Smoking Status: Never Smoker Alcohol Use: Denies Drug Use: Denies Allergies Allergies: Coded Allergies: No Known Allergies (Unverified , 11/08/20) Home Medications Home Medications See Reconcile Meds Review of Systems Review of Systems Constitutional: Denies: Chills, Fever, Malaise Skin: Denies: Rash ENT: Denies: Ear pain, Nasal congestion, Nasal discharge, Sore throat, Hoarseness Respiratory: Denies: Cough, Dyspnea Cardiovascular: Denies: Chest pain Gastrointestinal: Denies: Abdominal pain, Diarrhea, Nausea, Vomiting : Denies: Dysuria Musculoskeletal: Arthralgia Neurological: Numbness, Tingling; Denies: Weakness Psychiatric: Denies: Suicidal Ideation Physical Exam Physical Exam Initial Vital Signs Vital Signs Date Time Temp Pulse Resp B/P (MAP) Pulse Ox O2 Delivery O2 Flow Rate FiO2 11/08/20 10:47 98.2 82 18 137/84 (101) 94 Room Air 11/08/20 11:25 15.000 General Appearance: No apparent distress HEENT: Normal ENT Inspection, Normal EYE Inspection, No acute lesions: eyelids, No acute lesions: face Neck: Normal Inspection, Soft and Supple, No Nodes, Trachea Midline Respiratory: Normal inspection, Good inspiratory effort, Good expiratory effort, Lungs clear Cardiovascular: Regular rate and rhythm, No murmur, Normal S1 and S2 Peripheral Pulses: 2+: Posterior Tibal - Right, Posterior Tibial - Left, Radial - Right, Radial - Left Gastrointestinal: Soft, Non-tender, Nondistended, Active bowel sounds Musculoskeletal: Normal capillary refill, Decreased range of motion - left shoulder and left ankle, Other - left lateral base of ankle. left upper arm tenderness. left shoulder deformity. left hand and left foot with brisk cap refill. Neurologic/Psychiatri c: Alert, Oriented x3, Normal mood/affect, Intact touch sensation, Intact language/cognition Skin: Normal color, Warm/dry Course of Treatment Nursing Notes Assessments Nursing Notes/Assessments: Reviewed Medical Decision Making Medical Decision Making Left shoulder dislocation reduced by Dr. Mcknight. Left arm in sling, post procedure splint check alignment and neurovascularly intact. Air cast splint applied by [employer], post splint check shows alignment and extremity neurovascularly intact. Patient a/ox4 and tolerating clears after procedure. Rates her pain as tolerable. She and her feel comfortable with discharge home and o/p follow up. They are from [facility] and plan to follow up with local ortho. Plan of care and discharge discussed, questions answered. Standard warnings given. OARRS reviewed. Medications Medications given in ED Medications Given in ED Morphine Sulfate (Morphine Sulfate) 4 mg ONCE ED ONCE IM Last administered on 11/08/20at 11:34; Start 11/08/20 at 11:20; Stop 11/08/20 at 11:21; Status DC Sodium Chloride (0.9% Sodium Chloride) 1-4 SYRINGES (3 ML) PRN PRN IV PUSH FLUSH; Start 11/08/20 at 11:20; Stop 11/08/20 at 14:00; Status DC Sodium Chloride 250 ml @ 10 mls/hr Q24H PRN IV FLUSH; Start 11/08/20 at 11:20; Stop 11/08/20 at 14:00; Status DC Etomidate (Amidate) 10 mg ONCE ED ONCE IV PUSH ; Start 11/08/20 at 11:40; Stop 11/08/20 at 11:43; Status DC Sodium Chloride 250 ml @ 10 mls/hr Q24H IV Last administered on 11/08/20at 12:30; Start 11/08/20 at 11:40; Stop 11/08/20 at 14:00; Status DC Sodium Chloride (0.9% Sodium Chloride) 1-4 SYRINGES (3 ML) BIDF IV PUSH ; Start 11/08/20 at 20:00; Stop 11/08/20 at 14:00; Status DC Sodium Chloride (0.9% Sodium Chloride) 1-4 SYRINGES (3 ML) PRN PRN IV PUSH FLUSH; Start 11/08/20 at 11:40; Stop 11/08/20 at 14:00; Status DC Laboratory Laboratory Results: No labs ordered Progress #1 Repeat Vital Signs V (more content not included)... Normal [facility] LEFT ANKLE 3 VIEWon 11-09-19 LEFT ANKLE 3 VIEW [facility] Name: ALBINA CAMERON : 1965 Unit #: [id number] Age: 54 Attending Physician: Pt Location: ER Date of Service: 11/08/20 LEFT ANKLE 3 VIEW HISTORY: Fell off bed with pain and left ankle TIME: 11/08/2020 at 11:14. COMPARISON: None. TECHNIQUE: AP, oblique and lateral views of the left ankle EXAM: Left ankle FINDINGS: There is calcaneal spurring at the insertion site of the plantar fascia. There is an age indeterminate avulsion with a small ossific fragment adjacent to the tip of the lateral malleolus. There is some soft tissue swelling laterally. This may be acute. The ankle mortise and other visualized articular surfaces appear intact. IMPRESSION: - Nondisplaced age indeterminate small avulsion tip of the lateral malleolus with lateral soft tissue swelling. Calcaneal spurring at the insertion site of the plantar fascia. - ER notified. EXAM/ORDER VERIFICATION: Y PT/FAMILY VERBALIZES UNDERSTANDING OF EXAM Y PT SHIELDED N Is pt ? LMP TECH INITIALS RW COMMENTS Electronically Signed by: EMILY MURPHY M.D. 11/08/20 1141 EMILY MURPHY M.D. Date Dict: 11/08/201136 EMILY MURPHY M.D. Date Trans: 11/08/201136 [employer] [id number] cc: CONSTANTIN MELENDEZ MD, CLARIVEL C.N.P.-ER [facility] LEFT SHOULDER MIN 2 VIEWSon 11-08-2020 LEFT SHOULDER MIN 2 VIEWS [facility] Name: ALBINA CAMERON : 1965 Unit #: [id number] Age: 54 Attending Physician: Pt Location: ER Date of Service: 11/08/20 LEFT SHOULDER MIN 2 VIEWS HISTORY: Fell off bed with injury to the left shoulder with limited range of motion. TIME: 11/08/2020 at 11:04. COMPARISON: None. TECHNIQUE: AP neutral, internal and external rotation views left shoulder EXAM: Left shoulder FINDINGS: There is anterior/subcoracoid dislocation of the left humeral head with an associated, subtle Hill-Sachs type fracture of the superolateral left humeral head. The AC joint is preserved. The remaining bony structures appear intact. IMPRESSION: - Left anterior shoulder dislocation with associated nondisplaced humeral head Hill-Sachs type fracture suspected. - EXAM/ORDER VERIFICATION: Y PT/FAMILY VERBALIZES UNDERSTANDING OF EXAM Y PT SHIELDED N Is pt ? [facility] TECH INITIALS RW COMMENTS Electronically Signed by: EMILY MURPHY M.D. 11/08/207 EMILY MURPHY M.D. Date Dict: 11/08/201132 EMILY MURPHY M.D. Date Trans: 11/08/201132 [employer] [id number] cc: CONSTANTIN MELENDEZ MD, CLARIVEL C.N.P.-ER [facility] LEFT SHOULDER MIN 2 VIEWS [facility] Name: ALBINA CAMERON : 1965 Unit #: [id number] Age: 54 Attending Physician: Pt Location: ER Date of Service: 11/08/20 LEFT HUMERUS MIN. 2 VIEWS; LEFT SHOULDER MIN 2 VIEWS HISTORY: Fell off bed with injury to the left shoulder with limited range of motion. TIME: 11/08/2020 at 11:04. COMPARISON: None. TECHNIQUE: AP neutral, internal and external rotation views left shoulder. AP and lateral views left humerus. EXAMS: Left shoulder and Left humerus FINDINGS: There is anterior/subcoracoid dislocation of the left humeral head with an associated, subtle Hill-Sachs type fracture of the superolateral left humeral head. The AC joint is preserved. The remaining bony structures appear intact. IMPRESSION: - Left anterior shoulder dislocation with associated nondisplaced humeral head Hill-Sachs type fracture suspected. EXAM/ORDER VERIFICATION: Y PT/FAMILY VERBALIZES UNDERSTANDING OF EXAM Y PT SHIELDED N Is pt ? [facility] TECH INITIALS RW COMMENTS Electronically Signed by: EMILY MURPHY M.D. 11/11/20 1514 EMILY MURPHY M.D. Date Dict: 11/08/20 1133 EMILY MURPHY M.D. Date Trans: 11/08/20 1133 [employer] [id number] cc: CONSTANTIN MELENDEZ MD [facility] C.N.P.-ER [facility] Vital Signs Date Time Vital Sign Value Performing Clinician Facility 08-19-2024 11:35-0400 Body height 162.6 cm Constantin Melendez MD Work Phone: [facility] 08-19-2024 11:35-0400 Body mass index (BMI) [Ratio] 37.25 kg/m2 Constantin Melendez MD Work Phone: [facility] 08-19-2024 11:35-0400 Body temperature 97.3 [degF] Constantin Melendez MD Work Phone: [facility] 08-19-2024 11:35-0400 Body weight 98.43 kg Constantin Melendez MD Work Phone: [facility] 08-19-2024 11:35-0400 Diastolic blood pressure 74 mm[Hg] Constantin Melendez MD Work Phone: [facility] 08-19-2024 11:35-0400 Heart rate 113 /min Constantin Melendez MD Work Phone: [facility] 08-19-2024 11:35-0400 Respiratory rate 20 /min Constantin Melendez MD Work Phone: [facility] 08-19-2024 11:35-0400 SaO2% (BldA) [Mass fraction] 92 % Constantin Melendez MD Work Phone: [facility] 08-19-2024 11:35-0400 Systolic blood pressure 120 mm[Hg] Constantin Melendez MD Work Phone: [facility] 05-24-2024 09:53-0500 Body height 162.6 cm Asael Brown DPM Work Phone: [facility] 05-24-2024 09:53-0500 Body mass index (BMI) [Ratio] 37.25 kg/m2 Asael Brown DPM Work Phone: [facility] 05-24-2024 09:53-0500 Body weight 98.43 kg Asael Brown DPM Work Phone: [facility] 05-24-2024 09:53-0500 Respiratory rate 16 /min Asael Brown DPM Work Phone: [facility] 05-15-2024 16:24-0500 Body height 162.6 cm Asael Brown DPM Work Phone: [facility] 05-15-2024 16:24-0500 Body mass index (BMI) [Ratio] 37.25 kg/m2 Asael Brown DPM Work Phone: [facility] 05-15-2024 16:24-0500 Body weight 98.43 kg Asael Brown DPM Work Phone: [facility] 05-15-2024 16:24-0500 Respiratory rate 16 /min Asael Brown DPM Work Phone: [facility] 05-10-2024 14:33-0500 Body height 162.6 cm Asael Brown DPM Work Phone: [facility] 05-10-2024 14:33-0500 Body mass index (BMI) [Ratio] 37.25 kg/m2 Asael Faviola DPM Work Phone: [facility] 05-10-2024 14:33-0500 Body weight 98.43 kg Asael Salmeron DPM Work Phone: [facility] 05-10-2024 14:33-0500 Respiratory rate 18 /min Asael Brown DPM Work Phone: [facility] 05-10-2024 11:46-0500 Blood Pressure Location Rosemary Lue [facility] 05-10-2024 11:46-0500 Diastolic blood pressure 86 mm[Hg] Rosemary Lue [facility] 05-10-2024 11:46-0500 Heart rate 67 /min Rosemary Lue [facility] 05-10-2024 11:46-0500 Respiratory rate 17 /min Rosemary Lue [facility] 05-10-2024 11:46-0500 Systolic blood pressure 128 mm[Hg] Rosemary Lue [facility] 04-26-2024 11:36-0500 Body height 162.6 cm Asael Faviola DPM Work Phone: [facility] 04-26-2024 11:36-0500 Body mass index (BMI) [Ratio] 37.25 kg/m2 Asael Brown DPM Work Phone: [facility] 04-26-2024 11:36-0500 Body weight 98.43 kg Asael Brown DPM Work Phone: [facility] 04-26-2024 11:36-0500 Respiratory rate 18 /min Asael Brown DPM Work Phone: [facility] 04-15-2024 14:53-0500 Body height 162.6 cm Asael Brown DPM Work Phone: [facility] 04-15-2024 14:53-0500 Body mass index (BMI) [Ratio] 37.25 kg/m2 Asael Brown DPM Work Phone: [facility] 04-15-2024 14:53-0500 Body weight 98.43 kg Asael Brown DPM Work Phone: [facility] 04-15-2024 14:53-0500 Diastolic blood pressure 82 mm[Hg] Asael Brown DPM Work Phone: [facility] 04-15-2024 14:53-0500 Heart rate 84 /min Asael Brown DPM Work Phone: [facility] 04-15-2024 14:53-0500 Systolic blood pressure 126 mm[Hg] Asael Brown DPM Work Phone: [facility] 04-08-2024 13:57-0500 Body height 162.6 cm Asael Brown DPM Work Phone: [facility] 04-08-2024 13:57-0500 Body mass index (BMI) [Ratio] 37.25 kg/m2 Asael Brown DPM Work Phone: [facility] 04-08-2024 13:57-0500 Body weight 98.43 kg Asael Brown DPM Work Phone: [facility] 04-08-2024 13:57-0500 Diastolic blood pressure 79 mm[Hg] Asael Brown DPM Work Phone: [facility] 04-08-2024 13:57-0500 Heart rate 83 /min Asael Salmeron DPM Work Phone: [facility] 04-08-2024 13:57-0500 Systolic blood pressure 126 mm[Hg] Asael Salmeron DPM Work Phone: [facility] 03-13-2024 15:17-0400 Body height 162.6 cm Asael Salmeron DPM Work Phone: [facility] 03-13-2024 15:17-0400 Body mass index (BMI) [Ratio] 37.25 kg/m2 Asael Salmeron DPM Work Phone: [facility] 03-13-2024 15:17-0400 Body weight 98.43 kg Asael Salmeron DPM Work Phone: [facility] 03-13-2024 15:17-0400 Respiratory rate 17 /min Asael Salmeron DPM Work Phone: [facility] 03-11-2024 14:33-0400 Body height 162.6 cm Constantin Melendez MD Work Phone: [facility] 03-11-2024 14:33-0400 Body mass index (BMI) [Ratio] 37.25 kg/m2 Constantin Melendez MD Work Phone: [facility] 03-11-2024 14:33-0400 Body temperature 97.81 [degF] Constantin Melendez MD Work Phone: [facility] 03-11-2024 14:33-0400 Body weight 98.43 kg Constantin Melendez MD Work Phone: [facility] 03-11-2024 14:33-0400 Diastolic blood pressure 80 mm[Hg] Constantin Melendez MD Work Phone: [facility] 03-11-2024 14:33-0400 Heart rate 90 /min Constantin Melendez MD Work Phone: [facility] 03-11-2024 14:33-0400 Respiratory rate 20 /min Constantin Melendez MD Work Phone: [facility] 03-11-2024 14:33-0400 SaO2% (BldA) [Mass fraction] 96 % Constantin Melendez MD Work Phone: [facility] 03-11-2024 14:33-0400 Systolic blood pressure 126 mm[Hg] Constantin Melendez MD Work Phone: [facility] 09-20-2023 15:22-0400 Blood Pressure Location KENIA BARBIE [facility] 09-20-2023 15:22-0400 Body temperature 98.06 [degF] KENIA BARBIE [facility] 09-20-2023 15:22-0400 Diastolic blood pressure 81 mm[Hg] KENIA BARBIE [facility] 09-20-2023 15:22-0400 Heart rate 77 /min KENIA BARBIE [facility] 09-20-2023 15:22-0400 Respiratory rate 16 /min KENIA BARBIE [facility] 09-20-2023 15:22-0400 Systolic blood pressure 128 mm[Hg] KENIA BARBIE [facility] 06-03-2022 11:31-0500 Blood Pressure Location Hung Huff [facility] 06-03-2022 11:31-0500 Diastolic blood pressure 83 mm[Hg] Hung Huff [facility] 06-03-2022 11:31-0500 Heart rate 82 /min Hung Roeurany [facility] 06-03-2022 11:31-0500 SaO2% (BldA) [Mass fraction] 97 % Hung Roeurany [facility] 06-03-2022 11:31-0500 Systolic blood pressure 118 mm[Hg] Hung Mourany [facility] 05-24-2022 11:48-0500 SaO2% (BldA) [Mass fraction] 97 % Hung Roeurany [facility] Comment on above: Result Comment: pt sitting up in bed. mo re alert with oxygen level maintaining 97-98% on room air 05-24-2022 10:53-0500 SaO2% (BldA) [Mass fraction] 93 % Hung Roeurany [facility] 05-24-2022 10:50-0500 Heart rate 88 /min Hung Roeurany [facility] 05-24-2022 10:50-0500 SaO2% (BldA) [Mass fraction] 92 % Hung Roeurany [facility] 05-24-2022 10:50-0500 Respiratory rate 14 /min Hung Roeurany [facility] 05-24-2022 10:49-0500 Diastolic blood pressure 66 mm[Hg] Hung Mourany [facility] 05-24-2022 10:49-0500 Mean blood pressure 79 mm[Hg] Hung Mourany [facility] 05-24-2022 10:49-0500 Systolic blood pressure 104 mm[Hg] Hung Mourany [facility] 05-24-2022 10:49-0500 Blood Pressure Location Hung Mourany [facility] 05-24-2022 10:49-0500 Mean blood pressure 79 mm[Hg] Hung Mourany [facility] 05-24-2022 09:44-0500 Heart rate 85 /min Hung Mourany [facility] 05-24-2022 09:42-0500 Respiratory rate 20 /min Hung Mourany [facility] 05-24-2022 09:41-0500 Diastolic blood pressure 74 mm[Hg] Hung Mourany [facility] 05-24-2022 09:41-0500 Mean blood pressure 92 mm[Hg] Hung Mourany [facility] 05-24-2022 09:41-0500 Systolic blood pressure 128 mm[Hg] Hung Mourany [facility] 05-24-2022 09:41-0500 Body temperature 98.6 [degF] Hung Mourany [facility] 05-24-2022 09:41-0500 Mean blood pressure 92 mm[Hg] Hung Mourany [facility] 05-24-2022 09:35-0500 Body temperature 98.24 [degF] Hung Mourany [facility] 05-24-2022 09:35-0500 Diastolic blood pressure 70 mm[Hg] Hung Mourany [facility] 05-24-2022 09:35-0500 Heart rate 83 /min Hung Mourany [facility] 05-24-2022 09:35-0500 Mean blood pressure 84 mm[Hg] Hung Mourany [facility] 05-24-2022 09:35-0500 Respiratory rate 19 /min Hung Mourany [facility] 05-24-2022 09:35-0500 Systolic blood pressure 111 mm[Hg] Hung Mourany [facility] 05-24-2022 09:20-0500 Respiratory rate 19 /min Hung Mourany [facility] 05-24-2022 09:15-0500 Respiratory rate 27 /min Hung Mourany [facility] 05-24-2022 09:09-0500 Blood Pressure Location Hung Mourany [facility] 05-24-2022 09:09-0500 Body temperature 98.06 [degF] Hung Mourany [facility] 05-24-2022 09:05-0500 Respiratory rate 20 /min Hung Mourany [facility] 05-24-2022 06:02-0500 Mean blood pressure 103 mm[Hg] Hung Mourany [facility] 05-24-2022 06:01-0500 Heart rate 96 /min Hung Mourany [facility] 05-19-2022 15:23-0500 Body temperature 98.06 [degF] Hung Mourany [facility] 05-19-2022 15:23-0500 Diastolic blood pressure 83 mm[Hg] Hung Mourany [facility] 05-19-2022 15:23-0500 Heart rate 76 /min Hung Mourany [facility] 05-19-2022 15:23-0500 Mean blood pressure 96 mm[Hg] Hung Mourany [facility] 05-19-2022 15:23-0500 Systolic blood pressure 121 mm[Hg] Hung Mourany [facility] 05-19-2022 15:22-0500 Heart rate 83 /min Hung Mourany [facility] 05-19-2022 15:22-0500 SaO2% (BldA) [Mass fraction] 95 % Hung Mourany [facility] 05-19-2022 15:22-0500 Diastolic blood pressure 83 mm[Hg] Hung Mourany [facility] 05-19-2022 15:22-0500 Mean blood pressure 99 mm[Hg] Hung Mourany [facility] 05-19-2022 15:22-0500 Systolic blood pressure 132 mm[Hg] Hung Mourany [facility] 05-19-2022 15:22-0500 Respiratory rate 20 /min Hung Mourany [facility] 04-18-2022 15:38-0500 Blood Pressure Location Hung Mourany [facility] 04-18-2022 15:38-0500 Diastolic blood pressure 84 mm[Hg] Hung Mourany [facility] 04-18-2022 15:38-0500 Heart rate 81 /min Hung Mourany [facility] 04-18-2022 15:38-0500 SaO2% (BldA) [Mass fraction] 96 % Hung Mourany [facility] 04-18-2022 15:38-0500 Systolic blood pressure 120 mm[Hg] Hung Huff [facility] Encounters Encounter Date Encounter Type Care Provider Facility Start: 08-19-2024 End: 08-19-2024 Bamboo flowsheet Constantin Melendez MD Work Phone: [facility] Start: 08-19-2024 End: 08-19-2024 Bamboo flowswilliam Melendez MD Work Phone: [facility] Start: 08-19-2024 End: 08-19-2024 Office outpatient visit 15 minutes Constantin Melendez MD Work Phone: [facility] Comment on above: Type 2 diabetes shellie itus with hyperglycemia, without long-term current use of insulin (CMS/HCC) (Primary Dx); Benign essential hypertension (CMS/HCC); Obstructive sleep apnea (adult) (pediatric); Type 2 diabetes mellitus with diabetic microalbuminuria, without long-term current use of insulin (CMS/HCC); Mild recurrent major depression (HCC) (CMS/HCC) Start: 08-19-2024 End: 08-19-2024 ambulatory CONSTANTIN MELENDEZ Not Available Start: 06-13-2024 ambulatory Rosemary Jamil Facility:[facility] Start: 06-12-2024 End: 06-12-2024 ambulatory Rosemary Jamil Facility:[id number] Start: 05-24-2024 End: 05-24-2024 Bamboo flowsheet Asael Salmeron DPM Work Phone: [facility] Start: 05-24-2024 End: 05-24-2024 Bamboo flowsheet Asael Salmeron DPM Work Phone: [facility] Start: 05-24-2024 End: 05-24-2024 Postop follow up visit related to original px Asael Salmeron DPM Work Phone: [facility] Comment on above: Closed nondisplaced fracture of proximal phalanx of lesser toe of right foot, initial encounter (Primary Dx); Contracture of right ankle Start: 05-24-2024 End: 05-24-2024 ambulatory ASAEL SALMERON Not Available Start: 05-21-2024 End: 05-21-2024 Clinisync Result Encounter Generic External Data Provider [facility] Unsolicited Start: 05-21-2024 End: 05-21-2024 Clinisync Result Encounter Generic External Data Provider [facility] Unsolicited Start: 05-15-2024 End: 05-15-2024 Postop follow up visit related to original px Asael Lisa Brown DPM Work Phone: [facility] Comment on above: Closed nondisplaced fracture of proximal phalanx of lesser toe of right foot, initial encounter (Primary Dx) Start: 05-15-2024 End: 05-15-2024 ambulatory ASAEL Lisa FAVIOLA Not Available Start: 05-15-2024 End: 05-15-2024 Bamboo flowsheet Asael A Brown DPM Work Phone: [facility] Start: 05-15-2024 End: 05-15-2024 Bamboo flowsheet Asael A Brown DPM Work Phone: [facility] Start: 05-10-2024 End: 05-10-2024 Postop follow up visit related to original px Asael Lisa Brown DPM Work Phone: [facility] Comment on above: Closed nondisplaced fracture of proximal phalanx of lesser toe of right foot, initial encounter (Primary Dx) Start: 05-10-2024 End: 05-10-2024 ambulatory ASAEL Lisa FAVIOLA Not Available Start: 05-10-2024 End: 05-10-2024 Bamboo flowsheet Asael A Brown DPM Work Phone: [facility] Start: 05-10-2024 End: 05-10-2024 Bamboo flowsheet Asael A Brown DPM Work Phone: [facility] Start: 05-10-2024 End: 05-10-2024 ambulatory Rosemary Jamil Facility:[facility] Start: 05-10-2024 End: 05-10-2024 Patient encounter procedure Rosemary Jamil [facility] Start: 05-07-2024 End: 05-07-2024 ambulatory Rosemary Trenton Shellieestefania Facility:[facility] Start: 05-04-2024 End: 05-04-2024 ambulatory Constantin Melendez Facility:[facility] Start: 05-04-2024 End: 05-04-2024 Emergency department patient visit [facility] Facility:[facility] Start: 05-04-2024 End: 05-04-2024 ambulatory Rosemary Jamil Facility:[id number] Start: 04-26-2024 End: 04-26-2024 Clinisync Result Encounter Constantin Melendez MD Work Phone: [facility] Unsolicited Start: 04-26-2024 End: 04-26-2024 Clinisync Result Encounter Constantin Melendez MD Work Phone: [facility] Unsolicited Start: 04-26-2024 End: 04-26-2024 Office outpatient visit 25 minutes Asael Salmeron DPM Work Phone: [facility] Comment on above: Closed nondisplaced fracture of proximal phalanx of lesser toe of right foot, initial encounter (Primary Dx); Contracture of right ankle Start: 04-26-2024 End: 04-26-2024 Orders Only Constantin Melendez MD Work Phone: [facility] Comment on above: Type 2 diabetes shellie itus with hyperglycemia, without long-term current use of insulin ([facility]) Start: 04-15-2024 End: 04-15-2024 Office outpatient visit 15 minutes Asael Salmeron DPM Work Phone: [facility] Comment on above: Closed nondisplaced fracture of proximal phalanx of lesser toe of right foot, initial encounter (Primary Dx); Contracture of right ankle Start: 04-15-2024 End: 04-15-2024 ambulatory ASAEL Lisa SALMERON Not Available Start: 04-15-2024 End: 04-15-2024 Bamboo flowsheet Asael Lisa Faviola DPM Work Phone: [facility] Start: 04-15-2024 End: 04-15-2024 Bamboo flowsheet Asael A Brown DPM Work Phone: [facility] Start: 04-08-2024 End: 04-08-2024 Office outpatient visit 25 minutes Asael Lisa Faviola DPM Work Phone: [facility] Comment on above: Closed nondisplaced fracture of proximal phalanx of lesser toe of right foot, initial encounter (Primary Dx); Contracture of right ankle Start: 04-08-2024 End: 04-08-2024 Bamboo flowsheet Asael Lisa Brown DPM Work Phone: [facility] Start: 04-08-2024 End: 04-08-2024 Bamboo flowsheet Asael Lisa Brown DPM Work Phone: [facility] Start: 04-08-2024 End: 04-08-2024 ambulatory ASAEL Lisa SALMERON Not Available Start: 03-13-2024 End: 03-13-2024 ambulatory ASAEL Lisa BROWN Not Available Start: 03-13-2024 End: 03-13-2024 Office outpatient new 45 minutes Asael Lisa Faviola DPM Work Phone: [facility] Comment on above: Closed nondisplaced fracture of proximal phalanx of lesser toe of right foot, initial encounter (Primary Dx); Contracture of right ankle Start: 03-13-2024 End: 03-13-2024 ambulatory ASAEL Lisa BROWN Not Available Start: 03-13-2024 End: 03-13-2024 Bamboo flowsheet Asael A Brown DPM Work Phone: [facility] Start: 03-13-2024 End: 03-13-2024 Bamboo flowsheet Asael A Brown DPM Work Phone: [facility] Start: 03-11-2024 End: 03-11-2024 Office outpatient visit 25 minutes Constantin Melendez MD Work Phone: [facility] Comment on above: Type 2 diabetes shellie itus with hyperglycemia, without long-term current use of insulin (CMS/HCC) (Primary Dx); Benign essential hypertension (CMS/HCC); Mild recurrent major depression (HCC) (CMS/HCC); Generalized anxiety disorder (CMS/HCC); [facility] (obstructive sleep apnea); Breast cancer screening by mammogram Start: 03-11-2024 End: 03-11-2024 ambulatory CONSTANTIN MELENDEZ Not Available Start: 03-11-2024 End: 03-11-2024 Bamboo flowsheet Constantin Melendez MD [facility] Start: 03-11-2024 End: 03-11-2024 Bamboo flowsheet Constantin Melendez MD Work Phone: [facility] Start: 03-04-2024 End: 03-04-2024 ambulatory AKRI Charlton Facility:[facility] Start: 02-02-2024 End: 02-06-2024 Refill Constantin Melendez MD Work Phone: [facility] Comment on above: Polyosteoarthritis, unspecified; Gastro-esophageal reflux disease without esophagitis; Esophageal reflux Start: 01-10-2024 End: 01-10-2024 ambulatory CONSTANTIN MELENDEZ Facility:[facility] Start: 12-05-2023 End: 12-05-2023 ambulatory CONSTANTIN MELENDEZ Not Available Start: 11-07-2023 Patient encounter procedure Constantin Melendez MD Work Phone: [facility] Start: 11-07-2023 End: 11-07-2023 ambulatory CONSTANTIN MELENDEZ [facility] Start: 11-07-2023 Encounter for genera l adult medical examination without abnormal findings CONSTANTIN MELENDEZ [facility] Start: 11-07-2023 End: 11-07-2023 ambulatory CONSTANTIN MELENDEZ Not Available Start: 09-20-2023 End: 09-20-2023 Lab Drop off KENIA VANN [facility] Start: 09-20-2023 End: 09-20-2023 ambulatory PA-C KENIA VANN Facility:[facility] Start: 09-20-2023 End: 09-20-2023 Patient encounter procedure KENIA VANN [facility] Start: 07-24-2023 End: 07-24-2023 ambulatory Rosemary Jamil Facility:[facility] Start: 07-24-2023 End: 07-24-2023 Patient encounter procedure Rosemary Jamil [facility] Start: 07-18-2023 End: 07-18-2023 Lab Drop off Sarita X Orzech [facility] Start: 07-18-2023 End: 07-18-2023 ambulatory Sarita X Orzech Facility:[facility] Start: 07-18-2023 End: 07-18-2023 Patient encounter procedure Rosemary Hensleye [facility] Start: 06-28-2023 End: 06-28-2023 Lab Drop off Rosemary M. Lue [facility] Start: 06-28-2023 End: 06-28-2023 ambulatory Rosemary Hensleye Facility:[facility] Start: 06-28-2023 End: 06-28-2023 Patient encounter procedure Rosemary M. Lue [facility] Start: 06-27-2023 ambulatory JOSE ALEJANDRO VANN Facility:[facility] Start: 06-01-2023 End: 06-01-2023 ambulatory CONSTANTIN MELENDEZ Facility:[facility] Start: 06-03-2022 End: 06-04-[address] CONSTANTIN MELENDEZ Facility: Start: 06-03-2022 End: 06-03-2022 Patient encounter procedure Hung Huff [facility] Start: 05-24-2022 End: 05-24-2022 Admission to same day surgery center Hung Huff [facility] Start: 05-19-2022 ambulatory Facility:1 [id number] Start: 05-19-2022 End: 05-19-2022 Patient encounter procedure Hung Huff [facility] Start: 05-02-2022 End: 05-03-[address] CONSTANTIN MELENDEZ Facility:[facility] Start: 04-20-2022 End: 04-21-[address] CONSTANTIN MELENDEZ Facility:[facility] Start: 04-18-2022 End: 04-18-2022 Patient encounter procedure Hung Huff [facility] Start: 02-10-2022 End: 02-11-[address] CONSTANTIN MELENDEZ Facility:[facility] Start: 01-12-2022 End: 01-12-2022 Lab Drop off KENIA VANN [facility] Start: 11-11-2021 Encounter for genera l adult medical examination without abnormal findings DR CONSTANTIN MELENDEZ [facility] Start: 11-05-2021 End: 11-06-[address] CONSTANTIN MELENDEZ Facility:[facility] Start: 11-05-2021 End: 11-06-2021 Encounter for general adult medical examination without abnormal findings DR CONSTANTIN MELENDEZ Facility:[facility] Start: 07-17-2021 End: 07-18-[address] CONSTANTIN MELENDEZ Facility:[facility] Start: 07-01-2021 End: 07-01-[address] CONSTANTIN MELENDEZ Facility:[facility] Start: 06-25-2021 End: 06-26-[address] CONSTANTIN MELENDEZ Facility:[facility] Procedures Date Procedure Procedure Detail Performing Clinician Start: 05-21-2024 ALL CBC WITH AUTO DIFF Generic External Data Provider Start: 04-26-2024 MLR HEMOGLOBIN A1C Constantin Melendez MD Work Phone: Start: 03-31-2024 Mammography Asael rowell DPM Work Phone: Start: 02-13-2023 Mammography Constantin tolliver MD Work Phone: Start: 07-18-2022 Injection of therape utic substance into bladder wall Rosemary Lue Start: 05-24-2022 Excision of cyst Hung segovia Start: 07-12-2021 Cystourethroscopy wi th dilation of urethral stricture KENIA BARBIE Start: 08-05-2019 Cystourethroscopy wi th dilation of urethral stricture KENIA BARBIE Start: 12-04-2015 Colonoscopy Constantin tolliver MD Work Phone: Start: 11-03-2014 Cystourethroscopy wi th dilation of urethral stricture KENIA BARBIE Back structure, excl uding neck (body structure) Rosemary Lue Cholecystectomy KENIA PER RY Colonoscopy KENIA BARBIE Ligation of fallopian tube J ENNIFER BARBIE Rotator cuff includi ng muscles and tendons (body structure) Hung Huff Plan of Treatment Date Care Activity Detail Author Start: 12-03-2025 Screening for malign ant neoplasm of colon [facility] Start: 07-26-2025 Glaucoma screening Diabetes: R etinopathy Screening [facility] Start: 03-31-2025 Screening for malign ant neoplasm of breast Mammogram [facility] Start: 11-06-2024 Urine screening for protein Diabetes: Urine Protein Screening [facility] Start: 10-24-2024 Hemoglobin A1c measurement Diabetes: Hemoglobin A1C [facility] Start: 09-10-2024 End: 09-10-2024 Patient encounter procedure 09/10/2024 1:00 PM EDT [facility] [address] [place] [address] Constantin Melendez MD [address] [place] [phone] [facility] Start: 08-19-2024 End: 08-19-2024 Patient encounter procedure 08/19/2024 11:45 AM EDT Office Visit [facility] [address] [place] [address] Constantin Melendez MD [address] [place] [phone] Arrived [facility] Comment on above: Arrived Start: 05-24-2024 End: 05-24-2024 Patient encounter procedure [facility] Comment on above: Closed nondisplaced fracture of proximal phalanx of lesser toe of right foot, initial encounter (Primary Dx); Contracture of right ankle Start: 05-15-2024 End: 05-15-2024 Patient encounter procedure [facility] Comment on above: Closed nondisplaced fracture of proximal phalanx of lesser toe of right foot, initial encounter (Primary Dx) Start: 05-10-2024 End: 05-10-2024 Patient encounter procedure 05/10/2024 2:20 PM EST Office Visit [facility] [address] [place] [address] Asael Salmeron DPM [address] [address] Arrived [facility] Comment on above: Arrived Start: 05-08-2024 End: 05-08-2024 Patient encounter procedure 05/08/2024 2:20 PM EST Office Visit [facility] [address] [place] [phone] Asael Salmeron DPM [address] [address] [facility] Start: 05-08-2024 Hemoglobin A1c measurement Diabetes: Hemoglobin A1C [facility] Start: 04-26-2024 End: 04-26-2024 Patient encounter procedure 04/26/2024 11:30 AM EST Office Visit [facility] [address] [place] [phone] Asael Salmeron DPM [address] [address] [facility] Start: 04-15-2024 End: 04-15-2024 Patient encounter procedure 04/15/2024 3:20 PM EST Office Visit [facility] [address] [place] [address] Asael Salmeron DPM [address] [address] [facility] Start: 04-08-2024 End: 04-08-2024 Professional / ancillary services management 04/08/2024 2:45 PM EST Ancillary Procedure [facility] [address] [place] [phone] Arrived [facility] Comment on above: Arrived Start: 04-08-2024 End: 04-08-2024 Patient encounter procedure [facility] Comment on above: Closed nondisplaced fracture of proximal phalanx of lesser toe of right foot, initial encounter (Primary Dx); Contracture of right ankle Start: 03-13-2024 End: 03-13-2024 Professional / ancillary services management 03/13/2024 4:20 PM EDT Ancillary Procedure [facility] [address] [place] [address] Arrived [facility] Comment on above: Arrived Start: 03-13-2024 End: 03-13-2024 Patient encounter procedure [facility] Comment on above: Sprain of anterior t alofibular ligament of right ankle, initial encounter (Primary Dx); Closed nondisplaced fracture of proximal phalanx of lesser toe of right foot, initial encounter; Contracture of right ankle Start: 03-11-2024 End: 03-11-2024 Patient encounter procedure 03/11/2024 2:30 PM EDT Office Visit [facility] [address] [place] [address] Constantin Melendez MD [address] [place] [address] Arrived [facility] Comment on above: Arrived Start: 03-11-2024 End: 03-11-2025 Hemoglobin A1c/Hemoglobin.total in Blood Hemoglobin A1c Lab Routine Type 2 diabetes mellitus with hyperglycemia, without long-term current use of insulin ([facility]) Expected: 03/11/2024 (Approximate), Expires: 03/11/2025 [facility] Work Phone: Comment on above: Expected: 03/11/2024 (Approximate), Expires: 03/11/2025 Start: 03-11-2024 End: 05-11-2025 MG Breast - bilateral Screening Bilateral screening mammogram Imaging Routine Breast cancer screening by mammogram Expected: 03/11/2024, Expires: 05/11/2025 [facility] Comment on above: Expected: 03/11/2024 , Expires: 05/11/2025 Start: 03-06-2024 End: 03-06-2024 Patient encounter procedure 03/06/2024 10:15 AM EDT Office Visit [facility] [address] [place] [address] Cnostantin Melendez MD [address] [place] [phone] [facility] Start: 02-14-2024 Screening for malign ant neoplasm of breast Mammogram [facility] Start: 02-04-2024 Influenza vaccination Influenza Vacc ine (#1) [facility] Start: 1994 Screening for malign ant neoplasm of cervix [facility] Start: 1985 Screening for malign ant neoplasm of cervix Pap Smear [facility] Start: 1964 Screening for malign ant neoplasm of colon [facility] XR Foot - right 3 Views XR foot 3+ views right Imaging Routine Closed nondisplaced fracture of proximal phalanx of lesser toe of right foot, initial encounter 03/13/2024 4:16 PM EDT [facility] Work Phone: XR Foot - right 3 Views XR foot 3+ views right Imaging Routine Closed nondisplaced fracture of proximal phalanx of lesser toe of right foot, initial encounter 04/08/2024 2:41 PM EST [facility] Work Phone: Immunizations Immunization Date Immunization Notes Care Provider Fa [facility] 06-07-2021 SARS-CoV-2 (COVID-19 ) mRNA [id number] vax KENIA BARBIE [facility] 03-24-2021 influenza virus vaccine, unspecified formulation Constantin Melendez MD Work Phone: [facility] 09-21-2020 SARS-CoV-2 (COVID-19 ) mRNA [id number] vax Listiki [facility] 08-31-2020 SARS-CoV-2 (COVID-19 ) mRNA [id number] vax KENIA BARBIE [facility] 03-05-2019 influenza virus vaccine, live, attenuated, for intranasal use [facility] 02-24-2019 influenza virus vaccine, unspecified formulation KENIA VANN [facility] 03-20-2018 influenza virus vaccine, unspecified formulation KENIA VANN [facility] NEGATED: Highlighted row has not occurred!04-18-2022 influenza virus vaccine, unspecified formulation Hung Huff [facility] Payers Date Payer Category Payer Unknown [id number] 2024 Self-pay 2022 [employer] BCBS [id number] 2022 Unknown BCBS BCBS xxxxxx [id number] 2022-Present [phone] [address] [place] [address] [id number] .[id number] 1964 Unknown [id number] .840.1.698197.3.579.2 .59 1964 Unknown [id number] 2.840.1.274699.3.579.2 .59 1964 Unknown [id number] .16840.1.628311.3.579.2 .593 1964 Unknown [id number] .16840.1.242786.3.579.2 .593 1964 Unknown [id number] 2.16.840.1.946436.3.579.2 .593 1964 Unknown [id number] 2.16.840.1.970815.3.579.2 .593 1964 Unknown [id number] 2.16.840.1.073918.3.579.2 .593 1964 Unknown [id number] 2.16.840.1.445916.3.579.2 .593 1964 Unknown [id number] 2.16.840.1.533159.3.579.2 .356 1964 Unknown [id number] 2.16.840.1.523652.3.579.2 .1286 1964 Unknown [id number] 2.16.840.1.693928.3.579.2 .718 1964 Unknown [id number] 2.16.840.1.824346.3.579.2 .718 1964 Unknown [id number] 2.16.840.1.270935.3.579.2 .718 1964 Unknown [id number] 2.16.840.1.086814.3.579.2 .718 1964 Unknown [id number] 2.16.840.1.422324.3.579.2 .727 1964 Unknown [id number] 2.16.840.1.572696.3.579.2 .727 1964 Unknown [id number] 2.16.840.1.577233.3.579.2 .727 1964 Unknown [id number] 2.16.840.1.057647.3.579.2 .727 1964 Unknown [id number] 2.16.840.1.262100.3.579.2 .727 1964 Unknown [id number] 2.16.840.1.024511.3.579.2 .727 1964 Unknown [id number] 2.16.840.1.417739.3.579.2 .1964 Unknown [id number] 2.16.840.1.086106.3.579.2 .72 1964 Unknown [id number] 2.16.840.1.438342.3.579.2 .1964 Unknown [id number] 2.16.840.1.345143.3.579.2 .72 1964 Unknown [id number] 2.16.840.1.572119.3.579.2 .1964 Unknown [id number] 2.16.840.1.168379.3.579.2 .1964 Unknown [id number] 2.840.1.051218.3.579.2 .1258 1964 Unknown [id number] 2.16.840.1.143776.3.579.2 .1258 1964 Unknown [id number] 2.840.1.770547.3.579.2 .1258 1964 Unknown [id number] 2.16840.1.790231.3.579.2 .1258 1964 Unknown [id number] 2.16840.1.167300.3.579.2 .1258 1964 Unknown [id number] 2.16.840.1.392959.3.579.2 .1258 1964 Unknown [id number] 2.16.840.1.925889.3.579.2 .1258 1964 Unknown [id number] 2.16.840.1.252660.3.579.2 .1258 1964 Unknown [id number] 2.16.840.1.808518.3.579.2 .1258 1964 Unknown [id number] 2.16.840.1.591348.3.579.2 .1259 1964 Unknown [id number] 2.16.840.1.269496.3.579.2 .1259 1964 Unknown [id number] 2.16.840.1.966847.3.579.2 .1259 1964 Unknown [id number] 2.16.840.1.356066.3.579.2 .1259 1959 Unknown [id number] Unknown [id number] Unknown [id number] 2.16.840.1.671324.3.579.2 .531 Unknown [id number] 2.16.840.1.790330.3.579.2 .531 Social History Date Type Detail Facility Start: 03-18-2021 End: 05-08-2023 Tobacco smoking status Never smoked tobacco (finding) [facility] Start: 12-05-2023 End: 08-18-2024 Sex Assigned At Female [facility] Start: 05-08-2023 Tobacco use and exposure Smoke less tobacco non-user [facility] Start: 12-05-2023 End: 08-19-2024 Alcoholic beverage intake Lifetime non-drinker (finding) [facility] Start: 12-05-2023 End: 08-18-2024 History of Social function [facility] Start: 1965 Sex assigned at Not on file [facility] Tobacco smoking status Never [facility] Do you belong to any clubs or organizations such as christianity groups, unions, fraternal or athletic groups, or school groups? No [facility] Are you now , , , , never or living with a partner? [facility] How often to you hav e a drink containing alcohol? Never [facility] How hard is it for y ou to pay for the very basics like food, housing, medical care, and heating Somewhat hard [facility] Do you feel stress - tense, restless, nervous, or anxious, or unable to sleep at night because your mind is troubled all the time - these days [OSQ] Very much [facility] (I/We) worried wheth er (my/our) food would run out before (I/we) got money to buy more. Never true [facility] Functional Status Date Assessment Result Facility 05-10-2024 Functional Status N/A [facility] 09-20-2023 Functional Status N/A [facility] 07-24-2023 Functional Status N/A [facility] 05-19-2022 Functional Status No [facility] 04-18-2022 Functional Status N/A [facility] Clinical Notes 01-12-2022 to 08-19-2024 Constantin Melendez MD - 08/19/2024 11:59 AM Jone Melendez MD - 08/19/2024 11:58 AM Jone Melendez MD - 08/19/2024 11:58 AM Jone Melendez MD - 08/19/2024 11:45 AM EDT Note Date & Type Note Facility 08-19-2024 History of Present illness Narrative Associated Problem(s): Class 2 severe obesity due to excess calories with serious comorbidity and body mass index (BMI) of 37.0 to 37.9 in adult ([facility]) Weight loss indicated. Associated Problem(s): Type 2 diabetes mellitus with hyperglycemia, without long-term current use of insulin ([facility]) BS remains elevated and add glipizide. Continue metformin and actos. Stick to ADA diet and limit carbs. Associated Problem(s): Benign essential hypertension ([facility]) BP controlled and monitor PRN. Images from the original note were not included. Subjective Patient ID: Albina Cameron is a 58 y.o. female who presents for Blood Sugar Problem ( Out of control ). Concerned of elevated BS. Stopped glipizide due to low BS and not on rybelsus for several months due to cost. BS elevated and 246-346 and not able to get under 200. Trying to eat well and stick to ADA diet. Denies signs of elevated BS such as polyuria, polyphagia or polydipsia. Still taking metformin and actos daily. Checking BP PRN and typically controlled. BP normal today. Taking medication daily and tolerating without side effects. Review of Systems Respiratory: Negative for cough, shortness of breath and wheezing. Cardiovascular: Negative for chest pain and palpitations. Gastrointestinal: Negative for abdominal pain, diarrhea, nausea and vomiting. Genitourinary: Negative for dysuria. Objective Physical Exam Constitutional: General: She is not in acute distress. Appearance: Normal appearance. HENT: Head: Normocephalic. Right Ear: Tympanic membrane normal. Left Ear: Tympanic membrane normal. Eyes: Extraocular Movements: Extraocular movements intact. Pupils: Pupils are equal, round, and reactive to light. Cardiovascular: Rate and Rhythm: Normal rate and regular rhythm. Heart sounds: No murmur heard. No friction rub. No gallop. Pulmonary: Effort: Pulmonary effort is normal. Breath sounds: Normal breath sounds. No wheezing, rhonchi or rales. Abdominal: General: Bowel sounds are normal. There is no distension. Palpations: Abdomen is soft. Tenderness: There is no abdominal tenderness. There is no guarding or rebound. Musculoskeletal: Cervical back: Neck supple. Right lower leg: No edema. Left lower leg: No edema. Neurological: Mental Status: She is alert. Assessment/Plan Problem List Items Addressed This Visit Benign essential hypertension (CMS/HCC) BP controlled and monitor PRN. Type 2 diabetes mellitus with hyperglycemia, without long-term current use of insulin (CMS/HCC) - Primary BS remains elevated and add glipizide. Continue metformin and actos. Stick to ADA diet and limit carbs. Relevant Medications glipiZIDE (Glucotrol) 10 MG tablet documented in this encounter [place] [id number] History of Present illness Narrative Patient: Albina Cameron : 1965 PCP: Constantin Melendez MD SUBJECTIVE This is a 58 y.o. female that presents today 20 days s/p right 5th digit pipj arthroplasty with fracture fragment excision. Pt denies n/f/v/c and has minimal pain to post op site. Pt states that they have been keeping dressing dry and intact and have been wb to post op foot Pt presents today for follow up. Allergies: No Known Allergies Past Medical History: Past Medical History: Diagnosis Date Chest pain Diabetes (CMS/HCC) Hypertension (CMS/HCC) Medications: Current Outpatient Medications: aspirin 81 MG EC tablet, Take 1 tablet (81 mg) by mouth 1 (one) time each day at the same time, Disp: 90 tablet, Rfl: 3 atorvastatin (Lipitor) 40 MG tablet, Take 1 tablet (40 mg) by mouth at bedtime, Disp: 90 tablet, Rfl: 3 busPIRone (Buspar) 7.5 MG tablet, Take 1 tablet (7.5 mg) by mouth in the morning and 1 tablet (7.5 mg) before bedtime., Disp: 180 tablet, Rfl: 3 celecoxib (CeleBREX) 200 MG capsule, Take 1 capsule (200 mg) by mouth in the morning and 1 capsule (200 mg) before bedtime., Disp: 180 capsule, Rfl: 3 cholecalciferol (D3-1000) 25 MCG (1000 UT) tablet, Take 1 tablet (25 mcg) by mouth Daily, Disp: 90 tablet, Rfl: 3 ibandronate (Boniva) 150 MG tablet, Take 1 tablet (150 mg) by mouth every 30 (thirty) days Take in morning with full glass of water on an empty stomach. No food, drink, meds, or lying down for 60 minutes after., Disp: 3 tablet, Rfl: 3 lamoTRIgine (LaMICtal) 100 MG tablet, Take 1 tablet (100 mg) by mouth at bedtime, Disp: 90 tablet, Rfl: 3 LORazepam (Ativan) 1 MG tablet, Take 1 tablet (1 mg) by mouth 3 (three) times a day as needed for anxiety, Disp: 270 tablet, Rfl: 0 metFORMIN XR (Glucophage-XR) 500 MG 24 hr tablet, Take 1 tablet (500 mg) by mouth in the morning and at noon Do not crush, chew, or split., Disp: 180 tablet, Rfl: 3 omeprazole (PriLOSEC) [address] capsule, Take 1 capsule (40 mg) by mouth Daily, Disp: 90 capsule, Rfl: 3 pioglitazone (Actos) 30 MG tablet, Take 1 tablet (30 mg) by mouth Daily, Disp: 90 tablet, Rfl: 3 semaglutide (Rybelsus) 14 MG tablet, Take 1 tablet (14 mg) by mouth Daily, Disp: 90 tablet, Rfl: 3 valsartan (Diovan) 40 MG tablet, Take 1 tablet (40 mg) by mouth Daily, Disp: 90 tablet, Rfl: 3 venlafaxine XR (Effexor XR) 150 MG 24 hr capsule, Take 1 capsule (150 mg) by mouth Daily, Disp: 90 capsule, Rfl: 3 venlafaxine XR (Effexor XR) 75 MG 24 hr capsule, Take 1 capsule (75 mg) by mouth Daily, Disp: 90 capsule, Rfl: 3 ROS: General: denies fever, chills, fatigue, malaise OBJECTIVE LE EXAM: Derm: Skin intact to right foot with negative erythema, negative drainage, minimal edema with negative clinical signs of infection. Vascular: Palpable pedal pulses to right foot Neuro: Gross sensation intact to right foot. Musculoskeletal: Negative pain on palpation to right calf. Ortho: Ankle range of motion less than 10 degrees of dorsiflexion at right ankle joint. ASSESSMENT 20 days s/p right 5th digit pipj arthroplasty with removal of fracture fragment. 1. Closed nondisplaced fracture of proximal phalanx of lesser toe of right foot, initial encounter 2. Contracture of right ankle PLAN Patient to continue with oral anti - inflammatories as needed for pain and recommended OTC medications such as tylenol or Ibuprofen Returned to normal shoe gear Asael Salmeron DPM documented in this encounter [facility] 05-15-2024 History of Present illness Narrative Patient: Albina Cameron : 1965 PCP: Constantin Melendez MD SUBJECTIVE This is a 58 y.o. female that presents today 14 days s/p right 5th digit pipj arthroplasty with fracture fragment excision. Pt denies n/f/v/c and has minimal pain to post op site. Pt states that they have been keeping dressing dry and intact and have been wb to post op foot Pt presents today for follow up. Allergies: No Known Allergies Past Medical History: Past Medical History: Diagnosis Date Chest pain Diabetes (CMS/HCC) Hypertension (CMS/HCC) Medications: Current Outpatient Medications: aspirin 81 MG EC tablet, Take 1 tablet (81 mg) by mouth 1 (one) time each day at the same time, Disp: 90 tablet, Rfl: 3 atorvastatin (Lipitor) 40 MG tablet, Take 1 tablet (40 mg) by mouth at bedtime, Disp: 90 tablet, Rfl: 3 busPIRone (Buspar) 7.5 MG tablet, Take 1 tablet (7.5 mg) by mouth in the morning and 1 tablet (7.5 mg) before bedtime., Disp: 180 tablet, Rfl: 3 celecoxib (CeleBREX) 200 MG capsule, Take 1 capsule (200 mg) by mouth in the morning and 1 capsule (200 mg) before bedtime., Disp: 180 capsule, Rfl: 3 cholecalciferol (D3-1000) 25 MCG (1000 UT) tablet, Take 1 tablet (25 mcg) by mouth Daily, Disp: 90 tablet, Rfl: 3 ibandronate (Boniva) 150 MG tablet, Take 1 tablet (150 mg) by mouth every 30 (thirty) days Take in morning with full glass of water on an empty stomach. No food, drink, meds, or lying down for 60 minutes after., Disp: 3 tablet, Rfl: 3 lamoTRIgine (LaMICtal) 100 MG tablet, Take 1 tablet (100 mg) by mouth at bedtime, Disp: 90 tablet, Rfl: 3 LORazepam (Ativan) 1 MG tablet, Take 1 tablet (1 mg) by mouth 3 (three) times a day as needed for anxiety, Disp: 270 tablet, Rfl: 0 metFORMIN XR (Glucophage-XR) 500 MG 24 hr tablet, Take 1 tablet (500 mg) by mouth in the morning and at noon Do not crush, chew, or split., Disp: 180 tablet, Rfl: 3 omeprazole (PriLOSEC) [address] capsule, Take 1 capsule (40 mg) by mouth Daily, Disp: 90 capsule, Rfl: 3 pioglitazone (Actos) 30 MG tablet, Take 1 tablet (30 mg) by mouth Daily, Disp: 90 tablet, Rfl: 3 semaglutide (Rybelsus) 14 MG tablet, Take 1 tablet (14 mg) by mouth Daily, Disp: 90 tablet, Rfl: 3 valsartan (Diovan) 40 MG tablet, Take 1 tablet (40 mg) by mouth Daily, Disp: 90 tablet, Rfl: 3 venlafaxine XR (Effexor XR) 150 MG 24 hr capsule, Take 1 capsule (150 mg) by mouth Daily, Disp: 90 capsule, Rfl: 3 venlafaxine XR (Effexor XR) 75 MG 24 hr capsule, Take 1 capsule (75 mg) by mouth Daily, Disp: 90 capsule, Rfl: 3 ROS: General: denies fever, chills, fatigue, malaise OBJECTIVE LE EXAM: Derm: Sutures intact to right foot with negative erythema, negative drainage, minimal edema with negative clinical signs of infection. Vascular: Palpable pedal pulses to right foot Neuro: Gross sensation intact to right foot. Musculoskeletal: Negative pain on palpation to right calf. Ortho: Ankle range of motion less than 10 degrees of dorsiflexion at right ankle joint. ASSESSMENT 14 days s/p right 5th digit pipj arthroplasty with removal of fracture fragment. 1. Closed nondisplaced fracture of proximal phalanx of lesser toe of right foot, initial encounter PLAN Patient to keep dry sterile dressing intact and keep dressing dry with partial weightbearing. Patient may take anti-inflammatories as needed for pain. May continue with ice to foot as needed p.r.n. Asael Salmeron DPM documented in this encounter [facility] 05-10-2024 History of Present illness Narrative Patient: Albina Cameron : 1965 PCP: oCnstantin Melendez MD SUBJECTIVE This is a 58 y.o. female that presents today 9 days s/p right right 5th digit pipj arthroplasty with fracture fragment excision. Pt denies n/f/v/c and has minimal pain to post op site. Pt states that they have been keeping dressing dry and intact and have been wb to post op foot Pt presents today for follow up. Allergies: No Known Allergies Past Medical History: Past Medical History: Diagnosis Date Chest pain Diabetes (CMS/HCC) Hypertension (CMS/HCC) Medications: Current Outpatient Medications: aspirin 81 MG EC tablet, Take 1 tablet (81 mg) by mouth 1 (one) time each day at the same time, Disp: 90 tablet, Rfl: 3 atorvastatin (Lipitor) 40 MG tablet, Take 1 tablet (40 mg) by mouth at bedtime, Disp: 90 tablet, Rfl: 3 busPIRone (Buspar) 7.5 MG tablet, Take 1 tablet (7.5 mg) by mouth in the morning and 1 tablet (7.5 mg) before bedtime., Disp: 180 tablet, Rfl: 3 celecoxib (CeleBREX) 200 MG capsule, Take 1 capsule (200 mg) by mouth in the morning and 1 capsule (200 mg) before bedtime., Disp: 180 capsule, Rfl: 3 cholecalciferol (D3-1000) 25 MCG (1000 UT) tablet, Take 1 tablet (25 mcg) by mouth Daily, Disp: 90 tablet, Rfl: 3 ibandronate (Boniva) 150 MG tablet, Take 1 tablet (150 mg) by mouth every 30 (thirty) days Take in morning with full glass of water on an empty stomach. No food, drink, meds, or lying down for 60 minutes after., Disp: 3 tablet, Rfl: 3 lamoTRIgine (LaMICtal) 100 MG tablet, Take 1 tablet (100 mg) by mouth at bedtime, Disp: 90 tablet, Rfl: 3 LORazepam (Ativan) 1 MG tablet, Take 1 tablet (1 mg) by mouth 3 (three) times a day as needed for anxiety, Disp: 270 tablet, Rfl: 0 metFORMIN XR (Glucophage-XR) 500 MG 24 hr tablet, Take 1 tablet (500 mg) by mouth in the morning and at noon Do not crush, chew, or split., Disp: 180 tablet, Rfl: 3 omeprazole (PriLOSEC) [address] capsule, Take 1 capsule (40 mg) by mouth Daily, Disp: 90 capsule, Rfl: 3 pioglitazone (Actos) 30 MG tablet, Take 1 tablet (30 mg) by mouth Daily, Disp: 90 tablet, Rfl: 3 semaglutide (Rybelsus) 14 MG tablet, Take 1 tablet (14 mg) by mouth Daily, Disp: 90 tablet, Rfl: 3 valsartan (Diovan) 40 MG tablet, Take 1 tablet (40 mg) by mouth Daily, Disp: 90 tablet, Rfl: 3 venlafaxine XR (Effexor XR) 150 MG 24 hr capsule, Take 1 capsule (150 mg) by mouth Daily, Disp: 90 capsule, Rfl: 3 venlafaxine XR (Effexor XR) 75 MG 24 hr capsule, Take 1 capsule (75 mg) by mouth Daily, Disp: 90 capsule, Rfl: 3 ROS: General: denies fever, chills, fatigue, malaise OBJECTIVE LE EXAM: Derm: Sutures intact to right foot with negative erythema, negative drainage, minimal edema with negative clinical signs of infection. Vascular: Palpable pedal pulses to right foot Neuro: Gross sensation intact to right foot. Musculoskeletal: Negative pain on palpation to right calf. Ortho: Ankle range of motion less than 10 degrees of dorsiflexion at right ankle joint. ASSESSMENT 9 days s/p right 5th digit pipj arthroplasty with removal of fracture fragment. 1. Closed nondisplaced fracture of proximal phalanx of lesser toe of right foot, initial encounter PLAN Patient to keep dry sterile dressing intact and keep dressing dry with partial weightbearing. Patient may take anti-inflammatories as needed for pain. May continue with ice to foot as needed p.r.n. Asael Salmeron DPM documented in this encounter [facility] 05-10-2024 Hospital Discharge instructions Patient Education 05/10/2024 12:19:14 Laser Therapy for Kidney Stones, Care After Laser Therapy for Kidney Stones, Care After After laser therapy for kidney stones, it is common to have: Pain. A burning feeling when you pee (urinate). Small amounts of blood in your pee (urine). A need to pee a lot. Parts of the kidney stone in your pee. Mild discomfort in your back when you pee. You may have this if you had a small mesh tube (stent) placed during the procedure. Follow these instructions at home: Medicines Take vfzo-lzt-ehmzvcm and prescription medicines only as told by your health care provider. If you were prescribed antibiotics, take them as told by your provider. Do not stop using the antibiotic even if you start to feel better. Ask your provider if the medicine prescribed to you: ?Requires you to avoid driving or using machinery. ?Can cause constipation. You may need to take these actions to prevent or treat constipation: ?Drink enough fluid to keep your pee pale yellow. ?Take krme-ypn-uvzvisy or prescription medicines. ?Eat foods that are high in fiber, such as beans, whole grains, and fresh fruits and vegetables. ?Limit foods that are high in fat and processed sugars, such as fried or sweet foods. Activity If you were given a sedative during the procedure, it can affect you for several hours. Do not drive or operate machinery until your provider says that it is safe. Return to your normal activities as told by your provider. Ask your provider what activities are safe for you. General instructions Your provider may recommend that you drink a lot of water for a few hours after your procedure. If you have heart or kidney disease, ask your provider how much you should drink. You may be asked to strain your pee to collect any stone pieces that you pass. Your provider may have these pieces tested. Do not take baths, swim, or use a hot tub until your provider approves. Ask your provider if you may take warm baths to soothe the burning. Keep all follow-up visits. If you have a stent, you will need to go back to your provider to have it removed. Your provider may give you more instructions. Make sure you know what you can and cannot do. Contact a health care provider if: You have pain or a burning feeling that lasts for more than 2 days. You feel nauseous. You vomit more and more often. You have trouble peeing. You have pain that gets worse or does not get better with medicine. You have a fever or shaking chills. Get help right away if: You cannot pee, even when your bladder feels full. You faint. You have chest pain, shortness of breath, or cough up blood. You have: ?Bright red blood or blood clots in your pee. ?Severe pain or discomfort. ?Pain in your abdomen. ?Swelling in your legs. These symptoms may be an emergency. Get help right away. Call 911. Do not wait to see if the symptoms will go away. Do not drive yourself to the hospital. This information is not intended to replace advice given to you by your health care provider. Make sure you discuss any questions you have with your health care provider. Document Revised: 01/20/2023 Document Reviewed: 01/20/2023 [employer] Patient Education 2023 [employer]. 05/10/2024 12:19:14 Laser Therapy for Kidney Stones Laser Therapy for Kidney Stones Laser therapy for kidney stones is a procedure to break up rock-like masses that form inside the kidneys (kidney stones). It is done using a device that beams a strong light (laser) on the kidney stones. This breaks the stones up into small pieces. These small pieces may leave your body when you pee (urinate) or may be taken out during the procedure. You may need laser therapy if you have kidney stones that are painful or that are stopping you from being able to pee. Tell a health care provider about: Any allergies you have. All medicines you are taking, including vitamins, herbs, eye drops, creams, and yknd-rqx-dkatdsw medicines. Any problems you or family members have had with anesthesia. Any bleeding problems you have. Any surgeries you have had. Any medical conditions you have. Whether you are or may be . What are the risks? Your health care provider will talk with you about risks. These may include: Infection. Bleeding. Allergic reactions to medicines. Damage to: ?The part of your body that drains pee (urine) from the bladder (urethra). ?The bladder. ?The tube that connects the bladder to the kidneys (ureter). Urinary tract infection (UTI). Urethral stricture. This is when the urethra is narrowed by scarring. Trouble peeing. Blockage of the kidney. This may be caused by a piece of kidney stone. What happens before the procedure? When to stop eating and drinking Follow instructions from your provider about what you may eat and drink. These may include: 8 hours before the procedure ?Stop eating most foods. Do not eat meat, fried foods, or fatty foods. ?Eat only light foods, such as toast or crackers. ?All liquids are okay except energy drinks and alcohol. 6 hours before the procedure ?Stop eating. ?Drink only clear liquids, such as water, clear fruit juice, black coffee, plain tea, and sports drinks. ?Do not drink energy drinks or alcohol. 2 hours before the procedure ?Stop drinking all liquids. ?You may be allowed to take medicines with small sips of water. If you do not follow your provider's instructions, your procedure may be delayed or canceled. Medicines Ask your provider about: ?Changing or stopping your regular medicines. These include any diabetes medicines or blood thinners you take. ?Taking medicines such as aspirin and ibuprofen. These medicines can thin your blood. Do not take them unless your provider tells you to. ?Taking tfyq-lkx-vqsromj medicines, vitamins, herbs, and supplements. Tests You may have a physical exam before the procedure. You may also have tests done. These may include: ?Imaging tests. ?Blood or pee tests. Surgery safety Ask your provider: ?How your surgery site will be marked. ?What steps will be taken to help prevent infection. These steps may include: ?Removing hair at the surgery site. ?Washing skin with a soap that kills germs. ?Taking antibiotics. General instructions Do not use any products that contain nicotine or tobacco for at least 4 weeks before the procedure. These products include cigarettes, chewing tobacco, and vaping devices, such as e-cigarettes. If you need help quitting, ask your provider. If you will be going home right after the procedure, plan to have a responsible adult: ?Take you home from the hospital or clinic. You will not be allowed to drive. ?Care for you for the time you are told. What happens during the procedure? An IV will be inserted into one of your veins. You will be given: ?A sedative. This helps you relax. ?Anesthesia. This keeps you from feeling pain. It will make you fall asleep for surgery. A tool with a camera on the end (ureteroscope) will be put into your urethra. It will be moved through your bladder to your kidney. It will send pictures to a screen in the operating room. This will show what parts of your kidney need to be treated. A tube will be put through the ureteroscope. It will be moved into your kidney. The laser device will be put into your kidney through the tube. The laser will be used to break up the kidney stones. A tool with a tiny wire basket may be put through the tube into your kidney. This can help remove the small pieces of the kidney stone. A small mesh tube (stent) may be placed to allow your kidney to drain. The tube and ureteroscope will be taken out at the end of the surgery. The procedure may vary among providers and hospitals. What happens after the procedure? Your blood pressure, heart rate, breathing rate, and blood oxygen level will be monitored until you leave the hospital or clinic. If you had a stent placed, it may have a string that will be secured to your skin. This helps your provider remove the stent. You may be given a strainer to collect any stone pieces that you pass in your pee. Your provider may have these tested. This information is not intended to replace advice given to you by your health care provider. Make sure you discuss any questions you have with your health care provider. Document Revised: 01/20/2023 Document Reviewed: 01/20/2023 [employer] Patient Education 2023 [employer]. Follow Up Care 05/07/2024 08:53:02 With:Omero CATHERINE, JULIO Woods, URO Address: When: Unknown [facility] 05-10-2024 Note Patient Education Nephrology Laser Therapy for Kidney Stones, Care After After laser therapy for kidney stones, it is common to have: ??? Pain. ??? A burning feeling when you pee (urinate). ??? Small amounts of blood in your pee (urine). ??? A need to pee a lot. ??? Parts of the kidney stone in your pee. ??? Mild discomfort in your back when you pee. You may have this if you had a small mesh tube (stent) placed during the procedure. Follow these instructions at home: Medicines ??? Take gpag-cbj-lhmotny and prescription medicines only as told by your health care provider. ??? If you were prescribed antibiotics, take them as told by your provider. Do not stop using the antibiotic even if you start to feel better. ??? Ask your provider if the medicine prescribed to you: ? Requires you to avoid driving or using machinery. ? Can cause constipation. You may need to take these actions to prevent or treat constipation: ? Drink enough fluid to keep your pee pale yellow. ? Take lwkj-vsy-ezwdfsz or prescription medicines. ? Eat foods that are high in fiber, such as beans, whole grains, and fresh fruits and vegetables. ? Limit foods that are high in fat and processed sugars, such as fried or sweet foods. Activity ??? If you were given a sedative during the procedure, it can affect you for several hours. Do not drive or operate machinery until your provider says that it is safe. ??? Return to your normal activities as told by your provider. Ask your provider what activities are safe for you. General instructions ??? Your provider may recommend that you drink a lot of water for a few hours after your procedure. If you have heart or kidney disease, ask your provider how much you should drink. ??? You may be asked to strain your pee to collect any stone pieces that you pass. Your provider may have these pieces tested. ??? Do not take baths, swim, or use a hot tub until your provider approves. Ask your provider if you may take warm baths to soothe the burning. ??? Keep all follow-up visits. If you have a stent, you will need to go back to your provider to have it removed. Your provider may give you more instructions. Make sure you know what you can and cannot do. Contact a health care provider if: ??? You have pain or a burning feeling that lasts for more than 2 days. ??? You feel nauseous. ??? You vomit more and more often. ??? You have trouble peeing. ??? You have pain that gets worse or does not get better with medicine. ??? You have a fever or shaking chills. Get help right away if: ??? You cannot pee, even when your bladder feels full. ??? You faint. ??? You have chest pain, shortness of breath, or cough up blood. ??? You have: ? Bright red blood or blood clots in your pee. ? Severe pain or discomfort. ? Pain in your abdomen. ? Swelling in your legs. These symptoms may be an emergency. Get help right away. Call 911. ??? Do not wait to see if the symptoms will go away. ??? Do not drive yourself to the hospital. This information is not intended to replace advice given to you by your health care provider. Make sure you discuss any questions you have with your health care provider. Document Revised: 01/20/2023 Document Reviewed: 01/20/2023 The American Academy Patient Education ? 2023 [employer] Laser Therapy for Kidney Stones Laser therapy for kidney stones is a procedure to break up rock-like masses that form inside the kidneys (kidney stones). It is done using a device that beams a strong light (laser) on the kidney stones. This breaks the stones up into small pieces. These small pieces may leave your body when you pee (urinate) or may be taken out during the procedure. You may need laser therapy if you have kidney stones that are painful or that are stopping you from being able to pee. Tell a health care provider about: ??? Any allergies you have. ??? All medicines you are taking, including vitamins, herbs, eye drops, creams, and smpe-ofk-fwdchej medicines. ??? Any problems you or family members have had with anesthesia. ??? Any bleeding problems you have. ??? Any surgeries you have had. ??? Any medical conditions you have. ??? Whether you are or may be . What are the risks? Your health care provider will talk with you about risks. These may include: ??? Infection. ??? Bleeding. ??? Allergic reactions to medicines. ??? Damage to: ? The part of your body that drains pee (urine) from the bladder (urethra). ? The bladder. ? The tube that connects the bladder to the kidneys (ureter). ??? Urinary tract infection (UTI). ??? Urethral stricture. This is when the urethra is narrowed by scarring. ??? Trouble peeing. ??? Blockage of the kidney. This may be caused by a piece of kidney stone. What happens before the procedure? When to stop eating and drinking Follow instructions from your provider about what you may eat and drink. Thes (more content not included)... [facility] 04-26-2024 History of Present illness Narrative Patient: Albina Cameron : 1965 PCP: Constantin Melendez MD SUBJECTIVE This is a 58 y.o. female that presents today for a follow up of right 4th and 5th digit toe fractures with use of walking boot and is 7 weeks old Patient rates pain a 7/10. Patient states negative improvement with use of boot and is very painful with ambulation and would like to have surgical intervention as discussed in the past to the right 5th digit. She is scheduled for removal of chip fx to the medial right 5th toe proximal phalanx. Patient has positive history of type 2 diabetes Allergies: No Known Allergies Past Medical History: Past Medical History: Diagnosis Date Chest pain Diabetes (CMS/HCC) Hypertension (CMS/HCC) Medications: Current Outpatient Medications: aspirin 81 MG EC tablet, Take 1 tablet (81 mg) by mouth 1 (one) time each day at the same time, Disp: 90 tablet, Rfl: 3 atorvastatin (Lipitor) 40 MG tablet, Take 1 tablet (40 mg) by mouth at bedtime, Disp: 90 tablet, Rfl: 3 busPIRone (Buspar) 7.5 MG tablet, Take 1 tablet (7.5 mg) by mouth in the morning and 1 tablet (7.5 mg) before bedtime., Disp: 180 tablet, Rfl: 3 celecoxib (CeleBREX) 200 MG capsule, Take 1 capsule (200 mg) by mouth in the morning and 1 capsule (200 mg) before bedtime., Disp: 180 capsule, Rfl: 3 cholecalciferol (D3-1000) 25 MCG (1000 UT) tablet, Take 1 tablet (25 mcg) by mouth Daily, Disp: 90 tablet, Rfl: 3 ibandronate (Boniva) 150 MG tablet, Take 1 tablet (150 mg) by mouth every 30 (thirty) days Take in morning with full glass of water on an empty stomach. No food, drink, meds, or lying down for 60 minutes after., Disp: 3 tablet, Rfl: 3 lamoTRIgine (LaMICtal) 100 MG tablet, Take 1 tablet (100 mg) by mouth at bedtime, Disp: 90 tablet, Rfl: 3 LORazepam (Ativan) 1 MG tablet, Take 1 tablet (1 mg) by mouth 3 (three) times a day as needed for anxiety, Disp: 270 tablet, Rfl: 0 metFORMIN XR (Glucophage-XR) 500 MG 24 hr tablet, Take 1 tablet (500 mg) by mouth in the evening. Take with meals Do not crush, chew, or split., Disp: 90 tablet, Rfl: 3 omeprazole (PriLOSEC) [address] capsule, Take 1 capsule (40 mg) by mouth Daily, Disp: 90 capsule, Rfl: 3 pioglitazone (Actos) 30 MG tablet, Take 1 tablet (30 mg) by mouth Daily, Disp: 90 tablet, Rfl: 3 semaglutide (Rybelsus) 14 MG tablet, Take 1 tablet (14 mg) by mouth Daily, Disp: 90 tablet, Rfl: 3 valsartan (Diovan) 40 MG tablet, Take 1 tablet (40 mg) by mouth Daily, Disp: 90 tablet, Rfl: 3 venlafaxine XR (Effexor XR) 150 MG 24 hr capsule, Take 1 capsule (150 mg) by mouth Daily, Disp: 90 capsule, Rfl: 3 venlafaxine XR (Effexor XR) 75 MG 24 hr capsule, Take 1 capsule (75 mg) by mouth Daily, Disp: 90 capsule, Rfl: 3 Social History: Social History Socioeconomic History Marital status: Spouse name: Not on file Number of children: Not on file Years of education: Not on file Highest education level: Not on file Occupational History Not on file Tobacco Use Smoking status: Never Smokeless tobacco: Never Substance and Sexual Activity Alcohol use: Never Drug use: Never Sexual activity: Not on file Other Topics Concern Not on file Social History Narrative Not on file Social Drivers of Health Financial Resource Strain: Not on file Food Insecurity: Not on file Transportation Needs: Not on file Physical Activity: Not on file Stress: Not on file Social Connections: Not on file Intimate Partner Violence: Not on file Housing Stability: Not on file ROS: General: denies fever, chills, fatigue, malaise GI: denies abdominal pain or ulcerations with anti-inflammatory medication OBJECTIVE LE EXAM: DERM: Positive hair growth to b/l feet with good skin turgor noted. Negative openings in skin. Negative ecchymosis to right forefoot and right 4th and 5th digits VASC: Palpable pedal pulsed b/l with warm to cool tibia to toes b/l NEURO: Gross sensation intact digits 1-10 and b/l feet ORTHO: +5/5 DF/PF/IN/EV right, +5/5 DF/PF/IN/EV left. 20 degrees inversion and 10 degrees eversion STJ b/l. Ankle ROM less than 10 degrees b/l. Positive pain on palpation to right 5th medial base region of the right 5th toe. Negative pain palpation of the right 4th toe XRAY: Verbal order today for x-rays be taken by staff. AP/Oblique/Lateral 3 view radiographs today of the right foot demonstrated the following: Notable mid shaft fracture that appears to be. Partially healing however somewhat displaced to the right 4th digit and right 5th digit has a medial base tuft fracture with Negative diastasis. US: ASSESSMENT 1. Closed nondisplaced fracture of proximal phalanx of lesser toe of right foot, initial encounter 2. Contracture of right ankle PLAN Patient given prescription for pain medication to be taken postoperatively. Decision for surgery today and patient medically cleared from a podiatric standpoint for surgery and to proceed with surgery. Pt to have pre op H/P per PCP for medical clearance for surgery and will be reviewed along with labs prior to surgery. Pt scheduled for a fracture fragment removal to right 5th digit proximal phalanx. Discussed with the patient the nature of condition and operative vs nonoperative care. The surgical plans, risks, alternatives, benefits, post op complications and bed bug exterminator expectations were discussed including but not limited to: infection,bone infection,wound dehiscence hardware failure and irritation,wound dehiscence,delay union/mal union/non union of bone. RSDS,neuroma,duty limitations,DVT/PE, UT,nerve damage, scar, loss of sensation, swelling. Pt understands the proposed sx in detail and has agreed with proposed surgery. No guarantees were given or implied. Pt willingly consents to procedure and to have surgical procedure. Pt also understands risks including COVID-19 current risk in a surgical setting. Pt is a low acceptable risk for outpatient surgery from a podiatric standpoint with an ASA of a 2. Asael Salmeron DPM, FACFAS H&P up to date and current (date) Date: April 26, 2024 Asael Salmeron DPM documented in this encounter [facility] 04-15-2024 History of Present illness Narrative Patient: Albina Cameron : 1965 PCP: Constantin Melendez MD SUBJECTIVE This is a 58 y.o. female that presents today for a follow up of right 4th and 5th digit toe fractures with use of walking boot and is 5 weeks old Patient rates pain a 7/10. Patient states negative improvement with use of boot and is very painful with ambulation and would like to have surgical intervention as discussed in the past to the right 5th digit Patient has positive history of type 2 diabetes Allergies: No Known Allergies Past Medical History: Past Medical History: Diagnosis Date Chest pain Diabetes ([facility]/HCC) Hypertension (CMS/HCC) Medications: Current Outpatient Medications: aspirin 81 MG EC tablet, Take 1 tablet (81 mg) by mouth 1 (one) time each day at the same time, Disp: 90 tablet, Rfl: 3 atorvastatin (Lipitor) 40 MG tablet, Take 1 tablet (40 mg) by mouth at bedtime, Disp: 90 tablet, Rfl: 3 busPIRone (Buspar) 7.5 MG tablet, Take 1 tablet (7.5 mg) by mouth in the morning and 1 tablet (7.5 mg) before bedtime., Disp: 180 tablet, Rfl: 3 celecoxib (CeleBREX) 200 MG capsule, Take 1 capsule (200 mg) by mouth in the morning and 1 capsule (200 mg) before bedtime., Disp: 180 capsule, Rfl: 3 cholecalciferol (D3-1000) 25 MCG (1000 UT) tablet, Take 1 tablet (25 mcg) by mouth Daily, Disp: 90 tablet, Rfl: 3 ibandronate (Boniva) 150 MG tablet, Take 1 tablet (150 mg) by mouth every 30 (thirty) days Take in morning with full glass of water on an empty stomach. No food, drink, meds, or lying down for 60 minutes after., Disp: 3 tablet, Rfl: 3 lamoTRIgine (LaMICtal) 100 MG tablet, Take 1 tablet (100 mg) by mouth at bedtime, Disp: 90 tablet, Rfl: 3 LORazepam (Ativan) 1 MG tablet, Take 1 tablet (1 mg) by mouth 3 (three) times a day as needed for anxiety, Disp: 270 tablet, Rfl: 0 metFORMIN XR (Glucophage-XR) 500 MG 24 hr tablet, Take 1 tablet (500 mg) by mouth in the evening. Take with meals Do not crush, chew, or split., Disp: 90 tablet, Rfl: 3 omeprazole (PriLOSEC) [address] capsule, Take 1 capsule (40 mg) by mouth Daily, Disp: 90 capsule, Rfl: 3 pioglitazone (Actos) 30 MG tablet, Take 1 tablet (30 mg) by mouth Daily, Disp: 90 tablet, Rfl: 3 semaglutide (Rybelsus) 14 MG tablet, Take 1 tablet (14 mg) by mouth Daily, Disp: 90 tablet, Rfl: 3 valsartan (Diovan) 40 MG tablet, Take 1 tablet (40 mg) by mouth Daily, Disp: 90 tablet, Rfl: 3 venlafaxine XR (Effexor XR) 150 MG 24 hr capsule, Take 1 capsule (150 mg) by mouth Daily, Disp: 90 capsule, Rfl: 3 venlafaxine XR (Effexor XR) 75 MG 24 hr capsule, Take 1 capsule (75 mg) by mouth Daily, Disp: 90 capsule, Rfl: 3 Social History: Social History Socioeconomic History Marital status: Spouse name: Not on file Number of children: Not on file Years of education: Not on file Highest education level: Not on file Occupational History Not on file Tobacco Use Smoking status: Never Smokeless tobacco: Never Substance and Sexual Activity Alcohol use: Never Drug use: Never Sexual activity: Not on file Other Topics Concern Not on file Social History Narrative Not on file Social Drivers of Health Financial Resource Strain: Not on file Food Insecurity: Not on file Transportation Needs: Not on file Physical Activity: Not on file Stress: Not on file Social Connections: Not on file Intimate Partner Violence: Not on file Housing Stability: Not on file ROS: General: denies fever, chills, fatigue, malaise GI: denies abdominal pain or ulcerations with anti-inflammatory medication OBJECTIVE LE EXAM: DERM: Positive hair growth to b/l feet with good skin turgor noted. Negative openings in skin. Negative ecchymosis to right forefoot and right 4th and 5th digits VASC: Palpable pedal pulsed b/l with warm to cool tibia to toes b/l NEURO: Gross sensation intact digits 1-10 and b/l feet ORTHO: +5/5 DF/PF/IN/EV right, +5/5 DF/PF/IN/EV left. 20 degrees inversion and 10 degrees eversion STJ b/l. Ankle ROM less than 10 degrees b/l. Positive pain on palpation to right 5th medial base region of the right 5th toe. Negative pain palpation of the right 4th toe XRAY: Verbal order today for x-rays be taken by staff. AP/Oblique/Lateral 3 view radiographs today of the right foot demonstrated the following: Notable mid shaft fracture that appears to be. Partially healing however somewhat displaced to the right 4th digit and right 5th digit has a medial base tuft fracture with Negative diastasis. US: ASSESSMENT 1. Closed nondisplaced fracture of proximal phalanx of lesser toe of right foot, initial encounter 2. Contracture of right ankle PLAN Patient to continue with oral anti - inflammatories as needed for pain and recommended OTC medications such as tylenol or Ibuprofen Discussed treatment options including surgical excision and will need to have done in the very near future as she is almost out short-term disability and no more FMLA. Patient would like to returned to normal shoe gear to see if she can returned to work and advise her to see if this may be for her but if unable to have done may consider possible surgical excision of fragment in the very near future under local anesthetic. Did discuss general anesthetic and patient most likely will have done in the near future for full anesthesia for surgery Asael Salmeron DPM documented in this encounter [facility] 04-08-2024 History of Present illness Narrative Patient: Albina Cameron : 1965 PCP: Constantin Melendez MD SUBJECTIVE This is a 58 y.o. female that presents today for a follow up of right 4th and 5th digit toe fractures with use of walking boot and is 5 weeks old Patient rates pain a 5/10. Allergies: No Known Allergies Past Medical History: Past Medical History: Diagnosis Date Chest pain Diabetes (CMS/HCC) Hypertension (CMS/HCC) Medications: Current Outpatient Medications: aspirin 81 MG EC tablet, Take 1 tablet (81 mg) by mouth 1 (one) time each day at the same time, Disp: 90 tablet, Rfl: 3 atorvastatin (Lipitor) 40 MG tablet, Take 1 tablet (40 mg) by mouth at bedtime, Disp: 90 tablet, Rfl: 3 busPIRone (Buspar) 7.5 MG tablet, Take 1 tablet (7.5 mg) by mouth in the morning and 1 tablet (7.5 mg) before bedtime., Disp: 180 tablet, Rfl: 3 celecoxib (CeleBREX) 200 MG capsule, Take 1 capsule (200 mg) by mouth in the morning and 1 capsule (200 mg) before bedtime., Disp: 180 capsule, Rfl: 3 cholecalciferol (D3-1000) 25 MCG (1000 UT) tablet, Take 1 tablet (25 mcg) by mouth Daily, Disp: 90 tablet, Rfl: 3 lamoTRIgine (LaMICtal) 100 MG tablet, Take 1 tablet (100 mg) by mouth at bedtime, Disp: 90 tablet, Rfl: 3 LORazepam (Ativan) 1 MG tablet, Take 1 tablet (1 mg) by mouth 3 (three) times a day as needed for anxiety, Disp: 270 tablet, Rfl: 0 metFORMIN XR (Glucophage-XR) 500 MG 24 hr tablet, Take 1 tablet (500 mg) by mouth in the evening. Take with meals Do not crush, chew, or split., Disp: 90 tablet, Rfl: 3 omeprazole (PriLOSEC) [address] capsule, Take 1 capsule (40 mg) by mouth Daily, Disp: 90 capsule, Rfl: 3 pioglitazone (Actos) 30 MG tablet, Take 1 tablet (30 mg) by mouth Daily, Disp: 90 tablet, Rfl: 3 semaglutide (Rybelsus) 14 MG tablet, Take 1 tablet (14 mg) by mouth Daily, Disp: 90 tablet, Rfl: 3 valsartan (Diovan) 40 MG tablet, Take 1 tablet (40 mg) by mouth Daily, Disp: 90 tablet, Rfl: 3 venlafaxine XR (Effexor XR) 150 MG 24 hr capsule, Take 1 capsule (150 mg) by mouth Daily, Disp: 90 capsule, Rfl: 3 venlafaxine XR (Effexor XR) 75 MG 24 hr capsule, Take 1 capsule (75 mg) by mouth Daily, Disp: 90 capsule, Rfl: 3 Social History: Social History Socioeconomic History Marital status: Spouse name: Not on file Number of children: Not on file Years of education: Not on file Highest education level: Not on file Occupational History Not on file Tobacco Use Smoking status: Never Smokeless tobacco: Never Substance and Sexual Activity Alcohol use: Never Drug use: Never Sexual activity: Not on file Other Topics Concern Not on file Social History Narrative Not on file Social Drivers of Health Financial Resource Strain: Not on file Food Insecurity: Not on file Transportation Needs: Not on file Physical Activity: Not on file Stress: Not on file Social Connections: Not on file Intimate Partner Violence: Not on file Housing Stability: Not on file ROS: General: denies fever, chills, fatigue, malaise GI: denies abdominal pain or ulcerations with anti-inflammatory medication OBJECTIVE LE EXAM: DERM: Positive hair growth to b/l feet with good skin turgor noted. Negative openings in skin. Negative ecchymosis to right forefoot and right 4th and 5th digits VASC: Palpable pedal pulsed b/l with warm to cool tibia to toes b/l NEURO: Gross sensation intact digits 1-10 and b/l feet ORTHO: +5/5 DF/PF/IN/EV right, +5/5 DF/PF/IN/EV left. 20 degrees inversion and 10 degrees eversion STJ b/l. Ankle ROM less than 10 degrees b/l. Positive pain on palpation to right 5th medial base region of the right 5th toe. Negative pain palpation of the right 4th toe XRAY: Verbal order today for x-rays be taken by staff. AP/Oblique/Lateral 3 view radiographs today of the right foot demonstrated the following: Notable mid shaft fracture that appears to be. Partially healing however somewhat displaced to the right 4th digit and right 5th digit has a medial base tuft fracture with . Negative diastasis. US: ASSESSMENT 1. Closed nondisplaced fracture of proximal phalanx of lesser toe of right foot, initial encounter 2. Contracture of right ankle PLAN Reviewed x-rays today with patient Patient to continue with oral anti - inflammatories as needed for pain and recommended OTC medications such as tylenol or Ibuprofen Discussed treatment options including surgical excision and will need to have done in the very near future as she is almost out short-term disability and no more FMLA. Patient would like to returned to normal shoe gear to see if she can returned to work and advise her to see if this may be for her but if unable to have done may consider possible surgical excision of fragment in the very near future under local anesthetic Asael Salmeron DPM documented in this encounter [facility] 03-13-2024 History of Present illness Narrative Patient: Albina Cameron : 1965 PCP: Constantin Melendez MD SUBJECTIVE This is a 58 y.o. female that presents today for a chief complaint of pain to the right 4th and 5th digits and states she was seen urgent care with diagnosis of fractures. She is given a postoperative shoe and states minimal improvement postoperative shoe and states it is achy at times. Initial trauma was 10 days ago and initially she hit the bed post with her right foot and has had pain to the area with swelling. Allergies: No Known Allergies Past Medical History: Past Medical History: Diagnosis Date Chest pain Diabetes ([facility]/HCC) Hypertension ([facility]) Medications: Current Outpatient Medications: aspirin 81 MG EC tablet, Take 1 tablet (81 mg) by mouth 1 (one) time each day at the same time, Disp: 90 tablet, Rfl: 3 atorvastatin (Lipitor) 40 MG tablet, Take 1 tablet (40 mg) by mouth at bedtime, Disp: 90 tablet, Rfl: 3 busPIRone (Buspar) 7.5 MG tablet, Take 1 tablet (7.5 mg) by mouth in the morning and 1 tablet (7.5 mg) before bedtime., Disp: 180 tablet, Rfl: 3 celecoxib (CeleBREX) 200 MG capsule, Take 1 capsule (200 mg) by mouth in the morning and 1 capsule (200 mg) before bedtime., Disp: 180 capsule, Rfl: 3 cholecalciferol (D3-1000) 25 MCG (1000 UT) tablet, Take 1 tablet (25 mcg) by mouth Daily, Disp: 90 tablet, Rfl: 3 lamoTRIgine (LaMICtal) 100 MG tablet, Take 1 tablet (100 mg) by mouth at bedtime, Disp: 90 tablet, Rfl: 3 LORazepam (Ativan) 1 MG tablet, Take 1 tablet (1 mg) by mouth 3 (three) times a day as needed for anxiety, Disp: 270 tablet, Rfl: 0 metFORMIN XR (Glucophage-XR) 500 MG 24 hr tablet, Take 1 tablet (500 mg) by mouth in the evening. Take with meals Do not crush, chew, or split., Disp: 90 tablet, Rfl: 3 omeprazole (PriLOSEC) [address] capsule, Take 1 capsule (40 mg) by mouth Daily, Disp: 90 capsule, Rfl: 3 pioglitazone (Actos) 30 MG tablet, Take 1 tablet (30 mg) by mouth Daily, Disp: 90 tablet, Rfl: 3 semaglutide (Rybelsus) 14 MG tablet, Take 1 tablet (14 mg) by mouth Daily, Disp: 90 tablet, Rfl: 3 valsartan (Diovan) 40 MG tablet, Take 1 tablet (40 mg) by mouth Daily, Disp: 90 tablet, Rfl: 3 venlafaxine XR (Effexor XR) 150 MG 24 hr capsule, Take 1 capsule (150 mg) by mouth Daily, Disp: 90 capsule, Rfl: 3 venlafaxine XR (Effexor XR) 75 MG 24 hr capsule, Take 1 capsule (75 mg) by mouth Daily, Disp: 90 capsule, Rfl: 3 Social History: Social History Socioeconomic History Marital status: Spouse name: Not on file Number of children: Not on file Years of education: Not on file Highest education level: Not on file Occupational History Not on file Tobacco Use Smoking status: Never Smokeless tobacco: Never Substance and Sexual Activity Alcohol use: Never Drug use: Never Sexual activity: Not on file Other Topics Concern Not on file Social History Narrative Not on file Social Determinants of Health Financial Resource Strain: Not on file Food Insecurity: Not on file Transportation Needs: Not on file Physical Activity: Not on file Stress: Not on file Social Connections: Not on file Intimate Partner Violence: Not on file Housing Stability: Not on file ROS: General: denies fever, chills, fatigue, malaise Gastrointestinal: denies abdominal pain, ulcers, or changes in appetite or bowel habits Musculoskeletal: denies arthritis, denies loss of strength, pain to hip, knees, back Cardiovascular: denies CP, palpitations, irregular rhythms OBJECTIVE LE EXAM: DERM: Positive hair growth to b/l feet with good skin turgor noted. Negative openings in skin. Positive ecchymosis to right forefoot and right 4th and 5th digits with slight edema VASC: Palpable pedal pulsed b/l with warm to cool tibia to toes b/l NEURO: Gross sensation intact digits 1-10 and b/l feet ORTHO: +5/5 DF/PF/IN/EV right, +5/5 DF/PF/IN/EV left. 20 degrees inversion and 10 degrees eversion STJ b/l. Ankle ROM less than 10 degrees b/l. Positive pain on palpation to right 4th PIPJ region and 5th medial base region of the right 5th toe XRAY: Verbal order today for x-rays be taken by staff. AP/Oblique/Lateral 3 view radiographs today of the right foot demonstrated the following: Notable mid shaft fracture that appears to be healing however somewhat displaced to the right 4th digit and right 5th digit has a medial base tuft fracture of with slight diastasis US: ASSESSMENT 1. Closed nondisplaced fracture of proximal phalanx of lesser toe of right foot, initial encounter 2. Contracture of right ankle PLAN Reviewed x-rays today with patient Patient to continue with oral anti - inflammatories as needed for pain and recommended OTC medications such as tylenol or Ibuprofen Patient may tape toes together if comfortable Recommended to apply ice to affected areas for 20 minutes, twice daily. Ice should not be applied directly to skin. Pt dispensed pneumatic CAM walker ([id number]) today to maintain 90 degree foot to ankle position. Pt informed to only remove walker when at rest or bathing. ABN signed and in chart for device if warranted. The boot was assembled and adjusted liner and straps and pneumatically inflated for proper custom fitting by Asael Salmeron DPM and staff. A verbal order was given for dispensing of device. The patient is ambulatory and may benefit functionally from this device. It may be used for the following conditions as noted per medical diagnosis. Asael Salmeron DPM documented in this encounter [facility] 03-11-2024 History of Present illness Narrative Associated Problem(s): Type 2 diabetes mellitus with hyperglycemia, without long-term current use of insulin (CMS/HCC) Reports BS elevated and monitor daily. Stick to ADA diet and limit carbs. Associated Problem(s): DUKE (obstructive sleep apnea) Sleeping well with CPAP and continue. Patient is benefiting from PAP therapy. Associated Problem(s): Mild recurrent major depression (HCC) (CMS/HCC) Symptoms controlled with medication and continue. Associated Problem(s): Generalized anxiety disorder (CMS/HCC) Symptoms controlled with medication and continue. Use ativan PRN. Associated Problem(s): Benign essential hypertension (CMS/HCC) BP controlled and monitor PRN. Images from the original note were not included. Subjective Patient ID: Albina Cameron is a 58 y.o. female who presents for Follow-up (3m f/u). Follow up DM, HTN, depression, anxiety, and DUKE. Reports BS elevated around 200 and unchanged over past few months. A1C 6.5 in November. Tries to eat well and stick to ADA diet. Denies signs of elevated BS such as polyuria, polyphagia or polydipsia. Checking BP PRN and typically controlled. BP normal today. Taking medication daily and tolerating without side effects. Mood controlled with medications. Not down or sad and feels happier. Interacting well with others. Anxiety stable. Not as stressed out or overwhelmed. Not as nervous or worry as much. Not as bangura or irritable. Using ativan PRN and helps when needed. DUKE controlled with CPAP. Using machine nightly for entire time asleep, typically 6-8 hours. Sleeping well and not waking up as much during night. Rested in am and not as tired during day. Review of Systems Respiratory: Negative for cough, shortness of breath and wheezing. Cardiovascular: Negative for chest pain and palpitations. Gastrointestinal: Negative for abdominal pain, diarrhea, nausea and vomiting. Genitourinary: Negative for dysuria. Objective Physical Exam Constitutional: General: She is not in acute distress. Appearance: Normal appearance. HENT: Head: Normocephalic. Right Ear: Tympanic membrane normal. Left Ear: Tympanic membrane normal. Eyes: Extraocular Movements: Extraocular movements intact. Pupils: Pupils are equal, round, and reactive to light. Cardiovascular: Rate and Rhythm: Normal rate and regular rhythm. Heart sounds: No murmur heard. No friction rub. No gallop. Pulmonary: Effort: Pulmonary effort is normal. Breath sounds: Normal breath sounds. No wheezing, rhonchi or rales. Abdominal: General: Bowel sounds are normal. There is no distension. Palpations: Abdomen is soft. Tenderness: There is no abdominal tenderness. There is no guarding or rebound. Musculoskeletal: Cervical back: Neck supple. Right lower leg: No edema. Left lower leg: No edema. Neurological: Mental Status: She is alert. Assessment/Plan Problem List Items Addressed This Visit Benign essential hypertension (CMS/HCC) BP controlled and monitor PRN. Generalized anxiety disorder (CMS/HCC) Symptoms controlled with medication and continue. Use ativan PRN. Mild recurrent major depression (HCC) (CMS/HCC) Symptoms controlled with medication and continue. Type 2 diabetes mellitus with hyperglycemia, without long-term current use of insulin (CMS/HCC) - Primary Reports BS elevated and monitor daily. Stick to ADA diet and limit carbs. Relevant Orders Hemoglobin A1c DUKE (obstructive sleep apnea) Sleeping well with CPAP and continue. Patient is benefiting from PAP therapy. Other Visit Diagnoses Breast cancer screening by mammogram Relevant Orders Bilateral screening mammogram documented in this encounter [facility] 03-04-2024 Note Patient Education Ma terials Follows: Elastic Bandage and RICE Therapy Elastic bandages come in different shapes and sizes. They generally provide support to your injury and reduce swelling while you are healing, but they can perform different functions. Your health care provider will help you decide what is best for your protection, recovery, or rehabilitation after an injury. The routine care of many injuries includes rest, ice, compression, and elevation (RICE therapy). RICE therapy is often recommended for injuries to soft tissues, such as muscle strain, sprains, bruises, and overuse injuries. It can also be used for some bone injuries. Using RICE therapy can help to relieve pain and lessen swelling. General tips ? Use the bandage as directed by the maker of the bandage that you are using. Follow instructions on the package that the bandage came in. ? Do not wrap the bandage too tightly. This may block (cut off) the circulation in the arm or leg in the area below the bandage. ? If part of your body beyond the bandage becomes blue, numb, cold, swollen, or more painful, your bandage is probably too tight. If this occurs, remove your bandage and reapply it more loosely. ? Remove and reapply an elastic bandage every 3?4 hours or as told by your health care provider. ? See your health care provider if the bandage seems to be making your problems worse rather than better. Supplies needed: ? Ice. ? Plastic bag. ? Towel. ? Elastic bandage. ? Pillow or pillows to raise (elevate) the injured body part. How to care for your injury with RICE therapy Rest Rest your injured area. This may help with the healing process. Rest usually involves limiting your normal activities and not using the injured part of your body. Generally, you can return to your normal activities when your health care provider says it is okay and when you can do them without much discomfort. If you rest the injury too much, it may not heal as well. Some injuries heal better with early movement instead of resting for too long. Talk with your health care provider about how long you should limit your activities and whether you should start [id number] exercises for your injury. Ice ? If directed, put ice on the injured area. To do this: ? Put ice in a plastic bag. ? Place a towel between your skin and the bag. ? Leave the ice on for 20 minutes, 2?3 times a day. ? Remove the ice if your skin turns bright red. This is very important. If you cannot feel pain, heat, or cold, you have a greater risk of damage to the area. ? Putting ice on your injury can help to lessen swelling and pain. Do not apply ice directly to your skin. Use ice on as many days as told by your health care provider. Compression Putting pressure (compression) on your injured area with an elastic bandage is part of RICE therapy. Compression can help control swelling, give support, and help with discomfort. Elevation Elevate the injured area above the level of your heart while you are sitting or lying down. Follow these instructions at home: ? If your symptoms get worse or continue, make a follow-up appointment with your health care provider. Having these problems may mean that you need further evaluation or imaging tests, such as X-rays or an MRI. ? If you have imaging tests, it is up to you to get the results of your tests. Ask your health care provider, or the department that is doing the tests, when your results will be ready. ? Return to your normal activities as told by your health care provider. Ask your health care provider what activities are safe for you. ? Keep all follow-up visits. This is important. Contact a health care provider if: ? Your pain and swelling continue. ? Your symptoms are getting worse rather than improving. Get help right away if: ? You have sudden, severe pain at or below the area of your injury. ? You have redness or increased swelling around your injury. ? You have tingling or numbness at or below the area of your injury and it does not improve after you remove the elastic bandage. Summary ? Elastic bandages provide support to your injury and reduce swelling while you are healing. ? Your health care provider will help you decide which type of elastic bandage is best for your injury. ? Do not wrap the bandage too tightly. This may block (cut off) the circulation in the arm or leg in the area below the bandage. ? Putting pressure (compression) on your injured area with an elastic bandage is part of RICE therapy. RICE therapy includes rest, ice, compression, and elevation. This information is not intended to replace advice given to you by your health care provider. Make sure you discuss any questions you have with your health care provider. Document Revised: 03/11/2021 Document Reviewed: 03/11/2021 The American Academy Patient Education ? 2023 [employer]. [facility] 01-10-2024 Note Patient Education Ma terials Follows:and Gynecology Urinary Tract Infection, Adult A urinary tract infection (UTI) is an infection of any part of the urinary tract. The urinary tract includes the kidneys, ureters, bladder, and urethra. These organs make, store, and get rid of urine in the body. An upper UTI affects the ureters and kidneys. A lower UTI affects the bladder and urethra. What are the causes? Most urinary tract infections are caused by bacteria in your genital area around your urethra, where urine leaves your body. These bacteria grow and cause inflammation of your urinary tract. What increases the risk? You are more likely to develop this condition if: ? You have a urinary catheter that stays in place. ? You are not able to control when you urinate or have a bowel movement (incontinence). ? You are female and you: ? Use a spermicide or diaphragm for control. ? Have low estrogen levels. ? Are . ? You have certain genes that increase your risk. ? You are sexually active. ? You take antibiotic medicines. ? You have a condition that causes your flow of urine to slow down, such as: ? An enlarged prostate, if you are male. ? Blockage in your urethra. ? A kidney stone. ? A nerve condition that affects your bladder control (neurogenic bladder). ? Not getting enough to drink, or not urinating often. ? You have certain medical conditions, such as: ? Diabetes. ? A weak disease-fighting system (immunesystem). ? Sickle cell disease. ? Gout. ? Spinal cord injury. What are the signs or symptoms? Symptoms of this condition include: ? Needing to urinate right away (urgency). ? Frequent urination. This may include small amounts of urine each time you urinate. ? Pain or burning with urination. ? Blood in the urine. ? Urine that smells bad or unusual. ? Trouble urinating. ? Cloudy urine. ? Vaginal discharge, if you are female. ? Pain in the abdomen or the lower back. You may also have: ? Vomiting or a decreased appetite. ? Confusion. ? Irritability or tiredness. ? A fever or chills. ? Diarrhea. The first symptom in older adults may be confusion. In some cases, they may not have any symptoms until the infection has worsened. How is this diagnosed? This condition is diagnosed based on your medical history and a physical exam. You may also have other tests, including: ? Urine tests. ? Blood tests. ? Tests for STIs (sexually transmitted infections). If you have had more than one UTI, a cystoscopy or imaging studies may be done to determine the cause of the infections. How is this treated? Treatment for this condition includes: ? Antibiotic medicine. ? Byni-uqh-sbqphjw medicines to treat discomfort. ? Drinking enough water to stay hydrated. If you have frequent infections or have other conditions such as a kidney stone, you may need to see a health care provider who specializes in the urinary tract (urologist). In rare cases, urinary tract infections can cause sepsis. Sepsis is a life-threatening condition that occurs when the body responds to an infection. Sepsis is treated in the hospital with IV antibiotics, fluids, and other medicines. Follow these instructions at home: Medicines ? Take stpk-cwg-agqkwxq and prescription medicines only as told by your health care provider. ? If you were prescribed an antibiotic medicine, take it as told by your health care provider. Do not stop using the antibiotic even if you start to feel better. General instructions ? Make sure you: ? Empty your bladder often and completely. Do not hold urine for long periods of time. ? Empty your bladder after sex. ? Wipe from front to back after urinating or having a bowel movement if you are female. Use each tissue only one time when you wipe. ? Drink enough fluid to keep your urine pale yellow. ? Keep all follow-up visits. This is important. Contact a health care provider if: ? Your symptoms do not get better after 1?2 days. ? Your symptoms go away and then return. Get help right away if: ? You have severe pain in your back or your lower abdomen. ? You have a fever or chills. ? You have nausea or vomiting. Summary ? A urinary tract infection (UTI) is an infection of any part of the urinary tract, which includes the kidneys, ureters, bladder, and urethra. ? Most urinary tract infections are caused by bacteria in your genital area. ? Treatment for this condition often includes antibiotic medicines. ? If you were prescribed an antibiotic medicine, take it as told by your health care provider. Do not stop using the antibiotic even if you start to feel better. ? Keep all follow-up visits. This is important. This information is not intended to replace advice given to you by your health care provider. Make sure you discuss any questions you have with your health care provider. Document Revised: (more content not included)... [facility] 09-20-2023 Hospital Discharge instructions Patient Education 09/20/2023 15:52:04 Overactive Bladder, Adult Overactive Bladder, Adult Overactive bladder is a condition in which a person has a sudden and frequent need to urinate. A person might also leak urine if he or she cannot get to the bathroom fast enough (urinary incontinence). Sometimes, symptoms can interfere with work or social activities. What are the causes? Overactive bladder is associated with poor nerve signals between your bladder and your brain. Your bladder may get the signal to empty before it is full. You may also have very sensitive muscles that make your bladder squeeze too soon. This condition may also be caused by other factors, such as: Medical conditions: ?Urinary tract infection. ?Infection of nearby tissues. ?Prostate enlargement. ?Bladder stones, inflammation, or tumors. ?Diabetes. ?Muscle or nerve weakness, especially from these conditions: ?A spinal cord injury. ?Stroke. ?Multiple sclerosis. ?Parkinson's disease. Other causes: ?Surgery on the uterus or urethra. ?Drinking too much caffeine or alcohol. ?Certain medicines, especially those that eliminate extra fluid in the body (diuretics). ?Constipation. What increases the risk? You may be at greater risk for overactive bladder if you: Are an older adult. Smoke. Are going through menopause. Have prostate problems. Have a neurological disease, such as stroke, dementia, Parkinson's disease, or multiple sclerosis (MS). Eat or drink alcohol, spicy food, caffeine, and other things that irritate the bladder. Are overweight or obese. What are the signs or symptoms? Symptoms of this condition include a sudden, strong urge to urinate. Other symptoms include: Leaking urine. Urinating 8 or more times a day. Waking up to urinate 2 or more times overnight. How is this diagnosed? This condition may be diagnosed based on: Your symptoms and medical history. A physical exam. Blood or urine tests to check for possible causes, such as infection. You may also need to see a health care provider who specializes in urinary tract problems. This is called a urologist. How is this treated? Treatment for overactive bladder depends on the cause of your condition and whether it is mild or severe. Treatment may include: Bladder training, such as: ?Learning to control the urge to urinate by following a schedule to urinate at regular intervals. ?Doing Kegel exercises to strengthen the pelvic floor muscles that support your bladder. Special devices, such as: ?Biofeedback. This uses sensors to help you become aware of your body's signals. ?Electrical stimulation. This uses electrodes placed inside the body (implanted) or outside the body. These electrodes send gentle pulses of electricity to strengthen the nerves or muscles that control the bladder. ?Women may use a plastic device, called a pessary, that fits into the vagina and supports the bladder. Medicines, such as: ?Antibiotics to treat bladder infection. ?Antispasmodics to stop the bladder from releasing urine at the wrong time. ?Tricyclic antidepressants to relax bladder muscles. ?Injections of botulinum toxin type A directly into the bladder tissue to relax bladder muscles. Surgery, such as: ?A device may be implanted to help manage the nerve signals that control urination. ?An electrode may be implanted to stimulate electrical signals in the bladder. ?A procedure may be done to change the shape of the bladder. This is done only in very severe cases. Follow these instructions at home: Eating and drinking Make diet or lifestyle changes recommended by your health care provider. These may include: ?Drinking fluids throughout the day and not only with meals. ?Cutting down on caffeine or alcohol. ?Eating a healthy and balanced diet to prevent constipation. This may include: ?Choosing foods that are high in fiber, such as beans, whole grains, and fresh fruits and vegetables. ?Limiting foods that are high in fat and processed sugars, such as fried and sweet foods. Lifestyle Lose weight if needed. Do not use any products that contain nicotine or tobacco. These include cigarettes, chewing tobacco, and vaping devices, such as e-cigarettes. If you need help quitting, ask your health care provider. General instructions Take hwzv-fak-hwuhnml and prescription medicines only as told by your health care provider. If you were prescribed an antibiotic medicine, take it as told by your health care provider. Do not stop taking the antibiotic even if you start to feel better. Use any implants or pessary as told by your health care provider. If needed, wear pads to absorb urine leakage. Keep a log to track how much and when you drink, and when you need to urinate. This will help your health care provider monitor your condition. Keep all follow-up visits. This is important. Contact a health care provider if: You have a fever or chills. Your symptoms do not get better with treatment. Your pain and discomfort get worse. You have more frequent urges to urinate. Get help right away if: You are not able to control your bladder. Summary Overactive bladder refers to a condition in which a person has a sudden and frequent need to urinate. Several conditions may lead to an overactive bladder. Treatment for overactive bladder depends on the cause and severity of your condition. Making lifestyle changes, doing Kegel exercises, keeping a log, and taking medicines can help with this condition. This information is not intended to replace advice given to you by your health care provider. Make sure you discuss any questions you have with your health care provider. Document Revised: 02/08/2021 Document Reviewed: 02/08/2021 The American Academy Patient Education 2022 WorkThink. Follow Up Care 07/24/2023 11:07:01 With:KENIA VANN PA-C, URL Address: [place] [address] [phone] When: Unknown [facility] 07-24-2023 Evaluation + Plan note Extrac smitha from: Title:EU - Clinic HOPD Note Author:Rosemary Jamil MD. Date:07/24/23 Impression and Plan Assessment and Plan: Diagnosis: Vaginal atrophy ([id number] N95.2, Discharge, Medical), Urge incontinence ([id number] N39.41, Discharge, Medical). 57-year-old female here for Botox for urge incontinence Noted to have severe vaginal atrophy on last Botox, again today. Noted to have intermittent dysuria despite negative cultures based on prior clinic notes. We discussed presence of vaginal atrophy. I explained the lack of estrogen secondary to menopause causes changes in the vaginal epithelium that can predispose to lower urinary tract symptoms, vaginal discomfort, urge urinary incontinence, urgency, frequency, nocturia, dyspareunia, and recurrent urinary tract infections. This can be treated with topical application of estrogen to the vagina, which has been shown to reduce frequency of UTIs by up to 70%. She was reassured that there is minimal systemic absorption with application of vaginal estrogen cream and most of the benefits will be to the local tissues. -Start estrace cream. Patient was told to apply a pea-sized amount 3 times weekly at night for 4 weeks and then 2 times per week thereafter, may take up to 3 months for full effect. She should stop medication and notify us if she feels breast tenderness or has vaginal spotting. -Follow up in 1-2 months Future Appointments Appointment Date:09/20/2023 03:20:00 PM Scheduled Provider:KENIA VANN PA-C Location:[facility] Appointment Type:URO Office Visit [facility]02-19-2024 Hospital Discharge instructions Patient Education 07/24/2023 11:03:43 EU - Cystoscopy with Botox Injection Discharge Instructions (CUSTOM) Cystoscopy with Botox injection Voiding after the procedure: there may be some pain, burning, urgency, frequency and blood tinged urine following the procedure. These symptoms usually resolve within 2-5 days. Drink the amount of fluid it takes to keep the urine pink to yellow or clear in color. Drinking enough water and fluids will help to ease any discomfort after your procedure. It may take a few days to a week to notice a gradual improvement in the overactive bladder symptoms. If you are having problems that seem out of the ordinary, please call. If unable to contact your physician and you feel it is an emergency, go to the nearest emergency room or call 911 Do not lift more than fifteen pounds for 1-2 days. If you see a lot of blood, you probably did too much. Diet you may resume your normal diet. Pain control You may take extra strength Tylenol or Motrin for discomfort. Call if you have a fever over 100 degrees. Follow Up Care 07/18/2023 11:20:59 With:KENIA VANN Address: [address] [place] [phone] Business (1) When: Unknown Comments:Office to schedule follow up in 1-2 months with [facility]02-19-2024 Note [id number] NoteCystoscopy with Botox injection ? Voiding after the procedure: there may be some pain, burning, urgency, frequency and blood tingedurine following the procedure. These symptoms usually resolve within 2-5 days. Drink the amount of fluid it takes to keep the urine pink to yellow or clear in color. Drinking enough water and fluids will help to ease any discomfort after your procedure. ? It may take a few days to a week to notice a gradual improvement in the overactive bladder symptoms. ? If you are having problems that seem out of the ordinary, please call. ? If unable to contact your physician and you feel it is an emergency, go to the nearest emergency room or call 911 ? Do not lift more than fifteen pounds for 1-2 days. If you see a lot of blood, you probably did too much. ? Diet ? you may resume your normal diet. ? Pain control ? You may take extra strength Tylenol or Motrin for discomfort. ? Call if you have a fever over 100 degrees.[facility] 06-28-2023 Evaluation + Plan note Diagnostic Tests Pending * Urine Culture 06/28/23 [facility]12-20-2022 Hospital Discharge instructions Patient Education 05/24/2022 10:18:47 Post Op Patient Instructions - FT (CUSTOM) 05/24/2022 09:28:03 Lipoma Removal, Care After Lipoma Removal, Care After Refer to this sheet in the next few weeks. These instructions provide you with information about caring for yourself after your procedure. Your health care provider may also give you more specific instructions. Your treatment has been planned according to current medical practices, but problems sometimes occur. Call your health care provider if you have any problems or questions after your procedure. What can I expect after the procedure? After the procedure, it is common to have: Mild pain. Swelling. Bruising. Follow these instructions at home: Bathing Do not take baths, swim, or use a hot tub until your health care provider approves. Ask your healthcare provider if you can take showers. You may only be allowed to take sponge baths for bathing. Keep your bandage (dressing) dry until your health care provider says it can be removed. Incision care Follow instructions from your health care provider about how to take care of your incision. Make sure you: ?Wash your hands with soap and water before you change your bandage (dressing). If soap and water are not available, use hand chimney repairer. ?Change your dressing as told by your health care provider. ?Leave stitches (sutures), skin glue, or adhesive strips in place. These skin closures may need to stay in place for 2 weeks or longer. If adhesive strip edges start to loosen and curl up, you may trim the loose edges. Do not remove adhesive strips completely unless your health care provider tells you to do that. Check your incision area every day for signs of infection. Check for: ?More redness, swelling, or pain. ?Fluid or blood. ?Warmth. ?Pus or a bad smell. Driving Do not drive or operate heavy machinery while taking prescription pain medicine. Do not drive for 24 hours if you received a medicine to help you relax (sedative) during your procedure. Ask your health care provider when it is safe for you to drive. General instructions Take cpdw-ooh-xhgprfd and prescription medicines only as told by your health care provider. Do not use any tobacco products, such as cigarettes, chewing tobacco, and e- cigarettes. These can delay healing. If you need help quitting, ask your health care provider. Return to your normal activities as told by your health care provider. Ask your health care provider what activities are safe for you. Keep all follow-up visits as told by your health care provider. This is important. Contact a health care provider if: You have more redness, swelling, or pain around your incision. You have fluid or blood coming from your incision. Your incision feels warm to the touch. You have pus or a bad smell coming from your incision. You have pain that does not get better with medicine. Get help right away if: You have chills or a fever. You have severe pain. This information is not intended to replace advice given to you by your health care provider. Make sure you discuss any questions you have with your health care provider. Document Released: 08/04/2016 Document Revised: 01/12/2017 Document Reviewed: 08/04/2016 The American Academy Patient Education 2020 [employer]Think. Follow Up Care 04/18/2022 16:01:25 With:Hung Huff Address: [facility] [address] [phone] Business (1) When:06/07/2022 09:22:00 Comments:Call for followup appointment [facility]11-14-2022 Hospital Discharge instructions Patient Education 04/18/2022 15:50:16 Obesity, Adult Obesity, Adult Obesity is the condition of having too much total body fat. Being overweight or obese means that your weight is greater than what is considered healthy for your body size. Obesity is determined by a measurement called BMI. BMI is an estimate of body fat and is calculated from height and weight. Foradults, a BMI of 30 or higher is considered obese. Obesity can lead to other health concerns and major illnesses, including: Stroke. Coronary artery disease (CAD). Type 2 diabetes. Some types of cancer, including cancers of the colon, breast, uterus, and gallbladder. Osteoarthritis. High blood pressure (hypertension). High cholesterol. Sleep apnea. Gallbladder stones. Infertility problems. What are the causes? Common causes of this condition include: Eating daily meals that are high in calories, sugar, and fat. Being born with genes that may make you more likely to become obese. Having a medical condition that causes obesity, including: ?Hypothyroidism. ?Polycystic ovarian syndrome (PCOS). ?Binge-eating disorder. ?[place] syndrome. Taking certain medicines, such as steroids, antidepressants, and seizure medicines. Not being physically active (sedentary lifestyle). Not getting enough sleep. Drinking high amounts of sugar-sweetened beverages, such as soft drinks. What increases the risk? The following factors may make you more likely to develop this condition: Having a family history of obesity. Being a woman of descent. Being a man of descent. Living in an area with limited access to: ?[place], recreation centers, or sidewalks. ?Healthy food choices, such as grocery stores and [employer]. What are the signs or symptoms? The main sign of this condition is having too much body fat. How is this diagnosed? This condition is diagnosed based on: Your BMI. If you are an adult with a BMI of 30 or higher, you are considered obese. Your waist circumference. This measures the distance around your waistline. Your skinfold thickness. Your health care provider may gently pinch a fold of your skin and measureit. You may have other tests to check for underlying conditions. How is this treated? Treatment for this condition often includes changing your lifestyle. Treatment may include some or all of the following: Dietary changes. This may include developing a healthy meal plan. Regular physical activity. This may include activity that causes your heart to beat faster (aerobicexercise) and strength training. Work with your health care provider to design an exercise program that works for you. Medicine to help you lose weight if you are unable to lose 1 pound a week after 6 weeks of healthy eating and more physical activity. Treating conditions that cause the obesity (underlying conditions). Surgery. Surgical options may include gastric banding and gastric bypass. Surgery may be done if: ?Other treatments have not helped to improve your condition. ?You have a BMI of 40 or higher. ?You have life-threatening health problems related to obesity. Follow these instructions at home: Eating and drinking Follow recommendations from your health care provider about what you eat and drink. Your health care provider may advise you to: ?Limit fast food, sweets, and processed snack foods. ?Choose low-fat options, such as low-fat milk instead of whole milk. ?Eat 5 or more servings of fruits or vegetables every day. ?Eat at home more often. This gives you more control over what you eat. ?Choose healthy foods when you eat out. ?Learn to read food labels. This will help you understand how much food is considered 1 serving. ?Learn what a healthy serving size is. ?Keep low-fat snacks available. ?Limit sugary drinks, such as soda, fruit juice, sweetened iced tea, and flavored milk. Drink enough water to keep your urine pale yellow. Do not follow a fad diet. Fad diets can be unhealthy and even dangerous. Physical activity Exercise regularly, as told by your health care provider. ?Most adults should get up to 150 minutes of moderate-intensity exercise every week. ?Ask your health care provider what types of exercise are safe for you and how often you should exercise. Warm up and stretch before being active. Cool down and stretch after being active. Rest between periods of activity. Lifestyle Work with your health care provider and a dietitian to set a weight-loss goal that is healthy and reasonable for you. Limit your screen time. Find ways to reward yourself that do not involve food. Do not drink alcohol if: ?Your health care provider tells you not to drink. ?You are , may be , or are planning to become . If you drink alcohol: ?Limit how much you use to: ?0 1 drink a day for women. ?0 2 drinks a day for men. ?Be aware of how much alcohol is in your drink. In the [place] one drink equals one 12 oz bottle of beer (355 mL), one 5 oz glass of wine (148 mL), or one 1 oz glass of hard liquor (44 mL). General instructions Keep a weight-loss journal to keep track of the food you eat and how much exercise you get. Take [id number] and prescription medicines only as told by your health care provider. Take vitamins and supplements only as told by your health care provider. Consider joining a support group. Your health care provider may be able to recommend a support group. Keep all follow-up visits as told by your health care provider. This is important. Contact a health care provider if: You are unable to meet your weight loss goal after 6 weeks of dietary and lifestyle changes. Get help right away if you are having: Trouble breathing. Suicidal thoughts or behaviors. Summary Obesity is the condition of having too much total body fat. Being overweight or obese means that your weight is greater than what is considered healthy for your body size. Work with your health care provider and a dietitian to set a weight-loss goal that is healthy and reasonable for you. Exercise regularly, as told by your health care provider. Ask your health care provider what types of exercise are safe for you and how often you should exercise. This information is not intended to replace advice given to you by your health care provider. Make sure you discuss any questions you have with your health care provider. Document Released: 06/29/2005 Document Revised: 01/24/2019 Document Reviewed: 01/24/2019 [employer] Patient Education 2020 [employer]. [facility] [id number] Evaluation + Plan note Diagnostic Tests Pending * [facility]ments Appointment Date:05/19/2022 03:30:00 PM Scheduled Provider: Location:[facility] Appointment Type:Surgical PAT FT Appointment Date:05/24/2022 08:00:00 AM Scheduled Provider: Location:[facility] Appointment Type:Surgery FT [facility] Evaluation + Plan note Future Appointments Appointment Date:05/24/2022 08:00:00 AM Scheduled Provider: Location:[facility] Future Appointments Appointment Date:06/03/2022 11:30:00 AM Scheduled Provider:Hung Huff MD Location:[facility] Future Appointments Appointment Date:07/19/2023 10:00:00 AM Scheduled Provider: Location:[facility] Appointment Type:Urology CALL PAT FT Appointment Date:07/24/2023 10:00:00 AM Scheduled Provider: Location:[facility] Appointment Type:Urology FT Diagnostic Tests Pending * [facility]rine [facility] Future Appointments Appointment Date:07/19/2023 10:00:00 AM Scheduled Provider: Location:[facility] Appointment Type:Urology CALL PAT FT Appointment Date:07/24/2023 10:00:00 AM Scheduled Provider: Location:[facility] Appointment Type:Urology FT [facility] Evaluation + Plan note Future Appointments Appointment Date:06/13/2024 01:00:00 PM Scheduled Provider:Rosemary Jamil MD Location:[facility] Appointment Type:URO Office Visit [facility] Evaluation + Plan note Future Appointments Appointment Date:06/13/2024 01:00:00 PM Scheduled Provider:Rosemary Jamil MD Location:[facility] Appointment Type:URO Office Visit Diagnostic Tests Pending * [facility]rine [facility] Diagnosis Type 2 diabetes mellitus with hyperglycemia, without long-term current use of insulin ([facility])- Primary Benign essential hypertension (CMS/HCC) Essential hypertension, benign Mild recurrent major depression (HCC) ([facility]/HCC) Major depressive disorder, recurrent episode, mild Generalized anxiety disorder ([facility]/HCC) Generalized anxiety disorder DUKE (obstructive sleep apnea) Obstructive sleep apnea (adult) (pediatric) Breast cancer screening by mammogram Sprain of anterior talofibular ligament of right ankle, initial encounter- Primary Closed nondisplaced fracture of proximal phalanx of lesser toe of right foot, initial encounter Contracture of right ankle documented in this encounter [facility]* Diagnosis Closed nondisplaced fracture of proximal phalanx of lesser toe of right foot, initial encounter- Primary Contracture of right ankle documented in this encounter [facility]* Diagnosis Type 2 diabetes mellitus with hyperglycemia, without long-term current use of insulin (CMS/HCC)- Primary Benign essential hypertension (CMS/HCC) Essential hypertension, benign Major depressive disorder, recurrent episode, mild (HCC) ([facility]/HCC) Major depressive disorder, recurrent episode, mild Generalized anxiety disorder (CMS/HCC) Generalized anxiety disorder Gastroesophageal reflux disease without esophagitis Esophageal reflux DUKE (obstructive sleep apnea) Obstructive sleep apnea (adult) (pediatric) Type 2 diabetes mellitus with hyperglycemia, without long-term current use of insulin (CMS/HCC)- Primary Benign essential hypertension (CMS/HCC) Essential hypertension, benign Major depressive disorder, recurrent episode, moderate degree (CMS/HCC) Major depressive disorder, recurrent episode, moderate Generalized anxiety disorder (CMS/HCC) Generalized anxiety disorder DUKE (obstructive sleep apnea) Obstructive sleep apnea (adult) (pediatric) Gastroesophageal reflux disease without esophagitis Esophageal reflux Annual physical exam Routine general medical examination at [facility] Type 2 diabetes mellitus with hyperglycemia, without long-term current use of insulin (CMS/HCC)- Primary Benign essential hypertension (CMS/HCC) Essential hypertension, benign Acute UTI Urinary tract infection, site not specified Mild recurrent major depression (HCC) (CMS/HCC) Major depressive disorder, recurrent episode, mild Generalized anxiety disorder (CMS/HCC) Generalized anxiety disorder DUKE (obstructive sleep apnea) Obstructive sleep apnea (adult) (pediatric) Body mass index (BMI) 37.0-37.9, adult Type 2 diabetes mellitus with other diabetic kidney complication (CMS/HCC) Type 2 diabetes mellitus with hyperglycemia, without long-term current use of insulin (CMS/HCC)- Primary Benign essential hypertension (CMS/HCC) Essential hypertension, benign Mild recurrent major depression (HCC) (CMS/HCC) Major depressive disorder, recurrent episode, mild Generalized anxiety disorder (CMS/HCC) Generalized anxiety disorder DUKE (obstructive sleep apnea) Obstructive sleep apnea (adult) (pediatric) Breast cancer screening by mammogram Closed nondisplaced fracture of proximal phalanx of lesser toe of right foot, initial encounter- Primary Contracture of right ankle documented in this encounter [facility]* Diagnosis Type 2 diabetes mellitus with hyperglycemia, without long-term current use of insulin (CMS/HCC)- Primary Benign essential hypertension (CMS/HCC) Essential hypertension, benign Major depressive disorder, recurrent episode, mild (HCC) (CMS/HCC) Major depressive disorder, recurrent episode, mild Generalized anxiety disorder (CMS/HCC) Generalized anxiety disorder Gastroesophageal reflux disease without esophagitis Esophageal reflux DUKE (obstructive sleep apnea) Obstructive sleep apnea (adult) (pediatric) Type 2 diabetes mellitus with hyperglycemia, without long-term current use of insulin (CMS/HCC)- Primary Benign essential hypertension (CMS/HCC) Essential hypertension, benign Major depressive disorder, recurrent episode, moderate degree (CMS/HCC) Major depressive disorder, recurrent episode, moderate Generalized anxiety disorder (CMS/HCC) Generalized anxiety disorder DUKE (obstructive sleep apnea) Obstructive sleep apnea (adult) (pediatric) Gastroesophageal reflux disease without esophagitis Esophageal reflux Annual physical exam Routine general medical examination at a [facility] care facility Type 2 diabetes mellitus with hyperglycemia, without long-term current use of insulin (CMS/HCC)- Primary Benign essential hypertension (CMS/HCC) Essential hypertension, benign Acute UTI Urinary tract infection, site not specified Mild recurrent major depression (HCC) (CMS/HCC) Major depressive disorder, recurrent episode, mild Generalized anxiety disorder (CMS/HCC) Generalized anxiety disorder DUKE (obstructive sleep apnea) Obstructive sleep apnea (adult) (pediatric) Body mass index (BMI) 37.0-37.9, adult Type 2 diabetes mellitus with other diabetic kidney complication (CMS/HCC) Type 2 diabetes mellitus with hyperglycemia, without long-term current use of insulin (CMS/HCC)- Primary Benign essential hypertension (CMS/HCC) Essential hypertension, benign Mild recurrent major depression (HCC) (CMS/HCC) Major depressive disorder, recurrent episode, mild Generalized anxiety disorder (CMS/HCC) Generalized anxiety disorder DUKE (obstructive sleep apnea) Obstructive sleep apnea (adult) (pediatric) Breast cancer screening by mammogram Closed nondisplaced fracture of proximal phalanx of lesser toe of right foot, initial encounter- Primary Contracture of right ankle Closed nondisplaced fracture of proximal phalanx of lesser toe of right foot, initial encounter- Primary Contracture of right ankle documented in this encounter [facility]* Diagnosis Type 2 diabetes mellitus with hyperglycemia, without long-term current use of insulin (CMS/[facility])- Primary Benign essential hypertension (CMS/HCC) Essential hypertension, benign Major depressive disorder, recurrent episode, mild (HCC) (CMS/HCC) Major depressive disorder, recurrent episode, mild Generalized anxiety disorder (CMS/HCC) Generalized anxiety disorder Gastroesophageal reflux disease without esophagitis Esophageal reflux DUKE (obstructive sleep apnea) Obstructive sleep apnea (adult) (pediatric) Type 2 diabetes mellitus with hyperglycemia, without long-term current use of insulin (CMS/HCC)- Primary Benign essential hypertension (CMS/HCC) Essential hypertension, benign Major depressive disorder, recurrent episode, moderate degree (CMS/HCC) Major depressive disorder, recurrent episode, moderate Generalized anxiety disorder (CMS/HCC) Generalized anxiety disorder DUKE (obstructive sleep apnea) Obstructive sleep apnea (adult) (pediatric) Gastroesophageal reflux disease without esophagitis Esophageal reflux Annual physical exam Routine general medical examination at a health care facility Type 2 diabetes mellitus with hyperglycemia, without long-term current use of insulin (CMS/[facility])- Primary Benign essential hypertension (CMS/HCC) Essential hypertension, benign Acute UTI Urinary tract infection, site not specified Mild recurrent major depression (HCC) (CMS/HCC) Major depressive disorder, recurrent episode, mild Generalized anxiety disorder (CMS/HCC) Generalized anxiety disorder DUKE (obstructive sleep apnea) Obstructive sleep apnea (adult) (pediatric) Body mass index (BMI) 37.0-37.9, adult Type 2 diabetes mellitus with other diabetic kidney complication ([facility]) Type 2 diabetes mellitus with hyperglycemia, without long-term current use of insulin ([facility])- Primary Benign essential hypertension (CMS/HCC) Essential hypertension, benign Mild recurrent major depression (HCC) ([facility]) Major depressive disorder, recurrent episode, mild Generalized anxiety disorder (CMS/HCC) Generalized anxiety disorder DUKE (obstructive sleep apnea) Obstructive sleep apnea (adult) (pediatric) Breast cancer screening by mammogram Closed nondisplaced fracture of proximal phalanx of lesser toe of right foot, initial encounter- Primary Contracture of right ankle documented in this encounter [facility] HealthcareEvaluation note* Diagnosis Type 2 diabetes mellitus with hyperglycemia, without long-term current use of insulin ([facility])- Primary Benign essential hypertension (CMS/HCC) Essential hypertension, benign Major depressive disorder, recurrent episode, mild (HCC) ([facility]) Major depressive disorder, recurrent episode, mild Generalized anxiety disorder ([facility]/HCC) Generalized anxiety disorder Gastroesophageal reflux disease without esophagitis Esophageal reflux DUKE (obstructive sleep apnea) Obstructive sleep apnea (adult) (pediatric) Type 2 diabetes mellitus with hyperglycemia, without long-term current use of insulin ([facility])- Primary Benign essential hypertension (CMS/HCC) Essential hypertension, benign Major depressive disorder, recurrent episode, moderate degree (CMS/HCC) Major depressive disorder, recurrent episode, moderate Generalized anxiety disorder (CMS/HCC) Generalized anxiety disorder DUKE (obstructive sleep apnea) Obstructive sleep apnea (adult) (pediatric) Gastroesophageal reflux disease without esophagitis Esophageal reflux Annual physical exam Routine general medical examination at a health care facility Type 2 diabetes mellitus with hyperglycemia, without long-term current use of insulin (CMS/[facility])- Primary Benign essential hypertension (CMS/HCC) Essential hypertension, benign Acute UTI Urinary tract infection, site not specified Mild recurrent major depression (HCC) (CMS/HCC) Major depressive disorder, recurrent episode, mild Generalized anxiety disorder (CMS/HCC) Generalized anxiety disorder DUKE (obstructive sleep apnea) Obstructive sleep apnea (adult) (pediatric) Body mass index (BMI) 37.0-37.9, adult Type 2 diabetes mellitus with other diabetic kidney complication (CMS/HCC) Type 2 diabetes mellitus with hyperglycemia, without long-term current use of insulin (CMS/HCC)- Primary Benign essential hypertension (CMS/HCC) Essential hypertension, benign Mild recurrent major depression (HCC) (CMS/HCC) Major depressive disorder, recurrent episode, mild Generalized anxiety disorder (CMS/HCC) Generalized anxiety disorder DUKE (obstructive sleep apnea) Obstructive sleep apnea (adult) (pediatric) Breast cancer screening by mammogram Type 2 diabetes mellitus with hyperglycemia, without long-term current use of insulin (CMS/HCC) documented in this encounter [facility]* Diagnosis Type 2 diabetes mellitus with hyperglycemia, without long-term current use of insulin (CMS/HCC)- Primary Benign essential hypertension (CMS/HCC) Essential hypertension, benign Major depressive disorder, recurrent episode, mild (HCC) (CMS/HCC) Major depressive disorder, recurrent episode, mild Generalized anxiety disorder (CMS/HCC) Generalized anxiety disorder Gastroesophageal reflux disease without esophagitis Esophageal reflux DUKE (obstructive sleep apnea) Obstructive sleep apnea (adult) (pediatric) Type 2 diabetes mellitus with hyperglycemia, without long-term current use of insulin (CMS/HCC)- Primary Benign essential hypertension (CMS/HCC) Essential hypertension, benign Major depressive disorder, recurrent episode, moderate degree (CMS/HCC) Major depressive disorder, recurrent episode, moderate Generalized anxiety disorder (CMS/HCC) Generalized anxiety disorder DUKE (obstructive sleep apnea) Obstructive sleep apnea (adult) (pediatric) Gastroesophageal reflux disease without esophagitis Esophageal reflux Annual physical exam Routine general medical examination at a health care facility Type 2 diabetes mellitus with hyperglycemia, without long-term current use of insulin (CMS/HCC)- Primary Benign essential hypertension (CMS/HCC) Essential hypertension, benign Acute UTI Urinary tract infection, site not specified Mild recurrent major depression (HCC) (CMS/HCC) Major depressive disorder, recurrent episode, mild Generalized anxiety disorder (CMS/HCC) Generalized anxiety disorder DUKE (obstructive sleep apnea) Obstructive sleep apnea (adult) (pediatric) Body mass index (BMI) 37.0-37.9, adult Type 2 diabetes mellitus with other diabetic kidney complication (CMS/HCC) Type 2 diabetes mellitus with hyperglycemia, without long-term current use of insulin (CMS/HCC)- Primary Benign essential hypertension (CMS/HCC) Essential hypertension, benign Mild recurrent major depression (HCC) (CMS/HCC) Major depressive disorder, recurrent episode, mild Generalized anxiety disorder (CMS/HCC) Generalized anxiety disorder DUKE (obstructive sleep apnea) Obstructive sleep apnea (adult) (pediatric) Breast cancer screening by mammogram Closed nondisplaced fracture of proximal phalanx of lesser toe of right foot, initial encounter- Primary documented in this encounter [facility]Evaluation note* Diagnosis Type 2 diabetes mellitus with hyperglycemia, without long-term current use of insulin (CMS/HCC)- Primary Benign essential hypertension (CMS/HCC) Essential hypertension, benign Major depressive disorder, recurrent episode, mild (HCC) (CMS/HCC) Major depressive disorder, recurrent episode, mild Generalized anxiety disorder (CMS/HCC) Generalized anxiety disorder Gastroesophageal reflux disease without esophagitis Esophageal reflux DUKE (obstructive sleep apnea) Obstructive sleep apnea (adult) (pediatric) Type 2 diabetes mellitus with hyperglycemia, without long-term current use of insulin (CMS/HCC)- Primary Benign essential hypertension (CMS/HCC) Essential hypertension, benign Major depressive disorder, recurrent episode, moderate degree (CMS/HCC) Major depressive disorder, recurrent episode, moderate Generalized anxiety disorder (CMS/HCC) Generalized anxiety disorder DUKE (obstructive sleep apnea) Obstructive sleep apnea (adult) (pediatric) Gastroesophageal reflux disease without esophagitis Esophageal reflux Annual physical exam Routine general medical examination at a health care facility Type 2 diabetes mellitus with hyperglycemia, without long-term current use of insulin (CMS/HCC)- Primary Benign essential hypertension (CMS/HCC) Essential hypertension, benign Acute UTI Urinary tract infection, site not specified Mild recurrent major depression (HCC) (CMS/HCC) Major depressive disorder, recurrent episode, mild Generalized anxiety disorder (CMS/HCC) Generalized anxiety disorder DUKE (obstructive sleep apnea) Obstructive sleep apnea (adult) (pediatric) Body mass index (BMI) 37.0-37.9, adult Type 2 diabetes mellitus with other diabetic kidney complication (CMS/HCC) Type 2 diabetes mellitus with hyperglycemia, without long-term current use of insulin (CMS/HCC)- Primary Benign essential hypertension (CMS/HCC) Essential hypertension, benign Mild recurrent major depression (HCC) (CMS/HCC) Major depressive disorder, recurrent episode, mild Generalized anxiety disorder ([facility]) Generalized anxiety disorder DUKE (obstructive sleep apnea) Obstructive sleep apnea (adult) (pediatric) Breast cancer screening by mammogram Closed nondisplaced fracture of proximal phalanx of lesser toe of right foot, initial encounter- Primary documented in this encounter [facility] HealthcareEvaluation note* Diagnosis Polyosteoarthritis, unspecified Gastro-esophageal reflux disease without esophagitis Esophageal reflux documented in this encounter [facility] HealthcareEvaluation note* Diagnosis Type 2 diabetes mellitus with hyperglycemia, without long-term current use of insulin ([facility])- Primary Benign essential hypertension ([facility]) Essential hypertension, benign Major depressive disorder, recurrent episode, mild (HCC) ([facility]) Major depressive disorder, recurrent episode, mild Generalized anxiety disorder ([facility]) Generalized anxiety disorder Gastroesophageal reflux disease without esophagitis Esophageal reflux DUKE (obstructive sleep apnea) Obstructive sleep apnea (adult) (pediatric) Type 2 diabetes mellitus with hyperglycemia, without long-term current use of insulin ([facility])- Primary Benign essential hypertension ([facility]) Essential hypertension, benign Major depressive disorder, recurrent episode, moderate degree ([facility]) Major depressive disorder, recurrent episode, moderate Generalized anxiety disorder ([facility]) Generalized anxiety disorder DUKE (obstructive sleep apnea) Obstructive sleep apnea (adult) (pediatric) Gastroesophageal reflux disease without esophagitis Esophageal reflux Annual physical exam Routine general medical examination at a [facility] facility Type 2 diabetes mellitus with hyperglycemia, without long-term current use of insulin ([facility])- Primary Benign essential hypertension ([facility]) Essential hypertension, benign Acute UTI Urinary tract infection, site not specified Mild recurrent major depression (HCC) ([facility]) Major depressive disorder, recurrent episode, mild Generalized anxiety disorder ([facility]) Generalized anxiety disorder DUKE (obstructive sleep apnea) Obstructive sleep apnea (adult) (pediatric) Body mass index (BMI) 37.0-37.9, adult Type 2 diabetes mellitus with other diabetic kidney complication ([facility]) Type 2 diabetes mellitus with hyperglycemia, without long-term current use of insulin ([facility])- Primary Benign essential hypertension ([facility]) Essential hypertension, benign Mild recurrent major depression (HCC) ([facility]) Major depressive disorder, recurrent episode, mild Generalized anxiety disorder ([facility]) Generalized anxiety disorder DUKE (obstructive sleep apnea) Obstructive sleep apnea (adult) (pediatric) Breast cancer screening by mammogram Closed nondisplaced fracture of proximal phalanx of lesser toe of right foot, initial encounter- Primary Contracture of right ankle documented in this encounter [facility] HealthcareEvaluation note* Diagnosis Type 2 diabetes mellitus with hyperglycemia, without long-term current use of insulin (CMS/HCC)- Primary Benign essential hypertension (CMS/HCC) Essential hypertension, benign Major depressive disorder, recurrent episode, mild (HCC) (CMS/HCC) Major depressive disorder, recurrent episode, mild Generalized anxiety disorder (CMS/HCC) Generalized anxiety disorder Gastroesophageal reflux disease without esophagitis Esophageal reflux DUKE (obstructive sleep apnea) Obstructive sleep apnea (adult) (pediatric) Type 2 diabetes mellitus with hyperglycemia, without long-term current use of insulin (CMS/HCC)- Primary Benign essential hypertension (CMS/HCC) Essential hypertension, benign Major depressive disorder, recurrent episode, moderate degree (CMS/HCC) Major depressive disorder, recurrent episode, moderate Generalized anxiety disorder (CMS/HCC) Generalized anxiety disorder DUKE (obstructive sleep apnea) Obstructive sleep apnea (adult) (pediatric) Gastroesophageal reflux disease without esophagitis Esophageal reflux Annual physical exam Routine general medical examination at a [facility] facility Type 2 diabetes mellitus with hyperglycemia, without long-term current use of insulin (CMS/HCC)- Primary Benign essential hypertension (CMS/HCC) Essential hypertension, benign Acute UTI Urinary tract infection, site not specified Mild recurrent major depression (HCC) (CMS/HCC) Major depressive disorder, recurrent episode, mild Generalized anxiety disorder (CMS/HCC) Generalized anxiety disorder [facility] (obstructive sleep apnea) Obstructive sleep apnea (adult) (pediatric) Body mass index (BMI) 37.0-37.9, adult Type 2 diabetes mellitus with other diabetic kidney complication (CMS/HCC) Type 2 diabetes mellitus with hyperglycemia, without long-term current use of insulin (CMS/HCC)- Primary Benign essential hypertension (CMS/HCC) Essential hypertension, benign Mild recurrent major depression (HCC) (CMS/HCC) Major depressive disorder, recurrent episode, mild Generalized anxiety disorder (CMS/HCC) Generalized anxiety disorder [facility] (obstructive sleep apnea) Obstructive sleep apnea (adult) (pediatric) Breast cancer screening by mammogram Type 2 diabetes mellitus with hyperglycemia, without long-term current use of insulin (CMS/HCC)- Primary Benign essential hypertension (CMS/HCC) Essential hypertension, benign Obstructive sleep apnea (adult) (pediatric) Type 2 diabetes mellitus with diabetic microalbuminuria, without long-term current use of insulin (CMS/HCC) Mild recurrent major depression (HCC) (CMS/HCC) Major depressive disorder, recurrent episode, mild documented in [facility] N[facility] No data available for this section [facility] No data available for this section [facility] No data available for this section [facility] Summary Purpose Family History No Family History Records FoundNo Family History Records FoundNo Family History Records Found No data available for this section No data available for this section No data available for this section No data available for this section No data available for this section No data available for this section No data available for this section No Family History Records FoundNo Family History Records Found No data available for this section No Family History Records FoundNo Family History Records FoundNo Family History Records Found Advance Directives No Advanced Directives Records FoundNo Advanced Directives Records FoundNo Advanced Directives Records FoundNo Advanced Directives Records FoundNo Advanced Directives Records FoundNo Advanced Directives Records FoundNo Advanced Directives Records FoundNo Advanced Directives Records Found Additional Source Comments INFORMATION SOURCE (unrecogn ized section and content) DATE CREATED AUTHOR 11/13/2020 [facility] DATE CREATED AUTHOR AUTHOR'S ORGANIZ ATION 06/04/2022 [facility] DATE CREATED AUTHOR AUTHOR'S ORGANIZ ATION 07/12/2022 [facility] DATE CREATED AUTHOR AUTHOR'S ORGANIZ ATION 11/08/2023 [facility] DATE CREATED AUTHOR AUTHOR'S ORGANIZ ATION 05/06/2024 [facility] DATE CREATED AUTHOR AUTHOR'S ORGANIZ ATION 06/26/2024 [facility] DATE CREATED AUTHOR AUTHOR'S ORGANIZ ATION 08/01/2024 [facility] DATE CREATED AUTHOR AUTHOR'S ORGANIZ ATION 08/21/2024 [facility] EPIC Care Team (unrecognized sect ion and content) Manager Culture Relationship Specialty Start Date End Date Constantin Melendez MD [address] [place] [address] PCP - General Family Medicine 11/07/23 Constantin Melendez MD [address] [place] [address] PCP - [employer] 02/04/24 Manager Culture Relationship Specialty Start Date End Date Constantin Melendez MD [address] [place] [address] PCP - General Family Medicine 11/07/23 Constantin Melendez MD [address] [place] [address] PCP - [employer] 02/04/24 Manager Culture Relationship Specialty Start Date End Date Constantin Melendez MD [address] [place] [address] PCP - [facility] Medicine 11/07/23 Constantin Melendez MD [address] [place] [address] PCP - [employer] 02/04/24 Manager Culture Relationship Specialty Start Date End Date Constantin Melendez MD [address] [place] [address] PCP - [facility] Medicine 11/07/23 Constantin Melendez MD [address] [place] [address] PCP - [employer] 02/04/24 Manager Culture Relationship Specialty Start Date End Date Constantin Melendez MD [address] [place] [address] PCP - General Family Medicine 11/07/23 Constantin Melendez MD [address] [place] [address] PCP - [employer] 02/04/24 Manager Culture Relationship Specialty Start Date End Date Constantin Melendez MD [address] [place] [address] PCP - General Family Medicine 11/07/23 Constantin Melendez MD [address] [place] [address] PCP - [employer] 02/04/24 Manager Culture Relationship Specialty Start Date End Date Constantin Melendez MD [address] [place] [address] PCP - General Family Medicine 11/07/23 Constantin Melendez MD [address] [place] [address] PCP - [employer] 02/04/24 Manager Culture Relationship Specialty Start Date End Date Constantin Melendez MD [address] [place] [address] PCP - General Family Medicine 11/07/23 Constantin Melendez MD [address] [place] [address] PCP - [employer] 02/04/24 Manager Culture Relationship Specialty Start Date End Date Constantin Melendez MD [address] [place] [address] PCP - General Family Medicine 11/07/23 Constantin Melendez MD [address] [place] [address] PCP - [employer] 02/04/24 Manager Culture Relationship Specialty Start Date End Date Constantin Melendez MD [address] [place] [address] PCP - General Family Medicine 11/07/23 Constantin Melendez MD [address] [place] [address] PCP - [employer] 02/04/24 Manager Culture Relationship Specialty Start Date End Date Constantin Melendez MD [address] [place] [address] PCP - General Family Medicine 11/07/23 Constantin Melendez MD [address] [place] [address] PCP - [employer] 02/04/24 Manager Culture Relationship Specialty Start Date End Date Constantin Melendez MD [address] [place] [address] PCP - General Family Medicine 11/07/23 Constantin Melendez MD [address] [place] [address] PCP - [employer] 02/04/24 Manager Culture Relationship Specialty Start Date End Date Constantin Melendez MD [address] [place] [address] PCP - General Family Medicine 11/07/23 Manager Culture Relationship Specialty Start Date End Date Constantin Melendez MD [address] [place] [address] PCP - General Family Medicine 11/07/23 Manager Culture Relationship Specialty Start Date End Date Constantin Melendez MD [address] [place] [address] PCP - General Family Medicine 11/07/23 Reason for Visit (unrecogniz ed section and content) Reason Comments Follow-up 3m f/u Reason Comments Toe Problem Rt / fx Reason Comments Foot/ankle Fracture 5wks rt FX Reason Comments Foot/ankle Fracture 5th toe FX Reason Comments Consent Or Instructions Pre op Reason Comments Post-op RT 5TH E/O LESION Reason Comments Post-op 14d s/p Reason Onset Date Comments Med Refill 02/02/2024 Reason Comments Post-op Reason Comments Blood Sugar Problem Out of control FOR RECORDS PERTAINING TO PATIENTS WHO ARE OR HAVE BEEN ENROLLED IN A CHEMICAL DEPENDENCY/SUBSTANCEABUSE PROGRAM, SOME INFORMATION MAY BE OMITTED. This clinical summary was aggregated from multiple sources. Caution should be exercised in using it in the provision of clinical care. This summary normalizes information from multiple sources, and as a consequence, information in this document may materially change the coding, format and clinical context of patient data. In addition, data may be omitted in some cases. CLINICAL DECISIONS SHOULD BE BASED ON THE PRIMARY CLINICAL RECORDS. [email or web address] provides no warranty or guarantee of the accuracy or completeness of information in this document.
== END 2024-09-10 10:55 | disposition home or self-care (01) ==
PROVIDERS: PCP Family Medicine; Visit Provider Urology
DX: N13.2 Hydronephrosis with renal and ureteral calculous obstruction (principal)
CPT/HCPCS: 76775

== ENCOUNTER 2024-10-18 10:02 | Outpatient (OUT) | payer BC, OTHER, SELFPAY ==
--- NOTE | 2024-10-18 10:02 | CT_ITS ---
The [address] [address] Patient Name: ROLAND CAMERON MRN: [facility]:[id number] date: 1965 Sex: F Assigned Patient Location: CT Current Patient Location: CT Accession/Order Number: [id number] Exam Date: 10/18/2024 10:57 Report Date: 10/18/2024 11:09 At the request of: KARMA PHELPS MD Procedure: CT abdomen pelvis wo con CT abdomen pelvis wo con 10/18/2024 10:23 AM SIGNS AND SYMPTOMS: ^Renal Calculus, Cotuit nephrosis TECHNIQUE: Multidetector ct axial images of the abdomen and pelvis were obtained without IV contrast. Multiplanar reformats were performed and reviewed to further define anatomy and possible pathology. CT was performed with one or more of the following dose reduction techniques: Automated exposure control, adjustment of the mA and/or kV according to patient size, or use of iterative reconstruction technique. COMPARISON: 04/04/2019 FINDINGS: Lower Chest: There is a calcified granuloma in the right lower lobe. Mild calcified plaque is noted in the coronary arteries. ABDOMEN: Liver: Within normal limits. Bile Ducts: Normal caliber. Gallbladder: Previously removed Pancreas: Within normal limits. Spleen: Within normal limits. Adrenals: Within normal limits. Kidneys: There is right-sided hydronephrosis similar to the prior exam. No renal stones are visualized. Pelvis: Reproductive Organs: No pelvic masses. Ureters: There is prominence of the mid right ureter. There is no evidence of obstructing stone or mass. Bladder: Within normal limits. Bowel: Normal caliber. There is a normal appendix in the right lower quadrant. Mesenteric Lymph Nodes: No enlarged mesenteric lymph nodes. Peritoneum: No ascites or free air, no fluid collection. Vessels: within normal limits Retroperitoneum: Within normal limits. Abdominal Wall: Within normal limits. Bones: Degenerative changes are noted in the thoracolumbar spine. CT/CT abdomen pelvis wo con IMPRESSION: There is right-sided hydronephrosis similar to the prior exam. However, there is no evidence of obstructing stone or mass. The mid right ureter is slightly dilated with remainder of the ureter normal in caliber. No renal stones are noted. No acute intra-abdominal pathology is noted otherwise. Impression dictated by: Chandu Scott M.D. 10/18/2024 11:09 AM Dictation Location: [place] [address] Electronically authenticated by: [id number] Y Date: 10/18/2024 11:09
--- OUTSIDE RECORDS SUMMARY | 2024-10-18 10:10 | XMS_ITS | CCD ---
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 Name Role Phone CONSTANTIN MELENDEZ Primary Care [...] ROSEMARY Chowdhury Admitting Unavailable LUE ., ROSEMARY Chowhdury Attending Unavailable LUE ., ROSEMARY Chowdhury Consulting Unavailable JOSSIE ASHBY Consulting Unavailable NADERER, DR CONSTANTIN Gonzalez Admitting Unavailable NADERER, DR CONSTANTIN Gonzalez Attending Unavailable NADERER, DR CONSTANTIN Gonzalez Primary Care Unavailable ZIEBER, DR KARLIE Peoples Consulting Unavailable NADERER, DR CONSTANTIN Gonzalez Consulting Unavailable NADERER, DR CONSTANTIN Gonzalez Primary Care Unavailable BELINDA ONEAL Admitting Unavailable JM, BELINDA Raza Attending Unavailable ZIEBJAY JAY, DR KARLIE Peoples Consulting Unavailable BELINDA ONEAL Consulting Unavailable NADERER, DR CONSTANTIN Gonzalez Admitting Unavailable NADERER, DR CONSTANTIN Gonzalez Attending Unavailable NADERER, DR CONSTANTIN Gonzalez Primary Care Unavailable NADERER, DR CONSTANTIN Gonzalez Consulting Unavailable NADERER, DR CONSTANTIN Gonzalez Admitting Unavailable NADERER, DR CONSTANTIN Gonzalez Attending Unavailable NADERER, DR CONSTANTIN Gonzalez Primary Care Unavailable NADERER, DR CONSTANTIN Gonzalez Consulting Unavailable NADERER, CONSTANTIN Referring Unavailable NADERER, CONSTANTIN Primary Care Unavailable Nadbrir Constantin CATHERINE Primary Care Provider [phone] Constantin Melendez MD Unavailable KARI Charlton Admitting Unavailable KARI Charlton Attending Unavailable NADERER, CONSTANTIN Gonzalez Primary Care Unavailable NADERER, CONSTANTIN A Primary Care Unavailable NADERER, CONSTANTIN A Admitting Unavailable NADERER, CONSTANTIN Gonzalez Attending Unavailable StalterWill Admitting Unavailable StalterWill Attending Unavailable NADERER, CONSTANTIN A Primary Care Unavailable NADERER, CONSTANTIN A Primary Care Unavailable Micah Carney Admitting Unavaila ble Micah Carney Attending Unavaila ble Rosemary Jamil Admitting Unavailable Rosemary Jamil Attending Unavailable OlgaereConstantin peoples Primary Care Unavailable Olgaererichelle, Constantin Primary Care Unavailable Vahid Antonio Admitting Unavailricha e Vahid Antonio Attending Unavailabl e Phoenix Harrison Consulting Unavailable Suresh Lopez Consulting Unavailable ShellieeRosemary Consulting Unavailable Ian Thompson Consulting Unavailable Phoenix Dooley Consulting Unavailable Malick Vega Consulting Unavailable Nkanscallie-AmMike duranabena Consulting Unavail able Gertrude Alarcon Consulting Unavailable Sarita Chan Consulting Unavailable OLGAERERichelle, CONSTANTIN Attending Unavailable NADERER, CONSTANTIN Attending Unavailable NADERERCONSTANTIN Attending Unavailable BROWN, ASAEL A Attending Unavailable BROWN, ASAEL A Referring Unavailable BROWN, ASAEL A Attending Unavailable BROWN, ASAEL A Referring Unavailable BROWN, ASAEL A Attending Unavailable BROWN, ASAEL A Attending Unavailable BROWN, ASAEL A Attending Unavailable BROWN, ASAEL A Attending Unavailable BROWN, ASAEL A Attending Unavailable NADERER, CONSTANTIN Attending Unavailable NADERER, CONSTANTIN Attending Unavailable LueRosemary M. Attending Unavailable LueRosemary M. Attending Unavailable Lue Rosemary M. Referring Unavailable Lue Rosemary M. Attending Unavailable Lue Rosemary M. Referring Unavailable Lue Rosemary M. Attending Unavailable Allergies Allergy Classification Reported Allergen(s) Allergy Type Date of Onset Reaction(s) Facility (2 sources) No Known Medication Allergies; Translations: [No Known Medication Allergies] Propensity to adverse reactions to drug (disorder) [facility] Repository Medications Current Medications Medication Drug Class(es) Dates Sig (Normalized) Sig (Original) acetaminophen 325 mg / HYDROcodone bitartrate 5 mg oral tablet (5 sources) Opioid Agonist Start: 04-26-2024 End: 05-01-2024 take 1 tablet by mouth every eight hours as needed for pain HYDROcodone-aceta minophen ([place]) 5-325 MG tablet Indications: Pain Take 1 tablet by mouth every 8 (eight) hours if needed for moderate pain (PRN pain) for up to 5 days 15 tablet 04/26/2024 05/01/2024 Active Start: 05-24-2022 End: 05-27-2022 Durham 325 mg-5 mg oral table t 1 tab(s), Oral, q6hr as needed for pain, 10 tab(s), Refill(s) 0, [facility]/pharmacy #[id number], 163, cm, 05/19/22 15:43:00 EST, Height/Length Dosing, 103.4, kg, 05/19/22 15:43:00 EST, Weight Dosing Start Date: 05/24/22 Stop Date: 05/27/22 Status: Ordered Start: 04-16-2019 take 1 tablet by cori th every six hours Durham 5/325 Tab tab(s), Oral, q6hr, Refill(s) 0 Start Date: 04/16/19 Status: Ordered aspirin 81 mg delayed release oral tablet (20 sources) Platelet Aggregation Inhibitor, Nonsteroidal Anti-inflammatory Drug Start: 01-01-2024 End: 12-31-2024 take 1 tablet by mouth once daily aspirin 81 MG EC tablet Indications: Type 2 diabetes mellitus with hyperglycemia, without long-term current use of insulin ([facility]) Take 1 tablet (81 mg) by mouth [...] 7.5 MG tablet Indications: Generalized anxiety disorder (CMS/HCC) Take 1 tablet (7.5 mg) by mouth [...] hyperglycemia, without long-term current use of insulin (CMS/[facility]) Take 1 tablet (25 mcg) by mouth Daily 90 tablet 3 03/08/2024 03/08/2025 Active estradiol 0.1 mg/ml vaginal cream (1 source) Estrogen Start: 07-24-2023 Estrace 0.1 mg/g Cream See Instructions, 42.5 gm, Refill(s) 2, Apply pea sized amount to external urethra/vaginal area 3x a week for 1 month, then 2x a week afterwards, [facility]/pharmacy #[id number], 163, cm, 07/24/23 10:16:00 EST, Height/Length Dosing, 97, kg, 07/24/23 10:16:00 EST, Weight Dosing Start Date: 07/24/23 Status: Ordered glipiZIDE 10 mg oral tablet (19 sources) Sulfonylurea Start: 09-10-2024 take 1 tablet by mouth in the morning glipiZIDE (Glucotrol) 10 MG tablet Indications: Type 2 diabetes mellitus with hyperglycemia, without long-term current use of insulin (CMS/HCC) Take 1 tablet (10 mg) by mouth in the morning and 1 tablet (10 mg) in the evening. Take before meals. 60 tablet 5 09/10/2024 Active Start: 09-10-2024 take 1 tablet by cori th in the morning glipiZIDE (Glucotrol) 10 MG tablet Indications: Type 2 diabetes mellitus with hyperglycemia, without long-term current use of insulin (CMS/HCC) Take 1 tablet (10 mg) by mouth in the morning and 1 tablet (10 mg) in the evening. Take before meals. 60 tablet 5 09/10/2024 Active Start: 08-19-2024 End: 09-10-2024 take 1 tablet by mouth once daily glipiZIDE (Glucotrol) 10 MG tablet Indications: Type 2 diabetes mellitus with hyperglycemia, without long-term current use of insulin (CMS/HCC) Take 1 tablet (10 mg) by mouth Daily 30 tablet 5 08/19/2024 09/10/2024 Discontinued (Reorder) Start: 03-18-2021 take 1 tablet by cori [...] Active Start: 05-19-2022 take 1 tablet by cori th every month ibandronate 150 mg oral [...] day(s), # 6 cap(s), Refills(s) 0, Pharmacy: [facility]/pharmacy #[id number], 163, cm, 07/24/23 10:16:00 EST, Height/Length [...] use of insulin (CMS/HCC) Take 1 tablet (30 mg) by mouth Daily 90 tablet 3 01/26/2024 01/25/2025 Active semaglutide 14 mg oral tablet (20 sources) Start: 01-17-2024 End: 01-16-2025 take 1 tablet by mouth once daily semaglutide (Rybelsus) 14 MG tablet Indications: Type 2 diabetes mellitus with hyperglycemia, without long-term current use of insulin (CMS/HCC) Take 1 tablet (14 mg) by mouth [...] Daily, # 30 tab(s), Refills(s) 5, Pharmacy: [facility]/pharmacy #[id number], 163, cm, 06/03/22 11:32:00 EST, Height/Length Dosing, 105.5, kg, 06/03/22 11:32:00 EST, Weight Dosing Start Date: 06/21/22 Status: Ordered Start: 12-29-2021 take 1 tablet by cori th once daily Vesicare 5 mg Tab 5 mg = 1 tab(s), Oral, Daily, # 30 tab(s), Refills(s) 5, Pharmacy: [facility]/pharmacy #[id number], 163, cm, 09/28/21 8:51:00 EDT, Height/Length [...] Chronic Other nutritional; endocrine; and metabolic disorders (5 sources) Severe obesity; Translations: [Class 2 severe [...] Test Name Value Interpretation Reference Range Facility Provider Letteron 09-20-2024 Provider Letter Provider Letter September 20, 2024 ALBINA CAMERON [address] [place] [phone] : 1965 Dear Albina, We have been trying to reach you with no success. It is important that you return our call regarding a message from your provider upon receiving this letter. Also, at the time of your call, please provide us with your current information. Thank you for your prompt attention to this matter. Sincerely, [facility] [address] [place] [address] [facility] US RENAL BIon 09-10-[address] [address] Ultrasound Report Signed Patient: ALBINA CAMERON MR#: [id number] : 1965 Acct:[id number] Age/Sex: 58 / F ADM Date: 09/10/24 Loc: US Attending Dr: Rosemary Jamil M.D. Ordering Physician: Rosemary Jamil M.D. Date of Service: 09/10/24 Procedure(s): US renal BI Accession Number(s): [id number] cc: Rosemary Jamil M.D.; Constantin Melendez M.D. The [address] [address] Patient Name: ALBINA CAMERON MRN: [facility]:[id number] date: 1965 Sex: F Assigned Patient Location: US Current Patient Location: US Accession/Order Number: [id number] Exam Date: 09/10/2024 12:12 Report Date: 09/10/2024 12:14 At the request of: ROSEMARY JAMIL MD Procedure: US renal BI BILATERAL RENAL AND BLADDER ULTRASOUND CLINICAL HISTORY: Ureteral Stone With Hydronephrosis COMPARISON: None FINDINGS: Estimation of renal size is approximately 12.2 cm on the right and 11.1 cm on the left. Right nephrolithiasis largest measuring 6 mm. Mild hydronephrosis. Left kidney appears unremarkable. Hydronephrosis. The urinary bladder is partially distended with a volume of 480 mL. ml. No shadowing stone or focal lesion. US/US renal BI IMPRESSION: RIGHT NEPHROLITHIASIS WITH MILD HYDRONEPHROSIS. Impression dictated by: Deshawn Serna Jr.OEyad09/10/2024 12:14 PM Dictation Location: [place] [address] Electronically authenticated by: [id number] Y Date: 09/10/2024 12:14 Dictated By: Julio Hemphill M.D. Signed By: 09/10/24 1217 DD/ 1214 TD/TT: Detective Private Eye: [facility] Radiology, Radiologist, MD - 09/10/[address] [address] Ultrasound Report Signed Patient: ALBINA CAMERON MR#: [id number] : 1965 Acct:[id number] Age/Sex: 58 / F ADM Date: 09/10/24 Loc: US Attending Dr: Rosemary Jamil M.D. Ordering Physician: Rosemary Jamil M.D. Date of Service: 09/10/24 Procedure(s): US renal BI Accession Number(s): [id number] cc: Rosemary Jamil M.D.; Constantin Melendez M.D. [place] [address] Patient Name: ALBINA CAMERON MRN: [facility]:[id number] date: 1965 Sex: F Assigned Patient Location: US Current Patient Location: US Accession/Order Number: [id number] Exam Date: 09/10/2024 12:12 Report Date: 09/10/2024 12:14 At the request of: ROSEMARY JAMIL MD Procedure: US renal BI BILATERAL RENAL AND BLADDER ULTRASOUND CLINICAL HISTORY: Ureteral Stone With Hydronephrosis COMPARISON: None FINDINGS: Estimation of renal size is approximately 12.2 cm on the right and 11.1 cm on the left. Right nephrolithiasis largest measuring 6 mm. Mild hydronephrosis. Left kidney appears unremarkable. Hydronephrosis. The urinary bladder is partially distended with a volume of 480 mL. ml. No shadowing stone or focal lesion. US/US renal BI IMPRESSION: RIGHT NEPHROLITHIASIS WITH MILD HYDRONEPHROSIS. Impression dictated by: Julio Hemphill Jr., DEyadOEyad09/10/2024 12:14 PM Dictation Location: [place] [address] Electronically authenticated by: [id number] Y Date: 09/10/2024 12:14 Dictated By: Julio Hemphill M.D. Signed By: 09/10/24 1217 DD/ 1214 TD/TT: Detective Private Eye: [facility] Study observation (narrative) [facility] US RENAL BIOrdered By: [facility] on 09-10-2024 [facility] Work Phone: ALL CBC WITH AUTO DIFFon BASOPHILS ABSOLUTE AUTO 0 [facility] Basophils/100 WBC (Bld) 0.4 % 0.2 - 2.0 % [facility] Eosinophils/100 WBC (Bld) 3.9 % 0.9 - 7.0 % [facility] Erythrocyte distribution width (RBC) [Ratio] 12.8 % 11.0 - 15.0 % [facility] Hematocrit (Bld) [Volume fraction] 40.4 % 36.0 - 48.0 % [facility] Hemoglobin (Bld) [Mass/Vol] 13.1 g/dL 12.0 - 16.0 g/dL [facility] IMMATURE GRANULOCYTES ABS AUTO 0.06 High [facility] Immature granulocytes/100 WBC (Bld) 0.7 % High 0.0 - 0.5 % [facility] Interpretation and review of laboratory results Abnormal [facility] LYMPHOCYTES ABSOLUTE AUTO 2 [facility] Lymphocytes/100 WBC (Bld) 21.6 % 20.5 - 60.0 % [facility] MCH (RBC) [Entitic mass] 29 pg 26.7 - 34.0 pg [facility] MCHC (RBC) [Mass/Vol] 32.4 g/dL 29.9 - 35.2 g/dL [facility] MCV (RBC) [Entitic vol] 89.6 fL 81.0 - 99.0 fL [facility] MONOCYTES ABSOLUTE AUTO 0.5 [facility] Monocytes/100 WBC (Bld) 5.2 % 1.7 - 12.0 % [facility] NEUTROPHILS ABSOLUTE AUTO 6.3 [facility] Neutrophils/100 WBC (Bld) 68.2 % 43.0 - 75.0 % [facility] Platelet mean volume (Bld) [Entitic vol] 10.6 fL 9.5 - 13.5 fL [facility] EO # 0.4 [facility] PLT 287 [facility] RBC 4.51 [facility] WBC 9.2 [facility] Urology Office/Clinic Noteon 05-10-2024 Urology Office/Clinic Note [...] RPG, R stent placement 05/04/24. KUB 05/07/24 [facility] - Redemonstration of a 9 mm stone [...] Follow-up With When Contact Information Omero CATHERINE, Rosemary Larios, URL, URO Additional Instructions: schedule cysto, R URS, [...] 1 tab( (more content not included)... Normal [facility] Comment on above: Result Comment: Elec tronically Signed By: Omero CATHERINE, Rosemary Larios\.br\Date and Time Signed: 05/10/24 12:29 EST XR KUBon 05-07-2024 XR KUB [facility] Main [place] [address] [place] [address] XRay Report Signed Patient: Albina Cameron MR#: [id number] : 1965 Acct:[id number] Age/Sex: 58 / F ADM Date: 05/07/24 Loc: XD Room: Type: [facility] Attending Dr: Rosemary Jamil MD Copies to: [...] Chandu Scott M.D.05/07/2024 10:53 PM Dictation Location: [place] [address] Transcribed By: [facility] 05/07/242252 Dictated By: Chandu Scott II, MD 05/07/242251 Signed By: 05/07/242252 Normal [facility] C Urineon 05-06-2024 C Urine Urine Culture ordere d as a result of parameters set on specific urine dip and urine microsopic results. <10,000 cfu/ml [facility] Comment on above: Performed By: #### 6 [id number], [id number] ####[facility] (DEFAULT)[address] [place] [address] Consent Formson 05-06-2024 Consent Forms [id number] .[id number] Normal [facility] .Auto Diff 1on 05-04-2024 Auto [place] % 5 % Normal 06-16 [facility] Comment on above: Performed By: #### 1 [id number], [id number], [id number], [id number] ####[facility] (DEFAULT)[address] [place] [address] Baso Abs# 0.0 x10 Normal 0.0-0.2 [facility] Comment on above: Performed By: #### 1 [id number], [id number], [id number], [id number] ####[facility] (DEFAULT)[address] [place] [address] Basophils/100 WBC (Bld) 0.3 % Normal 0.2-2.0 [facility] Comment on above: Performed By: #### 1 [id number], [id number], [id number], [id number] ####[facility] (DEFAULT)[address] [place] [address] Eos Abs# 0.1 x10 Normal 0.0-0.4 [facility] Comment on above: Performed By: #### 1 [id number], [id number], [id number], [id number] ####[facility] (DEFAULT)[address] [place] [address] Eosinophils/100 WBC (Bld) 0.5 % Low 0.9-4.0 [facility] Comment on above: Performed By: #### 1 [id number], [id number], [id number], [id number] ####[facility] (DEFAULT)[address] [place] [address] Lymph Abs# 1.7 x10 Normal 1.3-2.9 [facility] Comment on above: Performed By: #### 1 [id number], [id number], [id number], [id number] ####[facility] (DEFAULT)[address] [place] [address] Lymphocytes/100 WBC (Bld) 12 % Low 14-48 [facility] Comment on above: Performed By: #### 1 [id number], [id number], [id number], [id number] ####[facility] (DEFAULT)[address] [place] [address] [place] Abs# 0.7 x10 Normal 0.0-0.8 [facility] Comment on above: Performed By: #### 1 [id number], [id number], [id number], [id number] ####[facility] (DEFAULT)[address] [place] [address] Neut Abs# 11.5 x10 High 1.5-9.2 [facility] Comment on above: Performed By: #### 1 [id number], [id number], [id number], 3737636 ####[facility] (DEFAULT)[address] [place] [address] Neutrophils/100 WBC (Bld) 82 % Normal 44-88 [facility] Comment on above: Performed By: #### 1 [id number], [id number], [id number], 5221486 ####[facility] (DEFAULT)[address] [place] [address] [facility] Standardon 05-04-2024 eGFR Non AA >60 Invalid Interpretation Code [facility] Comment on above: Performed By: #### 1 [id number], [id number], [id number], 6553541 ####[facility] (DEFAULT)[address] [place] [address] eGFR AA >60 Invalid Interpretation Code [facility] Comment on above: Performed By: #### 1 [id number], [id number], [id number], 4256086 ####[facility] (DEFAULT)[address] [place] [address] Anion gap [Moles/Vol] 14.9 mmol/L Normal 5.0-19.0 [facility] Comment on above: Performed By: #### 1 [id number], [id number], [id number], 1483230 ####[facility] (DEFAULT)[address] [place] [address] Calcium [Mass/Vol] 9.0 mg/dL Normal 8.9-10.3 [facility] Comment on above: Performed By: #### 1 [id number], 67961408, [id number], 0302432 ####[facility] (DEFAULT)[address] [place] [address] Chloride [Moles/Vol] 95 mmol/L Low 101-111 [facility] Comment on above: Performed By: #### 1 [id number], [id number], [id number], 5174690 ####[facility] (DEFAULT)[address] [place] [address] CO2 [Moles/Vol] 23 mmol/L Normal 21-32 [facility] Comment on above: Performed By: #### 1 [id number], 10376296, 6125904064, 6819123 ####[facility] (DEFAULT)[address] [place] [address] Creatinine [Mass/Vol] 0.93 mg/dL Normal 0.60-1.30 [facility] Comment on above: Performed By: #### 1 [id number], 32550887, [id number], 9328929 ####[facility] (DEFAULT)[address] [place] [address] Glucose [Mass/Vol] 257.0 mg/dL High 74.0-118.0 [facility] Comment on above: Performed By: #### 1 [id number], 76879991, 9208608988, 3890391 ####[facility] (DEFAULT)[address] [place] [address] Osmolality 270 mOsm/L Invalid Interpretation Code [facility] Comment on above: Performed By: #### 1 [id number], [id number], [id number], [id number] ####[facility] (DEFAULT)[address] [place] [address] Potassium [Moles/Vol] 3.9 mmol/L Normal 3.6-5.1 [facility] Comment on above: Performed By: #### 1 [id number], 28797168, 6023950187, 2065898 ####[facility] (DEFAULT)[address] [place] [address] Sodium [Moles/Vol] 129.0 mmol/L Low 136.0-144.0 [facility] Comment on above: Performed By: #### 1 [id number], 62046443, 0054457819, 5664709 ####[facility] (DEFAULT)[address] [place] [address] Urea nitrogen [Mass/Vol] 18 mg/dL Normal 8-26 [facility] Comment on above: Performed By: #### 1 [id number], 98108297, [id number], 4497199 ####[facility] (DEFAULT)[address] [place] [address] Urea nitrogen/Creatinine [Mass ratio] 19.3 mg/mg High 4.6-16.2 [facility] Comment on above: Performed By: #### 1 [id number], 14704152, 3871378542, 8288124 ####[facility] (DEFAULT)[address] [place] [address] CBC w/ Auto Diffon 4 Erythrocyte distribution width (RBC) [Ratio] 13.7 % Normal 11.5-15.0 [facility] Comment on above: Performed By: #### 1 [id number], 66939624, [id number], 7808043 ####[facility] (DEFAULT)[address] [place] [address] Hematocrit (Bld) [Volume fraction] 41.8 % High 33.7-40.4 [facility] Comment on above: Performed By: #### 1 [id number], 53407356, 4018398812, 9436354 ####[facility] (DEFAULT)[address] [place] [address] Hemoglobin (Bld) [Mass/Vol] 14.1 g/dL Normal 11.3-15.9 [facility] Comment on above: Performed By: #### 1 [id number], 60656728, 9929741258, 1813053 ####[facility] (DEFAULT)[address] [place] [address] Man Diff? Auto Invalid Interpretation Code [facility] Comment on above: Performed By: #### 1 [id number], 13763045, [id number], [id number] ####[facility] (DEFAULT)[address] [place] [address] MCH (RBC) [Entitic mass] 30 pg Normal 24-34 [facility] Comment on above: Performed By: #### 1 [id number], 15261842, 1124084644, 3567489 ####[facility] (DEFAULT)[address] [place] [address] MCHC (RBC) [Mass/Vol] 34 g/dL Normal 26-37 [facility] Comment on above: Performed By: #### 1 [id number], 67284332, [id number], 6900817 ####[facility] (DEFAULT)[address] [place] [address] MCV (RBC) [Entitic vol] 88 fL Normal 81-100 [facility] Comment on above: Performed By: #### 1 [id number], 44431030, [id number], 4890295 ####[facility] (DEFAULT)[address] [place] [address] Platelet 274 x10 Normal 138-427 [facility] Comment on above: Performed By: #### 1 [id number], [id number], [id number], 5258622 ####[facility] (DEFAULT)[address] [place] [address] Platelet mean volume (Bld) [Entitic vol] 8.3 fL Normal 6.3-10.2 [facility] Comment on above: Performed By: #### 1 [id number], 23144429, [id number], 7293776 ####[facility] (DEFAULT)[address] [place] [address] RBC 4.76 x10 Normal 3.70-5.30 [facility] Comment on above: Performed By: #### 1 [id number], 70962676, [id number], 0499975 ####[facility] (DEFAULT)[address] [place] [address] WBC 14.0 x10 High 3.5-10.5 [facility] Comment on above: Performed By: #### 1 [id number], [id number], [id number], 2689493 ####[facility] (DEFAULT)[address] [place] [address] CT Abdomen/Pelvis w/o Contra ston 05-04-2024 CT [...] Sesay MD 05/04/24 9:56 am Technologist: SE Jacqueline BAHENA [facility] ED Clinical Summaryon 2023 ED Clinical Summary [facility] - Emergency Department [address] [place] [address] ED Clinical Summary PERSON INFORMATION Name: ALBINA CAMERON Age: 58 Years Sex: FEMALE : 1965 MRN: Acct#: Visit Reason: Flank pain; RT FLANK/BACK PAIN, NAUSEA Arrival: 05/04/2024 08:36:36 Discharge: 05/04/2024 11:52:00 LOS: 000 03:16 Check In: 05/04/2024 08:36:36 Checkout:05/04/2024 11:52:00 Address: [address] [place] [address] PCP: CONSTANTIN MELENDEZ PROVIDER INFORMATION Provider Role Assigned Unassigned Will Wan MD ED Provider 05/04/2024 08:37:52 Karley Watson MOVIE [employer]ERA OPERATOR Nurse 05/04/2024 08:45:39 VITALS INFORMATION Vital Sign [...] Disposition: Discharge/Transfer to Another Hospital Discharge Location: [facility] PATIENT EDUCATION INFORMATION Instructions: Follow-Up: DIAGNOSIS: 1:Ureterolithiasis; 2:Urinary tract infection in female Patient Understands: Yes - Patient/family/caregi brianna verbalizes understanding of instructions given Comment: [facility] ED Note-Nursingon 05-04-2024 ED Note-Nursing Dr. aWn tells this RN that he is comfortable with the patient traveling with for transfer to [facility] to see urology. Per protocol IV has to be removed to be able to travel by private vehicle. This RN went into patient's room and explained this to the patient. Patient is agreeable to having IV removed prior to leaving the ED. Physician notified. [facility] ED Patient Education Noteon 05-04-2024 ED Patient Education Note Education Materials [facility] ED Patient Summaryon 024 ED Patient Summary [facility] - Emergency Department [address] [place], [place] [id number] PATIENT DISCHARGE INSTRUCTIONS Patient Information Name: ALBINA CAMERON Age: 58 Years Date of : 1965 Reason For Visit: Flank pain; RT FLANK/BACK PAIN, NAUSEA Arrival Time: 05/04/2024 08:36:36 Primary Care Physician: CONSTANTIN MELENDEZ Attending Physician: Will Wan MD Comment: Visit Diagnosis: Diagnoses This Visit Flank pain ([id number]) Ureterolithiasis (N20.1) Urinary tract infection in female (N39.0) The Pharmacy at [facility] is open Monday through Monday from 9A [...] alcohol and/or drug addiction problems; contact the [facility] 26/12 Crisis Hotline -Text 4HEZX to [phone]. If you received any narcotics, sedation, or [...] and treatment you received today in the [facility] Emergency Department were for an urgent problem and are not intended as complete care. It is important for you to follow up with a doctor, nurse practitioner, or physician?s assistant store director for ongoing care. If your symptoms become [...] so we can reach you if necessary. [facility] Emergency Department has provided you with a complete list of medications post discharge. Please inform your youth support worker/provider of your visit and for further instruction [...] for your (more content not included)... Normal [facility] Extra Blueon 05-04-2024 Tube Collected Yes Invalid Interpretation Code [facility] Comment on above: Performed By: #### 1 [id number], [id number], [id number], [id number] ####[facility] (DEFAULT)[address] [place] [address] [place] urethrocystogram retroon 05-04-2024 [place] urethrocystogram retro [facility] Main [place] [address] [place] [address] Fluoroscopy Report Signed Patient: Albina Cameron MR#: [id number] : 1965 Acct:[id number] Age/Sex: 58 / F ADM Date: 05/04/24 Loc: Room: [address] [place] [address] Type: ADM IN Attending Dr: Vahid Antonio [...] Chandu Scott M.D.05/04/2024 3:20 PM Dictation Location: [place] [address] Transcribed By: [facility] 05/04/24 1520 Dictated By: Chandu Scott II, MD 05/04/24 1517 Signed By: 05/04/24 1520 Normal [facility] Glucose Poct Glucometerson 1 07-04-2023 Glucose [Mass/Vol] 154 mg/dL Normal [facility] Comment on above: Result Comment: [facility] Glucose Reference Range is dependent on time and content of last meal. Glucose of more than 200 mg/dL in a nonstressed, ambulatory subject supports the diagnosis of Diabetes Mellitus. PERFORMED BY: [address] [address] PATHOLOGIST DIRECTOR EMERGENCY JEANNE GEORGE M.D. Performed By: #### G ANTHONY #### Point of Care testing , Transfer Noteon 05-04-2024 Transfer Note 1038 - called [facility] switchboard to page Dr. Jamil, urology [facility] connected Dr. Jamil to Dr. Wan; She accepted this patient and said we can transfer her to [facility] 1048 - called [facility] Composite Assembler - paging the hospitalist 1116 - Dr. Antonio, [facility] hospitalist, called back and spoke with Dr. Wan; he's also accepted this patient as a direct admit transfer 1130 - [facility] radio interference supervisor called with the room assignment 4418...report# [phone] The patient was given a packet with a copy of her chart. The CT images were sent electronically to [facility]. The patient went by private car and signed the refusal to be transported by ambulance. Home medications are documented in the chart as well. [Electronically Signed on: 05/04/2024 11:48 EST] Sharonda Burr [Verified on: 05/04/2024 11:48 EST] Sharonda Burr 1051 - called [facility] to check on transport availability....no transport today due to lack of staffing [Electronically Signed on: 05/04/2024 11:55 EST] Sharonda Burr [facility] UA Bqsuz8iw 05-04-2024 UA Amorph. 2+ [facility] Comment on above: Order Comment: Urina lysis Microscopic order added on by Discern Expert Rules system. Performed By: #### 6 [id number], [id number], [id number] ####[facility] (DEFAULT)[address] [place] [address] UA Bacteria None [facility] Comment on above: Order Comment: Urina lysis Microscopic order added on by Discern Expert Rules system. Performed By: #### 6 [id number], [id number], [id number] ####[facility] (DEFAULT)[address] [place] [address] UA RBC 0-2 [facility] Comment on above: Order Comment: Urina lysis Microscopic order added on by Discern Expert Rules system. Performed By: #### 6 [id number], [id number], [id number] ####[facility] (DEFAULT)[address] [place] [address] UA Squam Epi Rare [facility] Comment on above: Order Comment: Urina lysis Microscopic order added on by Discern Expert Rules system. Performed By: #### 6 [id number], [id number], [id number] ####[facility] (DEFAULT)[address] [place] [address] UA WBC 5-10 [facility] Comment on above: Order Comment: Urina lysis Microscopic order added on by Oddcast Expert Rules system. Performed By: #### 6 [id number], [id number], [id number] ####[facility] (DEFAULT)[address] [place] [address] UA w Culture if Ind Standard on 05-04-2024 Breakpoint UA [facility] Comment on above: Performed By: #### 6 [id number], [id number], [id number] ####[facility] (DEFAULT)[address] [place] [address] Color (U) Yellow [facility] Comment on above: Performed By: #### 6 [id number], [id number], [id number] ####[facility] (DEFAULT)[address] [place] [address] Culture? Indicated Invalid Interpretation [facility] Comment on above: Result Comment: Resu lt created by rule GL_MAGR_ADD_UA_CULT Result created by rule GL_MAGR_ADD_UA_CULT Result created by rule GL_MAGR_ADD_UA_CULT Result created by rule GL_MAGR_ADD_UA_CULT1 Performed By: #### 6 [id number], [id number], [id number] ####[facility] (DEFAULT)[address] [place] [address] Glucose (U) [Mass/Vol] mg/dL Normal [facility] Comment on above: Performed By: #### 6 [id number], [id number], [id number] ####[facility] (DEFAULT)[address] [place] [address] Ketones Ql (U) TRACE Normal [facility] Comment on above: Performed By: #### 6 [id number], [id number], [id number] ####[facility] (DEFAULT)[address] [place] [address] Micro? Indicated Invalid Interpretation Code [facility] Comment on above: Result Comment: Resu lt created by rule GL_MAGR_ADD_UA_MICRO Performed By: #### 6 [id number], [id number], [id number] ####[facility] (DEFAULT)[address] [place] [address] UA Bilirubin Negative Normal [facility] Comment on above: Performed By: #### 6 [id number], [id number], [id number] ####[facility] (DEFAULT)[address] [place] [address] UA Blood SMALL Abnormal NEGATIVE [facility] Comment on above: Performed By: #### 6 [id number], [id number], [id number] ####[facility] (DEFAULT)[address] [place] [address] UA Clarity CLEAR Normal CLEAR [facility] Comment on above: Performed By: #### 6 [id number], [id number], [id number] ####[facility] (DEFAULT)[address] [place] [address] UA Leuk Est TRACE Abnormal NEGATIVE [facility] Comment on above: Performed By: #### 6 [id number], [id number], [id number] ####[facility] (DEFAULT)[address] [place] [address] UA Nitrite Positive Abnormal NEGATIVE [facility] Comment on above: Performed By: #### 6 [id number], [id number], [id number] ####[facility] (DEFAULT)[address] [place] [address] UA pH 7.5 Normal 5-8 [facility] Comment on above: Performed By: #### 6 [id number], [id number], [id number] ####[facility] (DEFAULT)[address] [place] [address] UA Protein TRACE Abnormal NEGATIVE [facility] Comment on above: Performed By: #### 6 [id number], [id number], [id number] ####[facility] (DEFAULT)[address] [place] [address] UA Spec Grav 1.020 Normal 1.001-1.035 [facility] Comment on above: Performed By: #### 6 [id number], [id number], [id number] ####[facility] (DEFAULT)[address] [place] [address] UA Urobilinogen 1.0 mg/dL Normal 0.2-1.0 [facility] Comment on above: Performed By: #### 6 [id number], [id number], [id number] ####[facility] (DEFAULT)[address] [place] [address] Urine Source Clean Catch Normal [facility] Comment on above: Performed By: #### 6 [id number], [id number], [id number] ####[facility] (DEFAULT)[address] [place] [address] MLR HEMOGLOBIN A1Con 024 Glucose [Mass/Vol] 214 mg/dL [facility] HbA1c (Bld) [Mass fraction] 9.1 % High 4.5 - 6.2 % [facility] Comment on above: ADA RECOMMENDED LIMI T 4.0 - 6.0 ADA THERAPEUTIC TARGET < 7.0 ACTION SUGGESTED > 7.0 Interpretation and review of laboratory results Abnormal [facility] Coding Summaryon 03-08-2024 Coding Summary HTMLBase 64 ArxuxjbkSRn2sEa+PGhlY WQ+GX3NIXFdV73uqRVqxM 5wQ3GOSLzULorcVJJIRJs GWeLijmGbDD8iuEOcFOZm IC8+EY1qDEXsStsggTPdo 6A0lKS6U61ofj8fQOzzuI C7XHShBuIkzbncv8aewHp 6IDcuNmluOyBt APLddS66QJP0sQ15Na12y KCumCXku7eikAb2OqNnBW SmBLH1cIbaJVwdl9GfNUX kU85ibDMuz5V7 HSGzuLxceHGmMiTipEB9u E0rHXhsbqjwc5zopdmxRh p0bb51wDDuj4L4ePZ5E3N fdqW6FOBfpASj TkwzfZWLgT0mbbuki0pju dxuGeRvIHMjXHk3QDv1LD LtlFhjQfVbGY96KQP7CLS bcxMwW4IlUAFv jSlhEbH4r7N6Ho8ZL0FVD kzvX9HEWEMYZXkxrVT+PC 62sd44K1DrSknnQet5GEI oPJR8nMM6wD3s HJSsVMvfl6H5zGJ5P3Poy qQwfo5ht6iwDDXjXLpsU8 4yvMHbg0Z5SCDtzQE7OUB aeBsyMuPnsI48 Oyc+DYJnxVnqg0PuXodky 0glt6kopHj5LllkVQBwny AefAmmLPK4b8LlNn9bPIW xfIU9uPB1aT7o YgFuJsO7PZwyD025SyZkd SYeIwirJ70vQ6JbzMX+PH SbMjz5GRErrAajPX0aK8Y hZGRpbmctbGVm eIhdSI9aAEBnwgyrRBTdt A9mWDDnE2i6CnBoEwU6YX hbJ8NuVVQywbjxDz39oF0 wQzOaNlB3SSua K4UmmjG7CLMkwSKmDMplI EC7X55fz7L6REIoTPRyYL B8jMG1mT3cgWxjorwfiUU mdDsgdmVydGlj EYgiSGueB130WKPjaJjgS kNvZGluZyBEYXRlOiAgMT AvMDQvMjAyNDwvdGQ+PHR lHRV2rBwpKYCc yRFfECzeOf3kzEycdKlsD C1pTOQcysnpNXZkaN8iIE QcoNMyhBoiWZ5qOBVrkux po424IbWfGNH5 NEDgwBXdJ7HivM8eSmDkT TJkYWJhS2SbpUAmVSzfH2 60HVykIfA2USIwryXdK4O sLWFsaWduOiB0 b8G0Uy6Gg1YybrzkX0Mhj BZnXiCfEmjqYPx7T5VtHs wvdHI+FP88QCHvIC07QPg 1DPL4vNzbFHkv BFGwN9TsqY7vBwYgEYXoI GRkOyc+PHRhYmxlIHdpZH RoPScxMDAlJyBzdHlsZT0 pZw0wDWJyJLZo fQvspBQyYwDmj7uiHHLkG GryVN4ncJdvH5ZnvYX8RG Kte5m5Nw26S05tE8NyfKZ +HLBseDL5zAJ7 yG5mFmCgNrA4AQtyW190P yFqbXDtSxgwg5zbs6hdvH p3AeT6YFDgpkDjgLexVJH 6d3MiZv17O53l IHdpZHRoPSIxNSUiIHZhb Otmig4mkH9lBm0+PGNvbC X5yFI3jF9xRvVwIgO1ENt nE996XgBteUTh Fevwd3dgy6cnlQi4WsNaV DOopxEexLeoQQW1g3TbEc 23C0JmmCdly2TxCwg0la2 7eAMie2M5qSK9 L0XiDTXnbxgafRIhtHdxH Y1nBAUqhyvpCVVtcU5vIB RqO4r4IuGqDkM2YWqyT0W reeQ6DQIslYIz MCAnvEGXsN5psyrqr8mzr jpiFhWsXGHaRKj4BLs6XY TrfHwfNxVtMZQ7VxG2BYF 7zWFxpX7fjRsm brabzZ9yVbx+YWK3cDZto MZHCZ8dZmyqeGI+PHRkIH Z5qYljJMdmPYDcsJ3rKMN fC4k5ArYyQxM5 EEmqX0FrymU1TTAqhNIpH SCgjTNJsQ4epyntl3doud qgDnOlIMLsXGg4ARi1QHU saWduOiBsZWZ0 ZqG7GHG7eAKbuP8ooVbmr boqnZ9eAdw+QmlydGggRG N6TYt7F1FeNks7EXKtaVn sDH2clUBnIMmb Ub3ahHmnpEwhTB3bLYSsv xlqv830SxOrv6ufNGXnoL HxPJyaJGT6I16tc2J6QOZ oFMGnVHE2iJX0 dH8pqZhrvqyhtQClsIufh zAuaElpNJxiHWtdM888QA VzqOzjUuPjGPn6H4BoPzd 8FHIpsJujFB1a cINsEPhyTi6jrUrruBxiH S0bAZLuplvsm973EsQhc6 skDINarVZjUUweBJA9R32 vk3S6SDNlJTLb CVY8pSC6qT2fsGubzqxnb GVmdDsgdmVydGljYWwtYW syX806AQRshQhaCqFgpQr 7R1HxErt9ZMUy wLnjHI0puUDdRZkxWt7hl QvleLkhVA4dIDVrkbjus7 67UnUcf9fzJEOmsIAxGHu vKBV8H03la1G6 KHCpYNCuSHW9lGV0wA9tv GlnbjogbGVmdDsgdmVydG icLNwxJWltK615JCEzsVr nPlBhdGllbnQg CWtiORf4G7DfDktvhIF+P L03KSVlSH53mVNfhLAgd9 djmCl2KzJcMNXfFNC8hBw uILsti7EuVNTx H92zyWLwo8G5JILqoPybf ATmJvAhfXI2iP0lBEwrhe mwx1scfpxhYmngn6nkxi1 7aM10K22nEFzv ZHRoPSIzMCUiIHZhbGlnb x1mkY0eCs1+YNPpgJD4eG S1oA6aDAMeQlG7NXosY60 9InRvcCIvPjxj h6aap2xadVo1QwV4OJOod nZfpRixQME0b7YoCg24J9 9sIHdpZHRoPSIyMCUiIHZ tvIxvzx5xwG6s Ii8+LEFyqIV2wVI9eR9eX vEaBbK9SQadX821AoQupB QcOdchB22rP4TgaYW+PHR lCkd9OPNopQuf SI9rkRNbTBreWw4kZFK8L dYvPaWnGIjcD8HoSAJexl iqywdatPN6CCZcCDFemO7 4If1rdEmuXASu hCJHpC3kxmazy7dimxutT tCjBDJxCAz8SOu4KRBldE raFrJxMIT8ZsY6ZPV6vGA ijP5qvAxxcang zV8bM1TzOGOfwuitEw74n L8rBaNsOjY5BBzbTgm+V0 VCXkIoCPRNQTZPM2DTXVD TMYu8T7QmJlp4 KUCpaAiyNV7hpMDnPCojD u3klNpztHrvOK7yKFDiip pvMGDtqV9bYMKgtURibEo cEJ3rYAPukrth g406DnZiZIF5MFOptWEbC 2SwdG8oBwIiQXSrLZRlX7 PaeOUnFGhwM211CFqvQfC 3CYNmbhOsJ7Cn PJHijUynLiA8c8H8Qz4uY j6vAQ9oUDE4GM51BK25mB Zfn2F7mCN2A2BpYWUjapj aoptndMQ8JNHd NCMcoE33aICyCXoiMu7sw 6J9l777BFEqTAFhbL07Lb 5dfXdfDPCbyPEOuT0vacs bd0kbpnpaGfPa DQIqTOt9KDp1ETYgsHopL lMqFPW7YrE8XPE3bDPymJ 5hmHwwnktzbV2kMiz+NTk vKOHufpG5H7Sy Thr5PLMyhKonRX9lvQVtE JknCn4hlMzkdCojMV2cXV HrdjiiLPKyrY3cGLTmhVF qhVbfLJ8oJHBd eriaj612YbTtORL2RWFxp TKnM0YplS2eGqRmPFMhTY HnT3KwfCOoXCkaP034BPv dEeK7ZPAdjhDq W3BsOLFomUrvDwO3p4K5O f8FUF4DJTL4I4UuKql3PG TgzVgeQU1wjEBtRHzjOe4 adVqtuGtnNF5q JHWowqiuAEIckN7qCLTrq HGwcZjsNR8aHCZhoydjo8 33CtJbJXR7BMKtxWEaG1L gcV1aFlXdEIOx IHZjA9VrvAMhVSxrN419I AyrCfJ8WCIpabGnM7ZuBN CviQzvUzC5h6P6Ak4EUSu vdGQ+BA25sf90 H3QyYootRaz5SQWaFLU2j RR8vS8nYQHfCJfdm0A5hG Y0D6MasdTuqu4vk2pnVRP pSWgmM53pdICk e5C9BNNouXU4WVFhjXyuZ yNbwU50Nim+PGNvbGdyb3 JfYhrzr6dpd3gboJs0PbO wJSIgdmFsaWdu ZER0b1DmXk48I57rJAoiK HRoPSIzMCUiIHZhbGlnbj 9gfK1mQz7+HTNarIH2qZM 0kJ0aBqZbAmK2 MOmoJ159ZhRekOGlKmphs 0uxd4ysxBx7YsCaJAJwbq LthXijTKD3p0OsIh10Y7M duLmcl1CaXgg1 fj58pEHph5G1rCF7L6EiY KCoqilvnREkuExnON2hHF EuyfntPRZyuK2vYUIuY6s 8HoCrCjR6OJob G4HnfzG7HFAstNNjZRAyv AFTqH9lgsuev9lotchoTa OiZKYwDIq8EZa3ZDQpqGl qJqZwBLF8EjI0 YSP0wAAkiF9kdCmdgkohc G9wOyc+JJd7m3njtDYcYB 5nzCV4UB96TU31cPKcb5M 3aGX9V2CvXGLs aymlyxlokVO6KODrLRVkf M57Fm9xeUbaBf0qHQNvZC W7GDDclJZjP5KpuS1nMrT zBWRnBJVgS5Nq mJUcQTwfI401MPckZwY7O FYzskRzL6YjITIbmTlmLv Z0m5U0He0NLO28DL80RE6 1kCTel8Z0zDB6 A6NdVGKjkpzeoianfBW1L SByTJWaeF93Oo1tjRlpMd 3eOGByJLY8SXJedTDqV9F kyU9sIrSxXEVh NIYbB6EjpMPrILhrJ169Z HyxWxH3FUKremWcW1NwBD TayNfaOcJ9a8I8Vp1JNk1 8VP22LC79oIWb k3X6sNL3U3YzEAVrqqizx wmdgIB4FVDlPJCdaV78Pz 9nhPbqMs2vWTFmNHI7GBB cdTUvH0BqlG6r UvPdOTNqVLCiG4ZxqXMjS GguL455OWrcFsH3KPNimc TnW7BaSAXoxNlcJqI0j4Q 6Ew1COPmepdx0 A6ByXejbpTO+QS30ABXtH P51xYZfsGGre4lffKp3Tz GrXJWnVOO1uCkrQDvmb1T rIVRzK29euHMh c2U (more content not included)... Normal [facility] ED Clinical Summaryon 2023 ED Clinical Summary [facility] ? Urgent Care [address] [place] [address] Clinical Summary PERSON INFORMATION Name: ALBINA CAMERON Age: 58 Years Sex: FEMALE : 1965 MRN: Acct#: Visit Reason: UC - Ankle/Foot/Toe Pain or Swelling; RIGHT FOOT PAIN Arrival: 03/04/2024 12:06:05 Discharge: 03/04/2024 13:00:00 LOS: 000 00:54 Check In: 03/04/2024 12:06:05 Checkout: 03/04/2024 13:00:00 Address: [address] [place] [address] PCP: CONSTANTIN MELENDEZ PROVIDER INFORMATION Provider Role [...] Therapy Follow-Up: With: Address: When: CONSTANTIN MELENDEZ [facility] [address] [place], [place] [phone] Within 3 to 5 days Comments: - [...] verbalizes understanding of instructions given Comment: Normal [facility] ED Patient Summaryon 024 ED Patient Summary [facility] ? Urgent Care [address] [place], [place] [id number] PATIENT DISCHARGE INSTRUCTIONS Patient Information Name: ALBINA CAMERON Age: 58 Years Date of : 1965 Reason For Visit: UC - Ankle/Foot/Toe Pain or Swelling; RIGHT FOOT PAIN Arrival Time: 03/04/2024 12:06:05 Primary Care Physician: CONSTANTIN MELENDEZ Attending Physician: Rian Charlton CNP Comment: Patient Education With: Address: When: CONSTANTIN MELENDEZ [facility] [place], [place] [phone] Within 3 to 5 days Comments: - [...] your activities and whether you should start pcnop-mz-dynazc exercises for your injury. Ice ? If [...] ? You (more content not included)... Normal [facility] Rec[place] 024 Urgent Care Record [facility] ? Urgent Care [address] [place] [address] PATIENT DISCHARGE INSTRUCTIONS Patient Information Name: ALBINA CAMERON Age: 58 Years Date of : 1965 Reason For Visit: UC - Ankle/Foot/Toe Pain or Swelling; RIGHT FOOT PAIN Arrival Time: 03/04/2024 12:06:05 Primary Care Physician: CONSTANTIN MELENDEZ Attending Physician: Rian Charlton CNP Comment: Visit Diagnosis: Diagnoses This Visit Right foot sprain (S93.601A) UC - Ankle/Foot/Toe Pain or Swelling ([id number]) If you received any narcotics, sedation, or [...] legal documents With: Address: When: CONSTANTIN MELENDEZ [facility] [place], [place] [phone] Within 3 to 5 days Comments: - [...] and treatment you received today in the [facility] Urgent [facility] were for an urgent problem and are not intended as complete care. It is important for you to follow up with a doctor, nurse practitioner, or physician?s assistant store director for ongoing care. If your symptoms become [...] so we can reach you if necessary. [facility] has provided you with a complete list of medications post discharge. Please inform your youth support worker/provider of your visit and for further instruction [...] Vitals and Measurements (more content not included)... Normal [facility] XR Foot 2 Views Righton 09-3 XR Foot 2 Views Right EXAM: XR [...] MD 03/04/24 1:47 pm Technologist: LUIGI CUTLER [facility] Coding Summaryon 01-23-2024 Coding Summary HTMLBase 64 KexksjcwLTb8wCb+PGhlY WQ+AI5DLXRmH57qySTeaJ 7mO7OLDTvVMmhaNZTFOPj TAoRwwxMyKL3bgHKjTGGp IC8+SF0iVMVfFfhjjKWda 2B8gVY0M64gpy2fRZrnwQ E2BAExKhLyhgixu4qbkEf 6IDcuNmluOyBt FVUriS38RGD4hI83Mu63j DKrqOAht5duhYp0JrYpCV ZuZQA5lBllCLzio1SpMLY mC92roIEwr7N3 HEKtwTsrvGDoOtJtmKI7j X5dMTzxxarud9cxdatvYr c2tv62jIWea8O9qQO4A2L ankC6WHUzsBDi HpgjeOPThQ2juytib6ora cfxDbJhHYLnEKf7XAs3XV SprDmfOdRvRC52GNB0ITZ pjyAfR0EtBAYt zQolTqN2u5R2Tv7MC7RDG scaT3HHWZBCUGrlbXC+PC 72gx92G7GuWkqjCvc2HOL oBPX7bJZ5uR7j YPZjIWojj6M9dKV6Q0Kfc gCdwo4kp2zaEXOdYBuvH4 8nyQMha8G2KTYpkFF2XAX wiXlrAkVczX74 Oyc+HPQjmEpvz0VhGngcm 8ytb1seaKg9EwxdKUVbkg JdyQpbJVZ5h7FxHg6nOHT alMO1nHY4cS8n LmErUtQ1YTlsJ770AvSra ILpMxhaR30nL9SguHF+PH SvCte5RRBsxMvyLC4pP7P hZGRpbmctbGVm rXzyCF5bPTLyyxsjPEIgu S0cMLDiS5y4RhZwEiY0JY mqH9GwFIOscjinVl67bO1 qAuTvTpO4OUtg U9KagsJ4GTFmvKPlKGypI BD7C42yu8P5EJCrKPWgJQ Y2jTF3fF6vxRpklbmuuMQ mdDsgdmVydGlj HLikTOqoX736NIIkeVvrW kNvZGluZyBEYXRlOiAgMD gvMjAvMjAyNDwvdGQ+PHR sAOF9gYqfFITq nPRsWYhnEy7rlKczgPukW X8uNFWnnshxIOGalM6xAT EhiXAmiJmlEK8hBREupow ji092AyGyEKH4 HJKqsUErJ8HuzP9xXkOtE BExNORzV1IutAJaGJkvI8 19WVtxHyP7ZEZtbmMiU2M sLWFsaWduOiB0 u1A4Ja7Pa2WccgjxX3Aue FOdUmIeDvdwCXl0B9JpAt wvdHI+AY48UIWzXH15GMz 8CDZ0uJkeVTpp UMRvU9KgsA9kNhZlKYRdN GRkOyc+PHRhYmxlIHdpZH RoPScxMDAlJyBzdHlsZT0 gDn0pZHHhLBIf cOelrTGiJpFor5zqHMNkH ZtwEC0huChkE4IyjBW9IJ Rap4k4Us10E72bW7DeoUA +OEXpwGK2kGQ1 tE0uAkQaPgL2MHxaU542V nLzfOBtBxkjs8yrg9dbkS p3VbS8YZHaibKujHlxMFX 8c7ExVx83T04s IHdpZHRoPSIxNSUiIHZhb Hrdjr6kkH3fEp4+PGNvbC P8wCR7pL5kZjRvLhY5CVy yV983SxMtkJUd Vgtbo1iiq0lexSv5KoNzB HYoogVkpHqrNRL9d6GrSi 98U8AqvRyuk7VuFre2rh0 0mAPit9M7qRS5 R8FaVUMekxyhqGYfbHkoA T2mIVYzugnrJXRdnO6aFD BhD9f5JiTeEjK4FHopR3U hsgW6KJSvxCEb DDWjwJUCeZ5gbtqcf5zvt cuxWqQoEVGeHUq4FJx0JY HhvYzgShKqPNC7IbT2ADF 4tHIjxE6leWej vwftcF7tDco+WNQ1mEOzv VFVFR5nOmqyyQO+PHRkIH X5iTvxPYoiWGDsyQ4dJTM wM5g4RwJtGrS4 NOypY3KrplP7BFUzsQVgT QOgsYLHvA4mypcja2zewl loPhCpWYKpTAu9TZn6QXC saWduOiBsZWZ0 JiV8NIG3aJUxyB4dgOlmi izvaY3lHez+QmlydGggRG W0JXt1O8KhLtg6KEAtpPr mWB7diUTdUJaj Ol5srNeabRahWY4nHXAgw hbul274PtUiu1haBAGasX XfLNxuWYZ8P65ul9W5BFY mASNrZYI7oII5 uQ7hzOzprrjbfHZalDcwi zOpqJzvPCwgKYvgL856VM LquDjnRrTsOZi4N2VqDit 9RLKjcPcaWK7b pEOwVVvcTh7xbLfruBneR L9hRUHyjrjdk239UaKpt8 qpVIZklLDoSNbyLVU4J21 ho4W9QWQfHEFi LMW6xNF4gQ1oqHxbafacm GVmdDsgdmVydGljYWwtYW zqW972ZOTprUdaWpIjjTs 3W9MmKhy1VTJl nNdiKI4sdZOqOJupGg7ql FafkStdBV8xUCZodtilk8 48IdFkn2ejECUeaPGlWZs dILV2V37zc0Z3 HBXjOHHnRFY9qLR1mN4vw GlnbjogbGVmdDsgdmVydG hwLQoiCFipB102BVKppOn nPlBhdGllbnQg ERbdRTm6X8YzQhjhpZR+P L78FQQpCZ19tWCpiHGdg4 odrAb6CgGwTSPgVGL4rKi cHRvwm1VpRIJa R07qvPClx3D6AFWcqMbfu QGtJdLkvDG9yH2rWDdmmr zac6efdsvkCytqm8dxqw6 8rA38M11cWKgo ZHRoPSIzMCUiIHZhbGlnb t1zxH0pYd8+FQQaoVX1rC G9cO3sZGVkFiS3EKkbZ20 9InRvcCIvPjxj u9ovq8edsBy8PmU3BWArw zZfaKnkPZS7v5FvQf37N2 9sIHdpZHRoPSIyMCUiIHZ bqTuxze1vlX0t Ii8+ZPRcpUS0rDR2pD0dB cAcFuR0OLijD254FuDmiS TeLxvrK25sU3UedSA+PHR aNwr1FLYkqBco PD2itMWrFZmdPr6oRPO2G jWeWzVmEPreO8TqLCEnqh pftncgoDQ1APRdKDPdxC9 9Ac5fvMqeDMKe fGLOyL6wunife7cdjjwoD eTyWICwBRy4NSu8VRHmzB kgIoFtOFR8PcQ2VZJ0rMH xcP8zbUfwbawi qN1mM8LsSGTrytnoYn46v E0mLoXuEfA2WEnsZot+V0 SZKlQzAIKGBYCUG3VCTTR ELIf8F0ToEiy4 PQAzzDunWA0goZKvBVxoH o6pzLwanOmiNM5cUWGbei hpZLBnxM5jTMWcoSOivTg uOA0yLJTnsnia m712RyLgYAA0CKXqhXUvO 9RubQ2fPhDfPUQiSZVdM4 YyoWTrHGljL440IIlsAdW 6CVNemnMbI5Xv STTgjJymUqI0j8K7Ng4aK k2yFL5cHDW0UP67HG78sO Zgs2A5dMH8I7ByUCCfniz mdwtgzGF1EDFb GTYpyJ76vSDsCYpvTh4bt 1G0b823GIJbUVHtjZ84Tb 8zrVxtHNDzhSTEmL2tuzb fo1uogquuIvNw JABsKRb1MFa4GSOpwVykR uYcOGF4KrT7IFF0zNXnqE 2icZkfigcneH3iOkl+NTk hCCRhlkX7T5Hl Qiu2KDQlgXocEP8fcPYaA WxmFa3xnSdjlXgcYZ2eSF DuynwjPREbiJ6aJQHhkZA mfVfgAQ0tKTZk whqnf628VwElWUE5DICci TWxZ7TtyD9tDwGeNWPzHX ZbC3KbwJBiVYohR460VXz nLfR4NRJssbEk P6VoRQDtyDopXdZ0z0S3D e2BNO3LTII0R4DyQdh2LX QffRikPS5nlTXdBQykCt2 yyMctiGqhEQ6g KNIkdnjiZSGvvJ4cSRVpu WVpdHnwZI6qNYMlssqip8 19AcGiFII7MGDqlNNtZ9B uyV6vQoEeLWMi LZRjV1HwvPKeXOfpV651Q QxoAfJ0BHWnxbHgA8NlRJ RroCapNfJ3l8M5Ho5RTBd vdGQ+QW13ej71 S3YxNgxqXfn7YCTeTDF9j HU3dX0xBRAyROdpo4Y9lV O8N9NqxhAdsm1lz0mhBEJ pTKwcJ64etPSv e7C2LBYgmFQ9HWHriTivJ dGngT93Fvr+PGNvbGdyb3 MgEeilv4zjw4rynLe9FuF wJSIgdmFsaWdu JVL9f6BkJe10O88hZLebB HRoPSIzMCUiIHZhbGlnbj 3njC5lOq9+SSTwyLJ1iGY 1vI2uLuRdXjF1 HGpaZ920IxVivGCeZjhya 0uzf6wvjRl7YiUiFXIehd UrpGroKHS8l7UxVx60S0J lxAbaw4IxFso0 bs88jIIfv0L2nVI0D6EjO RCeegdxfRUybUwhTZ3mPT GoyrbsAOKfyM0pRNOnI9a 3BqZeCcO8HXzz A1VpheD7LBDgnQYjCIWfp DGIdC2llwobq7fgzmjzIz AfILHpLEb0DNg6AZKysKc eXkAxYRW1PtQ2 ZMR6hIQqqQ6crZsgvbbgt G9wOyc+ANb0b1azsEDpSO 9mwCV2RR52MU76fZTvw0V 5tCW7M3TgPCFg vewynbbygRJ1DKVcWWHlo M75Or2bvDhaVp9nPLUkXK J7OORljQRdK7KgiK0pCfG tSEAsNBRdS7Rn cYTlCDzfH540SSblNcH5N GVeuwVeQ3SlVGEvtBewUq I6z7I0Sa8VZK89LI67NO7 5eBUsf0X6gHA2 U4OdNVHdpqyidbawlJZ5N ZGbJYNyzK00St0jlZafAt 8sODXtDBE7DSJleSPsG0F zlL8tBiEgMEWe AGVbJ0AfrUBdOCrnN791T JbwLgU4RAAoymWmK0JyWA GuxTnfClJ0l8Z7Gh9FZc3 0WN50CA73qNOk a3R2tQG5M3SbYBZvxtklt zgfyQY4GZKbRVDdfM04Uz 4noBolTc2uYIHtTJK2UIB prDWqI8YqbS7z QmSdSDGfHVZnS7MbzVQzP QzaQ071JCmrKrA1VRIbqv KtG5OyMIIcnIgsVaW1z7U 2Zq3PYUjqclm7 L9DeQlzavRB+OX18EXYsZ M64hKDbvJMen1iugGg6Cz AgPXMgEZU9eBrfVEikd5E vVUHqH28imCYd c2U (more content not included)... Normal [facility] C Urineon 01-12-2024 C Urine Urine Culture ordere d as a result of parameters set on specific urine dip and urine microsopic results. <10,000 cfu/ml Normal [facility] Comment on above: Performed By: #### [id number] ####[facility] (DEFAULT)[address] [place] [address] ED Clinical Summaryon 2023 ED Clinical Summary [facility] 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 Urgent Care [address] [place] [id number] PATIENT DISCHARGE INSTRUCTIONS Patient Information Name: ALBINA CAMERON Age: 58 Years Date of : 1965 Reason For Visit: UC - Urinary Frequency; UC - Abdominal Pain; URINARY FREQUENCY, BACK AND ABD PAIN Arrival Time: 01/10/2024 18:28:43 Primary Care Physician: CONSTANTIN MELENDEZ Attending Physician: Micah Carney Comment: Patient Education With: Address: When: CONSTANTIN MELENDEZ [address] [place] [id number] Within 3 to 5 days Comments: Diagnosis [...] this condition includes: ? Antibiotic medicine. ? Vgqr-oyl-qrkxvaj medicines to treat discomfort. ? Drinking enough [...] these instructions at home: Medicines ? Take vybo-yxx-yxokgrq and prescription medicines only as told by [...] This is impor (more content not included)... [facility] UA Mbuzu2ux 01-10-2024 UA Bacteria Rare [facility] Comment on above: Order Comment: Urina lysis Microscopic order added on by Striiv Rules system. Performed By: #### 6 [id number], [id number], [id number] #### [facility] (DEFAULT) [address] [place] [address] UA Mucous 1+ [facility] Comment on above: Order Comment: Urina lysis Microscopic order added on by Discern Expert Rules system. Performed By: #### 6 [id number], [id number], [id number] #### [facility] (DEFAULT) [address] [place] [address] UA RBC 3-5 [facility] Comment on above: Order Comment: Urina lysis Microscopic order added on by Oddcast Expert Rules system. Performed By: #### 6 [id number], [id number], [id number] #### [facility] (DEFAULT) [address] [place] [address] UA Squam Epi Few [facility] Comment on above: Order Comment: Urina lysis Microscopic order added on by Odd[employer] Expert Rules system. Performed By: #### 6 [id number], [id number], [id number] #### [facility] (DEFAULT) [address] [place] [address] UA WBC 15-20 [facility] Comment on above: Order Comment: Urina lysis Microscopic order added on by Odd[employer] Expert Rules system. Performed By: #### 6 [id number], [id number], [id number] #### [facility] (DEFAULT) [address] [place] [address] UA w Culture if Ind Standard on 01-10-2024 Breakpoint UA [facility] Comment on above: Performed By: #### 6 [id number], [id number], [id number] #### [facility] (DEFAULT) [address] [place] [address] Color (U) [place] [facility] Comment on above: Result Comment: Test cannot be satisfactorily determined due to intensely colored urine. Parameters which will be affected are: GLU, ANNA, URO, KET, BLO, PRO, NIT, LIZZY, SG, AND pH. Performed By: #### 6 [id number], [id number], [id number] #### [facility] (DEFAULT) [address] [place] [address] Culture? Indicated Invalid Interpretation [facility] Comment on above: Result Comment: Resu lt created by rule GL_MAGR_ADD_UA_CULT Result created by rule GL_MAGR_ADD_UA_CULT Result created by rule GL_MAGR_ADD_UA_CULT1 Performed By: #### 6 [id number], [id number], [id number] #### [facility] (DEFAULT) [address] [place] [address] Glucose (U) [Mass/Vol] 100 mg/dL Normal [facility] Comment on above: Performed By: #### 6 [id number], [id number], [id number] #### [facility] (DEFAULT) [address] [place] [address] Ketones Ql (U) Negative Normal [facility] Comment on above: Performed By: #### 6 [id number], [id number], [id number] #### [facility] (DEFAULT) [address] [place] [address] Micro? Indicated Invalid Interpretation Code [facility] Comment on above: Result Comment: Resu lt created by rule GL_MAGR_ADD_UA_MICRO Performed By: #### 6 [id number], [id number], [id number] #### [facility] (DEFAULT) [address] [place] [address] UA Bilirubin Negative Normal [facility] Comment on above: Performed By: #### 6 [id number], [id number], [id number] #### [facility] (DEFAULT) [address] [place] [address] UA Blood TRACE Abnormal NEGATIVE [facility] Comment on above: Performed By: #### 6 [id number], [id number], [id number] #### [facility] (DEFAULT) [address] [place] [address] UA Clarity CLEAR Normal CLEAR [facility] Comment on above: Performed By: #### 6 [id number], [id number], [id number] #### [facility] (DEFAULT) [address] [place] [address] UA Leuk Est MODERATE Abnormal NEGATIVE [facility] Comment on above: Performed By: #### 6 [id number], [id number], [id number] #### [facility] (DEFAULT) [address] [place] [address] UA Nitrite Positive Abnormal NEGATIVE [facility] Comment on above: Performed By: #### 6 [id number], [id number], [id number] #### [facility] (DEFAULT) [address] [place] [address] UA pH 6.0 Normal 5-8 [facility] Comment on above: Performed By: #### 6 [id number], [id number], [id number] #### [facility] (DEFAULT) [address] [place] [address] UA Protein TRACE Abnormal NEGATIVE [facility] Comment on above: Performed By: #### 6 [id number], [id number], [id number] #### [facility] (DEFAULT) [address] [place] [address] UA Spec Grav 1.010 Normal 1.001-1.035 [facility] Comment on above: Performed By: #### 6 [id number], [id number], [id number] #### [facility] (DEFAULT) [address] [place] [address] UA Urobilinogen 2.0 mg/dL Abnormal 0.2-1.0 [facility] Comment on above: Performed By: #### 6 [id number], [id number], [id number] #### [facility] (DEFAULT) [address] [place] [address] Urine Source Clean Catch Normal [facility] Comment on above: Performed By: #### 6 [id number], [id number], [id number] #### [facility] (DEFAULT) [address] [place] [address] Urgent Care [facility] 024 Urgent Care Record [facility] ? Urgent Care [address] [place] [address] PATIENT DISCHARGE INSTRUCTIONS Patient Information Name: ALBINA CAMERON Age: 58 Years Date of : 1965 Reason For Visit: UC - Urinary Frequency; UC - Abdominal Pain; URINARY FREQUENCY, BACK AND ABD PAIN Arrival Time: 01/10/2024 18:28:43 Primary Care Physician: CONSTANTIN MELENDEZ Attending Physician: Micah Carney Comment: Visit Diagnosis: Diagnoses This Visit Cystitis (N30.90) UC - Abdominal Pain ([id number]) UC - Urinary Frequency ([id number]) If you received any narcotics, sedation, or [...] legal documents With: Address: When: CONSTANTIN MELENDEZ [address] [place] [address] [place] [phone] Within 3 to 5 days Comments: Diagnosis [...] and treatment you received today in the [facility] were for an urgent problem and are not intended as complete care. It is important for you to follow up with a doctor, nurse practitioner, or physician?s assistant store director for ongoing care. If your symptoms become [...] so we can reach you if necessary. [facility] has provided you with a complete list of medications post discharge. Please inform your youth support worker/provider of your visit and for further instruction on these medications. Any specific questions regarding your chronic medications and dosages should be discussed with your primary care physician(s) and/or pharmacist. New Medications [id number], [address], [place] [id number], [phone] nitrofurantoin (Macrobid 100 mg oral capsule) 1 [...] Type C (more content not included)... Normal [facility] BASIC METABOLIC PANLon 11-06 Anion gap [Moles/Vol] 8 mmol/L Normal 5-15 [facility] Comment on above: Performed By: #### C BCA, HA1C, BMP, 42820-4, LIVR, 3016-3 #### [facility] ([id number]) [address], [address] [place] [address] Calcium [Mass/Vol] 9.0 mg/dL Normal 8.5-10.5 [facility] Comment on above: Performed By: #### C BCA, HA1C, BMP, 14196-3, LIVR, 3016-3 #### [facility] ([id number]) [address], [address] [place] [address] Chloride [Moles/Vol] 107 mmol/L Normal 98-109 [facility] Comment on above: Performed By: #### C BCA, HA1C, BMP, 31606-6, LIVR, 3016-3 #### [facility] ([id number]) [address], [address] [place] [address] CO2 [Moles/Vol] 28 mmol/L Normal 22-32 [facility] Comment on above: Performed By: #### C BCA, HA1C, BMP, 59549-7, LIVR, 3016-3 #### [facility] ([id number]) [address], [address] [place] [address] Creatinine [Mass/Vol] 0.63 mg/dL Normal 0.40-1.00 [facility] Comment on above: Result Comment: METH OD TRACEABLE TO IDMS STANDARD Performed By: #### C BCA, HA1C, BMP, 01911-0, LIVR, 3016-3 #### [facility] ([id number]) [address], [address] [place] [address] eGFR (CKD-EPI) NON-RACE DEPENDENT >90 Normal >59 [facility] Comment on above: Result Comment: Reported eGFR is based on the CKD-EPI 2020 equation that does not use a race coefficient. Performed By: #### C BCA, HA1C, BMP, 79458-1, LIVR, 3016-3 #### [facility] ([id number]) [address], [address] [place] [address] Glucose [Mass/Vol] 116 mg/dL High 65-99 [facility] Comment on above: Performed By: #### C BCA, HA1C, BMP, 56799-6, LIVR, 3016-3 #### [facility] ([id number]) [address], [address] [place] [address] Potassium [Moles/Vol] 4.3 mmol/L Normal 3.5-5.0 [facility] Comment on above: Performed By: #### C BCA, HA1C, BMP, 45393-2, LIVR, 3016-3 #### [facility] ([id number]) [address], [address] [place] [address] Sodium [Moles/Vol] 143 mmol/L Normal 134-146 [facility] Comment on above: Performed By: #### C BCA, HA1C, BMP, 93223-9, LIVR, 3016-3 #### [facility] ([id number]) [address], [address] [place] [address] Urea nitrogen [Mass/Vol] 22 mg/dL Normal 5-23 [facility] Comment on above: Performed By: #### C BCA, HA1C, BMP, 26854-2, LIVR, 3016-3 #### [facility] ([id number]) [address], [address] [place] [address] CBC AND AUTO DIFFon 11-07-19 24 ABSOLUTE BASOPHIL 0.0 X10E9/L Normal 0.0-0.2 [facility] Comment on above: Performed By: #### C BCA, HA1C, BMP, 04901-1, LIVR, 3016-3 #### [facility] ([id number]) [address], [address] [place] [address] ABSOLUTE NEUTROPHIL 4.6 X10E9/L Normal 1.5-6.6 [facility] Comment on above: Performed By: #### C BCA, HA1C, BMP, 74168-0, LIVR, 3015-3 #### [facility] ([id number]) [address] [address] [place] [address] Basophils/100 WBC (Bld) 0.4 % Normal [facility] Comment on above: Performed By: #### C BCA, HA1C, BMP, 32519-3, LIVR, 3015-3 #### [facility] ([id number]) [address] [address] [place] [address] Eosinophils (Bld) [#/Vol] 0.3 10*3/uL Normal 0.0-0.4 [facility] Comment on above: Performed By: #### C BCA, HA1C, BMP, 90345-8, LIVR, 6-3 #### [facility] ([id number]) [address] [address] [place] [address] Eosinophils/100 WBC (Bld) 4.2 % Normal [facility] Comment on above: Performed By: #### C BCA, HA1C, BMP, 43033-6, LIVR, 3016-3 #### [facility] ([id number]) [address] [address] [place] [address] Erythrocyte distribution width (RBC) [Ratio] 13.9 % Normal 11.5-15.0 [facility] Comment on above: Performed By: #### C BCA, HA1C, BMP, 95355-0, LIVR, 3016-3 #### [facility] ([id number]) [address] [address] [place] [address] Hematocrit (Bld) [Volume fraction] 40.3 % Normal 35-47 [facility] Comment on above: Performed By: #### C BCA, HA1C, BMP, 10770-9, LIVR, 6- #### [facility] ([id number]) [address] [place] [address] Hemoglobin (Bld) [Mass/Vol] 13.3 g/dL Normal 11.7-15.5 [facility] Comment on above: Performed By: #### C BCA, HA1C, BMP, 34349-4, LIVR, 3015-3 #### [facility] ([id number]) [address], [address] [place] [address] Lymphocytes (Bld) [#/Vol] 2.0 10*3/uL Normal 1.0-3.5 [facility] Comment on above: Performed By: #### C BCA, HA1C, BMP, 36183-6, LIVR, 6-3 #### [facility] ([id number]) [address] [address] [place] [address] Lymphocytes/100 WBC (Bld) 27.7 % Normal [facility] Comment on above: Performed By: #### C BCA, HA1C, BMP, 82065-1, LIVR, 6-3 #### [facility] ([id number]) [address] [address] [place] [address] MCH (RBC) [Entitic mass] 29.3 pg Normal 27-34 [facility] Comment on above: Performed By: #### C BCA, HA1C, BMP, 86422-3, LIVR, 3015-08 #### [facility] ([id number]) [address], [address] [place] [address] MCHC (RBC) [Mass/Vol] 32.9 g/dL Normal 32-36 [facility] Comment on above: Performed By: #### C BCA, HA1C, BMP, 51817-1, LIVR, 3015-3 #### [facility] ([id number]) [address], [address] [place] [address] MCV (RBC) [Entitic vol] 89 fL Normal 80-100 [facility] Comment on above: Performed By: #### C BCA, HA1C, BMP, 12845-0, LIVR, 3015-08 #### [facility] ([id number]) [address], [address] [place] [address] Monocytes (Bld) [#/Vol] 0.4 10*3/uL Normal 0-0.9 [facility] Comment on above: Performed By: #### C BCA, HA1C, BMP, 04381-1, LIVR, 3015- #### [facility] ([id number]) [address], [address] [place] [address] Monocytes/100 WBC (Bld) 5.5 % Normal [facility] Comment on above: Performed By: #### C BCA, HA1C, BMP, 39706-3, LIVR, 3015- #### [facility] ([id number]) [address] [address] [place] [address] Neutrophils/100 WBC (Bld) 62.2 % Normal [facility] Comment on above: Performed By: #### C BCA, HA1C, BMP, 99288-2, LIVR, 3015-3 #### [facility] ([id number]) [address], [address] [place] [address] Platelet mean volume (Bld) [Entitic vol] 9.3 fL Normal 7-12 [facility] Comment on above: Performed By: #### C BCA, HA1C, BMP, 20842-3, LIVR, 3016-3 #### [facility] ([id number]) [address], [address] [place] [address] Platelets (Bld) [#/Vol] 245 10*3/uL Normal 150-450 [facility] Comment on above: Performed By: #### C BCA, HA1C, BMP, 61903-3, LIVR, 6-3 #### [facility] ([id number]) [address] [place] [address] RBC COUNT 4.53 X10E12/L Normal 3.80-5.20 [facility] Comment on above: Performed By: #### C BCA, HA1C, BMP, 77615-5, LIVR, 3015-3 #### [facility] ([id number]) [address], [address] [place] [address] WBC (Bld) [#/Vol] 7.4 10*3/uL Normal 4.0-11.0 [facility] Comment on above: Performed By: #### C BCA, HA1C, BMP, 19709-8, LIVR, 6-3 #### [facility] ([id number]) [address], [address] [place] [address] HGB A1C (GLYCO-HGB)on 2023 Glucose [Mass/Vol] 140 mg/dL Normal [facility] Comment on above: Performed By: #### C BCA, HA1C, BMP, 72532-0, LIVR, 3016-3 #### [facility] ([id number]) [address] [address] [place] [address] HbA1c (Bld) [Mass fraction] 6.5 % High 4.4-5.6 [facility] Comment on above: Result Comment: NOTE ADA Guidelines Result HgbA1c Normal : less than 5.7 % Prediabetes : 5.7 % to 6.4 % Diabetes : > 6.4 % Use with caution in patients with abnormal hemoglobin variants as the half-life of red blood cells and in vivo glycation rates are affected. Performed By: #### C BCA, HA1C, BMP, 41790-3, LIVR, 3016-3 #### [facility] ([id number]) [address], [address] [place] [address] LIVER PANELon 11-07-2023 Albumin [Mass/Vol] 4.1 g/dL Normal 3.2-5.3 [facility] Comment on above: Performed By: #### C BCA, HA1C, BMP, 23158-6, LIVR, 3016-3 #### [facility] ([id number]) [address], [address] [place] [address] ALP [Catalytic activity/Vol] 58 U/L Normal 39-130 [facility] Comment on above: Performed By: #### C BCA, HA1C, BMP, 34720-1, LIVR, 3016-3 #### [facility] ([id number]) [address], [address] [place] [address] ALT [Catalytic activity/Vol] 16 U/L Normal 0-31 [facility] Comment on above: Performed By: #### C BCA, HA1C, BMP, 74692-0, LIVR, 3016-3 #### [facility] ([id number]) [address], [address] [place] [address] AST [Catalytic activity/Vol] 20 U/L Normal 0-41 [facility] Comment on above: Performed By: #### C BCA, HA1C, BMP, 07663-1, LIVR, 3016-3 #### [facility] ([id number]) [address], [address] [place] [address] Bilirubin [Mass/Vol] 0.7 mg/dL Normal 0.3-1.2 [facility] Comment on above: Performed By: #### C BCA, HA1C, BMP, 11664-6, LIVR, 3016-3 #### [facility] ([id number]) [address] [address] [place] [address] Bilirubin.direct [Mass/Vol] 0.1 mg/dL Normal 0.0-0.4 [facility] Comment on above: Performed By: #### C BCA, HA1C, BMP, 47600-5, LIVR, 3016-3 #### [facility] ([id number]) [address], [address] [address] Protein [Mass/Vol] 6.7 g/dL Normal 6.0-8.0 [facility] Comment on above: Performed By: #### C BCA, HA1C, BMP, 37148-7, LIVR, 3016-3 #### [facility] ([id number]) [address] [address] Lipid 1996 panelon 4 Cholesterol [Mass/Vol] 145 mg/dL Low 150-200 [facility] Comment on above: Performed By: #### C BCA, HA1C, BMP, 74285-0, LIVR, 3016-3 #### [facility] ([id number]) [address], [address] [address] Cholesterol in HDL [Mass/Vol] 48 mg/dL Normal >39 [facility] Comment on above: Result Comment: HDL <40 mg/dL - High Risk HDL > or = 40mg/dL- Desirable HDL >60 mg/dL - Negative Risk Performed By: #### C BCA, HA1C, BMP, 11540-4, LIVR, 3016-3 #### [facility] ([id number]) [address], [address] [address] Cholesterol in LDL [Mass/Vol] 66 mg/dL Normal <130 [facility] Comment on above: Result Comment: LDL <100 mg/dL - Desirable LDL >160 mg/dL - High Risk Performed By: #### C BCA, HA1C, BMP, 84730-0, LIVR, 3016-3 #### [facility] ([id number]) [address], [address] [address] Cholesterol in VLDL [Mass/Vol] 31 mg/dL High 0-30 [facility] Comment on above: Performed By: #### C BCA, HA1C, BMP, 16620-7, LIVR, 3016-3 #### [facility] ([id number]) [address] [address] CHOLESTEROL:HDL 3.0 Normal 1.0-5.0 [facility] Comment on above: Performed By: #### C BCA, HA1C, BMP, 61317-1, LIVR, 3016-3 #### [facility] ([id number]) [address] [address] Triglyceride [Mass/Vol] 154 mg/dL High 27-150 [facility] Comment on above: Performed By: #### C BCA, HA1C, BMP, 44630-5, LIVR, 3016-3 #### [facility] ([id number]) [address] [address] MICROALBUMIN - ALBUMIN:CREAT ININE URINE RATIOon 11-07-2023 ALB/CREAT RATIO 79.4 mg/g creat High 0.0-30.0 [facility] Comment on above: Performed By: #### M ALBU #### [facility] ([id number]) [address] [place] [address], [address] [place] [address] Albumin DL <= 20 mg/L (U) [Mass/Vol] 7.3 mg/dL High 0.0-1.9 [facility] Comment on above: Performed By: #### M ALBU #### [facility] ([id number]) [address] [place] [address], [address] [place] [address] URINE CREAT 91.98 mg/dL Normal [facility] Comment on above: Performed By: #### M ALBU #### [facility] ([id number]) [address] [place] [address], [address] [place] [address] TSH Qnon 11-07-2023 TSH 1.51 uIU/mL Normal 0.49-4.67 [facility] Comment on above: Performed By: #### C BCA, HA1C, BMP, 75883-7, LIVR, 3016-3 #### [facility] ([id number]) [address] [place] [address], [address] [place] [address] Coding Summaryon 06-07-2023 Coding Summary [facility] NmmwdpoaNAm6bQo+PGhlY WQ+MD4JKTKdU08xfGHwkN 7nR3ZUGQzBExnpEPLSQJf ORtPfxpHaGM5btAToLGCw IC8+HP3tGKJsQobalRQrx 7X7pDR1I43ard5lPCrccJ Y2BEEiJpLnkrmbo7ycbXh 6IDcuNmluOyBt GXTsvN86ZVH7wM28Yk92b PAamUHly3mamYe5SwVpMU KiIGK2nFelHYfcd4HpZZF wS74klACiu5V0 TXDpjGakhRAtTsCzqEL9f Z8tQFdpfvwzr4luyrzcUk a0si22rJSao6E0rAK4Y8P mdmY6LPPbvISt UlvrkXUTuW5kikjei3glv agxOxLwCNYoHBy0AZn2EV UmhDyuCcCcSU92JJG0WMO xunDhL3FfYTZm tRhvMqX9e5R4Sc1VK3DFO ztmR5EOXRZINSuanPP+PC 48sl86D0XpArkxVdh3GXS kFTU3fSY1qU9r HDIeWIuds4D1aRZ0V5Wen lUwwi7zj2cuOPXuORneD2 6nrDPeq5B2XNTpxTH9JAH nfAykUoWrfH28 Oyc+BQIsaFbxa7OnPodma 3lrw2jplLs4MczeDEWkrb AtiBszVWB4i5VqAp4rXJY wmCR3oXE7gS4u SqMqSmG8UUjeR941UhSiw XGcGovgL85lZ3RmgJN+PH HoBvo8YYCuuEfmBC4aW9O hZGRpbmctbGVm gZhoTE4qIARssmulDSUmd G7uVGAyB7y9AdKlJnL3IG omG8WeDMYbfcikQx04fE8 fSqYkYlC5CKfy M9FnyrN3NGIakQBkWWnjE TV6M94ou9F9RKBkOUViIP T4bSB3pR2aqVozizfjaLN mdDsgdmVydGlj SWgyQMyiV041IOCwmAuzD kNvZGluZyBEYXRlOiAgMD EvMDMvMjAyNDwvdGQ+PHR iDIL5fWdnZGCc xBFpOXrsQe2ofBtniYuiI J2nEVVhosyvQHPlmO2gQN GviBLiwAvxCV8aSDJjenl zi102KrNxTNQ1 YZFwzSGoA7BqiK5eAwZjS ZTgRNYbY2DfwRPeKKmdB1 91PFbxLwR5BSCrauQeG9Z sLWFsaWduOiB0 t4O8Mw8Za3WcqddoU1Par UOhRhYjNegxIRu2A9FmUc wvdHI+WL00JBZdCZ66FHk 7IEU8xErjYNyi ALPgR2HvwU5xNaOyWSQkU GRkOyc+PHRhYmxlIHdpZH RoPScxMDAlJyBzdHlsZT0 eCf9vZKXpWZZr nIpjdYSaLbZuj2ynLIEjH YwlBL9duLfmE3OznBL7GN Kxc7s6Dk33C83aM3ZvwEH +BLNneOK3yDY7 jR0bXlVdFoP5QRzeL651H kQetVByAavyh7tqd3heyV y6HyA5KQTzmbFvjYwgAMW 0e0DxKt73M13i IHdpZHRoPSIxNSUiIHZhb Kcfgr4fdZ6zJz0+PGNvbC Q3dFG9jD3gSrBlPdJ4MRn gZ753OsZvoBUo Soida1vtj0pxuYx8YkSpP HLjgxHlfIayTID6u5UxMx 73K8VbuGxtg9IqIfx0tk3 6sEYma7T3vKP5 E1PyHZBsztbtpKMbuGcgO L5rCKFxujdsLJTdvI7wGA CqA1v2LbUnGoD7XKrsZ5G diwL6HXSeuTIg QKXhqJYThM8xflpuw0wdx cikCuUsPYDzLQk4ENp0OK DwbMofNpHuAMZ5PhK7AWH 3qIRepC0sqGye yuxopU3uJdj+EJH9nSVzc OGYLQ6yUchwtBU+PHRkIH L3tGmbMZhhELCvxC1uCXS pS3v4WeUuZhE3 DVcyO5HljyH5OBPfnRLkC KPhmMFEnE5ymeqmw1hkjx igIaLyGBNcMWw4WQt4UAQ saWduOiBsZWZ0 GwY4SZX8jBQeqX4zhWlus glhcN2aBcv+QmlydGggRG W2UPf9C1VhYot6OTAcgTc mLV5jeAJtPYpc Zc5buFlidLdwWQ2kEZLnc qohk416JwHiz7yyVPRldF KcJIjjQXF2V14gd2F1WAX tMQDbLBC3nXR9 tS8bwHgroxzavJWjwGura mQxqZxlCFtfYHjzY712IV TtiTyoMvXtUNd3W3EpCxr 8KWQskTctMY8l tLPmVFqhOv7rzGabiFubF W8pZHPeczttk972LwDoc9 itULVsbTHbLDgxOAZ0J08 vd7H1IJHdDXNt HWJ8aWX1rE5imHnpavmtd GVmdDsgdmVydGljYWwtYW acH585OICsnNejHuMcwJs 6Y7DdRcs6ISBv jOtsOJ9ceZIiUWdgXx4pw FsouEtmYL1pDZUwakhkl4 17EkVzm2nrCJMfvDBpDTr oJWJ0W41ds2R6 QTFaNQNrETW9fIW1jV6kq GlnbjogbGVmdDsgdmVydG mvLPrpFWokN002OIRlqFc nPlBhdGllbnQg KDwsNFz1F8HuEgxriSR+P R68RGUjRK47rQGbwSTmt8 vwnUy8JdTcZOVgIRG9pEj nFXbpt4KxDLOs B23hjOJvc2J5ZCPriYpxi NHpDbRhyKT2pJ0sHZqfhu pbv3dgbjwuOjowo6dntf8 2nN77S95eSZwi ZHRoPSIzMCUiIHZhbGlnb l1mhW8kNz7+CUJtfEF5lO U7bS1qWHSbPjD8LLksL05 9InRvcCIvPjxj h2rmi6tusXl9BlA1GETbk oSsqGgbMAJ1u4TcRv81O5 9sIHdpZHRoPSIyMCUiIHZ idFalvu0udP6y Ii8+SSCtgMD1uDC1pJ5bI zJeNiB9NHrwA806XmWadR UgHfocD14cR4EkzVN+PHR wXyc5XGOoqVwp JQ1jdOCkRXutGp2cEMO4E fNsMzTzNTvaD1KlRLKpsp lgjpjokXG7HOKvHPYnoF9 0Hw0bzIswZMLd kIGFfH0midaph8ocpfzpD pTxGOPlNTx8PHp1LWYyxN nqZsDaKSL3VtQ4CUK0nAY brY5biYcjxyqo dF8jN8FxWZNqtcsoTq12u H3lWiFbPeO4JBbyGal+V0 WULoBdIOZCDTWXG7IAYSD EWTs8J4BfQgx0 KAHalTpwRL5zgNSxWGboN u8vpTmyqEpdMH1qHXQoxb jyEGSrpR6oUWJzoLZmhTw uPT0xYYOpsyqr c712ZvKrMZU6TDLnbSQgW 1DqxH5pUnSdNSVtXIRhE3 UdkQZzKPftK130MOwjPaE 7TWSppdWxI3Lw FTAksXwfGfL3h0O7Cu1wO b6gBM6vIBM6SC61JK16nZ Vzz3A9dZV2D6IlCKMbcvr hpfzijJY9AQZl HCLkiY37tDFhYAmyMk3zt 2S9w849IRBxIRMocO84Wt 7boTwqXIUdiWOFdP8mhkr bd0iszmhjAaXw ANEyVZc9JAo4QFRhzKzqY mWgKQG2QjQ0XBL2oRBryH 8zaTjrkjwiuL6mQps+NTg qGKGgbqW1F6Je Uhx6UOFgcJenVW2hdIDvE TbjVb0ixBokzVzpBQ1uBU BhnpkoNMWijH7hIOQvtXZ xcXawRA0mYECu eqpdc128IwFmFEJ5SWEpq IYgP5LzfQ5rVySgXXOyJK TcE2DhsRKiPXmjL580NYd mUxC5ULSgpoKm L5QxHFCnmBfoKrA7s8F4T j0UHH0SWVT9B1XtBcb3UZ BezGpyHK0tnTHvWUnlNf4 tfTfhiCsaPW8r RRZkmwcrSDBavK9dPQLvb LVxpPfiCD9jSGFxuandd1 35FsFlLJV9MOGisBZqM9O fpT2nLaHyZDGh BDVdI3YqfTGgTZuzK645C VzdMwT2QNCjwaLtS5GvYD FgaRfvOlO1k0U3Hu3KDUk vdGQ+PX04hm33 Z7TmIcneZat6KUYbLFB0d DV1jA5aUCZxYCocb6L0hQ V1D9FshoLyty7su2seXWC dWNvmY60agGHt b8C6AQJnhHG1PMLgjHeeW jImkK54Knz+PGNvbGdyb3 BtAxpve1iau7bpeEt8YeY wJSIgdmFsaWdu JLH5y2UeFp93C78fYNodF HRoPSIzMCUiIHZhbGlnbj 1kuJ1jNx3+KYYvtTQ0bLH 6nT7rLiLdClJ1 AEgiI957EqTdfJGhZplra 4bah8figVy0LyAcNJMrxl YxvStpIZU7p5ZlVu84K9F sgFemi8OnPqr0 zx80gZVpd7T6bDY1N7OnE BMzgqhveHVszFcgGC3dWX KspunaXILnhZ2bEHDqD2w 6KeBbGrU1NNmw P3PrsgU1JAJekIPhWALip KOKoA4eqiuvu3eexjgqKg WbALPgSQu7QCg3BXAgtNb qZiPhEIC4BoU0 JEA6mIGrdC6auMarskntv G9wOyc+YLq2p0qavFFiVY 7yrLL6PM84KX73mPJlj6N 4vHU1X8YkXIWo ecvmrgdtxVU8RDEvUGZxs Z48Ih1bgXakRo0fHPNpOV J2RUCehCJaV1NmhX7vWfE rUSNaUDUvC3Qy jIGaOYwsM091VPgwUjE7R QZmoaRwJ2LoCXZaeImbMw A2i6J5Eu2CJC27KY00XY2 9tKUxw9V5mJI8 Z8OdSKKhxpoylkekfCS6C TUlQSXiyD35Xu2otQrlWo 0tNPFdEIE4FCHaeOKuW5O rpL6fHpWzOKIy GTDzN3IhbHMbOPxaF888H EcpBcY4LPUlplEpJ3XmBC AjaDilMzT3r3O0Oj7UVq9 6AB05HU84sPDa n3V3rCI8I7UtYSBcrxwrf opuhZT7KMYeEQJsiN19Qw 4eqLozLo2lFJXoHLN7VKZ rsMQfG5RtpB0r BfTbMRCiNDQoC1HktICkY OmoR813BTzfGvO0PEFbqs EkC5TtNTWpyCagVaA2m5I 2Rw0SXCpnksm8 S8PbPsdczJE+TT69SUOtY V43oILhfTYra2hzlCr1Wk QdLZBoVGX2cLhxVXmxw8G tLPOuH92utSIg c2U (more content not included)... Normal [facility] HgbA1c Standardon 06-01-2023 .Hb 17.7 Invalid Interpretation Code [facility] Comment on above: Performed By: #### 1 [id number] ####[facility] (DEFAULT)[address] [place] [address] .Hgb A1c 1.09 g/dL Invalid Interpretation Code [facility] Comment on above: Performed By: #### 1 [id number] ####[facility] (DEFAULT)[address] [place] [address] Glucose [Mass/Vol] 174 mg/dL Invalid Interpretation Code [facility] Comment on above: Performed By: #### 1 [id number] ####[facility] (DEFAULT)[address] [place] [address] HbA1c (Bld) [Mass fraction] 7.7 % High 4.6-6.2 [facility] Comment on above: Performed By: #### 1 [id number] ####[facility] (DEFAULT)[address] [place] [address] Provider Orderson 06-01-2023 Provider Orders [id number] Normal [facility] GLYCOHEMOGLOBIN A1Con 2021 ADA RECOMMENDATION SEE BELOW Normal [facility] Comment on above: Result Comment: ADA RECOMMENDED LIMIT 4.0 - 6.0 ADA THERAPEUTIC TARGET < 7.0 ACTION SUGGESTED > 7.0 Performed By: #### A 1C #### [facility] [address] [place] [address] Dr. Prerna Younger Glucose [Mass/Vol] 163 mg/dL Normal [facility] Comment on above: Performed By: #### A 1C #### [facility] [address] [address] [address] Prerna Younger HbA1c (Bld) [Mass fraction] 7.3 % Critically high 4.5-6.2 [facility] Comment on above: Performed By: #### A 1C #### [facility] [address] [address] [address] Prerna Younger CHEMISTRYOrdered By: Lab ROP User on 05-24-2022 Glucose [Mass/Vol] 177 mg/dL High 55 - 99 mg/dL [facility] POC Subsection Comment on above: Result Comment: Christine gayathri Meter POC Device SN [id number] Invalid Interpretation Code [facility] POC Subsection POC User ID [id number] Invalid Interpretation Code [facility] POC Subsection POC Username MALIK CLEMONS Invalid Interpretation Code [facility] POC Subsection CHEMISTRYOrdered By: SYSTEM SYSTEM on 05-19-2022 Anion gap [Moles/Vol] 12 mmol/L Normal 6 - 16 mEq/L F C [facility] Chloride [Moles/Vol] 100 mmol/L Low 101 - 1 11 mmol/L [facility] CO2 [Moles/Vol] 28 mmol/L Normal 21 - 31 mmol/L [facility] Creatinine [Mass/Vol] 0.7 mg/dL Normal 0.5 - 1.3 mg/dL [facility] GFR/1.73 sq M.predicted among blacks MDRD (S/P/Bld) [Vol rate/Area] mL/min/1.73 m2 Normal >=59mL/min/1 .73 m2 FT Chem S GFR/1.73 sq M.predicted among non-blacks MDRD (S/P/Bld) [Vol rate/Area] mL/min/1.73 m2 Normal >=59mL/min/[address] [facility] Chem S Glucose [Mass/Vol] 169 mg/dL Normal 55 - 199 mg/dL [facility] Potassium [Moles/Vol] 4.0 mmol/L Normal 3.5 - 5.3 mmol/L [facility] Sodium [Moles/Vol] 136 mmol/L Normal 135 - 145 mmol/L [facility] Urea nitrogen [Mass/Vol] 17 mg/dL Normal 5 - 21 mg/dL [facility] HEMATOLOGYOrdered By: Sima Meza on 05-19-2022 Erythrocyte distribution width (RBC) [Ratio] 13.9 % Normal 10.9 - 14.2 % FT HemeAutoSS Hematocrit (Bld) [Volume fraction] 39.7 % Normal 34.0 - 46.0 % FT HemeAutoSS Hemoglobin (Bld) [Mass/Vol] 13.2 g/dL Normal 12.0 - 16.0 gm/dL FT HemeAutoSS MCH (RBC) [Entitic mass] 28.5 pg Normal 27.0 - 34.0 pg FTMC HemeAutoSS MCHC (RBC) [Mass/Vol] 33.1 g/dL Normal 31.4 - 36.0 gm/dL FT HemeAutoSS MCV (RBC) [Entitic vol] 85.9 fL [...] : DR CONSTANTIN MELENDEZ . Admission #: [id number] Family : Order #: [id number] CLICK HERE TO VIEW EXAM RADIOLOGY REPORT [...] lung cancer at age 72. LOCATION: [facility] BREAST COMPOSITION: Scattered areas fibroglandular density. [...] Chirinos M.D. on 02/11/2022 at 08:21 Normal [facility] XR DEXA BONE DENSITYon 02-10 XR DEXA [...] by: KARLIE CHIRINOS Date: 2022-02-10 16:28 Normal [facility] CBC AUTO DIFFon 11-05-2021 BASO # 0.0 103/ul Normal 0.0-0.1 [facility] Comment on above: Performed By: #### C BC #### [facility] [address] [place] [address] Dr. Prerna Younger Basophils/100 WBC (Bld) 0.6 % Normal 0.2-2.0 [facility] Comment on above: Performed By: #### C BC #### [facility] [address] [place] [address] Dr. Prerna Younger EO # 0.2 103/ul Normal 0.0-0.7 [facility] Comment on above: Performed By: #### C BC #### [facility] [address] [place] [address] Dr. Prerna Younger Eosinophils/100 WBC (Bld) 2.6 % Normal 0.9-7.0 [facility] Comment on above: Performed By: #### C BC #### [facility] [address] [place] [address] Dr. Prerna Younger Erythrocyte distribution width (RBC) [Ratio] 13.1 % Normal 11.0-15.0 [facility] Comment on above: Performed By: #### C BC #### [facility] [address] [place] [address] Dr. Prerna Younger Hematocrit (Bld) [Volume fraction] 42.0 % Normal 36.0-48.0 [facility] Comment on above: Performed By: #### C BC #### [facility] [address] [place] [address] Dr. Prerna Younger Hemoglobin (Bld) [Mass/Vol] 13.5 g/dL Normal 12.0-16.0 [facility] Comment on above: Performed By: #### C BC #### [facility] [address] [place] [address] Dr. Prerna Younger IG # 0.03 10e3/ul Normal 0.00-0.03 [facility] Comment on above: Performed By: #### C BC #### [facility] [address] [place] [address] Dr. Prerna Younger IG % 0.4 % Normal 0.0-0.5 [facility] Comment on above: Performed By: #### C BC #### [facility] [address] [place] [address] Dr. Prerna Younger LYMPH # 1.6 103/ul Normal 1.2-3.8 [facility] Comment on above: Performed By: #### C BC #### [facility] [address] [place] [address] Dr. Prerna Younger Lymphocytes/100 WBC (Bld) 23.4 % Normal 20.5-60.0 [facility] Comment on above: Performed By: #### C BC #### [facility] [address] [place] [address] Dr. Prerna Younger MANUAL DIFF REQ NO Normal [facility] Comment on above: Performed By: #### C BC #### [facility] [address] [place] [address] Dr. Prerna Younger MCH (RBC) [Entitic mass] 28.6 pg Normal 26.7-34.0 [facility] Comment on above: Performed By: #### C BC #### [facility] [address] [place] [address] Dr. Prerna Younger MCHC (RBC) [Mass/Vol] 32.1 g/dL Normal 29.9-35.2 [facility] Comment on above: Performed By: #### C BC #### [facility] [address] [place] [address] Dr. Prerna Younger MCV (RBC) [Entitic vol] 89.0 fL Normal 81.0-99.0 [facility] Comment on above: Performed By: #### C BC #### [facility] [address] [place] [address] Dr. Prerna Younger MONO # 0.4 103/ul Normal 0.3-0.8 [facility] Comment on above: Performed By: #### C BC #### [facility] [address] [place] [address] Dr. Prerna Younger Monocytes/100 WBC (Bld) 5.5 % Normal 1.7-12.0 [facility] Comment on above: Performed By: #### C BC #### [facility] [address] [place] [address] Dr. Prerna Younger NEUT # 4.7 103/ul Normal 1.4-6.5 [facility] Comment on above: Performed By: #### C BC #### [facility] [address] [place] [address] Dr. Prerna Younger Neutrophils/100 WBC (Bld) 67.5 % Normal 43.0-75.0 [facility] Comment on above: Performed By: #### C BC #### [facility] [address] [place] [address] Dr. Prerna Younger Platelet mean volume (Bld) [Entitic vol] 10.7 fL Normal 9.5-13.5 [facility] Comment on above: Performed By: #### C BC #### [facility] [address] [place] [address] Dr. Prerna Younger PLT 256 103/ul Normal 150-450 [facility] Comment on above: Performed By: #### C BC #### [facility] [address] [place] [address] Dr. Prerna Younger RBC 4.72 106/ul Normal 4.20-5.40 [facility] Comment on above: Performed By: #### C BC #### [facility] [address] [place] [address] Dr. Prerna Younger WBC 7.0 103/ul Normal 4.0-11.0 [facility] Comment on above: Performed By: #### C BC #### [facility] [address] [place], [place] [address] Dr. Prerna Younger GLYCOHEMOGLOBIN A1Con 2021 ADA RECOMMENDATION SEE BELOW Normal [facility] Comment on above: Result Comment: ADA RECOMMENDED LIMIT 4.0 - 6.0 ADA THERAPEUTIC TARGET < 7.0 ACTION SUGGESTED > 7.0 Performed By: #### A 1C ####[facility] [address] [id number] Younger Glucose [Mass/Vol] 189 mg/dL Normal [facility] Comment on above: Performed By: #### A 1C ####[facility] [address] [address]Dr. Prerna Younger HbA1c (Bld) [Mass fraction] 8.2 % Critically high 4.5-6.2 [facility] Comment on above: Performed By: #### A 1C ####[facility] [address] [address]Dr. Preran Younger LIPID PROFILEon 11-05-2021 CHOL-HDL RATIO NORM SEE BELOW Normal [facility] Comment on above: Result Comment: 3.3 - 4.4 LOW RISK 4.4 - 7.1 AVERAGE RISK 7.1 - 11.0 MODERATE RISK >11.0 HIGH RISK Performed By: #### T SH, LIVER, LIPID, BMP ####[facility] [address] [id number] Younger Cholesterol [Mass/Vol] 163 mg/dL Normal <=200 [facility] Comment on above: Performed By: #### T SH, LIVER, LIPID, BMP ####[facility] [address] [id number] Younger Cholesterol in HDL [Mass/Vol] 40 mg/dL Normal 40-60 [facility] Comment on above: Performed By: #### T SH, LIVER, LIPID, BMP ####[facility] [address] [id number] Younger Cholesterol in LDL [Mass/Vol] 82.6 mg/dL Normal [facility] Comment on above: Performed By: #### T SH, LIVER, LIPID, BMP ####[facility] [address] [address]Dr. Prerna Younger Cholesterol.total/Cho lesterol in HDL [Mass ratio] 4.1 {ratio} Normal [facility] Comment on above: Performed By: #### T SH, LIVER, LIPID, BMP ####[facility] [address] [address]Dr. Prerna Younger HDL NORMAL > or = 60 mg/dl - LO W CARDIOVASCULAR RISK <40 mg/dl - HIGH CARDIOVASCULAR RISK Normal [facility] Comment on above: Performed By: #### T SH, LIVER, LIPID, BMP ####[facility] [address] [address]Dr. Prerna Younger LDL CALC NORMAL SEE BELOW Normal [facility] Comment on above: Result Comment: <100 mg/dl OPTIMAL 100 - 129 mg/dl NEAR OR ABOVE OPTIMAL 130 - 159 mg/dl BORDERLINE HIGH 160 - 189 mg/dl HIGH >190 mg/dl VERY HIGH Performed By: #### T SH, LIVER, LIPID, BMP ####[facility] [address] [place], [place] [address]Dr. Prerna Younger Triglyceride [Mass/Vol] 202 mg/dL Critically high <=150 [facility] Comment on above: Performed By: #### T SH, LIVER, LIPID, BMP ####[facility] [address] [address]Dr. Prerna Younger VLDL CALC 40.4 mg/dL Normal [facility] Comment on above: Performed By: #### T SH, LIVER, LIPID, BMP ####[facility] [address] [id number]. Prerna Younger LIVER PROFILEon 11-05-2021 Albumin [Mass/Vol] 3.5 g/dL Normal 3.4-5.0 [facility] Comment on above: Performed By: #### T SH, LIVER, LIPID, BMP ####[facility] [address] [address]Dr. Prerna Younger Albumin/Globulin [Mass ratio] 0.9 {ratio} Normal [facility] Comment on above: Performed By: #### T SH, LIVER, LIPID, BMP ####[facility] [address] [address]Dr. Prerna Younger ALP [Catalytic activity/Vol] 94 U/L Normal 46-116 [facility] Comment on above: Performed By: #### T SH, LIVER, LIPID, BMP ####[facility] [address] [address]Dr. Prerna Younger ALT [Catalytic activity/Vol] 28 U/L Normal 14-59 [facility] Comment on above: Performed By: #### T SH, LIVER, LIPID, BMP ####[facility] [address] [place], [place] [address]Dr. Prerna Younger AST [Catalytic activity/Vol] 17 U/L Normal 15-37 [facility] Comment on above: Performed By: #### T SH, LIVER, LIPID, BMP ####[facility] [address] [place], [place] [address]Dr. Prerna Younger BILI, CONJUGATED 0.2 mg/dL Normal 0.0-0.2 [facility] Comment on above: Performed By: #### T SH, LIVER, LIPID, BMP ####[facility] [address] [place], [place] [address]Dr. Prerna Younger Bilirubin [Mass/Vol] 0.6 mg/dL Normal 0.2-1.0 [facility] Comment on above: Performed By: #### T SH, LIVER, LIPID, BMP ####[facility] [address] [address]Dr. Prerna Younger Globulin (S) [Mass/Vol] 3.7 g/dL Normal [facility] Comment on above: Performed By: #### T SH, LIVER, LIPID, BMP ####[facility] [address] [address]Dr. Prerna Younger Protein [Mass/Vol] 7.2 g/dL Normal 6.4-8.2 [facility] Comment on above: Performed By: #### T SH, LIVER, LIPID, BMP ####[facility] [address] [address]Dr. Prerna Younger MICROALBUMIN, RAND URon 06-0 mALB 1.9 mg/L Normal <=30.0 [facility] Comment on above: Performed By: #### M ALBR #### [facility] [address] [address] [address] Prerna Younger PROF CHEM 8 (BAS METB)on Anion gap [Moles/Vol] 10.8 mmol/L Normal [facility] Comment on above: Performed By: #### T SH, LIVER, LIPID, BMP ####[facility] [address] [address]Dr. Prerna Younger Calcium [Mass/Vol] 8.7 mg/dL Normal 8.5-10.1 [facility] Comment on above: Performed By: #### T SH, LIVER, LIPID, BMP ####[facility] [address] [address]Dr. Prerna Younger Chloride [Moles/Vol] 105 mmol/L Normal 98-107 [facility] Comment on above: Performed By: #### T SH, LIVER, LIPID, BMP ####[facility] [address] [address]Dr. Prerna Younger CO2 [Moles/Vol] 29.6 mmol/L Normal 21.0-32.[address] [facility] Comment on above: Performed By: #### T SH, LIVER, LIPID, BMP ####[facility] [address] [address]Dr. Prerna Younger Creatinine [Mass/Vol] 0.63 mg/dL Normal 0.55-1.02 [facility] Comment on above: Performed By: #### T SH, LIVER, LIPID, BMP ####[facility] [address] [address]Dr. Prerna Younger EGFR-AF CITIZEN OF [place] >60 Normal >=[address] [facility] Comment on above: Performed By: #### T SH, LIVER, LIPID, BMP ####[facility] [address] [id number]. Prerna Younger EGFR-NON AF CITIZEN OF [place] >60 Normal >=60 [facility] Comment on above: Performed By: #### T SH, LIVER, LIPID, BMP ####[facility] [address] [place] [address]Dr. Prerna Younger Glucose [Mass/Vol] 212 mg/dL Critically high 74-106 [facility] Comment on above: Performed By: #### T SH, LIVER, LIPID, BMP ####[facility] [address] [place] [address]Dr. Prerna Younger Potassium [Moles/Vol] 4.4 mmol/L Normal 3.5-5.1 [facility] Comment on above: Performed By: #### T SH, LIVER, LIPID, BMP ####[facility] [address] [place] [address]Dr. Prerna Younger Sodium [Moles/Vol] 141 mmol/L Normal 136-145 [facility] Comment on above: Performed By: #### T SH, LIVER, LIPID, BMP ####[facility] [address] [place] [address]Dr. Prerna Younger Urea nitrogen [Mass/Vol] 13.0 mg/dL Normal 7.0-18.0 [facility] Comment on above: Performed By: #### T SH, LIVER, LIPID, BMP ####[facility] [address] [place] [address]Dr. Prerna Younger Urea nitrogen/Creatinine [Mass ratio] 20.6 mg/mg Normal [facility] Comment on above: Performed By: #### T SH, LIVER, LIPID, BMP ####[facility] [address] [place] [address]Dr. Mendycaity Younger TSHon 11-05-2021 TSH 1.285 uIU/mL Normal 0.358-3.740 [facility] Comment on above: Performed By: #### T SH, LIVER, LIPID, BMP ####[facility] [address] [place] [address]Dr. Prerna Younger TSH RANGE SEE BELOW Normal [facility] Comment on above: Result Comment: <0.3 4 UIU/ml HYPERTHYROID 0.34-5.60 UIU/ml EUTHYROID >5.60 UIU/ml HYPOTHYROID Performed By: #### T SH, LIVER, LIPID, BMP ####[facility] [address] [place], [place] [address]DjDr. Prerna Younger VITAMIN D 25 OHon 11-05-2021 VIT D 25-OH 34.1 ng/mL Normal [facility] Comment on above: Performed By: #### V ITAD #### [facility] [address], [place] [address] Dr. Prerna Younger VIT D RANGES SEE BELOW Normal [facility] Comment on above: Result Comment: <20 ng/mL Vit D deficient 20 - <30 ng/mL Vit D insufficient 30 - 100 ng/mL Vit D sufficient >100 ng/mL Potential Toxicity Performed By: #### V ITAD #### [facility] [address], [place] [address] Dr. Prerna Younger US KIDNEYSon 07-17-2021 US [...] JOSSIE ASHBY Date: 2021-07-17 12:55 Normal [facility] Covid-19 PCR (CVDTBH)on 06-06 SARS-CoV-2 (COVID-19) RNA JODEE+probe Ql (Unsp spec) Not detected Normal NOT DETECTED [facility] Comment on above: Result Comment: This test is not yet approved or cleared by the [place] FDA. When there are no FDA-approved or cleared tests available, and other criteria are met, FDA can make tests available under an emergency access mechanism called an Emergency Use Authorization (EUA). The EUA for this test is supported by the Certified Alcohol And Drug Counselor of Health and Human Service's (HHS's) declaration [...] consistent with SARS-CoV-2. Performed By: #### C [facility] #### [facility] [address] [place] [address] Dr. Prerna Younger XR CHEST 1 07-01-2021 XR CHEST 1 V EXAMINATION: XR [...] KARLIE CHIRINOS Date: 2021-07-01 10:54 Normal [facility] XR CHEST 2 06-25-2021 XR CHEST 2 V EXAMINATION: XR [...] by: KARLIE CHIRINOS Date: 2021-06-25 16:26 Normal [facility] LT SHOULDER 1V (POST RED)on 11-09-2020 LT SHOULDER 1V (POST RED) [facility] Name: ALBINA CAMERON : 1965 Unit #: [id number] Age: 54 Attending Physician: Pt Location: ER [...] 11/09/20 0846 JARED EVANS M.D. Date Dict: 11/09/20841 JARED EVANS M.D. Date Trans: 11/09/20 0842 [facility] [phone] cc: CNOSTANTIN MELENDEZ MD, JAY B MD-JAY JAY [facility] HISTORY PRESENT ILLNESSon HISTORY PRESENT ILLNESS Name: ALBINA CAMERON : 1965 Unit #: [id number] Age: 54 Family Physician: Pt Location: ER Arrival Date 11/08/20 - 1036 ER Physician: MATI MCKNIGHT MD-JAY JAY [facility] Attending Attestation Attending Attestation I performed a history and physical examination of the patient and discussed management with the SOLAR DEVELOPMENT ENGINEER/PA. I reviewed the SOLAR DEVELOPMENT ENGINEER/PA's note and agree with the documented findings [...] and Medical Decision Making performed by the SOLAR DEVELOPMENT ENGINEER/PA is based on my personal performance of the HPI, PE and MDM. For SOLAR DEVELOPMENT ENGINEER/PA cases/ documentation I have personally evaluated this [...] oximeter continuous capnography as well as continuous gambling monitor. She was given 210 mg aliquots [...] walking boot for her and will write [place] for pain. She has been told to [...] 11/08/20 at (more content not included)... Normal [facility] HISTORY PRESENT ILLNESS Name: ALBINA CAMERON : 1965 Unit #: [id number] Age: 54 Family Physician: Pt Location: ER Arrival Date 11/08/20 - [facility] ER Physician: MATI MCKNIGHT MD-ER [facility] History of Present Illness History [...] neurovascularly intact. Air cast splint applied by [place], post splint check shows alignment and extremity neurovascularly intact. Patient a/ox4 and tolerating clears after procedure. Rates her pain as tolerable. She and her feel comfortable with discharge home and o/p follow up. They are from [facility] and plan to follow up with local [...] Signs V (more content not included)... Normal [facility] LEFT ANKLE 3 VIEWon 11-09-19 21 LEFT ANKLE 3 VIEW [facility] Name: ALBINA CAMERON : 1965 Unit #: [id number] Age: 54 Attending Physician: Pt Location: ER [...] 11/08/20 1141 EMILY MURPHY M.D. Date Dict: 11/08/207 EMILY MURPHY M.D. Date Trans: 11/08/20 1137 [facility] [phone] cc: CONSTANTIN MELENDEZ MD-ALEXANDER PRESCOTT C.N.P.-ER Normal [facility] LEFT SHOULDER MIN 2 VIEWSon 11-08-2020 LEFT SHOULDER MIN 2 VIEWS [facility] Name: ALBINA CAMERON : 1965 Unit #: [id number] Age: 54 Attending Physician: Pt Location: ER [...] Y PT SHIELDED N Is pt ? [facility] TECH INITIALS RW COMMENTS Electronically Signed by: EMILY MURPHY M.D. 11/08/20 1137 EMILY MURPHY M.D. Date Dict: 11/08/203 EMILY MURPHY M.D. Date Trans: 11/08/20 1133 [facility] [phone] cc: CONSTANTIN MELENDEZ [facility]DAY[facility] C.[facility].-ER Normal [facility] LEFT SHOULDER MIN 2 VIEWS [facility] Name: ALBINA CAMERON : 1965 Unit #: [id number] Age: 54 Attending Physician: Pt Location: ER [...] 11/11/20 1514 EMILY MURPHY M.D. Date Dict: 11/08/201132 EMILY MURPHY M.D. Date Trans: 11/08/201132 [facility] [id number] cc: CONSTANTIN MELENDEZ MD [facility] Vital Signs Date Time Vital Sign Value Performing Clinician Facility 09-10-2024 13:14040 Body height 162.6 cm Constantin Melendez MD Work Phone: [facility] 09-10-2024 13:14-040 Body mass index (BMI) [Ratio] 37.76 kg/m2 Constantin Melendez MD Work Phone: [facility] 09-10-2024 13:14040 Body temperature 97.81 [degF] Constantin Melendez MD Work Phone: [facility] 09-10-2024 13:14-040 Body weight 99.79 kg Constantin Melendez MD Work Phone: [facility] 09-10-2024 13:14-040 Diastolic blood pressure 88 mm[Hg] Constantin Melendez MD Work Phone: [facility] 09-10-2024 13:14-0400 Heart rate 104 /min Constantin Melendez MD Work Phone: [facility] 09-10-2024 13:14-0400 Respiratory rate 20 /min Constantin Melendez MD Work Phone: [facility] 09-10-2024 13:14-0400 SaO2% (BldA) [Mass fraction] 93 % Constantin Melendez MD Work Phone: [facility] 09-10-2024 13:14-0400 Systolic blood pressure 136 mm[Hg] Constantin Melendez MD Work Phone: [facility] 08-19-2024 11:35-0400 Body height 162.6 cm Constantin Melendez MD Work Phone: [facility] 08-19-2024 11:35-0400 Body mass index (BMI) [Ratio] 37.25 kg/m2 Constantin Melendez MD Work Phone: [facility] 08-19-2024 11:35-0400 Body temperature 97.3 [degF] Constantin Melendez MD Work Phone: [facility] 08-19-2024 11:35-0400 Body weight 98.43 kg Constantin Melendez MD Work Phone: [facility] 08-19-2024 11:35-0400 Diastolic blood pressure 74 mm[Hg] Constantin Melendez MD Work Phone: [facility] 08-19-2024 11:35-0400 Heart rate 113 /min Constantin Melendez MD Work Phone: [facility] 08-19-2024 11:35-0400 Respiratory rate 20 /min Constantin Melendez MD Work Phone: [facility] 08-19-2024 11:35-0400 SaO2% (BldA) [Mass fraction] 92 % Constantin Melendez MD Work Phone: [facility] 08-19-2024 11:35-0400 Systolic blood pressure 120 mm[Hg] Constantin Melendez MD Work Phone: [facility] 05-24-2024 09:53-0500 Body height 162.6 cm Asael Brown DPM Work Phone: [facility] 05-24-2024 09:53-0500 Body mass index (BMI) [Ratio] 37.25 kg/m2 Asael Brown DPM Work Phone: [facility] 05-24-2024 09:53-0500 Body weight 98.43 kg Asael Brown DPM Work Phone: [facility] 05-24-2024 09:53-0500 Respiratory rate 16 /min Asael Brown DPM Work Phone: [facility] 05-15-2024 16:24-0500 Body height 162.6 cm Asael Brown DPM Work Phone: [facility] 05-15-2024 16:24-0500 Body mass index (BMI) [Ratio] 37.25 kg/m2 Asael Brown DPM Work Phone: [facility] 05-15-2024 16:24-0500 Body weight 98.43 kg Asael Brown DPM Work Phone: [facility] 05-15-2024 16:24-0500 Respiratory rate 16 /min Asael Brown DPM Work Phone: [facility] 05-10-2024 14:33-0500 Body height 162.6 cm Asael Brown DPM Work Phone: [facility] 05-10-2024 14:33-0500 Body mass index (BMI) [Ratio] 37.25 kg/m2 Asael Brown DPM Work Phone: [facility] 05-10-2024 14:33-0500 Body weight 98.43 kg Asael Brown DPM Work Phone: [facility] 05-10-2024 14:33-0500 Respiratory rate 18 /min Asael Brown DPM Work Phone: [facility] 05-10-2024 11:46-0500 Blood Pressure Location Rosemary Jamil [facility] 05-10-2024 11:46-0500 Diastolic blood pressure 86 mm[Hg] Rosemary Lue [facility] 05-10-2024 11:46-0500 Heart rate 67 /min Rosemary Lue [facility] 05-10-2024 11:46-0500 Respiratory rate 17 /min Rosemary Lue [facility] 05-10-2024 11:46-0500 Systolic blood pressure 128 mm[Hg] Rosemary Lue [facility] 04-26-2024 11:36-0500 Body height 162.6 cm Asael Brown DPM Work Phone: [facility] 04-26-2024 11:36-0500 Body mass index (BMI) [Ratio] 37.25 kg/m2 Asael Brown DPM Work Phone: [facility] 04-26-2024 11:36-0500 Body weight 98.43 kg Asael Brown DPM Work Phone: [facility] 04-26-2024 11:36-0500 Respiratory rate 18 /min Asael Brown DPM Work Phone: [facility] 04-15-2024 14:53-0500 Body height 162.6 cm Asael Brown DPM Work Phone: [facility] 04-15-2024 14:53-0500 Body mass index (BMI) [Ratio] 37.25 kg/m2 Asael Brown DPM Work Phone: [facility] 04-15-2024 14:53-0500 Body weight 98.43 kg Asael Brown DPM Work Phone: [facility] 04-15-2024 14:53-0500 Diastolic blood pressure 82 mm[Hg] Asael Salmeron DPM Work Phone: [facility] 04-15-2024 14:53-0500 Heart rate 84 /min Asael Salmeron DPM Work Phone: [facility] 04-15-2024 14:53-0500 Systolic blood pressure 126 mm[Hg] Asael Salmeron DPM Work Phone: [facility] 04-08-2024 13:57-0500 Body height 162.6 cm Asael Brown DPM Work Phone: [facility] 04-08-2024 13:57-0500 Body mass index (BMI) [Ratio] 37.25 kg/m2 Asael Brown DPM Work Phone: [facility] 04-08-2024 13:57-0500 Body weight 98.43 kg Asael Faviola DPM Work Phone: [facility] 04-08-2024 13:57-0500 Diastolic blood pressure 79 mm[Hg] Asael Brown DPM Work Phone: [facility] 04-08-2024 13:57-0500 Heart rate 83 /min Asael Salmeron DPM Work Phone: [facility] 04-08-2024 13:57-0500 Systolic blood pressure 126 mm[Hg] Asael Salmeron DPM Work Phone: [facility] 03-13-2024 15:17-0400 Body height 162.6 cm Asael Brown DPM Work Phone: [facility] 03-13-2024 15:17-0400 Body mass index (BMI) [Ratio] 37.25 kg/m2 Asael Brown DPM Work Phone: [facility] 03-13-2024 15:17-0400 Body weight 98.43 kg Asael Brown DPM Work Phone: [facility] 03-13-2024 15:17-0400 Respiratory rate 17 /min Asael Brown DPM Work Phone: [facility] 03-11-2024 14:33-0400 Body height 162.6 cm Constantin Melendez MD Work Phone: [facility] 03-11-2024 14:33-0400 Body mass index (BMI) [Ratio] 37.25 kg/m2 Constantin Melendez MD Work Phone: [facility] 03-11-2024 14:33-0400 Body temperature 97.81 [degF] Constantin Melendez MD Work Phone: [facility] 03-11-2024 14:33-0400 Body weight 98.43 kg Constantin Melendez MD Work Phone: [facility] 03-11-2024 14:33-0400 Diastolic blood pressure 80 mm[Hg] Constantin Melendez MD Work Phone: [facility] 03-11-2024 14:33-0400 Heart rate 90 /min Constantin Melendez MD Work Phone: [facility] 03-11-2024 14:33-0400 Respiratory rate 20 /min Constantin Melendez MD Work Phone: [facility] 03-11-2024 14:33-0400 SaO2% (BldA) [Mass fraction] 96 % Constantin Melendez MD Work Phone: [facility] 03-11-2024 14:33-0400 Systolic blood pressure 126 mm[Hg] Constantin Melendez MD Work Phone: [facility] 09-20-2023 15:22-0400 Blood Pressure Location RANJAN VALENTIN [facility] 09-20-2023 15:22-0400 Body temperature 98.06 [degF] RANJAN VALENTIN [facility] 09-20-2023 15:22-0400 Diastolic blood pressure 81 mm[Hg] RANJAN VALENTIN [facility] 09-20-2023 15:22-0400 Heart rate 77 /min RANJAN VALENTIN [facility] 09-20-2023 15:22-0400 Respiratory rate 16 /min RANJAN VALENTIN [facility] 09-20-2023 15:22-0400 Systolic blood pressure 128 mm[Hg] RANJAN VALENTIN [facility] 06-03-2022 11:31-0500 Blood Pressure Location Hung Huff [facility] 06-03-2022 11:31-0500 Diastolic blood pressure 83 mm[Hg] Hung Huff [facility] 06-03-2022 11:31-0500 Heart rate 82 /min Hnug Huff [facility] 06-03-2022 11:31-0500 SaO2% (BldA) [Mass fraction] 97 % Hung Huff [facility] 06-03-2022 11:31-0500 Systolic blood pressure 118 mm[Hg] Hung Huff [facility] 05-24-2022 11:48-0500 SaO2% (BldA) [Mass fraction] 97 % Hung Huff [facility] Comment on above: Result Comment: pt sitting up in bed. mo re alert with oxygen level maintaining 97-98% on room air 05-24-2022 10:53-0500 SaO2% (BldA) [Mass fraction] 93 % Hung Huff [facility] 05-24-2022 10:50-0500 Heart rate 88 /min Hung Mourany [facility] 05-24-2022 10:50-0500 SaO2% (BldA) [Mass fraction] 92 % Hung Mourany [facility] 05-24-2022 10:50-0500 Respiratory rate 14 /min Hung Mourany [facility] 05-24-2022 10:49-0500 Diastolic blood pressure 66 mm[Hg] Hung Mourany [facility] 05-24-2022 10:49-0500 Mean blood pressure 79 mm[Hg] Hung Mourany [facility] 05-24-2022 10:49-0500 Systolic blood pressure 104 mm[Hg] Hung Mourany [facility] 05-24-2022 10:49-0500 Blood Pressure Location Hung Mourany [facility] 05-24-2022 10:49-0500 Mean blood pressure 79 mm[Hg] Hung Mourany [facility] 05-24-2022 09:44-0500 Heart rate 85 /min Hung Mourany [facility] 05-24-2022 09:42-0500 Respiratory rate 20 /min Hung Mourany [facility] 05-24-2022 09:41-0500 Diastolic blood pressure 74 mm[Hg] Hung Mourany [facility] 05-24-2022 09:41-0500 Mean blood pressure 92 mm[Hg] Hung Mourany [facility] 12-20-2022 09:41-0500 Systolic blood pressure 128 mm[Hg] Hung Mourany [facility] 05-24-2022 09:41-0500 Body temperature 98.6 [degF] Hung Mourany [facility] 05-24-2022 09:41-0500 Mean blood pressure 92 mm[Hg] Hung Mourany [facility] 05-24-2022 09:35-0500 Body temperature 98.24 [degF] Hung Mourany [facility] 05-24-2022 09:35-0500 Diastolic blood pressure 70 mm[Hg] Hung Mourany [facility] 05-24-2022 09:35-0500 Heart rate 83 /min Hung Mourany [facility] 05-24-2022 09:35-0500 Mean blood pressure 84 mm[Hg] Hung Mourany [facility] 05-24-2022 09:35-0500 Respiratory rate 19 /min Hung Mourany [facility] 05-24-2022 09:35-0500 Systolic blood pressure 111 mm[Hg] Hung Mourany [facility] 05-24-2022 09:20-0500 Respiratory rate 19 /min Hung Mourany [facility] 05-24-2022 09:15-0500 Respiratory rate 27 /min Hung Mourany [facility] 05-24-2022 09:09-0500 Blood Pressure Location Hung Mourany [facility] 05-24-2022 09:09-0500 Body temperature 98.06 [degF] Hung Mourany [facility] 05-24-2022 09:05-0500 Respiratory rate 20 /min Hung Mourany [facility] 05-24-2022 06:02-0500 Mean blood pressure 103 mm[Hg] Hung Mourany [facility] 05-24-2022 06:01-0500 Heart rate 96 /min Hung Mourany [facility] 05-19-2022 15:23-0500 Body temperature 98.06 [degF] Hung Mourany [facility] 05-19-2022 15:23-0500 Diastolic blood pressure 83 mm[Hg] Hung Mourany [facility] 05-19-2022 15:23-0500 Heart rate 76 /min Hung Mourany [facility] 05-19-2022 15:23-0500 Mean blood pressure 96 mm[Hg] Hung Mourany [facility] 05-19-2022 15:23-0500 Systolic blood pressure 121 mm[Hg] Hung Mourany [facility] 05-19-2022 15:22-0500 Heart rate 83 /min Hung Mourany [facility] 05-19-2022 15:22-0500 SaO2% (BldA) [Mass fraction] 95 % Hung Mourany [facility] 05-19-2022 15:22-0500 Diastolic blood pressure 83 mm[Hg] Hung Mourany [facility] 05-19-2022 15:22-0500 Mean blood pressure 99 mm[Hg] Hung Mourany [facility] 05-19-2022 15:22-0500 Systolic blood pressure 132 mm[Hg] Hung Huff [facility] 05-19-2022 15:22-0500 Respiratory rate 20 /min Hung Huff [facility] 04-18-2022 15:38-0500 Blood Pressure Location Hung Huff [facility] 04-18-2022 15:38-0500 Diastolic blood pressure 84 mm[Hg] Hung Huff [facility] 04-18-2022 15:38-0500 Heart rate 81 /min Hung Roegeraldinemarcell [facility] 04-18-2022 15:38-0500 SaO2% (BldA) [Mass fraction] 96 % Hung Huff [facility] 04-18-2022 15:38-0500 Systolic blood pressure 120 mm[Hg] Hung Roehugo [facility] Encounters Encounter Date Encounter Type Care Provider Facility Start: 09-10-2024 End: 09-10-2024 Clinisync Result Encounter Generic External Data Provider [facility] External Department Unsolicited Start: 09-10-2024 End: 09-10-2024 Clinisync Result Encounter Generic External Data Provider [facility] External Department Unsolicited Start: 09-10-2024 End: 09-10-2024 Office outpatient visit 15 minutes Constantin Melendez MD Work Phone: [facility] Comment on above: Type 2 diabetes shellie itus with hyperglycemia, without long-term current use of insulin (CMS/HCC) (Primary Dx); Benign essential hypertension (CMS/HCC) Start: 09-10-2024 End: 09-10-2024 ambulatory CONSTANTIN MELENDEZ Not Available Start: 08-19-2024 End: 08-19-2024 Bamboo flowswilliam Melendez MD Work Phone: [facility] Start: 08-19-2024 End: 08-19-2024 Bamboo flowswilliam Melendez MD Work Phone: [facility] Start: 08-19-2024 End: 08-19-2024 Office outpatient visit 15 minutes Constantin Melendez MD Work Phone: [facility] Comment on above: Type 2 diabetes [...] Start: 06-12-2024 End: 06-12-2024 ambulatory Rosemary Jamil Facility:[id number] Start: 05-24-2024 End: 05-24-2024 Bamboo flowswilliam Salmeron DPM Work Phone: [facility] [...] Start: 05-15-2024 End: 05-15-2024 Bamboo flowsheet Asael Lisa Brown DPM Work Phone: [facility] Start: 05-15-2024 End: 05-15-2024 Bamboo flowsheet Asael Lisa Brown DPM Work [...] Start: 05-10-2024 End: 05-10-2024 Bamboo flowsheet Asael Lisa Brown DPM Work Phone: [facility] Start: 05-10-2024 End: 05-10-2024 Bamboo flowsheet Asael Lisa Brown DPM Work Phone: [facility] Start: 05-10-2024 End: 05-10-2024 ambulatory Rosemary Jamil Facility: [facility] Start: 05-10-2024 End: 05-10-2024 Patient encounter procedure Rosemary Jamil [facility] Start: 05-07-2024 End: 05-07-2024 ambulatory Rosemary Jamil Facility:[facility] Start: 05-04-2024 End: 05-04-2024 ambulatory Constantin Melendez Facility:[facility] Start: 05-04-2024 End: 05-04-2024 Emergency department patient visit Will Wan Facility:[facility] Start: 05-04-2024 End: 05-04-2024 ambulatory Rosemary Jamil Facility:[id number] Start: 04-26-2024 End: 04-26-2024 Clinisync Result [...] hyperglycemia, without long-term current use of insulin ([facility]) Start: 04-15-2024 End: 04-15-2024 Office outpatient visit 15 minutes Asael Salmeron DPM Work Phone: [facility] Comment on above: Closed nondisplaced fracture of proximal phalanx of lesser toe of right foot, initial encounter (Primary Dx); Contracture of right ankle Start: 04-15-2024 End: 04-15-2024 ambulatory ASAEL SALMERON Not Available Start: 04-15-2024 End: 04-15-2024 Bamboo flowsheet Asael Salmeron DPM Work Phone: [facility] Start: 04-15-2024 End: 04-15-2024 Bamboo flowsheet Asael Lisa Brown DPM Work [...] Start: 04-08-2024 End: 04-08-2024 ambulatory ASAEL Lisa FAVIOLA Not Available Start: 03-13-2024 End: 03-13-2024 ambulatory ASAEL A BROWN Not Available Start: 03-13-2024 End: 03-13-2024 Office outpatient new 45 minutes Asael Lisa Faviola DPM Work Phone: [facility] Comment on above: Closed nondisplaced fracture of proximal phalanx of lesser toe of right foot, initial encounter (Primary Dx); Contracture of right ankle Start: 03-13-2024 End: 03-13-2024 ambulatory ASAEL Lisa FAVIOLA Not Available Start: 03-13-2024 End: 03-13-2024 Bamboo flowsheet Asael A Brown DPM Work Phone: [facility] Start: 03-13-2024 End: 03-13-2024 Bamboo flowsheet Asael A Brown DPM Work Phone: [facility] Start: 03-11-2024 End: 03-11-2024 Office outpatient visit 25 minutes Constantin Melendez MD Work Phone: [facility] Comment on above: Type 2 diabetes shellie itus with hyperglycemia, without long-term current use of insulin (CMS/HCC) (Primary Dx); Benign essential hypertension (CMS/HCC); Mild recurrent major depression (HCC) (CMS/HCC); Generalized anxiety disorder (CMS/HCC); DUKE (obstructive sleep apnea); Breast cancer screening by mammogram Start: 03-11-2024 End: 03-11-2024 ambulatory CONSTANTIN MELENDEZ Not Available Start: 03-11-2024 End: 03-11-2024 Bamboo flowsheet Constantin Melendez MD Work Phone: [facility] Start: 03-11-2024 End: 03-11-2024 Bamboo flowsheet Constantin Melendez MD Work Phone: [facility] Start: 03-04-2024 End: 03-04-2024 ambulatory KARI Charlton Facility:[facility] Start: 02-02-2024 End: 02-06-2024 Refill Constantin Melendez MD Work Phone: [facility] Comment on above: Polyosteoarthritis, unspecified; Gastro-esophageal reflux disease without esophagitis; Esophageal reflux Start: 01-10-2024 End: 01-10-2024 ambulatory CONSTANTIN MELENDEZ Facility:[facility] Start: 12-05-2023 End: 12-05-2023 ambulatory CONSTANTIN MELENDEZ Not Available Start: 11-07-2023 Patient encounter procedure Constantin Melendez MD Work Phone: [facility] Start: 11-07-2023 End: 11-07-2023 ambulatory CONSTANTIN MELENDEZ [facility] Start: 11-07-2023 Encounter for genera l adult medical examination without abnormal findings CONSTANTIN MELENDEZ [facility] Start: 11-07-2023 End: 11-07-2023 ambulatory CONSTANTIN MELENDEZ Not Available Start: 09-20-2023 End: 09-20-2023 Lab Drop off RANJAN VALENTIN [facility] Start: 09-20-2023 End: 09-20-2023 Patient encounter procedure RANJAN VALENTIN [facility] Start: 07-24-2023 End: 07-24-2023 Patient encounter procedure Rosemary MEyad Hensleyestfeania [facility] Start: 07-18-2023 End: 07-18-2023 Lab Drop off Sarita Coffmanch [facility] Start: 07-18-2023 End: 07-18-2023 Patient encounter procedure Rosemary MEyad Hensleyestefania [facility] Start: 06-28-2023 End: 06-28-2023 Lab Drop off Rosemary MEyad Hensleyestefania [facility] Start: 06-28-2023 End: 06-28-2023 Patient encounter procedure Rosemary ChowdhuryEyad Hensleyestefania [facility] Start: 06-01-2023 End: 06-01-2023 ambulatory CONSTANTIN MELENDEZ Facility:[facility] Start: 06-03-2022 End: 06-04-[address] CONSTANTIN MELENDEZ Facility: Start: 06-03-2022 End: 06-03-2022 Patient encounter procedure Hung Huff [facility] Start: 05-24-2022 End: 05-24-2022 Admission to same day surgery center Hung Huff [facility] Start: 05-19-2022 ambulatory Facility:[id number] Start: 05-19-2022 End: 05-19-2022 Patient encounter procedure Hung Perera Daria [facility] Start: 05-02-2022 End: 05-03-[address] CONSTANTIN MELENDEZ Facility:[facility] Start: 04-20-2022 End: 04-21-[address] CONSTANTIN MELENDEZ Facility:[facility] Start: 04-18-2022 End: 04-18-2022 Patient encounter procedure Hung MacEyad Huff [facility] Start: 02-10-2022 End: 02-11-[address] CONSTANTIN MELENDEZ Facility:[facility] Start: 01-12-2022 End: 01-12-2022 Lab Drop off RANJAN Estefania VALENTIN [facility] Start: 11-11-2021 Encounter for genera l adult medical examination without abnormal findings DR CONSTANTIN MELENDEZ [facility] Start: 11-05-2021 End: 11-06-[address] CONSTANTIN MELENDEZ Facility:[facility] Start: 11-05-2021 End: 11-06-2021 Encounter for general adult medical examination without abnormal findings DR CONSTANTIN MELENDEZ Facility:[facility] Start: 07-17-2021 End: 07-18-[address] CONSTANTIN MELENDEZ Facility:[facility] Start: 07-01-2021 End: 07-01-[address] CONSTANTIN MELENDEZ Facility:[facility] Start: 06-25-2021 End: 06-26-[address] CONSTANTIN MELENDEZ Facility:[facility] Procedures Date Procedure Procedure Detail Performing Clinician Start: 09-10-2024 US RENAL BI Generic Ex ternal Data Provider Start: 05-21-2024 ALL CBC WITH AUTO DIFF Generic External Data Provider Start: 04-26-2024 MLR HEMOGLOBIN A1C Constantin Melendez MD Work Phone: Start: 03-31-2024 Mammography Asael rowell DPM Work Phone: Start: 02-13-2023 Mammography Constantin tolliver MD Work Phone: Start: 07-18-2022 Injection of therape utic substance into bladder wall Rosemary Jamil Start: 05-24-2022 Excision of cyst Hung segovia Start: 07-12-2021 Cystourethroscopy wi th dilation of urethral stricture RANJAN VALENTIN Start: 08-05-2019 Cystourethroscopy wi th dilation of urethral stricture RANJAN VALENTIN Start: 12-04-2015 Colonoscopy Constantin tolliver MD Work Phone: Start: 11-03-2014 Cystourethroscopy wi th dilation of urethral stricture RANJAN VALENTIN Back structure, excl uding neck (body structure) Rosemary Jamil Cholecystectomy RANJAN MARKHAM Colonoscopy RANJAN VALENTIN Ligation of fallopian tube J ALEX VALENTIN Rotator cuff includi ng muscles and tendons (body structure) Hung Huff Plan of Treatment Date Care Activity Detail Author Start: 12-03-2025 Screening for malign ant neoplasm of colon [facility] Start: 07-26-2025 Glaucoma screening Diabetes: R etinopathy Screening [facility] Start: 03-31-2025 Screening for malign ant neoplasm of breast Mammogram [facility] Start: 02-03-2025 Influenza vaccination Influenz a Vaccine (Season Ended) [facility] Start: 11-11-2024 End: 11-11-2024 Patient encounter procedure 11/11/2024 1:45 PM EDT Office Visit [facility] [address] [place] [id number] Constantin Melendez MD [address] [place] [address] [facility] [place] Start: 11-06-2024 Urine screening for protein Diabetes: Urine Protein Screening [facility] Start: 10-24-2024 Hemoglobin A1c measurement Diabetes: Hemoglobin A1C [facility] Start: 09-10-2024 End: 09-10-2024 Patient encounter procedure 09/10/2024 1:00 PM EDT Office Visit [facility] [address] [place] [id number] Constantin Melendez MD [address] [place] [id number] [facility] Start: 08-19-2024 End: 08-19-2024 Patient encounter procedure 08/19/2024 11:45 AM EDT Office Visit [facility] [address] [place] [id number] Constantin Melendez MD [address] [place] [phone] Arrived [facility] Comment on above: Arrived Start: 05-24-2024 End: [...] EST Office Visit [facility] [address] [place] [phone] Asael Salmeron DPM [address] [address] Arrived [facility] Comment on above: Arrived Start: 05-08-2024 End: 05-08-2024 Patient encounter procedure 05/08/2024 2:20 PM EST Office Visit [facility] [address] [place] [phone] Asael Salmeron DPM [address] [address] [facility] Start: 05-08-2024 Hemoglobin A1c measurement Diabetes: Hemoglobin A1C [facility] Start: 04-26-2024 End: 04-26-2024 Patient encounter procedure 04/26/2024 11:30 AM EST Office Visit [facility] [address] [place] [address] [phone] Asael Salmeron DPM [address] [address] [facility] Start: 04-15-2024 End: 04-15-2024 Patient encounter procedure 04/15/2024 3:20 PM EST Office Visit [facility] [address] [place] [address] [phone] Asael Salmeron DPM [address] [address] [facility] Start: 04-08-2024 End: 04-08-2024 Professional / ancillary services management 04/08/2024 2:45 PM EST Ancillary Procedure [facility] [address] [place] [address] [phone] Arrived [facility] Comment on above: Arrived Start: 04-08-2024 End: 04-08-2024 Patient encounter procedure [facility] Comment on above: Closed nondisplaced fracture of proximal phalanx of lesser toe of right foot, initial encounter (Primary Dx); Contracture of right ankle Start: 03-13-2024 End: 03-13-2024 Professional / ancillary services management 03/13/2024 4:20 PM EDT Ancillary Procedure [facility] [address] [place] [address] Arrived [facility] Comment on above: [...] 03/11/2024 2:30 PM EDT Office Visit [facility] [address] [place] [phone] Constantin Melendez MD [address] [place] [phone] Arrived [facility] Comment on above: Arrived Start: 03-11-2024 End: 03-11-2025 Hemoglobin A1c/Hemoglobin.total in Blood Hemoglobin A1c Lab Routine Type 2 diabetes mellitus with hyperglycemia, without long-term current use of insulin ([facility]) Expected: 03/11/2024 (Approximate), Expires: 03/11/2025 [facility] Work Phone: Comment on above: Expected: 03/11/2024 (Approximate), Expires: 03/11/2025 Start: 03-11-2024 End: 05-11-2025 MG Breast - bilateral Screening Bilateral screening mammogram Imaging Routine Breast cancer screening by mammogram Expected: 03/11/2024, Expires: 05/11/2025 [facility] Comment on above: Expected: 03/11/2024 , Expires: 05/11/2025 Start: 03-06-2024 End: 03-06-2024 Patient encounter procedure 03/06/2024 10:15 AM EDT Office Visit [facility] [address] [place] [phone] Constantin Melendez MD [address] [place] [phone] [facility] Start: 02-14-2024 Screening for malign ant neoplasm of breast Mammogram [facility] Start: 02-04-2024 Influenza vaccination Influenza Vacc ine (#1) [facility] Start: 1994 Screening for malign ant neoplasm of cervix [facility] Start: 1985 Screening for malign ant neoplasm of cervix Pap Smear [facility] Start: 1964 Screening for malign ant neoplasm of colon [facility] XR Foot - right 3 Views XR foot 3+ views right Imaging Routine Closed nondisplaced fracture of proximal phalanx of lesser toe of right foot, initial encounter 03/13/2024 4:16 PM EDT [facility] Work Phone: XR Foot - right 3 Views XR foot 3+ views right Imaging Routine Closed nondisplaced fracture of proximal phalanx of lesser toe of right foot, initial encounter 04/08/2024 2:41 PM EST [facility] Work Phone: Immunizations Immunization Date Immunization Notes Care Provider Fa [facility] 06-07-2021 SARS-CoV-2 (COVID-19 ) mRNA BNT-162b2 vax RANJAN BARBIE [facility] 03-24-2021 influenza virus vaccine, unspecified formulation Constantin Melendez MD Work Phone: [facility] 09-21-2020 SARS-CoV-2 (COVID-19 ) mRNA BNT-162b2 vax RANJAN BARBIE [facility] 08-31-2020 SARS-CoV-2 (COVID-19 ) mRNA BNT-162t1 vax RANJAN BARBIE [facility] 03-05-2019 influenza virus vaccine, live, attenuated, for intranasal use RANJAN VALENTIN [facility] 02-24-2019 influenza virus vaccine, unspecified formulation RANJAN VALENTIN [facility] 03-20-2018 influenza virus vaccine, unspecified formulation RANJAN VALENTIN [facility] Jannet NEGATED: Highlighted row has not occurred!04-18-2022 influenza virus vaccine, unspecified formulation Hung Huff [facility] General Surgery [facility] Payers Date Payer Category Payer Private Health Insurance [employer] [id number] 2024 Unknown [id number] 2024 Self-pay 2022 Blue [employer] Blue [employer] BCBS [id number] 2022 Unknown BCBS BCBS [id number] 2022-Present [phone] [address] [id number] [id number] 1964 Unknown [id number] 2.16.840.1.869809.3.579. 2.593 1964 Unknown [id number] 2.16.840.1.684143.3.579. 2.593 1964 Unknown [id number] 2.16.840.1.996188.3.579. 2.593 1964 Unknown [id number] 2.16.840.1.453364.3.579. 2.593 1964 Unknown [id number] 2.16.840.1.208941.3.579. 2.593 1964 Unknown [id number] 2.16.840.1.995394.3.579. 2.593 1964 Unknown [id number] 2.16.840.1.254046.3.579. 2.593 1964 Unknown [id number] 2.16.840.1.609818.3.579. 2.593 1964 Unknown [id number] 2.16.840.1.823141.3.579. 2.356 1964 Unknown [id number] 2.16.840.1.179379.3.579. 2.1286 1964 Unknown [id number] 2.16.840.1.983544.3.579. 2.718 1964 Unknown [id number] 2.16.840.1.230596.3.579. 2.718 1964 Unknown [id number] 2.16.840.1.416234.3.579. 2.718 1964 Unknown [id number] 2.16.840.1.915889.3.579. 2.718 1964 Unknown [id number] 2.16.840.1.754566.3.579. 2.1259 1964 Unknown [id number] 2.16.840.1.401198.3.579. 2.1259 1964 Unknown [id number] 2.16.840.1.759035.3.579. 2.1259 1964 Unknown [id number] 2.16.840.1.731353.3.579. 2.1258 1964 Unknown [id number] 2.16.840.1.675696.3.579. 2.1258 1964 Unknown [id number] 2.16.840.1.193916.3.579. 2.1258 1964 Unknown [id number] 2.16.840.1.801979.3.579. 2.1258 1964 Unknown [id number] 2.16.840.1.933657.3.579. 2.1258 1964 Unknown [id number] 2.16.840.1.041604.3.579. 2.1258 1964 Unknown [id number] 2.16.840.1.775976.3.579. 2.1258 1964 Unknown [id number] 2.16.840.1.655703.3.579. 2.1258 1964 Unknown [id number] 2.16.840.1.945461.3.579. 2.1258 1964 Unknown [id number] 2.16.840.1.988244.3.579. 2.1258 1964 Unknown [id number] 2.16.840.1.578050.3.579. 2.1258 1964 Unknown [id number] 2.16.840.1.510954.3.579. 2. 1964 Unknown [id number] 2.16.840.1.432088.3.579. 2. 1964 Unknown [id number] 2.16.840.1.066841.3.579. 2. 1964 Unknown [id number] 2.16.840.1.832659.3.579. 2.727 1959 Unknown [id number] Unknown [id number] Unknown [id number] Unknown [id number] 2.16.840.1.397844.3.579. 2.531 Unknown [id number] 2.16.840.1.484337.3.579. 2.531 Social History Date Type Detail Facility Start: 03-18-2021 End: 05-08-2023 Tobacco smoking status Never smoked tobacco (finding) [facility] Start: 12-05-2023 End: 08-18-2024 Sex Assigned At Female [facility] Start: 05-08-2023 Tobacco use and exposure Smoke less tobacco non-user [facility] Start: 12-05-2023 End: 09-10-2024 Alcoholic beverage intake Lifetime non-drinker (finding) [facility] Start: 12-05-2023 End: 08-18-2024 History of Social function [facility] Start: 1965 Sex assigned at Not on file [facility] Tobacco smoking status Never [facility] Do you belong to any clubs or organizations such as protestant groups, unions, fraternal or athletic groups, or [...] 05-10-2024 Functional Status N/A [facility] 09-20-2023 Functional Status N/A [facility] 07-24-2023 Functional Status N/A [facility] 05-19-2022 Functional Status No Toni Fang [facility] 04-18-2022 Functional Status N/A [facility] General Surgery [facility] Clinical Notes 01-12-2022 to 09-10-2024 Constantin Melendez MD - 09/10/2024 1:38 PM Jone Melendez MD - 09/10/2024 1:38 PM Jone Melendez MD - 09/10/2024 1:00 PM Jone Melendez MD - 08/19/2024 11:59 AM EDT Note Date & Type Note Facility 09-10-2024 History of Present illness Narrative Associated Problem(s): Type 2 diabetes mellitus with hyperglycemia, without long-term current use of insulin (CMS/[facility]) BS remains elevated and increase glipizide. Continue metformin and actos. Stick to ADA diet and limit carbs. Associated Problem(s): Benign essential hypertension ([facility]) BP controlled and monitor PRN. Images from the original note were not included. Subjective Patient ID: Albina Cameron is a 58 y.o. female who presents for Follow-up (6m/Sugar running high). Follow up DM. BS remains elevated. Resumed glipizide last visit and BS remains over 300. Typically in 300s and at times up to 400. Still taking other medication. BS much higher since had to stop rybelsus due to loss of insurance. Tries to watch diet and limit carbs. Denies signs of elevated BS such as [...] (CMS/HCC) - Primary BS remains elevated and increase glipizide. Continue metformin and actos. Stick to ADA diet and limit carbs. Relevant Medications glipiZIDE (Glucotrol) 10 MG tablet documented in this encounter [facility] 08-19-2024 History of Present illness Narrative Associated Problem(s): Class 2 severe obesity due to excess calories with serious comorbidity and body mass index (BMI) of 37.0 to 37.9 in adult (CMS/HCC) Weight loss indicated. Associated Problem(s): Type 2 diabetes mellitus with hyperglycemia, without long-term current use of insulin ([facility]/HCC) BS remains elevated and add glipizide. Continue metformin and actos. Stick to ADA diet and limit carbs. Associated Problem(s): Benign essential hypertension (CMS/HCC) BP [...] 10 MG tablet documented in this encounter [facility] 05-24-2024 History of Present illness Narrative Patient: Albina [...] Asael Salmeron DPM documented in this encounter [facility] 05-15-2024 History of Present illness Narrative Patient: Albina Swartz Wears : 1965 PCP: Constantin Melendez MD SUBJECTIVE [...] Asael Salmeron DPM documented in this encounter [facility] 05-10-2024 History of Present illness Narrative Patient: Albina Friass : 1965 PCP: Constantin Melendez MD SUBJECTIVE [...] Asael Salmeron DPM documented in this encounter [facility] 05-10-2024 Hospital Discharge instructions Patient Education 05/10/2024 [...] Follow these instructions at home: Medicines Take crjp-bgt-nwavgkk and prescription medicines only as told by [...] to keep your pee pale yellow. ?Take ojrr-exi-tqiwesz or prescription medicines. ?Eat foods that are [...] provider. Document Revised: 01/20/2023 Document Reviewed: 01/20/2023 [employer] Patient Education 2023 TV Pixie. 05/10/2024 12:19:14 Laser Therapy for Kidney Stones [...] including vitamins, herbs, eye drops, creams, and bztd-cmc-exaunlm medicines. Any problems you or family members [...] unless your provider tells you to. ?Taking qxou-vcx-rxfwcnu medicines, vitamins, herbs, and supplements. Tests You [...] provider. Document Revised: 01/20/2023 Document Reviewed: 01/20/2023 [employer] Patient Education 2023 TV Pixie. Follow Up Care 05/07/2024 08:53:02 With:Omero CATHERINE, JULIO Woods, URO Address: When: Unknown [facility] 05-10-2024 Note Patient Education Nephrology Laser Therapy [...] these instructions at home: Medicines ??? Take bnum-gcr-phordji and prescription medicines only as told by [...] keep your pee pale yellow. ? Take ysrd-aof-uxbvqse or prescription medicines. ? Eat foods that [...] provider. Document Revised: 01/20/2023 Document Reviewed: 01/20/2023 [employer] Patient Education ? 2023 TV Pixie. Laser Therapy for Kidney Stones Laser therapy [...] including vitamins, herbs, eye drops, creams, and oion-akd-ncqrjhx medicines. ??? Any problems you or family [...] and drink. Thes (more content not included)... [facility] 04-26-2024 History of Present illness Narrative Patient: [...] risks, alternatives, benefits, post op complications and manager terminal expectations were discussed including but not limited to: infection,bone infection,wound dehiscence hardware failure and irritation,wound dehiscence,delay union/mal union/non union of bone. RSDS,neuroma,duty limitations,DVT/PE, NC,nerve damage, scar, loss of sensation, swelling. Pt [...] Asael Salmeron DPM documented in this encounter [facility] 04-15-2024 History of Present illness Narrative Patient: [...] Diagnosis Date Chest pain Diabetes (CMS/HCC) Hypertension (CMS/[facility]) Medications: Current Outpatient Medications: aspirin 81 MG [...] Asael Salmeron DPM documented in this encounter [facility] 04-08-2024 History of Present illness Narrative Patient: [...] Diagnosis Date Chest pain Diabetes (CMS/HCC) Hypertension (CMS/[facility]) Medications: Current Outpatient Medications: aspirin 81 MG [...] Asael Salmeron DPM documented in this encounter [facility] 03-13-2024 History of Present illness Narrative Patient: Albina Friass : 1965 PCP: Constantin Melendez MD SUBJECTIVE [...] Medical History: Diagnosis Date Chest pain Diabetes ([facility]) Hypertension ([facility]) Medications: Current Outpatient Medications: aspirin 81 MG [...] pneumatically inflated for proper custom fitting by sAael Salmeron DPM and staff. A verbal order was given for dispensing of device. The patient is ambulatory and may benefit functionally from this device. It may be used for the following conditions as noted per medical diagnosis. Asael Salmeron DPM documented in this encounter [facility] 03-11-2024 History of Present illness Narrative Associated Problem(s): Type 2 diabetes mellitus with hyperglycemia, without long-term current use of insulin ([facility]) Reports BS elevated and monitor daily. Stick [...] Bilateral screening mammogram documented in this encounter [facility] 03-04-2024 Note Patient Education Ma terials Follows: [...] your activities and whether you should start scolk-sb-cndlbl exercises for your injury. Ice ? If [...] provider. Document Revised: 03/11/2021 Document Reviewed: 03/11/2021 [employer] Patient Education ? 2023 TV Pixie. [facility] 01-10-2024 Note Patient Education Ma terials Follows:and [...] this condition includes: ? Antibiotic medicine. ? Wdzv-jiw-refwuhb medicines to treat discomfort. ? Drinking enough [...] these instructions at home: Medicines ? Take bwpv-yzl-iwwuioy and prescription medicines only as told by [...] provider. Document Revised: (more content not included)... [facility] 09-20-2023 Hospital Discharge instructions Patient Education 09/20/2023 [...] your health care provider. General instructions Take vinl-kqf-wkzfiyv and prescription medicines only as told by [...] provider. Document Revised: 02/08/2021 Document Reviewed: 02/08/2021 [employer] Patient Education 2022 TV Pixie. Follow Up Care 07/24/2023 11:07:01 With:RANJAN VALENTIN PA-C, URL Address: [place] [address] [phone] When: Unknown [facility] Jannet 07-24-2023 Evaluation + Plan note Extrac smitha from: Title:[facility] Note Author:Rosemary Jamil MD Date:07/24/23 Impression and Plan Assessment and Plan: Diagnosis: Vaginal atrophy (CJN65-XB N95.2, Discharge, Medical), Urge incontinence (DXR91-RS N39.41, Discharge, Medical). 57-year-old female here for [...] Future Appointments Appointment Date:09/20/2023 03:20:00 PM Scheduled Provider:RANJAN VALENTIN PA-C Location:[facility] [place] Appointment Type:URO Office Visit [facility]02-19-2024 Hospital Discharge instructions Patient Education 07/24/2023 11:03:43 [...] 100 degrees. Follow Up Care 07/18/2023 11:20:59 With:RANJAN VALENTIN Address: [address] [place] [address] [facility] (1) When: Unknown Comments:Office to schedule follow up in 1-2 months with [facility]01-24-2024 Evaluation + Plan note Diagnostic Tests Pending * Urine Culture 06/28/23 [facility]12-20-2022 Hospital Discharge instructions Patient Education 05/24/2022 10:18:47 [...] and water are not available, use hand sweet pickled fruit maker. ?Change your dressing as told by your [...] for you to drive. General instructions Take ndbu-nvp-dzzqnwc and prescription medicines only as told by [...] 08/04/2016 Document Revised: 01/12/2017 Document Reviewed: 08/04/2016 [employer] Patient Education 2020 TV Pixie. Follow Up Care 04/18/2022 16:01:25 With:Hung Huff Address: [address], [address] [address] [phone] Business (1) When:06/07/2022 09:22:00 Comments:Call for followup appointment [facility]11-14-2022 Hospital Discharge instructions Patient Education 04/18/2022 15:50:16 [...] ?Hypothyroidism. ?Polycystic ovarian syndrome (PCOS). ?Binge-eating disorder. ?[place] syndrome. Taking certain medicines, such as steroids, [...] food choices, such as grocery stores and farmers' markets. What are the signs or symptoms? The [...] and how much exercise you get. Take hnxl-uvm-rvfecil and prescription medicines only as told by [...] 06/29/2005 Document Revised: 01/24/2019 Document Reviewed: 01/24/2019 [employer] Patient Education 2020 [employer] [facility] General Surgery [facility] 08-10-2022 Evaluation + Plan note Diagnostic Tests Pending * [facility] Future Appointments Appointment Date:05/19/2022 03:30:00 PM Scheduled Provider: Location:[facility] Surgical Services Appointment Type:Surgical PAT FT Appointment Date:05/24/2022 08:00:00 AM Scheduled Provider: Location:[facility] Surgical Services Appointment Type:Surgery FT [facility] General Surgery [facility] Evaluation + Plan note Future Appointments Appointment Date:05/24/2022 08:00:00 AM Scheduled Provider: Location:[facility] Surgical [facility] Future Appointments Appointment Date:06/03/2022 11:30:00 AM Scheduled Provider:Hung Huff MD Location:[facility] App[facility] Type:GS [facility] Op 15 [facility] Future Appointments Appointment Date:07/19/2023 10:00:00 AM Scheduled Provider: Location:[facility] Urology Surgical Services Appointment Type:Urology CALL PAT FT Appointment Date:07/24/2023 10:00:00 AM Scheduled Provider: Location:[facility] Urology Surgical Services Appointment Type:Urology FT Diagnostic Tests Pending * Urine Culture [facility]18[facility]23 [facility] Future Appointments Appointment Date:07/19/2023 10:00:00 AM Scheduled Provider: Location:[facility] Urology Surgical Services Appointment Type:Urology CALL PAT FT Appointment Date:07/24/2023 10:00:00 AM Scheduled Provider: Location:[facility] Urology Surgical Services Appointment Type:Urology FT [facility] Evaluation + Plan note Future Appointments Appointment Date:06/13/2024 01:00:00 PM Scheduled Provider:Rosemary Jamil MD Location:[facility] Appointment Type:URO Office Visit [facility] Evaluation + Plan note Future Appointments Appointment Date:06/13/2024 01:00:00 PM Scheduled Provider:Rose[facility] Office Visit Diagnostic Tests Pending * Urine [facility] Diagnosis Type 2 diabetes mellitus with [...] of right ankle documented in this encounter [facility]* Diagnosis Closed nondisplaced fracture of proximal phalanx of lesser toe of right foot, initial encounter- Primary Contracture of right ankle documented in this encounter [facility] Healthcare[facility] note* Diagnosis Type 2 diabetes [...] of right ankle documented in this encounter [facility]* Diagnosis Type 2 diabetes mellitus with hyperglycemia, without long-term current use of insulin (CMS/[facility])- Primary Benign essential hypertension (CMS/HCC) Essential hypertension, [...] of right ankle documented in this encounter [facility]* Diagnosis Type 2 diabetes mellitus with hyperglycemia, without long-term current use of insulin (CMS/[facility])- Primary Benign essential hypertension (CMS/HCC) Essential hypertension, benign Major depressive disorder, recurrent episode, mild (HCC) ([facility]) Major depressive disorder, recurrent episode, mild Generalized anxiety disorder (CMS/HCC) Generalized anxiety disorder Gastroesophageal reflux disease without esophagitis Esophageal reflux DUKE (obstructive sleep apnea) Obstructive sleep apnea (adult) (pediatric) Type 2 diabetes mellitus with hyperglycemia, without long-term current use of insulin ([facility])- Primary Benign essential hypertension (CMS/HCC) Essential hypertension, benign Major depressive disorder, recurrent episode, moderate degree (CMS/HCC) Major depressive disorder, recurrent episode, moderate Generalized anxiety disorder (CMS/HCC) Generalized anxiety disorder DUKE (obstructive sleep apnea) Obstructive sleep apnea (adult) (pediatric) Gastroesophageal reflux disease without esophagitis Esophageal reflux Annual physical exam Routine general medical examination at a [facility] care facility Type 2 diabetes mellitus with hyperglycemia, without long-term current use of insulin ([facility])- Primary Benign essential hypertension ([facility]/HCC) Essential hypertension, benign Acute UTI Urinary tract infection, site not specified Mild recurrent major depression (HCC) (CMS/HCC) Major depressive disorder, recurrent episode, mild Generalized anxiety disorder (CMS/HCC) Generalized anxiety disorder DUKE (obstructive sleep apnea) Obstructive sleep apnea (adult) (pediatric) Body mass index (BMI) 37.0-37.9, adult Type 2 diabetes mellitus with other diabetic kidney complication ([facility]) Type 2 diabetes mellitus with hyperglycemia, without long-term current use of insulin ([facility])- Primary Benign essential hypertension (CMS/HCC) Essential hypertension, benign Mild recurrent major depression (HCC) ([facility]) Major depressive disorder, recurrent episode, mild Generalized anxiety disorder (CMS/HCC) Generalized anxiety disorder DUKE (obstructive sleep apnea) Obstructive sleep apnea (adult) (pediatric) Breast cancer screening by mammogram Closed nondisplaced fracture of proximal phalanx of lesser toe of right foot, initial encounter- Primary Contracture of right ankle documented in this encounter [facility] HealthcareEvaluation note* Diagnosis Type 2 diabetes [...] exam Routine general medical examination at a [facility] Type 2 diabetes mellitus with hyperglycemia, without [...] of insulin (CMS/HCC) [facility] encounter [facility]* Diagnosis Type 2 diabetes mellitus [...] exam Routine general medical examination at a [facility] [facility] Type 2 diabetes mellitus with hyperglycemia, without long-term current use of insulin ([facility])- Primary Benign essential hypertension (CMS/HCC) Essential hypertension, benign Acute UTI Urinary tract infection, site not specified Mild recurrent major depression (HCC) (CMS/HCC) Major depressive disorder, recurrent episode, mild Generalized anxiety disorder (CMS/HCC) Generalized anxiety disorder DUKE (obstructive sleep apnea) Obstructive sleep apnea (adult) (pediatric) Body mass index (BMI) 37.0-37.9, adult Type 2 diabetes mellitus with other diabetic kidney complication ([facility]) Type 2 diabetes mellitus with hyperglycemia, without long-term current use of insulin ([facility])- Primary Benign essential hypertension (CMS/HCC) Essential hypertension, benign Mild recurrent major depression (HCC) ([facility]/HCC) Major depressive disorder, recurrent episode, mild Generalized anxiety disorder (CMS/HCC) Generalized anxiety disorder DUKE (obstructive sleep apnea) Obstructive sleep apnea (adult) (pediatric) Breast cancer screening by mammogram Closed nondisplaced fracture of proximal phalanx of lesser toe of right foot, initial encounter- Primary documented in this encounter [facility]* Diagnosis Type 2 diabetes mellitus with hyperglycemia, without long-term current use of insulin (CMS/[facility])- Primary Benign essential hypertension (CMS/HCC) Essential hypertension, [...] exam Routine general medical examination at a [facility] Type 2 diabetes mellitus with hyperglycemia, without [...] initial encounter- Primary documented in this encounter [facility]* Diagnosis Polyosteoarthritis, unspecified Gastro-esophageal reflux disease without esophagitis Esophageal reflux documented in this encounter [facility]* Diagnosis Type 2 diabetes mellitus [...] hyperglycemia, without long-term current use of insulin (CMS/[facility])- Primary Benign essential hypertension (CMS/HCC) Essential hypertension, benign Major depressive disorder, recurrent episode, moderate degree (CMS/HCC) Major depressive disorder, recurrent episode, moderate Generalized anxiety disorder (CMS/HCC) Generalized anxiety disorder DUKE (obstructive sleep apnea) Obstructive sleep apnea (adult) (pediatric) Gastroesophageal reflux disease without esophagitis Esophageal reflux Annual physical exam Routine general medical examination at a [facility] care facility Type 2 diabetes mellitus with hyperglycemia, without long-term current use of insulin ([facility])- Primary Benign essential hypertension ([facility]/HCC) Essential hypertension, benign Acute UTI Urinary tract infection, site not specified Mild recurrent major depression (HCC) (CMS/HCC) Major depressive disorder, recurrent episode, mild Generalized anxiety disorder (CMS/HCC) Generalized anxiety disorder DUKE (obstructive sleep apnea) Obstructive sleep apnea (adult) (pediatric) Body mass index (BMI) 37.0-37.9, adult Type 2 diabetes mellitus with other diabetic kidney complication ([facility]) Type 2 diabetes mellitus with hyperglycemia, without long-term current use of insulin ([facility])- Primary Benign essential hypertension ([facility]/HCC) Essential hypertension, benign Mild recurrent major depression (HCC) ([facility]) Major depressive disorder, recurrent episode, mild Generalized anxiety disorder ([facility]/HCC) Generalized anxiety disorder DUKE (obstructive sleep apnea) Obstructive sleep apnea (adult) (pediatric) Breast cancer screening by mammogram Closed nondisplaced fracture of proximal phalanx of lesser toe of right foot, initial encounter- Primary Contracture of right ankle documented in this encounter [facility] HealthcareEvaluation [facility]* Diagnosis Type 2 diabetes mellitus with hyperglycemia, without long-term current use of insulin ([facility])- Primary Benign essential hypertension ([facility]/HCC) Essential hypertension, benign Major depressive disorder, recurrent episode, mild (HCC) ([facility]) Major depressive disorder, recurrent episode, mild Generalized anxiety disorder ([facility]/HCC) Generalized anxiety disorder Gastroesophageal reflux disease without esophagitis Esophageal reflux DUKE (obstructive sleep apnea) Obstructive sleep apnea (adult) (pediatric) Type 2 diabetes mellitus with hyperglycemia, without long-term current use of insulin ([facility])- Primary Benign essential hypertension (CMS/HCC) Essential hypertension, [...] recurrent episode, mild documented in this encounter [facility]* Diagnosis Type 2 diabetes mellitus [...] exam Routine general medical examination at a [facility] care facility Type 2 diabetes mellitus with [...] diabetes mellitus with other diabetic kidney complication Type 2 diabetes mellitus with hyperglycemia, without [...] (CMS/HCC) Major depressive disorder, recurrent episode, mild Type 2 diabetes mellitus with hyperglycemia, without long-term current use of insulin (CMS/HCC)- Primary Benign essential hypertension (CMS/HCC) Essential hypertension, benign documented in this encounter [facility] Narrative No data available for this section [facility] No data available for this section [facility] No data available for this section [facility] Summary Purpose Family History No Family History [...] section and content) DATE CREATED AUTHOR 11/13/2020 [facility] DATE CREATED AUTHOR AUTHOR'S ORGANIZ ATION 06/04/2022 [facility] DATE CREATED AUTHOR AUTHOR'S ORGANIZ ATION 07/12/2022 [facility] DATE CREATED AUTHOR AUTHOR'S ORGANIZ ATION 11/08/2023 [facility] DATE CREATED AUTHOR AUTHOR'S ORGANIZ ATION 05/06/2024 [facility] DATE CREATED AUTHOR AUTHOR'S ORGANIZ ATION 08/01/2024 [facility] DATE CREATED AUTHOR AUTHOR'S ORGANIZ ATION 09/11/2024 [facility] EPIC DATE CREATED AUTHOR AUTHOR'S ORGANIZ ATION 09/22/2024 Toni Rubio [facility] Care Team (unrecognized sect ion and content) [employer]oil [employer] Relationship Specialty Start Date End Date Constantin Melendez MD [address] [place] [phone] PCP - General Family Medicine 11/07/23 Constantin Melendez MD [address] [place] [phone] PCP - [employer] 02/04/24 [employer] Relationship Specialty Start Date End Date Constantin Melendez MD [address] [place] [phone] PCP - General Family Medicine 11/07/23 Constantin Melendez MD [address] [place] [address] PCP - [employer] 02/04/24 Foil [employer] Relationship Specialty Start Date End Date Constantin Melendez MD [address] [place] [address] PCP - General Family Medicine 11/07/23 Constantin Melendez MD [address] [place] [address] PCP - [employer] 02/04/24 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 Relationship Specialty Start Date End Date Cosntantin Melendez MD [address] [place] [address] PCP - General [facility] Medicine 11/07/23 Constantin Melendez MD [address] [place] [address] PCP - [employer] 02/04/24 Foil C[employer] Relationship Specialty Start Date End Date Constantin Melendez MD [address] [place] [address] PCP - General Family Medicine 11/07/23 Constantin Melendez MD [address] [place] [address] PCP - [employer] 02/04/24 Foil [employer] Relationship Specialty Start Date End Date Constantin Melendez MD [address] [place] [address] PCP - General Family Medicine 11/07/23 Constantin Melendez MD [address] [place] [address] PCP - [employer] 02/04/24 Foil [employer] Relationship Specialty Start Date End Date Constantin Melendez MD [address] [place] [address] PCP - General Family Medicine 11/07/23 Constantin Melendez MD [address] [place] [phone] PCP - [employer] 02/04/24 Foil C[employer] Relationship Specialty Start Date End Date Constantin Melendez MD [address] [place] [address] PCP - General [facility] Medicine 11/07/23 Constantin Melendez MD [address] [place] [address] PCP - [employer] 02/04/24 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 Relationship Specialty Start Date End Date Constantin Melendez MD [address] [place] [address] PCP - General Family Medicine 11/07/23 Constantin Melendez MD [address] [place] [address] PCP - [employer] 02/04/24 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 Relationship Specialty Start Date End Date Constantin Melendez MD [address] [place] [address] PCP - General Family Medicine 11/07/23 Constantin Melendez MD [address] [place] [address] PCP - [employer] 02/04/24 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 Relationship Specialty Start Date End Date Constantin Melendez MD [address] [place] [address] PCP - General Family Medicine 11/07/23 Constantin Melendez MD [address] [place] [address] PCP - [employer] 02/04/24 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 Relationship Specialty Start Date End Date Constantin Melendez MD [address] [place] [address] PCP - General Family Medicine 11/07/23 Constantin Melendez MD [address] [place] [address] PCP - [employer] 02/04/24 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 Relationship Specialty Start Date End Date Constantin Melendez MD [address] [place] [address] PCP - General Family Medicine 11/07/23 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 Relationship Specialty Start Date End Date Constantin Melendez MD [address] [place] [address] PCP - General Family Medicine 11/07/23 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 Relationship Specialty Start Date End Date Constantin Melendez MD [address] [place] [address] PCP - General Family Medicine 11/07/23 Foil C[employer] Relationship Specialty Start Date End Date Constantin Melendez MD [address] [place] [phone] PCP - General Family Medicine 11/07/23 Foil [employer] Relationship Specialty Start Date End Date Constantin Melendez MD [address] [place] [address] PCP - General Family Medicine 11/07/23 [...] Comments Blood Sugar Problem Out of control Reason Comments Follow-up 6mSugar running high FOR RECORDS PERTAINING TO PATIENTS WHO ARE [...] BE BASED ON THE PRIMARY CLINICAL RECORDS. [email or web address] provides no warranty or guarantee of the accuracy or completeness of information in this document.
== END 2024-10-18 10:03 | disposition home or self-care (01) ==
LOC: CT 10:02
PROVIDERS: PCP Family Medicine; Visit Provider Urology
DX: N20.0 Calculus of kidney (principal); N13.30 Unspecified hydronephrosis
CPT/HCPCS: 74176